=== PATIENT | female | born 1940 | race Caucasian/White ===

== ENCOUNTER 2017-05-20 06:21 | Day surgery (SDC) | payer OTHER ==
[2017-05-18 16:35] LABS: Absolute Monocytes 0.6 K/uL (0.1-1.3); Absolute Neutrophil 3.3 K/uL (1.8-8.0); Basophils % 1.4 % (0-1.3); Eosinophils % 3.8 % (0-4.4); Hematocrit 43.6 % (36.0-45.0); Lymphocytes % 32.1 % (15.3-44.8); MCV 88.5 fL (80-100); Monocytes % 9.2 % (3.3-12.3); RBC Red Blood Cell Count 4.93 M/uL (3.86-4.86)
--- NOTE | 2017-05-18 16:36 | RAD REPORT ---
EXAM DESCRIPTION: RADOP - Outpt Chest Pa/Lat (2 Views) - 05/18/2017 4:28 pm CLINICAL HISTORY: Preop chest COMPARISON: Chest/rib imaging April 2015 TECHNIQUE: PA and lateral views of the chest were obtained. FINDINGS: The lungs are clear of failure, infiltrate or mass. Lung markings are mildly prominent. No significant change from 2016. Heart size is normal and central vasculature is within normal limits. No pleural effusion or pneumothorax seen. Bones are osteopenic. Degenerative and scoliotic changes i n the spine are present without an acute finding suspected. No acute aortic finding. IMPRESSION: No acute cardiopulmonary finding seen. Chest is not substantially different from the April 2015 imaging.
[2017-05-18 17:08] LABS: Potassium 4.7 mEq/L (3.6-5.0)
--- NOTE | 2017-05-19 05:58 | EKG ---
Test Date: 2017-05-18 Test Time: 16:42:52 Watch [place] Grinder: SWATI MEASUREMENT RESULTS: Intervals: Rate: 60 NV: 188 QRSD: 76 QT: 454 QTc: 454 [place]: P: 97 NV: 188 QRS: 95 T: 77 INTERPRETIVE STATEMENTS: Normal sinus rhythm vertical axis cannot rule out Septal infarct, age undetermined Abnormal ECG Compared to ECG 02/18/2015 06:41:40 questionable Myocardial infarct finding now present Atrial premature complex(es) no longer present Electronically Signed On 05-19-17 05:58:18 CDT by Piotr Savage
[2017-05-20] MEDS ORDERED: NA CHLORIDE 0.9% 500 ML ONE (07:11)
[2017-05-20] MEDS ORDERED: CEFAZOLIN/SWI 1gm 1 GM/10 ML SYR ONE (07:12)
[2017-05-20] MEDS ORDERED: MIDAZOLAM HCL 2 MG/2 ML INJ ONE (07:39)
[2017-05-20] MEDS ORDERED: PROPOFOL 200 MG/20 ML VIAL IV ONE (07:39)
[2017-05-20] MEDS ORDERED: ONDANSETRON 4 MG/2 ML VIAL ONE (07:40)
[2017-05-20] MEDS ORDERED: FENTANYL CITR 100 MCG/2 ML ONE (07:40)
[2017-05-20] MEDS ORDERED: LIDOCAINE 2% MPF 5 ML VIAL ONE (07:40)
[2017-05-20] MEDS ORDERED: BUPIVACAINE 0.5% PF 10 ML VIAL ONE (07:51)
[2017-05-20] MEDS ORDERED: EPHEDRINE SULF 50 MG/5 ML SYR ONE (08:41)
[2017-05-20] MEDS ORDERED: GLYCOPYRROLATE 0.2 MG/ML SYR ONE ×2 (08:42→08:45)
[2017-05-20] MEDS ORDERED: MEPERIDINE HCL 25 MG/0.5 ML ONE (09:23)
--- NOTE | 2017-05-20 09:40 | OP ---
Date of Procedure: 05/20/2017 Surgeon: Yeison Salinas MD Hearing Examiner: ARON Spicer Preoperative Diagnoses: Abnormal skin, right breast; fluid, right breast in the cystic cavity; and h istory Of right breast cancer. Postoperative Diagnoses: Abnormal skin, right breast; fluid, right breast in the cystic cavity; and history of right breast cancer. Procedure: Needle aspiration of right breast cyst and excisional biopsy of right breast skin. Estimated Blood Loss: Minimal. Specimen: Fluid and thickened skin. Findings: As above. Anesthesia: General. Complication: None. Disposition: The patient tolerated the procedure in stable condition and taken to recovery in good g eneral condition. Procedure In Detail: The patient was brought to the OR and placed in the supine position. General a nesthesia was begun. The patient was prepped and draped in the usual sterile fashion. Marcaine 0.5% was infiltrated locally. A needle used to access the cystic cavity that was present in the lateral aspect of the breast. There was approximately 25 cc of fluid was aspirated and sent to pathology for cytology. Then, the thickened skin tissue that was present in the anterior superior part of the isael ast, was biopsied with an incision approximately 5 x 2 cm. Subcutaneous tissues divided. Bleeding c ontrolled with cautery. Then, the skin specimen sent to Pathology. Wound irrigated. Bleeding contr olled with cautery and then 2-0 chromic and 3-0 chromic used to approximate the subcutaneous tissue a nd close the skin. Sterile dressing was applied. The patient was awakened and taken to recovery in good general condition. Discharge Note: The patient will go to Day Surgery and home when stable. Disposition: Home. Condition: Stable. Discharge Instructions: Resume home medications and diet. Activity as tolerated. No heavy lifting. Remove outer dressing in 2 days. Shower. Keep wound clean and dry. Keep Steri-Strips on at all t imes. Tylenol No. 3 one tablet p.o. q.4 p.r.n. pain. Follow up in my office in one week. Call for appointment. SCALRET/AYAAN Voice ID: [id number] Report ID: [id number]
[2017-05-20] MEDS ORDERED: HYDROCODONE/APAP 7.5/325 MG TAB ONE (10:25)
[2017-05-20] MEDS ORDERED: NA CHLORIDE 0.9% 1,000 ML ONE (13:09)
[2017-05-20 13:38] VITALS: TEMP 98; O2SAT 98
[2017-05-20 13:40] VITALS: BP 142/78
== END 2017-05-20 10:30 | disposition home or self-care (01) ==
LOC: OR 06:21
PROVIDERS: ATTEND Surgery
DX: Z88.6 Allergy status to analgesic agent; Z88.0 Allergy status to penicillin; I10 Essential (primary) hypertension; Z85.3 Personal history of malignant neoplasm of breast; Z88.2 Allergy status to sulfonamides; L98.9 Disorder of the skin and subcutaneous tissue, unspecified; N63.0 Unspecified lump in unspecified breast
CPT/HCPCS: 10021; 11406; 36415; 71046; 80048; 85025; 88108; 88305 ×2; 93005; J0690; J2175; J2250; J2405; J3010; J7030

== ENCOUNTER 2017-06-23 13:57 | Emergency (ER) | payer OTHER ==
--- OUTSIDE RECORDS SUMMARY | 2017-06-23 13:59 | XMS REPORT ---
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 Problem Major depression, recurrent, F33.9 Active chronic Problem Overactive bladder N32.81 Active Problem Hypercholesteremia E78.00 Active Problem Rib pain R07.81 Active Problem Tobacco abuse counseling Z71.6 Active Problem Migraine G43.909 Active Problem Chronic pain syndrome G89.4 Active Problem Benign essential HTN I10 Active Problem Memory problem R41.3 Active Problem Left foot pain M79.672 Active Medications Medication Code Code Instructions Start End Status Dosage System Date Date Spiriva [facility] 12088959847 18 MCG July 18, Active 1 capsule HandiHaler Inhalation Once 2018 a day Results No Known Results Summary Purpose eClinicalWorks Submission
--- OUTSIDE RECORDS SUMMARY | 2017-06-23 13:59 | XMS REPORT ---
:1940 Author [facility] Care Team Providers Name Role Phone Wes Perrin Provider Role Unavailable Allergies No Known Allergies Problems Problem Type Condition Code Onset Dates Condition Status Problem Benign essential HTN I10 Active Assessment History of breast cancer Z85.3 Active Problem Left foot pain M79.672 Active Assessment Overactive bladder N32.81 Active Problem Allergic rhinitis J30.9 Active Problem Creatinine elevation R79.89 Active Problem Severe anxiety with panic F41.0 Active Problem History of lung cancer Z85.118 Active Problem Depression with anxiety F41.8 Active Assessment Benign essential HTN I10 Active Assessment Hypercholesteremia E78.00 Active Problem History of breast cancer Z85.3 Active Assessment Allergic rhinitis J30.9 Active Problem 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 23511738375 1 MG Orally Active 1 tablet Twice a day Pravastatin [facility] 91470602840 20 MG Orally Active 1 tablet Sodium Once a day Oxybutynin ND 66555253331 5 MG Orally Once Active 1 tablet Chloride a day Cymbalta [facility] 64997765400 30 MG Orally Active 1 capsule Twice a day Neurontin ND 94346669089 100 MG Orally Active 1 capsule Once a day Spiriva [facility] 14749135464 18 MCG Active 1 capsule HandiHaler Inhalation Once a day Singulair [facility] 02192498588 10 MG Orally Active 1 tablet Once a day in the evening Hydrocodone-Jensen [facility] 21976766371 7.5-325 MG Active 1 tablet taminophen Orally every 12 as needed hrs Amlodipine [facility] 96530836977 2.5 MG Orally Active 1 tablet Besylate Once a day Proventil HFA [facility] 17222973636 108 (90 Base) Active 2 puffs as MCG/ACT needed Inhalation every 6 hrs Results No Known Results Summary Purpose eClinicalWorks Submission
--- NOTE | 2017-06-23 14:39 | ER ---
Nurse's Notes [facility] Name: Cecile Conley Age: 77 yrs Sex: Female : 1940 Arrival Date: 06/23/2017 Time: 14:01 Bed 6 Private MD: Diagnosis: Adjustment disorder with depressed mood Presentation: 06/23 13:57 Presenting complaint: EMS states: Pt walked into Dr Perrin's office and stated to staff sv that she wanted to kill herself. EMS reports that her house may be getting taken from her. BP 150/80. Pt presents to the ER attempting to leave the hospital. Pt refuses to change into a gown. Pt keeps stating that she needs to leave and go home. Pt is rambling and doesn't appear to have a clear thinking process. Transition of care: patient was received from another setting of care (ambulatory primary care physician practice), Dr Perrin's office. Onset of symptoms was June 23, 2017. Care prior to arrival: None. 13:57 Method Of Arrival: EMS: [facility] sv 13:57 Acuity: DAVID 2 sv 13:58 Initial Sepsis Screen: Does the patient meet any 2 criteria? No. Patient's initial sv sepsis screen is negative. Does the patient have a suspected source of infection? No. Patient's initial sepsis screen is negative. Triage Assessment: 14:00 General: Appears comfortable, Behavior is cooperative, anxious, uncooperative. Pain: sv Denies pain. EENT: No signs and/or symptoms were reported regarding the EENT system. Neuro: Level of Consciousness is awake, alert, obeys commands, Oriented to person, place, time, situation, Moves all extremities. Full function Gait is steady. Respiratory: Respiratory effort is even, unlabored, Respiratory pattern is regular, symmetrical. GI: No signs and/or symptoms were reported involving the gastrointestinal system. : No signs and/or symptoms were reported regarding the genitourinary system. Derm: Skin is normal. Historical: - Allergies: 14:26 Sulfa (Sulfonamide Antibiotics); sv 14:26 Aspirin; sv - Home Meds: 14:26 Xanax Oral [Active]; sv - PMHx: 14:26 Anxiety; Hypertension; COPD; Cancer; sv - Immunization history:: Adult Immunizations up to date. - Social history:: Smoking status: Patient/guardian denies using tobacco. Screenin:35 Abuse screen: Denies threats or abuse. Denies injuries from another. Nutritional hb screening: No deficits noted. Tuberculosis screening: No symptoms or risk factors identified. Fall Risk None identified. Assessment: 14:23 Reassessment: Edwige who works the front desk coordinator at Dr Perrin's stated that the pt came up sv to the front window and stated that she needed to get a refill for her medicine from Dr Perrin. Edwige was attempting to inform her that the pharmacy usually will call the doctor office and ask for a refill. Pt stated that she got it filled at another doctor's office and that she wasn't understanding. Pt then got teary eyed and stated that she was in bad shape, really really bad shape. Pt stated to Edwige "I'm suicidal. I have all these thoughts of hurting myself." Edwige informed Dr Perrin and PD was called out and EMS. 14:25 Reassessment: Power GAMING informed what the staff stated the pt said. sv 14:40 Reassessment: Marah DODGE informed of the reason for visit for the pt. sv 15:00 Reassessment: After pt left, the Mental healthy deputy went out to the lobby to speak sv with the pt and was going to drive her home. Psych: 14:00 Safety Checks: Personal items have been removed. Pt has been placed in a hallway sv bed/chair. No visitors are present at this time. 14:00 Subjective: Patient's mood is sad, Delusions are denied, Hallucinations are denied P sv denies suicidal or homicidal ideation at this time. Objective: Patient is cooperative, uncooperative, irritable, Speech is rambling, Pt able to answer questions appropriately but doesn't appear to have a clear thought process. Interventions: Patient reassessed during use of restraints. Patient is physically safe. Patient's cardiac status is stable. Patient's respirations are even and unlabored. Patient has good circulation in all extremities as indicated by capillary refill < 3 seconds. Patient's ROM assessed and is intact. Patient nutrition and hydration needs will continue to be monitored and addressed. Patient hygiene and elimination needs met. Patient assessed for signs of distress. Patient remains reasonably comfortable at this time. Assisted patient in de-escalation of behavior by removing stimuli causing behavior where possible. Suicide Risk Assessment: Sad Person Scale: Sex of patient: Female: Score 0 points. Age of patient: Score 1 point if patient is over 65. Depression: Score 1 point if signs of depression are present. Previous Attempt: Score 0 point if patient has not previously attempted suicide. Substance Abuse: Score 0 point if patient does not abuse alcohol or drugs. Rational Thinking: Score 1 point if patient is lacking rational thinking. Social Support: Score 0 if social support is present/available. Organized Plan: Score 0 if patient did not have an organized plan in place. Relationship: Score 1 point if patient is , , , or for a single male Chronic Sickness: Score 1 point if patient has illness, chronic, debilitating, or severe. TOTAL POINTS: If total points are 5-6, proposed clinical action is to strongly consider hospitalization, depending upon confidence in the follow-up arrangement. Implement suicide precautions. Pt denies substance abuse. Vital Signs: 14:34 BP 151 / 96; Pulse 74; Resp 16; Temp 98.1; Pulse Ox 96% on R/A; Pain 0/10; hb ED Course: 14:01 Patient arrived in ED. bd 14:06 Power Jane PA is PHCP. cp 14:06 Leander Cochran MD is Attending Physician. cp 14:10 Patient has correct armband on for positive identification. Bed in low position. sv 14:11 Sofia Langston, DAR is Primary Nurse. sv 14:23 Triage completed. sv 14:35 Arm band placed on right wrist. hb 14:51 No provider procedures requiring assistance completed. Patient did not have IV access sv during this emergency room visit. Administered Medications: No medications were administered Outcome: 14:38 Discharge ordered by . cp 14:51 Discharged to home ambulatory, pt left before getting discharge paperwork. sv 14:51 Condition: stable 14:54 Patient left the ED. sv Signatures: Roxann Oswald Stephanie, Power Palafox RN, PA PA cp Baxter, Heather, RN RN Corrections: (The following items were deleted from the chart) 14:37 13:57 Presenting complaint: EMS states: Pt walked into Dr Perrin's office and stated to sv staff that she wanted to kill herself. EMS reports that her house may be getting taken from her. BP 150/80. sv
--- NOTE | 2017-06-23 14:40 | EDPHYS ---
Physician Documentation [facility] Emergency [facility] Name: Cecile Conley Age: 77 yrs Sex: Female : 1940 Arrival Date: 06/23/2017 Time: 14:01 Bed 6 Private MD: ED Physician Leander Cochran HPI: 06/23 14:35 This 77 yrs old Female presents to ER via EMS with complaints of Suicidal cp Ideation. 14:35 The patient presents to the emergency department with depression, recent foreclosure cp proceedings on home. Onset: The symptoms/episode began/occurred gradually. Past psychiatric history: Prior diagnosis: anxiety. 14:35 Patient referred to ED from office of DR Perrin for making suicidal threats. When asked cp in ED about wanting to harm herself or others, patient repeatedly denies wanting to harm herself or others. Patient reports she was recently in foreclosure proceedings on home and believes she may have recently been conned out of 2000 thousand dollars. Patient admits to recent hardships, but when questioned on several occasions denies wanting to hurt herself. Historical: - Allergies: 14:26 Sulfa (Sulfonamide Antibiotics); sv 14:26 Aspirin; sv - Home Meds: 14:26 Xanax Oral [Active]; sv - PMHx: 14:26 Anxiety; Hypertension; COPD; Cancer; sv - Immunization history:: Adult Immunizations up to date. - Social history:: Smoking status: Patient/guardian denies using tobacco. ROS: 14:35 Eyes: Negative for injury, pain, redness, and discharge. cp 14:35 Constitutional: Negative for body aches, chills, fever, poor PO intake. 14:35 ENT: Negative for drainage from ear(s), ear pain, sore throat, difficulty swallowing, difficulty handling secretions. 14:35 Cardiovascular: Negative for chest pain, edema, palpitations. 14:35 Respiratory: Negative for cough, shortness of breath, wheezing. 14:35 Abdomen/GI: Negative for abdominal pain, nausea, vomiting, and diarrhea. 14:35 Skin: Negative for cellulitis, rash. 14:35 Neuro: Negative for altered mental status, headache, weakness. 14:35 Psych: Positive for depression, Negative for auditory hallucinations, visual hallucinations, homicidal ideation, suicide gesture, suicidal ideation. 14:35 All other systems are negative. Exam: 14:35 Head/Face: Normocephalic, atraumatic. cp 14:35 Constitutional: The patient appears in no acute distress, alert, awake, non-diaphoretic, non-toxic, well developed, well nourished. 14:35 Eyes: Periorbital structures: appear normal, Conjunctiva: normal, no exudate, no injection, Sclera: no appreciated abnormality, Lids and lashes: appear normal, bilaterally. 14:35 ENT: External ear(s): are unremarkable, Nose: is normal, Mouth: is normal. 14:35 Chest/axilla: Inspection: normal. 14:35 Cardiovascular: Rate: normal. 14:35 Respiratory: the patient does not display signs of respiratory distress, Respirations: normal, no use of accessory muscles, no retractions, no splinting, no tachypnea. 14:35 Abdomen/GI: Exam negative for discomfort, distension, guarding, Inspection: abdomen appears normal. 14:35 Back: pain, is absent. 14:35 Skin: cellulitis, is not appreciated, no rash present. 14:35 Neuro: Orientation: to person, place \T\ time. Mentation: lucid, able to follow commands, Cerebellar function: is grossly normal, Motor: moves all fours, strength is normal, Gait: is steady, at a normal pace, without difficulty. 14:35 Psych: Affect is calm, Oriented to person, place, time, Patient has no thoughts/intents to harm self or others. Judgement / Insight is normal. Delusions/hallucinations are not present. Vital Signs: 14:34 BP 151 / 96; Pulse 74; Resp 16; Temp 98.1; Pulse Ox 96% on R/A; Pain 0/10; hb MDM: 14:06 Patient medically screened. cp 14:35 Differential diagnosis: acute psychotic break, depression, psychosis secondary to cp non-compliance, suicidal ideation. 14:38 Data reviewed: vital signs, nurses notes, and as a result, I will discharge patient. cp 14:38 Counseling: I had a detailed discussion with the patient and/or guardian regarding: the cp historical points, exam findings, and any diagnostic results supporting the discharge/admit diagnosis, to return to the emergency department if symptoms worsen or persist or if there are any questions or concerns that arise at home. 14:38 ED course: VSS. Patient continues to deny suicidal ideation. Patient informed and cp competent in decision making. Will discharge to home for continued monitoring. Administered Medications: No medications were administered Disposition: 16:40 Co-signature as Attending Physician, Leander Cochran MD. rn Disposition: 06/23/17 14:38 Discharged to Home. Impression: Adjustment disorder with depressed mood. - Condition is Stable. - Discharge Instructions: Depression, Adult. - Medication Reconciliation Form, Thank You Letter, Antibiotic Education, Prescription Opioid Use form. - Follow up: Private Physician; When: 1 - 2 days; Reason: Recheck today's complaints. - Problem is new. - Symptoms have improved. Signatures: Sofia Langston RN RN sv Nieto, Roman, MD MD rn Page, Corey, PA PA cp
[2017-06-23 14:58] VITALS: BP 151/96; TEMP 98.1; O2SAT 96
== END 2017-06-23 14:54 | disposition home or self-care (01) ==
LOC: ER 13:57
DX: F43.21 Adjustment disorder with depressed mood (principal); I10 Essential (primary) hypertension; J44.9 Chronic obstructive pulmonary disease, unspecified; Z88.2 Allergy status to sulfonamides
CPT/HCPCS: 99283

== ENCOUNTER 2017-11-08 10:22 | Emergency (ER) | payer OTHER ==
--- OUTSIDE RECORDS SUMMARY | 2017-11-08 10:25 | XMS REPORT ---
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 Problem Major depression, recurrent, F33.9 Active chronic Problem CKD (chronic kidney disease) stage N18.3 Active 3, GFR 30-59 ml/min Problem Tobacco abuse counseling Z71.6 Active Problem Left foot pain M79.672 Active Problem Allergic rhinitis J30.9 Active Problem Migraine G43.909 Active Problem Rib pain R07.81 Active Problem Benign essential HTN I10 Active Problem Chronic pain syndrome G89.4 Active Medications Medication Code Code Instructions Start End Status Dosage System Date Date Proventil HFA [facility] 50218018874 108 (90 Base) Inactive 2 puffs MCG/ACT as needed Inhalation every 6 hrs Ventolin HFA [facility] 41818075312 108 (90 Base) August 16 Active 2 puffs MCG/ACT 2018 as needed Inhalation every 6 hrs Results No Known Results Summary Purpose eClinicalWorks Submission
--- OUTSIDE RECORDS SUMMARY | 2017-11-08 10:25 | XMS REPORT ---
:1940 [facility] Team Providers Name Role Phone Wes Perrin Provider Role Unavailable Allergies No Known Allergies Problems Problem Type Condition Code Onset Dates Condition Status Assessment History of breast cancer Z85.3 Active Problem Rib pain R07.81 Active Assessment Overactive bladder N32.81 Active Problem Chronic pain syndrome G89.4 Active Assessment Allergic rhinitis J30.9 Active Problem Memory problem R41.3 Active Problem Overactive bladder N32.81 Active Problem Hypercholesteremia E78.00 Active Problem History of breast cancer Z85.3 Active Problem History of lung cancer Z85.118 Active Assessment Chronic pain syndrome G89.4 Active Assessment Benign essential HTN I10 Active Problem Depression with anxiety F41.8 Active Assessment Hypercholesteremia E78.00 Active Problem Creatinine elevation R79.89 Active Problem Severe anxiety with panic F41.0 Active Problem 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 Problem Major depression, recurrent, F33.9 Active chronic Problem CKD (chronic kidney disease) stage N18.3 Active 3, GFR 30-59 ml/min Problem Tobacco abuse counseling Z71.6 Active Assessment Major depression, recurrent, F33.9 Active chronic Assessment Severe anxiety with panic F41.0 Active Problem Left foot pain M79.672 Active Problem Allergic rhinitis J30.9 Active Problem Migraine G43.909 Active Problem Benign essential HTN I10 Active Medications Medication Code Code Instructions Start End Status Dosage System Date Oxybutynin ND 29463580802 5 MG Orally Once Active 1 tablet Chloride a day Amlodipine ND 43345913791 2.5 MG Orally Active 1 tablet Besylate Once a day Proventil HFA ND 55870921242 108 (90 Base) Active 2 puffs as MCG/ACT needed Inhalation every 6 hrs Spiriva ND 76476087715 18 MCG July Active 1 capsule HandiHaler Inhalation Once 24, a day 2017 Alprazolam ND 71594708060 1 MG Orally Active 1 tablet Twice a day Hydrocodone-Jensen ND 55174058225 7.5-325 MG Active 1 tablet taminophen Orally every 12 as needed hrs Pataday [facility] 55560724967 0.2 % Ophthalmic Active Instill 1 once a day drop in each eye every day Singulair [facility] 13889789694 10 MG Orally Active 1 tablet Once a day in the evening Neurontin [facility] 91846422682 100 MG Orally Active 1 capsule Once a day Pravastatin [facility] 98067735804 20 MG Orally Active 1 tablet Sodium Once a day Results No Known Results Summary Purpose eClinicalWorks Submission
--- OUTSIDE RECORDS SUMMARY | 2017-11-08 10:25 | XMS REPORT ---
:1940 Author Organization eClinicalWorks Care Team Providers Name Role Phone Wes Perrin Provider Role Unavailable Allergies No Known Allergies Problems Problem Type Condition Code Onset Dates Condition Status Assessment History of breast cancer Z85.3 Active Assessment Overactive bladder N32.81 Active Problem Rib pain R07.81 Active Assessment Allergic rhinitis J30.9 Active Problem Chronic pain syndrome G89.4 Active Assessment Hypercholesteremia E78.00 Active Problem Memory problem R41.3 Active Problem Overactive bladder N32.81 Active Problem Hypercholesteremia E78.00 Active Problem History of breast cancer Z85.3 Active Problem History of lung cancer Z85.118 Active Assessment Major depression, recurrent, F33.9 Active chronic Assessment Chronic pain syndrome G89.4 Active Problem Depression with anxiety F41.8 Active Assessment Benign essential HTN I10 Active Problem Creatinine elevation R79.89 Active Problem Severe anxiety with panic F41.0 Active Problem 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 Problem Major depression, recurrent, F33.9 Active chronic Problem CKD (chronic kidney disease) stage N18.3 Active 3, GFR 30-59 ml/min Problem Tobacco abuse counseling Z71.6 Active Assessment Severe anxiety with panic F41.0 Active Problem Left foot pain M79.672 Active Problem Allergic rhinitis J30.9 Active Problem Migraine G43.909 Active Problem Benign essential HTN I10 Active Medications Medication Code Code Instructions Start End Status Dosage System Date Date Hydrocodone-Jensen ND 86942932818 7.5-325 MG Active 1 tablet taminophen Orally every 12 as needed hrs Pravastatin ND 09424842252 20 MG Orally Active 1 tablet Sodium Once a day Neurontin ND 93128979932 100 MG Orally Active 1 capsule Once a day Ventolin HFA ND 38349640475 108 (90 Base) August 16, Active 2 puffs as MCG/ACT 2018 needed Inhalation every 6 hrs Singulair ND 16348103806 10 MG Orally Active 1 tablet Once a day in the evening Alprazolam ND 71919223940 1 MG Orally Active 1 tablet Twice a day Oxybutynin [facility] 09037965587 5 MG Orally Once Active 1 tablet Chloride a day Amlodipine [facility] 13909084472 2.5 MG Orally Active 1 tablet Besylate Once a day [facility] 92044364128 0.2 % Ophthalmic Active Instill 1 once a day drop in each eye every day Results No Known Results Summary Purpose eClinicalWorks Submission
--- OUTSIDE RECORDS SUMMARY | 2017-11-08 10:25 | XMS REPORT ---
[...] Problem Left foot pain M79.672 Active Medications No Known Medications Results No Known Results Summary Purpose eClinicalWorks Submission
--- OUTSIDE RECORDS SUMMARY | 2017-11-08 10:25 | XMS REPORT ---
[...] Problem Chronic pain syndrome G89.4 Active Medications No Known Medications Results No Known Results Summary Purpose eClinicalWorks Submission
--- OUTSIDE RECORDS SUMMARY | 2017-11-08 10:25 | XMS REPORT ---
[...] Start End Status Dosage System Date Date Amlodipine ND 24382305540 2.5 MG Orally Active 1 tablet Besylate Once a day Oxybutynin ND 85083265710 5 MG Orally Active 1 tablet Chloride Once a day Cymbalta ND 42388447905 30 MG Orally Inactive 1 capsule Twice a day Pravastatin ND 58071716729 20 MG Orally Active 1 tablet Sodium Once a day Patada ND 99552063584 0.2 % Active Instill 1 Ophthalmic once drop in a day each eye every day Spiriva [facility] 08496786124 18 MCG July Active 1 capsule HandiHaler Inhalation Once 24, a day 2017 Hydrocodone-Jensen [facility] 06435065433 7.5-325 MG Active 1 tablet taminophen Orally every 12 as needed hrs Alprazolam [facility] 37761207084 1 MG Orally Active 1 tablet Twice a day Neurontin [facility] 39792068010 100 MG Orally Active 1 capsule Once a day Singulair [facility] 50245046709 10 MG Orally Active 1 tablet Once a day in the evening Proventil HFA [facility] 01846194253 108 (90 Base) Active 2 puffs as MCG/ACT needed Inhalation every 6 hrs Results No Known Results Summary Purpose eClinicalWorks Submission
--- OUTSIDE RECORDS SUMMARY | 2017-11-08 10:25 | XMS REPORT ---
[...] End Status Dosage System Date Date Spiriva [facility] 59038307446 18 MCG July 18, Active 1 capsule HandiHaler Inhalation Once 2018 a day Results No Known Results Summary Purpose eClinicalWorks Submission
--- OUTSIDE RECORDS SUMMARY | 2017-11-08 10:25 | XMS REPORT ---
:1940 [facility] Team Providers Name Role Phone [...] End Status Dosage System Date Date Alprazolam [facility] 87121380153 1 MG Orally Active 1 tablet Twice a day Pravastatin [facility] 13717191521 20 MG Orally Active 1 tablet Sodium Once a day Oxybutynin ND 61239881162 5 MG Orally Once Active 1 tablet Chloride a day Cymbalta [facility] 31300212969 30 MG Orally Active 1 capsule Twice a day Neurontin ND 43371427059 100 MG Orally Active 1 capsule Once a day Spiriva [facility] 42683551641 18 MCG Active 1 capsule HandiHaler Inhalation Once a day Singulair [facility] 77339344105 10 MG Orally Active 1 tablet Once a day in the evening Hydrocodone-Jensen [facility] 58111820144 7.5-325 MG Active 1 tablet taminophen Orally every 12 as needed hrs Amlodipine [facility] 55937765614 2.5 MG Orally Active 1 tablet Besylate Once a day Proventil HFA [facility] 53158872482 108 (90 Base) Active 2 puffs as MCG/ACT needed Inhalation every 6 hrs Results No Known Results Summary Purpose eClinicalWorks Submission
--- OUTSIDE RECORDS SUMMARY | 2017-11-08 10:25 | XMS REPORT ---
:1940 Author Organization eClinicalWorks Care Team Providers Name Role Phone PerrinWes Provider Role Unavailable Allergies No Known Allergies [...] End Status Dosage System Date Date Spiriva [facility] 71516061941 18 MCG July Active 1 capsule HandiHaler Inhalation Once 24, a day 2017 Results No Known Results Summary Purpose eClinicalWorks Submission
--- OUTSIDE RECORDS SUMMARY | 2017-11-08 10:25 | XMS REPORT ---
[...] Medications Medication Code Code Instructions Start End Date Status Dosage System Date Proventil HFA [facility] 31497117334 108 (90 Base) Active 2 puffs MCG/ACT as needed Inhalation every 6 hrs Results No Known Results Summary Purpose eClinicalWorks Submission
--- OUTSIDE RECORDS SUMMARY | 2017-11-08 10:25 | XMS REPORT ---
[...] Problem Tobacco abuse counseling Z71.6 Active Assessment Hypercholesteremia E78.00 Active Assessment Benign essential HTN I10 Active Problem Left foot pain M79.672 Active Problem Allergic rhinitis J30.9 Active Problem Migraine G43.909 Active Problem Rib pain R07.81 Active Problem Benign essential HTN I10 Active Problem Chronic pain syndrome G89.4 Active Medications Medication Code Code Instructions Start End Status Dosage System Date Date Neurontin ND 62172538571 100 MG Orally Active 1 capsule Once a day Amlodipine ND 33454570049 2.5 MG Orally Active 1 tablet Besylate Once a day Results No Known Results Summary Purpose eClinicalWorks Submission
--- OUTSIDE RECORDS SUMMARY | 2017-11-08 10:25 | XMS REPORT ---
:1940 Author Organization eClinicalWorks Care Team Providers Name Role Phone Wes Perrin Provider Role Unavailable Allergies No Known Allergies Problems Problem Type Condition Code Onset Dates Condition Status Assessment Tobacco use disorder F17.200 Active Assessment History of breast cancer Z85.3 Active Assessment Overactive bladder N32.81 Active Assessment Allergic rhinitis J30.9 Active Problem Benign essential HTN I10 Active Assessment Hypercholesteremia E78.00 Active Problem Left foot pain M79.672 Active Assessment Benign essential HTN I10 Active Problem Allergic rhinitis J30.9 Active Problem Chronic pain syndrome G89.4 Active Problem Rib pain R07.81 Active Problem History of breast cancer Z85.3 Active Problem History of lung cancer Z85.118 Active Assessment Severe anxiety with panic F41.0 Active Assessment Major depression, recurrent, F33.9 Active chronic Problem Tobacco use disorder F17.200 Active Assessment Chronic pain syndrome G89.4 Active Problem Hypercholesteremia E78.00 Active Problem Memory problem R41.3 Active Problem Depression with anxiety F41.8 Active Problem Overactive bladder N32.81 Active Problem Severe anxiety with panic F41.0 Active Problem Creatinine elevation R79.89 Active Problem CKD (chronic kidney disease) stage N18.3 Active 3, GFR 30-59 ml/min Problem Tobacco abuse counseling Z71.6 Active Problem Migraine G43.909 Active Problem Major depression, recurrent, F33.9 Active chronic Problem 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 Medications Medication Code Code Instructions Start End Status Dosage System Date Date Ventolin HFA ND 37676946933 108 (90 Base) August 16, Active 2 puffs as MCG/ACT 2018 needed Inhalation every 6 hrs Pataday ND 31203321083 0.2 % Ophthalmic Active Instill 1 once a day drop in each eye every day Hydrocodone-Jensen NDC 10955825560 7.5-325 MG Active 1 tablet taminophen Orally every 12 as needed hrs Amlodipine ND 32183604195 2.5 MG Orally Active 1 tablet Besylate Once a day Oxybutynin NDC 98246526978 5 MG Orally Once Active 1 tablet Chloride a day Singulair [facility] 77635995290 10 MG Orally Active 1 tablet Once a day in the evening Pravastatin [facility] 33220035953 20 MG Orally Active 1 tablet Sodium Once a day Neurontin [facility] 27252190354 100 MG Orally Active 1 capsule Once a day Alprazolam [facility] 15811109713 1 MG Orally Active 1 tablet Twice a day Results No Known Results Summary Purpose eClinicalWorks Submission
--- NOTE | 2017-11-08 10:51 | ER ---
Nurse's Notes [facility] Name: Cecile Conley Age: 77 yrs Sex: Female : 1940 Arrival Date: 11/08/2017 Time: 10:28 Bed 15 Private MD: Wes Perrin Diagnosis: Anxiety disorder, unspecified;Encounter for medication refill Presentation: 11/08 10:30 Presenting complaint: Patient states: needs Xanax refill. Pt states "I went to Dr. bouchra Perrin's office and they couldn't find the prescription and he is out doing surgery". Pt states "I've taken Xanax since 1981". 10:30 Transition of care: patient was not received from another setting of care. Onset of aa5 symptoms was November 08, 2017. Risk Assessment: Do you want to hurt yourself or someone else? Patient reports no desire to harm self or others. Initial Sepsis Screen: Does the patient meet any 2 criteria? No. Patient's initial sepsis screen is negative. Does the patient have a suspected source of infection? No. Patient's initial sepsis screen is negative. Care prior to arrival: None. 10:30 Method Of Arrival: Ambulatory aa5 10:30 Acuity: DAVID 5 aa5 Triage Assessment: 10:45 General: Appears in no apparent distress. uncomfortable, Behavior is calm, cooperative, hj appropriate for age. Pain: Denies pain. Historical: - Allergies: 10:37 Aspirin; aa5 10:37 Sulfa (Sulfonamide Antibiotics); aa5 - PMHx: 10:37 Anxiety; COPD; Hypertension; Breast Cancer; aa5 10:46 TB; aa5 - PSHx: 10:46 Right kidney removed; Right breast lymph nodes removed; aa5 - Immunization history:: Adult Immunizations unknown. - Ebola Screening: : No symptoms or risks identified at this time. - Social history:: Smoking status: Patient/guardian denies using tobacco, Patient/guardian denies using alcohol. - Family history:: not pertinent. - Hospitalizations: : No recent hospitalization is reported. Screenin:45 Abuse screen: Denies threats or abuse. Denies injuries from another. Nutritional hj screening: No deficits noted. Tuberculosis screening: No symptoms or risk factors identified. Fall Risk None identified. Vital Signs: 10:31 BP 152 / 99; Pulse 76; Resp 18 S; Temp 99.2(O); Pulse Ox 95% on R/A; Pain 0/10; aa5 ED Course: 10:28 Patient arrived in ED. mr 10:29 Wes Perrin DO is Private Physician. mr 10:30 Andrea Napoles, RN is Primary Nurse. hj 10:30 Leander Cochran MD is Attending Physician. rn 10:30 Arm band placed on Patient placed in an exam room, on a stretcher. aa5 10:36 Triage completed. aa5 10:46 Patient has correct armband on for positive identification. Bed in low position. Call hj light in reach. Side rails up X 1. 10:50 Wes Perrin DO is Referral Physician. rn 10:56 No provider procedures requiring assistance completed. Patient did not have IV access hj during this emergency room visit. Administered Medications: No medications were administered Outcome: 10:50 Discharge ordered by . rn 10:56 Discharged to home ambulatory. hj 10:56 Condition: stable 10:56 Discharge instructions given to patient, Instructed on discharge instructions, follow up and referral plans. medication usage, Demonstrated understanding of instructions, follow-up care, medications, Prescriptions given X 1. 10:56 Patient left the ED. Signatures: Jayleen Martinez mr Leander Cochran MD MD rn Calderon, Audri, RN RN [facility] Andrea Napoles, DAR RN
--- NOTE | 2017-11-08 10:51 | EDPHYS ---
Physician Documentation [facility] Name: Cecile Conley Age: 77 yrs Sex: Female : 1940 Arrival Date: 11/08/2017 Time: 10:28 Bed 15 Private MD: Ritesh Perrinh ED Physician Leander Cochran HPI: 11/08 10:46 This 77 yrs old Female presents to ER via Ambulatory with complaints of rn Anxiety. 10:46 Reports generalized anxiety disorder, has taken xanax since 80s, can't be without it, rn feels ok now, but her physician is having surgery and office closed, plans on calling tomorrow. . Onset: The symptoms/episode began/occurred at an unknown time. The patient has experienced similar episodes in the past, chronically. The patient has not recently seen a physician. Historical: - Allergies: 10:37 Aspirin; aa5 10:37 Sulfa (Sulfonamide Antibiotics); aa5 - PMHx: 10:37 Anxiety; COPD; Hypertension; Breast Cancer; aa5 10:46 TB; aa5 - PSHx: 10:46 Right kidney removed; Right breast lymph nodes removed; aa5 - Immunization history:: Adult Immunizations unknown. - Ebola Screening: : No symptoms or risks identified at this time. - Social history:: Smoking status: Patient/guardian denies using tobacco, Patient/guardian denies using alcohol. - Family history:: not pertinent. - Hospitalizations: : No recent hospitalization is reported. ROS: 10:46 Constitutional: Negative for fever, chills, and weight loss, Eyes: Negative for injury, rn pain, redness, and discharge, Neck: Negative for injury, pain, and swelling, Cardiovascular: Negative for chest pain, palpitations, and edema, Respiratory: Negative for shortness of breath, cough, wheezing, and pleuritic chest pain, Abdomen/GI: Negative for abdominal pain, nausea, vomiting, diarrhea, and constipation, MS/Extremity: Negative for injury and deformity, Skin: Negative for injury, rash, and discoloration, Neuro: Negative for headache, weakness, numbness, tingling, and seizure. Exam: 10:46 Constitutional: This is a well developed, well nourished patient who is awake, alert, rn and in no acute distress. Head/Face: Normocephalic, atraumatic. Eyes: Pupils equal round and reactive to light, extra-ocular motions intact. Lids and lashes normal. Conjunctiva and sclera are non-icteric and not injected. Cornea within normal limits. Periorbital areas with no swelling, redness, or edema. ENT: MMM, no stridor Respiratory: No increased work of breathing, no hyperventilation, speaking full sentences Skin: Warm, dry with normal turgor. Normal color with no rashes, no lesions, and no evidence of cellulitis. MS/ Extremity: Pulses equal, no cyanosis. Neurovascular intact. Full, normal range of motion. Equal circumference. Neuro: Awake and alert, GCS 15, oriented to person, place, time, and situation. Cranial nerves II-XII grossly intact. Motor strength 5/5 in all extremities. Sensory grossly intact. Cerebellar exam normal. Normal gait. Vital Signs: 10:31 BP 152 / 99; Pulse 76; Resp 18 S; Temp 99.2(O); Pulse Ox 95% on R/A; Pain 0/10; aa5 MDM: 10:30 Patient medically screened. rn 10:48 Differential Diagnosis medication refill. Data reviewed: vital signs, nurses notes, and rn as a result, I will discharge patient. Counseling: I had a detailed discussion with the patient and/or guardian regarding: the historical points, exam findings, and any diagnostic results supporting the discharge/admit diagnosis, the need for outpatient follow up, to return to the emergency department if symptoms worsen or persist or if there are any questions or concerns that arise at home. Special discussion: I discussed with the patient/guardian in detail that at this point there is no indication for admission to the hospital. It is understood, however, that if the symptoms persist or worsen the patient needs to return immediately for re-evaluation. Based on the history and exam findings, there is no indication for further emergent testing or inpatient evaluation. I discussed with the patient/guardian the need to see the primary care provider for further evaluation of the symptoms. ED course: Will prescribe a few xanax to keep her from withdrawal, low dose, urged to f/u with her PCP, sounds like she is having trouble finding a pcp that "she likes", and will prescribe her xanax, told her ER was not place for refill of medication. . Administered Medications: No medications were administered Disposition: 09/10/18 10:50 Discharged to Home. Impression: Anxiety disorder, unspecified, Encounter for medication refill. - Condition is Stable. - Discharge Instructions: Panic Attacks, Generalized Anxiety Disorder. - Prescriptions for Xanax 1 mg Oral Tablet - take 1 tablet by ORAL route every 8-12 hours As needed; 10 tablet. - Medication Reconciliation Form, Thank You Letter, Antibiotic Education, Prescription Opioid Use form. - Follow up: Wes Perrin DO; When: As needed; Reason: Recheck today's complaints, Re-evaluation by your physician. - Problem is chronic. - Symptoms are unchanged. Signatures: Leander Cochran MD MD rn Calderon, Audri, RN RN aa5 Andrea Napoles RN RN hj Corrections: (The following items were deleted from the chart) 10:56 10:50 11/08/2017 10:50 Discharged to Home. Impression: Anxiety disorder, unspecified; hj Encounter for medication refill. Condition is Stable. Forms are Medication Reconciliation Form, Thank You Letter, Antibiotic Education, Prescription Opioid Use. Follow up: Wes Perrin; When: As needed; Reason: Recheck today's complaints, Re-evaluation by your physician. Problem is chronic. Symptoms are unchanged. rn
[2017-11-08 11:02] VITALS: BP 152/99; TEMP 99.2; O2SAT 95
== END 2017-11-08 10:56 | disposition home or self-care (01) ==
LOC: ER 10:22
DX: Z76.0 Encounter for issue of repeat prescription (principal); I10 Essential (primary) hypertension; Z85.3 Personal history of malignant neoplasm of breast; Z88.2 Allergy status to sulfonamides; Z88.6 Allergy status to analgesic agent
CPT/HCPCS: 99282

== ENCOUNTER 2020-09-12 12:28 | Inpatient (IN) | payer OTHER ==
--- OUTSIDE RECORDS SUMMARY | 2020-09-12 12:30 | XMS REPORT | Continuity of Care Document ---
:1940 Author Organization [facility] t Address [address] [place] [address] Care Team Providers Name Role Phone Unavailable Unavailable Unavailable Problems This patient has no known problems. Allergies, Adverse Reactions, Alerts Allergy Allergy Status Severity Reaction(s) Onset Inactive Treating Comm ents Source Name Type Date Date Clinician Sulfa Adverse Active anaphalaxis [facility] Medications Ordered Filled Start Stop Current Ordering Indication Dosage Frequency Signature Comments Components Source Medication Medication Date Date Medication? Clinician (SIG) Name Name Lyndon Haney Yes Wes [address] [facility] Pataday Pataday Yes Wes Instill [address] [facility] [address] [facility] [facility] Bevespi Bevespi Yes Wes [address] [facility] Aerosphere Aerosphere [place] [facility]ia [facility] Tamsulosin Tamsulosin Yes Wes [address] [facility] HCl HCl [facility] Alprazolam Alprazolam Yes Wes [address] [facility] Proventil Proventil Yes Wes as [facility] HFA HFA [place] directed [facility] Hydrocodone Hydrocodone Yes Wes [address] [facility] -Acetaminop -Acetaminop [place] as needed [facility] Amlodipine Amlodipine Yes Wes [address] [facility] Besylate Besylate [place] [facility] Neurontin Neurontin Yes Wes [address] [facility] Pravastatin Pravastatin Yes Wes [address] [facility] Sodium Sodium [place] [facility] Escitalopra Escitalopra Yes Wes TAKE [address] [facility] m Oxalate m Oxalate [place] TABLET BY [facility] Escitalopra Escitalopra Yes Wes [address] [facility] Oxalate m Oxalate [place] [facility] Procedures This patient has no known procedures. Encounters Start End Encounter Admission Attending Care Care Encounter Source Date/Time Date/Time Type Type Clinicians Facility Department ID 2020-07-02 2020-07-[address] [facility] [id number] [facility] 2020-07-02 2020-07-[facility] [id number] [facility] 2020-06-12 2020-06-12 [facility] [id number] [facility] 2020-04-25 2020-04-25 [facility] [id number] [facility] 2020-04-10 2020-04-10 [facility] [id number] [facility] 2020-04-09 2020-04-09 [facility] [id number] [facility] 2020-04-02 2020-04-[address] [facility] [id number] [facility] 2020-03-19 2020-03-19 Out[facility] [id number] [facility] 2020-03-19 2020-03-19 Out[facility] [id number] [facility] 2020-01-18 2020-01-18 [facility] [id number] [facility] 2020-01-17 2020-01-17 [facility] [id number] [facility] 2020-01-11 2020-01-11 [facility] [id number] [facility] 2020-01-02 2020-01-02 Out[facility] [id number] [facility] 2019-11-30 2019-11-30 [facility] [id number] [facility] 2019-11-02 2019-11-02 [facility] [id number] [facility] 13:30:00 13:30:[address] [facility] - Drive [facility] Family Medicine l Medicine Outpati ent Clinics 2019-10-02 2019-10-02 [facility] [id number] [facility] 13:00:00 13:00:[address] [facility] - Drive [facility] Family Medicine l Medicine Outpati ent Clinics 2019-08-30 2019-08-30 [facility] [id number] [facility] 11:00:00 11:00:[address] Luke [facility] - Drive [facility] Family Medicine l Medicine Outpati ent Clinics 2019-08-03 2019-08-03 [facility] [id number] [facility] 13:15:00 13:15:[address] Luke [facility] - Drive [facility] Family Medicine l Medicine Outpati ent Clinics 2019-06-30 2019-06-30 [facility] [id number] [facility] 11:30:00 11:30:[address] Luke [facility] - Drive [facility] Family Medicine l Medicine Outpati ent Clinics 2019-06-16 2019-06-16 [facility] [id number] [facility] 14:06:00 14:06:00 t Specialty/U Claudia kes - Specialty rology [facility] /Urology Clinic l Clinic Outpati ent Clinics 2019-06-16 2019-06-16 [facility] [id number] [address] 13:49:00 13:49:00 t Denison [employer] [facility] Medicine l Medicine Outpati ent Clinics 2019-06-01 2019-06-01 [facility] [id number] [address] 08:45:00 08:45:00 t Replise s [employer] [facility] Medicine Outpati ent Clinics 2019-05-05 2019-05-05 [facility] [id number] [facility] 10:00:00 10:00:00 t Eved [facility] l Medicine Outpati ent Clinics 2019-04-04 2019-04-04 [facility] [id number] [facility] 11:15:00 11:15:00 t Eved [facility] Medicine l Medicine Outpati ent Clinics 2019-03-06 2019-03-06 [facility] [id number] [facility] 10:30:00 10:30:00 t Eved [facility] Medicine Outpati ent Clinics 2019-02-27 2019-02-27 [facility] [id number] [facility] 13:00:00 13:00:00 t Specialty/U Claudia kes - Specialty rology Memori a /Urology Clinic l Clinic Outpati ent Clinics 2019-02-01 2019-02-01 [facility] [id number] [facility] 11:00:00 11:00:00 t Replise s [employer] [facility] l Medicine Outpati ent Clinics 2019-01-02 2019-01-02 [facility] [id number] [address] 13:00:00 13:00:00 t Replise s [employer] [facility] l Medicine Outpati ent Clinics 2018-12-01 2018-12-01 [facility] [id number] [facility] 14:15:00 14:15:00 t Denison Denison [employer]ik [facility] - Drive [facility] Family Medicine l Medicine Outpati ent Clinics 2018-11-17 2018-11-17 [facility] [id number] 13:15:00 13:15:00 t Specialty/U Claudia kes - Specialty rology Memori a /Urology Clinic l Clinic Outpati ent Clinics 2018-11-08 2018-11-08 [facility] [id number] 09:01:00 09:01:00 t Denison Denison Kik [facility] - Drive [facility] Medicine l Medicine Outpati ent Clinics 2018-11-07 2018-11-07 [facility] [id number] [address] 11:53:00 11:53:00 t Specialty/U Claudia kes - Specialty rology Memori a /Urology Clinic l Clinic Outpati ent Clinics 2018-11-03 2018-11-03 [facility] [id number] 14:30:00 14:30:00 t Denison Denison K[employer] - Drive [facility] Medicine Medicine Outpati ent Clinics 2018-11-01 2018-11-01 [facility] [id number] 11:36:00 11:36:00 t Denison Denison K[employer] - Drive [facility] Medicine Medicine Outpati ent Clinics 2018-10-24 2018-10-24 [facility] [id number] [facility] 13:30:00 13:30:00 t Specialty/U Claudia kes - Specialty rology Memori a /Urology Clinic l Clinic Outpati ent Clinics 2018-10-10 2018-10-10 [facility] [id number] [address] 14:36:00 14:36:00 t Denison Denison Kik [facility] - Drive [facility] Medicine Medicine Outpati ent Clinics 2018-10-04 2018-10-04 [facility] [id number] 13:15:00 13:15:00 t Denison Denison [employer] - Drive [facility] l Medicine Outpati ent Clinics 2018-08-30 2018-08-30 [facility] [id number] [address] 11:45:00 11:45:00 t Denison Denison K[employer] - Drive [facility] Medicine l Medicine Outpati ent Clinics 2018-07-07 2018-07-07 [facility] [id number] [address] 13:00:00 13:00:00 t Specialty/U Claudia kes - Specialty rology [facility] a /Urology Clinic l Clinic Outpati ent Clinics 2018-06-29 2018-06-29 [facility] [id number] [address] 14:00:00 14:00:00 t Denison Denison Kik [facility] - Drive [facility] Medicine l Medicine Outpati ent Clinics 2018-05-31 2018-05-31 [facility] [id number] [facility] 13:30:00 13:30:00 t Denison Denison K[employer] [facility] - Drive [facility] Medicine l Medicine Outpati ent Clinics 2018-05-02 2018-05-02 [facility] [id number] [facility] 13:15:00 13:15:00 t Denison Denison K[employer] [facility] - Drive [facility] Medicine l Medicine Outpati ent Clinics 2018-04-25 2018-04-25 [facility] [id number] [facility] 14:00:00 14:00:00 t Denison Denison K[employer] [facility] - Drive [facility] Medicine l Medicine Outpati ent Clinics 2018-04-04 2018-04-04 [facility] [id number] [facility] 11:15:00 11:15:00 t Denison Denison Kik [facility] - Drive [facility] Medicine l Medicine Outpati ent Clinics 2018-03-07 2018-03-07 [facility] [id number] [facility] 11:15:00 11:15:00 t Denison Denison K[employer] [facility] - Drive [facility] Medicine l Medicine Outpati ent Clinics 2017-12-02 2017-12-02 [facility] [id number] [facility] 11:15:00 11:15:00 t Denison Denison Kik [facility] - Drive [facility] Medicine l Medicine Outpati ent Clinics 2017-11-08 2017-11-08 [facility] [id number] 10:48:00 10:48:00 t Denison Denison Kik [facility] - Drive [facility] Medicine l Medicine Outpati ent Clinics 2017-11-08 2017-11-08 [facility] [id number] [facility] 10:48:00 10:48:[address] Luke [facility] - Drive [facility] Family Medicine l Medicine Outpati ent Clinics 2017-10-08 2017-10-08 [facility] [id number] 08:00:00 08:00:[address] Luke [facility] - Drive [facility] Family Medicine l Medicine Outpati ent Clinics 2017-09-09 2017-09-09 [facility] [id number] [facility] 10:15:00 10:15:[address] Luke [facility] - Drive [facility] Medicine l Medicine Outpati ent Clinics 2017-08-16 2017-08-16 [facility] [id number] [facility] 11:50:00 11:50:[address] Luke [facility] - Drive [facility] Medicine l Medicine Outpati ent Clinics 2017-08-13 2017-08-13 [facility] [id number] [facility] 11:53:00 11:53:[address] Luke [facility] - Drive [facility] Medicine Medicine Outpati ent Clinics 2017-08-13 2017-08-13 [facility] [id number] 11:00:00 11:00:[address] Luke [facility] - Drive [facility] Medicine l Medicine Outpati ent Clinics 2017-07-16 2017-07-16 [facility] [id number] 11:15:00 11:15:[address] Luke [facility] - Drive [facility] Medicine l Medicine Outpati ent Clinics 2017-07-12 2017-07-12 [facility] [id number] [facility] 11:39:00 11:39:[address] Luke [facility] - Drive [facility] Medicine l Medicine Outpati ent Clinics 2017-06-29 2017-06-29 [facility] [id number] [facility] 09:55:00 09:55:[address] Luke [facility] - Drive [facility] Medicine l Medicine Outpati ent Clinics 2017-06-23 2017-06-23 [facility] [id number] [facility] 16:26:00 16:26:[address] Luke s - Drive [facility] Medicine l Medicine Outpati ent Clinics 2017-06-23 2017-06-23 [facility] [id number] [facility] 14:30:00 14:30:[address] [facility] 2017-06-18 2017-06-18 Outpatient Connie Martinez [id number] [facility] [address] 16:03:00 16:03:[address] [facility] [address] [facility] 2017-06-16 2017-06-16 Outpatient Connei Martinez [id number] [facility] St 10:45:00 10:45:[address] [facility] Results This patient has no known results.
[2020-09-12] MEDS ORDERED: NA CHLORIDE 0.9% 2,000 ML ONE (13:33)
--- NOTE | 2020-09-12 13:33 | RAD REPORT ---
EXAM DESCRIPTION: RAD - Chest Single View - 09/12/2020 1:19 pm CLINICAL HISTORY: SOBCOPD exacerbation COMPARISON: Two view chest April 2019 TECHNIQUE: AP portable chest image was obtained 09/12/2020 1:19 pm . FINDINGS: Lung volumes are low compared to the prior study. Film was also under penetrated. Both of these factors accentuated prominent baseline interstitial pattern. No mass or consolidation identifie d. Focal scarring in the left apex is partially obscured by clavicle and ribs. No suspicion for inter luis enrique growth. No acute failure or volume overload. Surgical clips overlie the elevated left hilum. Heart and vascul ature are normal. No measurable pleural effusion and no pneumothorax. No acute bony abnormality seen. No acute aortic findings suspected. IMPRESSION: No acute cardiopulmonary process. Left perihilar postsurgical changes and chronic interstitial lung disease match prior examination.
[2020-09-12 13:40] LABS: ALT/SGPT 16 U/L (12-78); AST/SGOT 25 U/L (15-37); Albumin 3.7 g/dL (3.4-5.0); Alkaline Phosphatase 70 U/L (45-117); BUN Blood Urea Nitrogen 17 mg/dL (7-18); Bicarbonate 25 mmol/L (21-32); Bilirubin Direct < 0.1 mg/dL (0-0.2); Bilirubin Total 0.3 mg/dL (0.2-1.0); Glucose Level 112 mg/dL (74-106); Magnesium 2.2 mg/dL (1.8-2.4); NT PRO-BNP 837 pg/mL (<450); Potassium 3.8 mmol/L (3.5-5.1); Protein, Total 7.4 g/dL (6.4-8.2); Sodium Level 139 mmol/L (136-145); Troponin (Emerg Dept Use Only) 0.09 ng/mL (0.0-0.045)
[2020-09-12 13:42] LABS: CKMB Creatine Kinase MB 4.2 ng/mL (1.0-3.6)
[2020-09-12 14:40] LABS: Absolute Lymphocytes (CBC) 0.7 K/uL (0.7-4.9); Basophils % 1.2 % (0-1.3); Hematocrit 39.3 % (36.0-45.0); Lymphocytes % 14.4 % (15.3-44.8); MPV 8.1 fL (7.6-11.3); RBC Red Blood Cell Count 4.45 M/uL (3.86-4.86)
[2020-09-12 14:59] LABS: Protime INR 1.09
[2020-09-12] MEDS ORDERED: ALPRAZOLAM 1 MG TABLET ONE (16:28)
[2020-09-12] MEDS ORDERED: HYDROCODONE/APAP 7.5/325 MG TAB ONE (17:38)
--- NOTE | 2020-09-12 18:02 | ER ---
Nurse's Notes [facility] Name: Cecile Conley Age: 80 yrs Sex: Female : 1940 Arrival Date: 09/12/2020 Time: 12:32 Bed 23 Private MD: Wes Perrin Diagnosis: COPD Exacerbation Presentation: 09/12 12:35 Chief complaint: Patient states: SOB that began since Wednesday. Pt states "It started aa5 when I was without AC all day Wednesday". Coronavirus screen: shortness of breath. Ebola Screen: Patient negative for fever greater than or equal to 101.5 degrees Fahrenheit, and additional compatible Ebola Virus Disease symptoms. Initial Sepsis Screen: Does the patient meet any 2 criteria? RR > 20 per min. HR > 90 bpm. Yes Does the patient have a suspected source of infection? Yes: Productive cough/pneumonia. Risk Assessment: Do you want to hurt yourself or someone else? Patient reports no desire to harm self or others. Onset of symptoms was August 2020. 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 Flu vaccine is not up to date. - Social history:: Smoking status: Patient reports the use of cigarette tobacco products, denies chronic smoking, but will smoke occasionally. Screenin:08 Abuse screen: Denies threats or abuse. Nutritional screening: No deficits noted. vg1 Tuberculosis screening: No symptoms or risk factors identified. Fall Risk No fall in past 12 months (0 pts). No secondary diagnosis (0 pts). IV access (20 points). Ambulatory Aid- None/Bed Rest/Nurse Assist (0 pts). Gait- Normal/Bed Rest/Wheelchair (0 pts) Mental Status- Oriented to own ability (0 pts). Total Giordano Fall Scale indicates No Risk (0-24 pts). Assessment: 13:09 General: Appears in no apparent distress. uncomfortable, Behavior is calm, cooperative. vg1 Pain: Denies pain. Neuro: Level of Consciousness is awake, alert, obeys commands, Oriented to person, place, time, situation. Cardiovascular: Patient's skin is warm and dry. Respiratory: Reports shortness of breath at rest on exertion cough that is productive, Airway is patent Respiratory effort is even, labored, Respiratory pattern is tachypnea Breath sounds with rhonchi bilaterally. Breath sounds with wheezes bilaterally. GI: No signs and/or symptoms were reported involving the gastrointestinal system. : No signs and/or symptoms were reported regarding the genitourinary system. EENT: No signs and/or symptoms were reported regarding the EENT system. Derm: Skin is intact, Skin is pink, warm \\T\\ dry. Musculoskeletal: Circulation, motion, and sensation intact. 14:21 Reassessment: Patient appears in no apparent distress at this time. No changes from vg1 previously documented assessment. Patient and/or family updated on plan of care and expected duration. Pain level reassessed. Patient is alert, oriented x 3, equal unlabored respirations, skin warm/dry/pink. 16:11 Reassessment: Received VO from Dr Elliott to administer Xanax 2 mg PO x1. vg1 16:11 Reassessment: Patient and/or family updated on plan of care and expected duration. Pain vg1 level reassessed. Patient is alert, oriented x 3, equal unlabored respirations, skin warm/dry/pink. pt appears to be anxious, wanting to leave facility. Dr Elliott at bedside. Pt is wanting to go outside in wheelchair for 'some fresh air'. Dr Elliott gave permision for pt to be taken out to garden near ED with Tech. 17:15 Reassessment: Received VO from Dr Elliott to administer Tazewell 7.5 mg/ 325 mg PO x1. vg1 18:40 Reassessment: Patient appears in no apparent distress at this time. Patient and/or vg1 family updated on plan of care and expected duration. Pain level reassessed. Patient is alert, oriented x 3, equal unlabored respirations, skin warm/dry/pink. Patient states feeling better. Vital Signs: 12:35 BP 123 / 83; Pulse 92; Resp 30 S; Temp 99.5(O); Pulse Ox 88% on R/A; Weight 68.04 kg aa5 (R); Height 5 ft. 4 in. (162.56 cm) (R); 14:21 BP 134 / 80; Pulse 72; Resp 16; Pulse Ox 99% on 4 lpm NC; vg1 15:15 BP 137 / 87; Pulse 77; Resp 18; Pulse Ox 97% on R/A; vg1 17:00 BP 145 / 97; Pulse 71; Resp 20; Pulse Ox 94% on 3 lpm NC; vg1 17:15 BP 131 / 88; Pulse 76; Resp 22; Pulse Ox 93% on 3 lpm NC; vg1 18:00 BP 136 / 95; Pulse 70; Resp 20; Pulse Ox 96% on 3 lpm NC; vg1 18:45 BP 134 / 63; Pulse 78; Resp 18; Pulse Ox 97% on R/A; vg1 19:30 BP 111 / 67; Pulse 70; Resp 16; Pulse Ox 98% on 3 lpm NC; vg1 20:15 BP 121 / 69; Pulse 70; Resp 18; Pulse Ox 96% on 3 lpm NC; vg1 21:00 BP 130 / 70; Pulse 70; Resp 20; Temp 97.5(O); Pulse Ox 97% on 3 lpm NC; vg1 12:35 Body Mass Index 25.75 (68.04 kg, 162.56 cm) aa5 ED Course: 12:32 Patient arrived in ED. mr 12:32 Wes Perrin, is Private Physician. mr 12:35 Arm band placed on. aa5 12:37 Triage completed. aa5 12:49 Eliot Elliott MD is Attending Physician. kdr 12:55 Missed attempt(s): 22 gauge in right antecubital area. vg1 12:55 Initial lab(s) drawn, by co, sent to lab. First set of blood cultures drawn by co. vg1 13:07 Sierra Dominique RN is Primary Nurse. vg1 13:07 Inserted saline lock: 20 gauge in right wrist, using aseptic technique. ,using aseptic vg1 technique. Completed by DAR Garvey. 13:10 Second set of blood cultures drawn by me. vg1 13:16 Patient has correct armband on for positive identification. Bed in low position. Call vg1 light in reach. Side rails up X2. Adult w/ patient. 13:19 XRAY Chest (1 view) In Process Unspecified. EDMS 17:59 Armando Bahena is Hospitalizing Provider. kdr 18:43 COVID swab sent to lab. vg1 09/13 06:21 Primary Nurse role handed off by Sierra Dominique, RN tt3 Administered Medications: 09/12 13:20 Drug: NS 0.9% (30 ml/kg) 30 ml/kg Route: IV; Rate: bolus; Site: right wrist; vg1 17:20 Drug: Tazewell (HYDROcodone-acetaminophen) (7.5 mg-325 mg) 1 tabs Route: PO; vg1 18:36 Follow up: Response: No adverse reaction; Pain is decreased vg1 18:11 Drug: Xopenex (levalbuterol) (3) 1.25 mg Route: Inhalation; vg1 18:36 Follow up: Response: No adverse reaction; Marked relief of symptoms vg1 21:26 Drug: XANax (alprazolam) Tablet 1 mg {Note: Pt refused 2 mg. Pt was only given 1 mg PO vg1 .} Route: PO; 22:19 Follow up: Response: No adverse reaction vg1 Outcome: 18:01 Decision to Hospitalize by Provider. kdr 09/13 15:26 Patient left the ED. eb Signatures: Dispatcher [employer] EDMS Eliot Elliott MD MD [facility] MartinezAshely mr Contreras, Mare RN RN aa5 Jesi Kohli Victoria, RN RN vg1 Khanh Rankin tt3 Corrections: (The following items were deleted from the chart) 09/12 13:16 13:09 Respiratory: Reports shortness of breath at rest on exertion cough that is vg1 productive, Airway is patent Respiratory effort is even, labored, Respiratory pattern is tachypnea vg1
--- NOTE | 2020-09-12 18:03 | EDPHYS ---
Physician Documentation [facility] Name: Cecile Conley Age: 80 yrs Sex: Female : 1940 Arrival Date: 09/12/2020 Time: 12:32 Bed 23 Private MD: [facility] ED Physician Eliot Elliott HPI: 09/12 17:47 This 80 yrs old Female presents to ER via Wheelchair with complaints of COPD kdr Exacerbation. 17:47 The patient has shortness of breath at rest, with light activity. Onset: The kdr symptoms/episode began/occurred suddenly, last Wednesday. Duration: The symptoms are continuous, and are steadily getting worse. The patient's shortness of breath is aggravated by nothing, is alleviated by nothing. Associated signs and symptoms: Pertinent positives: non-productive cough, loss of consciousness, nausea. Severity of symptoms: At their worst the symptoms were mild moderate just prior to arrival, in the emergency department the symptoms are unchanged. Historical: - Allergies: 12:35 Aspirin; aa5 12:35 Sulfa (Sulfonamide Antibiotics); aa5 - PMHx: 12:35 Anxiety; breast cancer; Cancer; COPD; Hypertension; TB; aa5 - PSHx: 14:34 Right Kidney Removed; 1/2 of Left kidney removed; Lobe of Lung removed (unsure which vg1 lung); - Immunization history:: Client reports having NOT received the Covid vaccine. Flu vaccine is not up to date. - Social history:: Smoking status: Patient reports the use of cigarette tobacco products, denies chronic smoking, but will smoke occasionally. ROS: 17:47 Constitutional: Negative for fever, chills, and weight loss, Eyes: Negative for injury, kdr pain, redness, and discharge, ENT: Negative for injury, pain, and discharge, Neck: Negative for injury, pain, and swelling, Cardiovascular: Negative for chest pain, palpitations, and edema, Abdomen/GI: Negative for abdominal pain, nausea, vomiting, diarrhea, and constipation, Back: Negative for injury and pain, : Negative for injury, bleeding, discharge, and swelling, MS/Extremity: Negative for injury and deformity, Skin: Negative for injury, rash, and discoloration, Neuro: Negative for headache, weakness, numbness, tingling, and seizure activity. Psych: Negative for depression, anxiety, suicide ideation, homicidal ideation, and hallucinations, Allergy/Immunology: Negative for hives, rash, and allergies, Endocrine: Negative for neck swelling, polydipsia, polyuria, polyphagia, and marked weight changes, Hematologic/Lymphatic: Negative for swollen nodes, abnormal bleeding, and unusual bruising. 17:47 Respiratory: Positive for dyspnea on exertion, Negative for hemoptysis, orthopnea, pleurisy, shortness of breath, sputum production, wheezing. Exam: 17:44 ECG was reviewed by the Attending Physician. kdr 17:47 Constitutional: This is a well developed, well nourished patient who is awake, alert, kdr and in no acute distress. Head/Face: Normocephalic, atraumatic. Eyes: Pupils equal round and reactive to light, extra-ocular motions intact. Lids and lashes normal. Conjunctiva and sclera are non-icteric and not injected. Cornea within normal limits. Periorbital areas with no swelling, redness, or edema. ENT: Nares patent. No nasal discharge, no septal abnormalities noted. Tympanic membranes are normal and external auditory canals are clear. Oropharynx with no redness, swelling, or masses, exudates, or evidence of obstruction, uvula midline. Mucous membranes moist. Neck: Trachea midline, no thyromegaly or masses palpated, and no cervical lymphadenopathy. Supple, full range of motion without nuchal rigidity, or vertebral point tenderness. No Meningismus. Chest/axilla: Normal chest wall appearance and motion. Nontender with no deformity. No lesions are appreciated. Cardiovascular: Regular rate and rhythm with a normal S1 and S2. No gallops, murmurs, or rubs. Normal PMI, no JVD. No pulse deficits. Abdomen/GI: Soft, non-tender, with normal bowel sounds. No distension or tympany. No guarding or rebound. No evidence of tenderness throughout. Back: No spinal tenderness. No costovertebral tenderness. Full range of motion. Skin: Warm, dry with normal turgor. Normal color with no rashes, no lesions, and no evidence of cellulitis. 17:47 Respiratory: mild respiratory distress is noted, moderate respiratory distress is noted, Respirations: labored breathing, that is mild, grunting, that is mild, Breath sounds: wheezing: that is moderate, is heard diffusely, Coarse breath sounds. Vital Signs: 12:35 BP 123 / 83; Pulse 92; Resp 30 S; Temp 99.5(O); Pulse Ox 88% on R/A; Weight 68.04 kg aa5 (R); Height 5 ft. 4 in. (162.56 cm) (R); 14:21 BP 134 / 80; Pulse 72; Resp 16; Pulse Ox 99% on 4 lpm NC; vg1 15:15 BP 137 / 87; Pulse 77; Resp 18; Pulse Ox 97% on R/A; vg1 17:00 BP 145 / 97; Pulse 71; Resp 20; Pulse Ox 94% on 3 lpm NC; vg1 17:15 BP 131 / 88; Pulse 76; Resp 22; Pulse Ox 93% on 3 lpm NC; vg1 18:00 BP 136 / 95; Pulse 70; Resp 20; Pulse Ox 96% on 3 lpm NC; vg1 18:45 BP 134 / 63; Pulse 78; Resp 18; Pulse Ox 97% on R/A; vg1 19:30 BP 111 / 67; Pulse 70; Resp 16; Pulse Ox 98% on 3 lpm NC; vg1 20:15 BP 121 / 69; Pulse 70; Resp 18; Pulse Ox 96% on 3 lpm NC; vg1 21:00 BP 130 / 70; Pulse 70; Resp 20; Temp 97.5(O); Pulse Ox 97% on 3 lpm NC; vg1 12:35 Body Mass Index 25.75 (68.04 kg, 162.56 cm) aa5 MDM: 17:47 Data reviewed: vital signs, nurses notes, old medical records, radiologic studies. kdr Counseling: I had a detailed discussion with the patient and/or guardian regarding: the historical points, exam findings, and any diagnostic results supporting the discharge/admit diagnosis, lab results, radiology results, the need for further work-up and treatment in the hospital. 18:01 Patient medically screened. kdr 09/12 12:49 Order name: Basic Metabolic Panel kdr 09/12 12:49 Order name: CBC with Diff; Complete Time: 14:48 kdr 09/12 12:49 Order name: LFT's; Complete Time: 14:48 kdr 09/12 12:49 Order name: Magnesium; Complete Time: 14:48 kdr 09/12 12:49 Order name: NT PRO-BNP; Complete Time: 14:48 [facility] 09/12 12:49 Order name: PT-INR; Complete Time: 15:04 [facility] 09/12 12:49 Order name: Troponin (emerg Dept Use Only); Complete Time: 14:48 [facility] 09/12 12:50 Order name: Basic Metabolic Panel; Complete Time: 14:48 [facility] 09/12 12:56 Order name: Amylase, Serum; Complete Time: 14:48 [facility] 09/12 12:56 Order name: Blood Culture Adult (2) [facility] 09/12 12:56 Order name: CPK; Complete Time: 14:48 [facility] 09/12 12:56 Order name: Ckmb; Complete Time: 14:48 [facility] 09/12 12:56 Order name: Lactate; Complete Time: 14:48 [facility] 09/12 12:56 Order name: Lipase; Complete Time: 14:48 [facility] 09/12 12:56 Order name: Procalcitonin; Complete Time: 14:48 [facility] 09/12 12:56 Order name: Urine Microscopic Only [facility] 09/12 13:09 Order name: PTT, Activated Partial Thromb; Complete Time: 15:04 [facility] 09/12 18:29 Order name: Urine Dipstick-Ancillary [facility] 09/12 18:40 Order name: COVID-19 : Document "Date of Symptom Onset" if Symptomatic. 09/12 20:20 Order name: SARS-COV-2 RT PCR [facility] 09/13 03:14 Order name: Troponin I [facility] 09/13 06:24 Order name: Comprehensive Metabolic Panel [facility] 09/13 06:24 Order name: Phosphorus [facility] 09/13 06:24 Order name: Magnesium [facility] 09/13 06:25 Order name: CBC with Automated Diff [facility] 09/13 08:09 Order name: CBC Smear Scan [facility] 09/13 08:37 Order name: Gram Stain--Aerobic Bottle [facility] 09/12 12:49 Order name: XRAY Chest (1 view); Complete Time: 14:48 [facility] 09/12 12:49 Order name: EKG; Complete Time: 12:51 [facility] 09/12 12:49 Order name: Cardiac monitoring; Complete Time: 13:39 [facility] 09/12 12:49 Order name: EKG - Nurse/Tech; Complete Time: 13:39 [facility] 09/12 12:49 Order name: IV Saline Lock; Complete Time: 13:08 kdr 09/12 12:49 Order name: Labs collected and sent; Complete Time: 13: kdr 09/12 12:49 Order name: O2 Per Protocol; Complete Time: 13:08 kdr 09/12 12:49 Order name: O2 Sat Monitoring; Complete Time: 13:08 kdr 09/12 12:56 Order name: Accucheck; Complete Time: 13:08 kdr 09/12 12:56 Order name: IV Saline Lock - Large Bore; Complete Time: 13:08 kdr 09/12 12:56 Order name: Urine Dipstick-Ancillary (obtain specimen); Complete Time: 18:29 kdr 09/12 13:27 Order name: Labs - recollect needed; Complete Time: 13:45 mt 09/13 10:00 Order name: PTT, Activated Partial Thromb [facility] 09/13 10:00 Order name: D-Dimer EDMS 09/13 11:16 Order name: Troponin I EDMS 09/13 15:09 Order name: Troponin I EDMS EC:44 Rate is 77 beats/min. Rhythm is regular, Sinus Rhythm with No ectopy. QRS [place] is kdr Normal. SC interval is normal. QRS interval is normal. Clinical impression: NSR w/ Non-specific ST/T Changes. Administered Medications: 13:20 Drug: NS 0.9% (30 ml/kg) 30 ml/kg Route: IV; Rate: bolus; Site: right wrist; vg1 17:20 Drug: [place] (HYDROcodone-acetaminophen) (7.5 mg-325 mg) 1 tabs Route: PO; vg1 18:36 Follow up: Response: No adverse reaction; Pain is decreased vg1 18:11 Drug: Xopenex (levalbuterol) (3) 1.25 mg Route: Inhalation; vg1 18:36 Follow up: Response: No adverse reaction; Marked relief of symptoms vg1 21:26 Drug: XANax (alprazolam) Tablet 1 mg {Note: Pt refused 2 mg. Pt was only given 1 mg PO vg1 .} Route: PO; 22:19 Follow up: Response: No adverse reaction vg1 Disposition Summary: 09/12/20 18:01 Hospitalization Ordered Hospitalization Status: Inpatient Admission kdr Provider: Armando Bahena Condition: Fair kdr Problem: an acute exacerbation kdr Symptoms: have improved kdr Bed/Room Type: Standard kdr Location: Telemetry/MedSurg (Inpatient)(09/13/20 14:57) dw Room Assignment: 222(09/13/20 14:57) dw Diagnosis - COPD Exacerbation kdr Forms: - Medication Reconciliation Form kdr - SBAR form kdr Signatures: Dispatcher [employer] EDMS Caroline Parmar RN RN dw Rittger, Kevin, MD MD kdr Ballard, Brenda, RN RN Mare Viera RN RN [id number] Becky Mandel mt, Victoria RN RN vg1 Corrections: (The following items were deleted from the chart) 13:09 12:56 PTT, ACTIVATED+[id number].BRZ ordered. EDFL EDFL 23:29 18:01 Telemetry/MedSurg (Inpatient) [facility] 23:29 18:01 kdr 09/13 14:57 09/12 23:29 [facility] ER HOLD bb 09/13 14:57 09/12 23:29 ERHOLD- bb
[2020-09-12] MEDS ORDERED: LEVALBUTEROL 1.25 MG/3 ML NEB ONE (18:23)
[2020-09-12 18:29] LABS: Urine Blood Negative (Negative); Urine Glucose Negative (Negative); Urine Protein Negative (Negative)
[2020-09-12 18:54] LABS: Urine Bacteria NONE SEEN /HPF (<20); Urine RBC <5 /HPF (NONE SEEN)
[2020-09-12 22:00] VITALS: BMI 25.7
[2020-09-12] MEDS ORDERED: ACETAMINOPHEN 500 MG TAB PO PRN (23:00)
[2020-09-12] MEDS: IPRATROPIUM BROM 0.5MG/2.5ML NEB SCH (23:00)
[2020-09-12] MEDS ORDERED: Levofloxacin 750mg IV 750 MG/150 ML BAG IV SCH (23:00)
[2020-09-12] MEDS ORDERED: BENZONATATE 100 MG CAP PO PRN (23:00)
[2020-09-12] MEDS ORDERED: ONDANSETRON 4 MG/2 ML VIAL IV PRN (23:00)
[2020-09-12] MEDS ORDERED: IPRATROPIUM BROM 0.5MG/2.5ML ONE (23:35)
[2020-09-12] MEDS ORDERED: Levofloxacin 750mg IV 750 MG/150 ML BAG IV ONE (23:37)
--- NOTE | 2020-09-12 23:53 | P.HP ---
Certification for Inpatient Patient admitted to: Observation With expected LOS: <2 Midnights Patient will require the following post-hospital care: None Practitioner: I am a practitioner with admitting privileges, knowledge of patient current condition, hospital course, and medical plan of care. Services: Services provided to patient in accordance with Admission requirements found in Title 42 Section 412.3 of the Code of Federal Regulations Patient History Date of Service: 09/12/20 Reason for admission: COPD exacerbation History of Present Illness: Ms. Conley is an 80 yo F with COPD, HTN, anxiety here today with a week of worsening SOB and RODARTE. She reports cough productive of clear sputum, sore throat, congestion, wheezing and nausea. Denies chest pain. Symptoms are worse with walking, exacerbated by heat. She reports orthopnea, denies PND. Trop 0.09. BNP 837. Procal 0.16. CXR shows left perihilar postsurgical changes and chronic interstitial lung disease. Allergies Sulfa (Sulfonamide Antibiotics) Adverse Reaction (Verified 05/20/17 07:27) Anaphylaxis tramadol Adverse Reaction (Verified 05/20/17 07:27) Nausea/Vomiting Aspirin Allergy (Uncoded 05/20/17 07:27) Unknown PENICILLINS Allergy (Uncoded 05/20/17 07:27) Unknown Home Medications: ALPRAZolam [Xanax*] 2 mg PO BID PRN 02/19/15 Albuterol Sulfate [Proventil Hfa] 2 puff IH Q6HP PRN 02/19/15 Fluticasone [Flonase 50MCG Nasal Whiteface*] 2 sprays NS DAILY 02/19/15 Gabapentin [Neurontin*] 100 mg PO TID 02/19/15 Tiotropium Jerome [Spiriva] 1 spray IH DAILY 02/19/15 Amlodipine [Norvasc] 2.5 mg PO DAILY 05/18/17 Duloxetine HCl 30 mg PO DAILY 05/18/17 Hydrocodone/Acetaminophen [Hydrocodone-Acetamin 7.5-300] 1 each PO TID 05/18/17 - Past Medical/Surgical History Has patient received pneumonia vaccine in the past: No Diabetic: No -: anxiety -: COPD -: HTN -: lobectomy -: partial nephrectomy - Family History Mother -: Heart disease Father -: Heart disease - Social History Smoking Status: Current every day smoker Alcohol use: No CD- Drugs: No Caffeine use: Yes Place of Residence: Home Review of Systems 10-point ROS is otherwise unremarkable Respiratory: Cough, Shortness of Breath, SOB with Excertion, Sputum, Wheezing Cardiovascular: Orthopnea Gastrointestinal: Nausea Physical Examination - Physical Exam General: Alert, In no apparent distress HEENT: Atraumatic, PERRLA, Mucous membr. moist/pink, EOMI, Sclerae nonicteric Neck: Supple, 2+ carotid pulse no bruit, No LAD, Without JVD or thyroid abnormality Respiratory: Diminished, Crackles/rales, Expiratory wheezes Cardiovascular: No edema Gastrointestinal: Normal bowel sounds, No tenderness Musculoskeletal: No tenderness Integumentary: No rashes Neurological: Normal gait, Normal speech, Normal strength at 5/5 x4 extr, Normal tone, Normal affect Lymphatics: No axilla or inguinal lymphadenopathy - Studies Laboratory Data (last 24 hrs) 09/12/20 14:25: PT 12.5, INR 1.09, APTT 28.5 09/12/20 14:25: WBC 5.20, Hgb 13.0, Hct 39.3, Plt Count 240 09/12/20 12:56: APTT Cancelled 09/12/20 12:55: Amylase 48, Lipase 104 09/12/20 12:55: Sodium 139, Potassium 3.8, BUN 17, Creatinine 1.32 H, Glucose 112 H, Magnesium 2.2, Total Bilirubin 0.3, AST 25, ALT 16, Alkaline Phosphatase 70 Assessment and Plan - Plan Assessment COPD exacerbation tobacco use disorder HTN, elevated troponin anxiety Plan COPD exacerbation - RT consulted, O2 as needed, room air sats daily, continue breathing treatments and IV antibiotics and IV steroids, antitussives tobacco use disorder - eap counselor smoking cessation HTN, elevated troponin - trend troponins, ECHO in the AM anxiety - stable, continue Discharge Plan: Home Plan to discharge in: 24 Hours - Advance Directives Does patient have a Living Will: No Does patient have a Durable POA for Healthcare: No - Code Status/Comfort Care Code Status Assessed: Yes (full code ) Critical Care: No Time Spent Managing Pts Care (In Minutes): 70
[2020-09-13] MEDS: IPRATROPIUM BROM 0.5MG/2.5ML NEB SCH ×4 (01:19→20:00)
[2020-09-13] MEDS ORDERED: IPRATROPIUM BROM 0.5MG/2.5ML ONE ×3 (01:31→14:06)
[2020-09-13] MEDS: METHYLPREDNISOLONE 40 MG INJ IV SCH ×3 (02:00→17:08)
[2020-09-13] MEDS ORDERED: METHYLPREDNISOLONE 40 MG INJ ONE ×2 (02:42→09:07)
[2020-09-13] MEDS ORDERED: ASPIRIN EC 81 MG TAB PO ONE ×2 (03:22→05:02)
[2020-09-13] MEDS ORDERED: HEPARIN/D5W 25,000 UNIT/500 ML BAG IV SCH (04:00)
[2020-09-13] MEDS ORDERED: HEPARIN/D5W 25,000 UNIT/500 ML BAG IV ONE (04:16)
[2020-09-13] MEDS ORDERED: HEPARIN 5000 UNIT/ML 1 ML VIAL ONE (04:21)
[2020-09-13 06:11] LABS: Absolute Lymphocytes (CBC) 0.5 K/uL (0.7-4.9); Basophils % 0.8 % (0-1.3); Hematocrit 38.5 % (36.0-45.0); Lymphocytes % 8.4 % (15.3-44.8); MPV 8.3 fL (7.6-11.3); RBC Red Blood Cell Count 4.31 M/uL (3.86-4.86)
[2020-09-13 06:24] LABS: Albumin 3.2 g/dL (3.4-5.0); Bilirubin Total 0.2 mg/dL (0.2-1.0); Magnesium 1.9 mg/dL (1.8-2.4); Phosphorus 2.2 mg/dL (2.5-4.9); Protein, Total 6.7 g/dL (6.4-8.2)
[2020-09-13 08:09] LABS: Blood Morphology Comment NOT SEEN (NOT SEEN); Platelet Estimate ADEQ; White Blood Cell Scan OK (OK)
[2020-09-13] MEDS: ALBUTEROL 2.5 MG/3 ML NEB SOL NEB PRN ×2 (08:25→13:45)
[2020-09-13] MEDS ORDERED: ALBUTEROL 2.5 MG/3 ML NEB SOL ONE ×2 (08:39→14:06)
[2020-09-13] MEDS ORDERED: PNEUMOCOCCAL VACCINE 0.5 ML IMVAC ONE (09:00)
[2020-09-13] MEDS: HYDROCODONE/APAP 7.5/325 MG TAB PO SCH ×3 (10:07→20:38)
[2020-09-13] MEDS ORDERED: TIOTROPIUM 5 SPRAYS/INHALER IH SCH (10:08)
[2020-09-13] MEDS ORDERED: DULOXETINE 30 MG CAP PO SCH (10:30)
[2020-09-13] MEDS: ALPRAZOLAM 1 MG TABLET PO PRN ×2 (10:44→22:43)
[2020-09-13] MEDS ORDERED: FLUTICASONE 50MCG NASAL SPRAY NAS SCH (10:45)
[2020-09-13] MEDS ORDERED: HYDROCODONE/APAP 7.5/325 MG TAB ONE ×2 (10:54→15:08)
[2020-09-13] MEDS ORDERED: ALPRAZOLAM 1 MG TABLET ONE (11:02)
--- NOTE | 2020-09-13 11:45 | EKG ---
Test Date: 2020-09-12 Test Time: 13:35:25 Retail Loss Prevention Officer: WILL MEASUREMENT RESULTS: Intervals: Rate: 77 MD: 156 QRSD: 64 QT: 402 QTc: 454 [place]: P: 83 MD: 156 QRS: 96 T: 64 INTERPRETIVE STATEMENTS: Normal sinus rhythm Rightward axis Cannot rule out Anterior infarct, age undetermined Abnormal ECG Compared to ECG 05/18/2017 16:42:52 Right-axis deviation now present Myocardial infarct finding still present Electronically Signed On 09-13-20 11:42:18 CDT by Ye Ruiz
--- NOTE | 2020-09-13 12:45 | ECHO ---
HEIGHT: 5 ft 4 in WEIGHT: 150 lb 0 oz DATE OF STUDY: 09/13/[address]: Sky Cronin 2-DIMENSIONAL: YES M.MODE: YES DOPPLER: YES COLOR FLOW: YES TDS: NO PORTABLE: NO DEFINITY: NO BUBBLE STUDY: NO DIAGNOSIS: ELEVATED TROPONIN CARDIAC HISTORY: CATHERIZATION: SURGERY: PROSTHETIC VALVE: PACEMAKER: MEASUREMENTS (cm) DIASTOLIC (NORMALS) SYSTOLIC (NORMALS) IVSd 1.2 (0.6-1.2) LA Diam 2.9 (1.9-4.0) LVEF 64% LVIDd 3.8 (3.5-5.7) LVIDs 2.5 (2.0-3.5) %FS 34% LVPWd 1.2 (0.6-1.2) Ao Diam 2.7 (2.0-3.7) 2 DIMENSIONAL ASSESSMENT: RIGHT ATRIUM: NORMAL LEFT ATRIUM: NORMAL RIGHT VENTRICLE: NORMAL LEFT VENTRICLE: NORMAL TRICUSPID VALVE: NORMAL MITRAL VALVE: NORMAL PULMONIC VALVE: NORMAL AORTIC VALVE: NORMAL PERICARDIAL EFFUSION: NONE AORTIC ROOT: NORMAL LEFT VENTRICULAR WALL MOTION: NORMAL DOPPLER/COLOR FLOW: NORMAL COMMENTS: NORMAL 2D ECHOCARDIOGRAM WITH DOPPLER. NO WALL MOTION ABNORMALITY. NO EFFUSION. TECHNOLOGIST: Estela MONTANO
[2020-09-13] MEDS: GABAPENTIN 100 MG CAP PO SCH ×3 (14:00→21:00)
--- NOTE | 2020-09-13 17:19 | P.PN ---
Subjective Date of Service: 09/13/20 Chief Complaint: COPD exacerbation Patient denies any chest pain. She states her breathing is better and wants to go home. She desaturate to 87% on room air. Troponin peaked at 0.9 and trending down. Physical Examination - Vital Signs Temperature: 97.6 F Blood Pressure: 149/77 Pulse: 84 Respirations: 20 Pulse Ox (%): 92 - Physical Exam General: Alert, In no apparent distress, Oriented x3 HEENT: PERRLA, Mucous membr. moist/pink Neck: Supple, JVD not distended Respiratory: Diminished, Other (Mild scattered wheezes) Cardiovascular: Regular rate/rhythm, Normal S1 S2 Gastrointestinal: Normal bowel sounds, Soft and benign, Non-distended, No tenderness Musculoskeletal: No swelling Integumentary: No rashes Neurological: Normal strength at 5/5 x4 extr - Studies Laboratory Data (last 24 hrs) 09/13/20 14:17: Troponin I 0.38 H 09/13/20 10:22: Troponin I 0.44 H 09/13/20 10:03: Troponin I Cancelled 09/13/20 09:15: APTT 140.2 H* 09/13/20 05:24: Sodium 140, Potassium 4.0, BUN 14, Creatinine 1.03, Glucose 119 H, Phosphorus 2.2 L, Magnesium 1.9, Total Bilirubin 0.2, AST 25, ALT 16, Alkaline Phosphatase 59 09/13/20 05:24: WBC 5.50, Hgb 12.8, Hct 38.5, Plt Count 233 09/13/20 02:17: Troponin I 0.84 H* Microbiology Data (last 24 hrs): 09/12/20 13:10 Blood - Blood Blood Culture Gram Stain - Final Assessment And Plan - Current Problems (Diagnosis) (1) COPD exacerbation Current Visit: Yes Status: Acute (2) Elevated troponin Current Visit: Yes Status: Acute (3) HTN (hypertension) Onset Date: 02/19/15 Current Visit: No Status: Acute (4) Acute respiratory failure with hypoxia Current Visit: Yes Status: Acute - Plan Continue IV steroid, scheduled nebs. Elevated troponin likely secondary to demand ischemia. Troponin trended down. Echocardiogram unremarkable. Case discussed with cardiology. No surgical intervention per Dr. Ruiz. Continue aspirin. Add plavix Full-dose Lovenox. Discontinue heparin drip. Patient is hypoxic on room air. Chest x-ray with no acute infiltrate. No indication for antibiotics at this time. Reassess oxygen saturation on room air in a.m.
[2020-09-13] MEDS: ENOXAPARIN 80 MG/0.8 ML SQ SCH (20:38)
[2020-09-14] MEDS: METHYLPREDNISOLONE 40 MG INJ IV SCH ×2 (00:40→08:32)
[2020-09-14] MEDS: IPRATROPIUM BROM 0.5MG/2.5ML NEB SCH ×3 (02:10→14:50)
[2020-09-14 05:54] LABS: Absolute Lymphocytes (CBC) 0.7 K/uL (0.7-4.9); Basophils % 0.1 % (0-1.3); Hematocrit 37.4 % (36.0-45.0); Lymphocytes % 8.9 % (15.3-44.8); MPV 8.6 fL (7.6-11.3); RBC Red Blood Cell Count 4.24 M/uL (3.86-4.86)
[2020-09-14 06:11] LABS: Phosphorus 2.6 mg/dL (2.5-4.9); Potassium 4.6 mmol/L (3.5-5.1)
[2020-09-14] MEDS: ALBUTEROL 2.5 MG/3 ML NEB SOL NEB PRN ×2 (07:55→14:50)
[2020-09-14] MEDS: ENOXAPARIN 80 MG/0.8 ML SQ SCH (08:33)
[2020-09-14] MEDS: HYDROCODONE/APAP 7.5/325 MG TAB PO SCH ×2 (08:33→14:00)
[2020-09-14] MEDS: GABAPENTIN 100 MG CAP PO SCH ×2 (08:34→14:00)
[2020-09-14] MEDS ORDERED: CLOPIDOGREL 75 MG TABLET PO SCH (09:00)
[2020-09-14] MEDS: ALPRAZOLAM 1 MG TABLET PO PRN (10:40)
[2020-09-14 12:45] VITALS: O2SAT 92
--- NOTE | 2020-09-14 12:53 | PN ---
Date of Progress Note: 09/14/2020 Ms. Conley was admitted and seen for shortness of breath, COPD exacerbation, elevated troponin, elev ated BNP, and thought that this was secondary to demand ischemia, not an acute coronary syndrome. Ec hocardiogram which was done late on 09/13/2020, showed a normal 2D echocardiogram with Doppler withou t any wall motion abnormalities or effusion. Again, I think the diagnosis was elevated troponin seco ndary to demand ischemia, secondary to COPD exacerbation. I do not have any further recommendation r egarding Ms. Conley at this point. I agree with her present regimen. She can go home whenever she is okay with Dr. Bahena. If she ever develops any chest pain, we will see her in the office. YOLANDA/AYAAN Voice ID: [id number] Report ID: [id number]
[2020-09-14 14:01] VITALS: BP 126/62; TEMP 97.2
--- NOTE | 2020-09-14 14:24 | P.PN ---
Subjective Date of Service: 09/14/20 Chief Complaint: COPD exacerbation Patient denies any chest pain. She states her breathing is better is much better. She is hypoxic on room air. Physical Examination - Vital Signs Temperature: 97.2 F Blood Pressure: 126/62 Pulse: 62 Respirations: 17 Pulse Ox (%): 92 - Physical Exam General: Alert, In no apparent distress HEENT: Other (Oxygen by nasal canula) Neck: JVD not distended Respiratory: Diminished, Other (Mild scattered rhonchi) Cardiovascular: Regular rate/rhythm, Normal S1 S2 Gastrointestinal: Soft and benign, Non-distended, No tenderness Musculoskeletal: No swelling Neurological: Normal strength at 5/5 x4 extr - Studies Laboratory Data (last 24 hrs) 09/13/20 14:17: Troponin I 0.38 H Microbiology Data (last 24 hrs): 09/12/20 13:10 Blood - Blood Blood Culture Gram Stain - Final Assessment And Plan - Current Problems (Diagnosis) (1) COPD exacerbation Current Visit: Yes Status: Acute (2) Elevated troponin Current Visit: Yes Status: Acute (3) HTN (hypertension) Onset Date: 02/19/15 Current Visit: No Status: Acute (4) Acute respiratory failure with hypoxia Current Visit: Yes Status: Acute - Plan Continue IV steroid, scheduled nebs. Elevated troponin likely secondary to demand ischemia. Troponin trended down. Echocardiogram unremarkable. Case discussed with cardiology. No surgical intervention per Dr. Ruiz. Continue aspirin and plavix Full-dose Lovenox for 1 more day. Patient is hypoxic on room air. Chest x-ray with no acute infiltrate. Patient may need home oxygen Social service assisting with oxygen arrangement. Patient desires to go home.
--- NOTE | 2020-09-14 15:00 | P.DS ---
Admission Date: 09/13/20 Discharge Date: 09/14/20 Disposition: ROUTINE DISCHARGE Discharge Condition: FAIR Reason for Admission: COPD exacerbation - Problems (1) COPD exacerbation Current Visit: Yes Status: Acute (2) Elevated troponin Current Visit: Yes Status: Acute (3) HTN (hypertension) Onset Date: 02/19/15 Current Visit: No Status: Acute (4) Acute respiratory failure with hypoxia Current Visit: Yes Status: Acute Brief History of Present Illness: 80 yo woman with COPD, HTN, anxiety presented to the emergency department with a complaint of progressive shortness of 1 week duration. She reported cough productive of clear sputum, sore throat, congestion, wheezing and nausea. Denied chest pain. She reported orthopnea, denied PND. Trop 0.09. BNP 837. Procal 0.16. CXR shows left perihilar postsurgical changes and chronic interstitial lung disease. Patient admitted for further management. Hospital Course: Patient admitted to the medical floor and treated for COPD exacerbation with IV steroids, scheduled nebs. She received a dose of Levaquin. Her troponin trended up to 0.9 and then trended down. Patient seen by cardiology-Dr. Ruiz, elevated troponin deemed to be secondary to demand ischemia. Patient treated with full anticoagulation for a couple of days. Patient clinically improved but she desaturate on room air at rest and has been requiring 2 L of oxygen by nasal cannula. Patient is a chronic smoker and continues to smoke cigarettes daily. She qualifies for home oxygen. She has been advised to quit smoking and told she cannot smoke with oxygen because of risk of explosion. Patient desires to go home. She is discharged per her request. Vital Signs/Physical Exam: Temp Pulse Resp BP Pulse Ox 97.2 F 62 17 126/62 92 09/14/20 14:25 09/14/20 14:25 09/14/20 14:25 09/14/20 14:25 09/14/20 14:25 General: Alert, In no apparent distress, Oriented x3 HEENT: Mucous membr. moist/pink Neck: JVD not distended Respiratory: Other (Mild scattered rhonchi.) Cardiovascular: Regular rate/rhythm, Normal S1 S2 Gastrointestinal: Soft and benign, Non-distended Musculoskeletal: No swelling Neurological: Normal strength at 5/5 x4 extr Laboratory Data at Discharge: WBC 7.30 K/uL (4.3-10.9) D 09/14/20 05:01 Hgb 12.6 g/dL (12.0-15.0) 09/14/20 05:01 Hct 37.4 % (36.0-45.0) 09/14/20 05:01 Plt Count 258 K/uL (152-406) 09/14/20 05:01 PT 12.5 SECONDS (9.5-12.5) 09/12/20 14:25 INR 1.09 09/12/20 14:25 APTT 140.2 SECONDS (24.3-36.9) H* 09/13/20 09:15 Sodium 143 mmol/L (136-145) 09/14/20 05:01 Potassium 4.6 mmol/L (3.5-5.1) 09/14/20 05:01 BUN 20 mg/dL (7-18) H 09/14/20 05:01 Creatinine 0.87 mg/dL (0.55-1.3) 09/14/20 05:01 Glucose 126 mg/dL (74-106) H 09/14/20 05:01 Phosphorus 2.6 mg/dL (2.5-4.9) 09/14/20 05:01 Magnesium 1.9 mg/dL (1.8-2.4) 09/13/20 05:24 Total Bilirubin 0.2 mg/dL (0.2-1.0) 09/13/20 05:24 AST 25 U/L (15-37) 09/13/20 05:24 ALT 16 U/L (12-78) 09/13/20 05:24 Alkaline Phosphatase 59 U/L (45-117) 09/13/20 05:24 Troponin I 0.48 ng/mL (0.0-0.045) H 09/13/20 18:45 Amylase 48 U/L (25-115) 09/12/20 12:55 Lipase 104 U/L (73-393) 09/12/20 12:55 Home Medications: ALPRAZolam [Xanax*] 2 mg PO BID PRN 02/19/15 Albuterol Sulfate [Proventil Hfa] 2 puff IH Q6HP PRN 02/19/15 Fluticasone [Flonase 50MCG Nasal [place]*] 2 sprays NS DAILY 02/19/15 Gabapentin [Neurontin*] 100 mg PO TID 02/19/15 Tiotropium [place] [Spiriva] 1 spray IH DAILY 02/19/15 Amlodipine [Norvasc*] 2.5 mg PO DAILY 05/18/17 Hydrocodone/Acetaminophen [Hydrocodone-Acetamin 7.5-300] 1 each PO TID 05/18/17 Benzonatate [Tessalon Perle*] 100 mg PO TID PRN #30 cap 09/13/20 Escitalopram Oxalate [Lexapro] 5 mg PO BEDTIME 09/13/20 levoFLOXacin [Levaquin] 750 mg PO DAILY #5 tab 09/14/20 predniSONE [Deltasone] 40 mg PO DAILY #10 tab 09/14/20 New Medications: levoFLOXacin [Levaquin] 750 mg PO DAILY #5 tab predniSONE [Deltasone] 40 mg PO DAILY #10 tab Benzonatate [Tessalon Perle*] 100 mg PO TID PRN #30 cap PRN Reason: Cough Diet: AHA Activity: Ad laith Followup: Wes Perrin DO [Primary Care Provider] - 1 Week Time spent managing pt's care (in minutes): 36
[2020-09-14] MEDS ORDERED: ESCITALOPRAM 20 MG TAB PO SCH (21:00)
--- NOTE | 2020-09-17 08:28 | CON ---
Date of Consultation: 09/13/2020 Reason For Consultation: Elevated troponin. History Of Present Illness: Ms. Conley is an 80-year-old woman. She was admitted on 09/12/2020, mo stly with shortness of breath thought to have COPD exacerbation. She has a history of anxiety, breas t cancer, COPD, hypertension, history of tuberculosis. She has a history of right nephrectomy. Half of the left kidney has been removed. She also had a lobectomy in the past for lung cancer. Came in with shortness of breath. No chest pain. Denies nausea, vomiting, diaphoresis, PND, orthopnea, ped al edema, palpitations, or syncope. Her troponin was elevated and I was consulted. Allergies: SHE IS ALLERGIC TO ASPIRIN AND SULFA. Review of Systems: Negative. Social History: Negative. Family History: Noncontributory. Medications: At home include Xanax, inhalers, amlodipine, Lexapro, Flonase, Neurontin, Tylenol No.3, and Spiriva. Physical Examination: Vital Signs: When I saw her, her vital signs were stable. She was afebrile. She was in a sinus rhy thm. Her O2 saturation was 94% on 2 L nasal cannula. HEENT: Negative. Neck: Supple with no bruit. Chest: Revealed wheezing on expiration bilaterally. Cardiac: Revealed a regular rhythm and rate with S4 gallops. No murmurs or rubs. Abdomen: Benign. Extremities: Revealed no clubbing, cyanosis, or edema. Diagnostic Data: Basically were pretty unremarkable, except for troponin of 0.09 and 0.84. Her BNP was 837. Her procalcitonin was 0.16. Her chest x-ray was negative. Her EKG showed possible old ant erior myocardial infarction. Impression And Plan: 1.Elevated troponin secondary to chronic obstructive pulmonary disease exacerbation and demand ische angie and possible infection. She has elevated procalcitonin. 2.Slightly elevated BNP, probably secondary to the same reasons. 3.Anxiety. 4.Chronic obstructive pulmonary disease exacerbation. 5.Hypertension. 6.History of tuberculosis. 7.Status post lobectomy. 8.Status post right nephrectomy. I do not think we are dealing with an acute coronary syndrome. I recommend a 2D echocardiogram to be done before making further decisions. Continue present regimen o therwise. NB/MODL Voice ID: [id number] Report ID: [id number]
== END 2020-09-14 16:16 | disposition home or self-care (01) | DRG 190 ==
LOC: ER 12:28 → ERHOLD 18:59 → 2ND 09-13 15:09 → OBSVTOIN 09-13 16:38
PROVIDERS: ADMIT Internal Medicine; ATTEND Internal Medicine
DX: J44.1 Chronic obstructive pulmonary disease with (acute) exacerbation (principal); J96.01 Acute respiratory failure with hypoxia; I24.8 Other forms of acute ischemic heart disease; F41.9 Anxiety disorder, unspecified; F17.210 Nicotine dependence, cigarettes, uncomplicated; I10 Essential (primary) hypertension; R77.8 Other specified abnormalities of plasma proteins; Z88.1 Allergy status to other antibiotic agents; Z88.8 Allergy status to other drugs, medicaments and biological substances; Z85.3 Personal history of malignant neoplasm of breast; Z90.5 Acquired absence of kidney; Z88.0 Allergy status to penicillin; Z79.52 Long term (current) use of systemic steroids; Z79.01 Long term (current) use of anticoagulants; Z79.899 Other long term (current) drug therapy; Z85.118 Personal history of other malignant neoplasm of bronchus and lung; Z90.2 Acquired absence of lung [part of]; Z20.822 Contact with and (suspected) exposure to COVID-19
CPT/HCPCS: 36415; 71045; 80048; 80053; 80076; 81003; 81015; 82150; 82550; 82553; 83605; 83690; 83735; 83880; 84100; 84145; 84484; 85025; 85379; 85610; 85730; 87040; 87205; 93005; 93306; 94760; 96374; 99284; G0378; J1644; J2920; J7030; U0003

== ENCOUNTER 2020-12-25 13:04 | Inpatient (IN) | payer OTHER ==
[2020-12-25 13:53] LABS: Absolute Lymphocytes (CBC) 0.5 K/uL (0.7-4.9); Basophils % 0.3 % (0-1.3); Hematocrit 43.6 % (36.0-45.0); Lymphocytes % 3.2 % (15.3-44.8); MPV 8.4 fL (7.6-11.3); RBC Red Blood Cell Count 4.98 M/uL (3.86-4.86)
[2020-12-25 13:55] LABS: Protime INR 1.13
[2020-12-25] MEDS ORDERED: ACETAMINOPHEN 500 MG TAB ONE (14:02)
[2020-12-25 14:26] LABS: ALT/SGPT 19 U/L (12-78); AST/SGOT 13 U/L (15-37); Albumin 3.4 g/dL (3.4-5.0); Alkaline Phosphatase 73 U/L (45-117); Amylase 37 U/L (25-115); BUN Blood Urea Nitrogen 20 mg/dL (7-18); Bicarbonate 26 mmol/L (21-32); Bilirubin Direct 0.3 mg/dL (0-0.2); Creatine Phosphokinase 203 U/L (26-192); Glucose Level 113 mg/dL (74-106); Lipase 67 U/L (73-393); Potassium 3.9 mmol/L (3.5-5.1); Protein, Total 7.5 g/dL (6.4-8.2); Sodium Level 142 mmol/L (136-145); Troponin (Emerg Dept Use Only) < 0.02 ng/mL (0.0-0.045)
[2020-12-25 14:28] LABS: Blood Morphology Comment NOT SEEN (NOT SEEN); Platelet Estimate ADEQ; White Blood Cell Scan OK (OK)
--- NOTE | 2020-12-25 14:29 | RAD REPORT ---
EXAM DESCRIPTION: RAD - Chest Single View - 12/25/2020 2:22 pm CLINICAL HISTORY: Cough Chest pain. COMPARISON: Chest Single View dated 09/12/2020; Chest Pa And Lat (2 Views) dated 04/10/2019 FINDINGS: Portable technique limits examination quality. Postsurgical changes are present in the left hilar region. Mild interstitial pulmonary edema is seen. The heart is mildly to moderately enlarged in size. No displaced fractures. IMPRESSION: Mild CHF.
[2020-12-25 14:33] LABS: CKMB Creatine Kinase MB < 1.0 ng/mL (1.0-3.6)
[2020-12-25] MEDS ORDERED: FENTANYL CITR 100 MCG/2 ML ONE (14:56)
[2020-12-25 15:23] LABS: Urine Blood 3+ (Negative); Urine Glucose Negative (Negative); Urine Protein 3+ (Negative); Urine Specific Gravity 1.025 (1.005-1.030)
[2020-12-25 15:47] LABS: Urine Bacteria LOADED /HPF (<20)
--- NOTE | 2020-12-25 16:03 | ER ---
Nurse's Notes [facility] Name: Cecile Conley Age: 80 yrs Sex: Female : 1940 Arrival Date: 12/25/2020 Time: 13:08 Bed 2 Private MD: Diagnosis: UTI/ Urinary tract infection, site not specified;Weakness Presentation: 12/25 13:09 Chief complaint: EMS states: Pt. brought in by EMS for fall and weakness that occurred jt3 this morning. On arrival the patient has a temp of 102.2F. Alert and oriented x4. Pt. is tachypneic on arrival. Sepsis alert called. Coronavirus screen: Vaccine status: Patient reports being unvaccinated. Ebola Screen: Patient negative for fever greater than or equal to 101.5 degrees Fahrenheit, and additional compatible Ebola Virus Disease symptoms Patient denies exposure to infectious person. Patient denies travel to an Ebola-affected area in the 21 days before illness onset. Initial Sepsis Screen: Does the patient meet any 2 criteria? RR > 20 per min. Temp <36.0*C (96.8*F)) or > 38.3*C (100.9*F). Does the patient have a suspected source of infection? No. Patient's initial sepsis screen is negative. Risk Assessment: Do you want to hurt yourself or someone else? Patient reports no desire to harm self or others. Onset of symptoms was December 25, 2020. 13:09 Method Of Arrival: EMS: [facility] jt3 13:09 Acuity: DAVID 2 jt3 Triage Assessment: 13:13 General: Appears in no apparent distress. Behavior is calm. Pain: Complains of pain in jt3 right leg Pain does not radiate. Pain currently is 7 out of 10 on a pain scale. Historical: - Allergies: 13:13 Aspirin; jt3 13:13 Sulfa (Sulfonamide Antibiotics); jt3 - Immunization history:: Adult Immunizations up to date. - Social history:: Smoking status: Patient denies any tobacco usage or history of. Screenin:14 Abuse screen: Denies threats or abuse. Denies injuries from another. Nutritional jt3 screening: No deficits noted. Tuberculosis screening: No symptoms or risk factors identified. Fall Risk Fall in past 12 months (25 points). Assessment: 13:14 General: Pt. reports she was not able to get up from chair this morning due to jt3 weakness. Alert and oriented x4. . Neuro: Reports weakness. Respiratory: Airway is patent Respiratory effort is Respiratory pattern is tachypnea. 18:04 Reassessment: Report given to DAR Alvarado on Med Surg. . jt3 19:45 Reassessment: Assisted to BSC, pt very angry , states no one has helped her all day, dc2 updated on POC of going to room 429, verbalize understanding. 20:24 Reassessment: Pt to be brought to room 429 at this time via wheelchair. dc2 20:27 Reassessment: Report given to Syed. Reports that she did not get report from day dc2 shift. . Vital Signs: 13:09 BP 129 / 72; Pulse 95; Resp 18; Temp 102.2; Pulse Ox 95% on R/A; Weight 69.85 kg; jt3 Height 5 ft. 5 in. (165.10 cm); 13:39 BP 118 / 76; Pulse 95; Resp 20; Temp 102.2(O); Pulse Ox 95% ; mh5 14:42 BP 121 / 73; Pulse 85; Resp 18; Pulse Ox 98% ; jt3 15:00 BP 111 / 70; Pulse 83; Resp 22; Temp 100.2(O); Pulse Ox 98% ; vg1 16:59 BP 94 / 56; Pulse 62; Resp 15; Pulse Ox 98% on 2 lpm NC; jt3 17:58 BP 102 / 62; Pulse 61; jt3 19:12 BP 119 / 64; Pulse 69; Resp 17; Temp 98.3; Pulse Ox 97% on 2 lpm NC; jt3 20:00 BP 132 / 72; Pulse 71; Resp 18; Temp 98.1; Pulse Ox 100% ; Pain 10/10; dc2 13:09 Body Mass Index 25.63 (69.85 kg, 165.10 cm) jt3 ED Course: 13:08 Patient arrived in ED. ds1 13:08 Jessica Louis FNP-C is PHCP. kb 13:08 Leander Cochran MD is Attending Physician. kb 13:09 Meet Blanton, DAR is Primary Nurse. jt3 13:13 Triage completed. jt3 13:13 Arm band placed on left wrist. jt3 13:14 Patient has correct armband on for positive identification. Bed in low position. Call jt3 light in reach. Side rails up X2. 13:14 No provider procedures requiring assistance completed. Inserted saline lock: 22 gauge jt3 in left hand, using aseptic technique. 13:30 Initial lab(s) drawn, by me, sent to lab. First set of blood cultures drawn. 5 13:37 Inserted saline lock: 22 gauge in right antecubital area, using aseptic technique. 5 Blood collected. 13:38 vehicle monitor technician on. Pulse ox on. NIBP on. mh5 13:38 Maintain EMS IV. Dressing intact. Good blood return noted. Site clean \T\ dry. 5 13:41 Pillow given. 5 15:01 Straight cath inserted, using sterile technique, 16 Fr. 5 16:02 Portillo Huerta DO is Hospitalizing Provider. kb 19:45 Patient admitted, IV remains in place. intact, No redness/swelling at site. dc2 Administered Medications: 13:57 Drug: Tylenol 1000 mg Route: PO; jt3 15:25 Follow up: Response: Temperature is decreased vg1 14:27 Drug: NS 0.9% 1000 ml Route: IV; Rate: 1 bolus; Site: right antecubital; jt3 15:01 Follow up: IV Status: IV converted to saline lock; IV Intake: 500ml jt3 14:39 Drug: fentaNYL (PF) 25 mcg Route: IVP; Site: right antecubital; jt3 17:15 Follow up: Response: Pain is decreased jt3 16:17 Drug: Rocephin (cefTRIAXone) 1 grams Route: IV; Rate: calculated rate; Site: right jt3 antecubital; 16:18 Drug: NS 0.9% 500 ml {Note: Per Dr Huerta.} Route: IV; Rate: bolus; Site: right jt3 antecubital; 17:15 Follow up: IV Status: Completed infusion; IV Intake: 500ml jt3 Intake: 15:01 IV: 500ml; Total: 500ml. jt3 17:15 IV: 500ml; Total: 1000ml. jt3 Outcome: 16:02 Decision to Hospitalize by Provider. kb 17:52 Admitted to Med/surg accompanied by tech. jt3 17:52 Condition: improved 17:52 Instructed on the need for admit. 20:24 Admitted to Med/surg accompanied by tech, via wheelchair, room 429, Other Prior shift dc2 report that he had given report and that it would be passed on. Will call with update. 20:31 Patient left the ED. dc2 Signatures: Jessica Louis, ELECTRICAL ENGINEERING TEACHER-C ELECTRICAL ENGINEERING TEACHER-Deisi Vu Maria Sierra Moore, RN RN vg1 Veda Guadalupe RN RN dc2 Meet Blanton, RN RN jt3
--- NOTE | 2020-12-25 16:03 | EDPHYS ---
Physician Documentation [facility] Name: Cecile Conley Age: 80 yrs Sex: Female : 1940 Arrival Date: 12/25/2020 Time: 13:08 Bed 2 Private MD: ED Physician Leander Cochran HPI: 12/25 15:59 This 80 yrs old Female presents to ER via EMS with complaints of Fever. kb 16:00 The patient presents with generalized weakness. Onset: The symptoms/episode kb began/occurred today. Context: occurred at home, occurred while the patient was sitting, just prior to the episode the patient experienced no apparent symptoms. Modifying factors: The symptoms are alleviated by nothing, the symptoms are aggravated by nothing. Associated signs and symptoms: The patient has no apparent associated signs or symptoms. Severity of symptoms: At their worst the symptoms were moderate in the emergency department the symptoms are unchanged. Patient's baseline: Neuro: alert and fully oriented, Motor: no deficits, Ambulation: walks without assistance, Speech: normal. The patient has not experienced similar symptoms in the past. The patient has not recently seen a physician. Pt reports she got up this morning, walked to her chair and sat down. She was unable to get up from chair after that. States she was too weak to get up. After trying for an hour she decided to call 911. Denies any other symptosm. Historical: - Allergies: 13:13 Aspirin; jt3 13:13 Sulfa (Sulfonamide Antibiotics); jt3 - Immunization history:: Adult Immunizations up to date. - Social history:: Smoking status: Patient denies any tobacco usage or history of. ROS: 15:59 Constitutional: Negative for fever, chills, and weight loss. kb 15:59 Neuro: Positive for weakness. 15:59 All other systems are negative. Exam: 14:54 ECG was reviewed by the Attending Physician. rn 15:57 Constitutional: This is a well developed, well nourished patient who is awake, alert, kb and in no acute distress. Head/Face: Normocephalic, atraumatic. ENT: Moist Mucous membranes Cardiovascular: Regular rate and rhythm with a normal S1 and S2. No gallops, murmurs, or rubs. No pulse deficits. Abdomen/GI: Soft, non-tender. No distention Skin: Warm, dry with normal turgor. Normal color. MS/ Extremity: Pulses equal, no cyanosis. Neurovascular intact. Full, normal range of motion. Neuro: Awake and alert, GCS 15, oriented to person, place, time, and situation. Moves all extremities. Normal gait. Psych: Awake, alert, with orientation to person, place and time. Behavior, mood, and affect are within normal limits. 15:57 Respiratory: the patient does not display signs of respiratory distress, Respirations: normal, Breath sounds: wheezing: expiratory that is mild, is scattered. Vital Signs: 13:09 BP 129 / 72; Pulse 95; Resp 18; Temp 102.2; Pulse Ox 95% on R/A; Weight 69.85 kg; jt3 Height 5 ft. 5 in. (165.10 cm); 13:39 BP 118 / 76; Pulse 95; Resp 20; Temp 102.2(O); Pulse Ox 95% ; mh5 14:42 BP 121 / 73; Pulse 85; Resp 18; Pulse Ox 98% ; jt3 15:00 BP 111 / 70; Pulse 83; Resp 22; Temp 100.2(O); Pulse Ox 98% ; vg1 16:59 BP 94 / 56; Pulse 62; Resp 15; Pulse Ox 98% on 2 lpm NC; jt3 17:58 BP 102 / 62; Pulse 61; jt3 19:12 BP 119 / 64; Pulse 69; Resp 17; Temp 98.3; Pulse Ox 97% on 2 lpm NC; jt3 20:00 BP 132 / 72; Pulse 71; Resp 18; Temp 98.1; Pulse Ox 100% ; Pain 10/10; dc2 13:09 Body Mass Index 25.63 (69.85 kg, 165.10 cm) jt3 MDM: 13:08 Patient medically screened. kb 15:57 Data reviewed: vital signs, nurses notes. Data interpreted: Pulse oximetry: on room air kb is 98 %. Interpretation: normal. Counseling: I had a detailed discussion with the patient and/or guardian regarding: the historical points, exam findings, and any diagnostic results supporting the discharge/admit diagnosis, lab results, radiology results, the need for further work-up and treatment in the hospital. 15:59 Physician consultation: Portillo Huerta DO was contacted at 15:59, regarding admission, kb to the telemetry unit. patient's condition, and will see patient in ED, shortly. 12/25 13:20 Order name: COVID-19 SARS RT PCR (Document "Date of Onset" if Symptomatic) kb 12/25 13:20 Order name: Amylase, Serum kb 12/25 13:20 Order name: Basic Metabolic Panel kb 12/25 13:20 Order name: Blood Culture Adult (2) kb 12/25 13:20 Order name: CBC with Diff 12/25 13:20 Order name: CPK 12/25 13:20 Order name: Ckmb kb 12/25 13:20 Order name: LFT's kb 12/25 13:20 Order name: Lactate 12/25 13:20 Order name: Lipase 12/25 13:20 Order name: Procalcitonin 12/25 13:20 Order name: Protime (+inr) kb 12/25 13:20 Order name: Ptt, Activated 12/25 13:20 Order name: Troponin (emerg Dept Use Only) 12/25 13:20 Order name: Urine Microscopic Only 12/25 13:41 Order name: Glucose, Ancillary Testing; Complete Time: 13:44 EDMS 12/25 13:55 Order name: CBC with Automated Diff; Complete Time: 14:33 EDMS 12/25 13:57 Order name: Protime (+INR); Complete Time: 14:07 EDMS 12/25 13:57 Order name: PTT, Activated Partial Thromb; Complete Time: 14:07 EDMS 12/25 13:58 Order name: Lactate; Complete Time: 14:07 EDMS 12/25 14:29 Order name: CBC Smear Scan; Complete Time: 14:33 EDMS 12/25 14:33 Order name: Basic Metabolic Panel; Complete Time: 14:33 EDMS 12/25 14:33 Order name: Liver (Hepatic) Function; Complete Time: 14:33 EDMS 12/25 14:33 Order name: Creatine Phosphokinase; Complete Time: 14:33 EDMS 12/25 14:33 Order name: CKMB Creatine Kinase MB; Complete Time: 14:33 EDMS 12/25 14:33 Order name: Troponin (Emerg Dept Use Only); Complete Time: 14:33 EDMS 12/25 14:33 Order name: Amylase; Complete Time: 14:33 EDMS 12/25 14:33 Order name: Lipase; Complete Time: 14:33 EDMS 12/25 14:45 Order name: SARS-COV-2 RT PCR; Complete Time: 14:47 EDMS 12/25 13:20 Order name: Chest Single View XRAY 12/25 13:20 Order name: Accucheck; Complete Time: 13:31 kb 12/25 13:20 Order name: Cardiac monitoring; Complete Time: 13:31 kb 12/25 13:20 Order name: EKG - Nurse/Tech; Complete Time: 13:31 kb 12/25 13:20 Order name: IV Saline Lock - Large Bore; Complete Time: 13:42 kb 12/25 13:20 Order name: Labs collected and sent; Complete Time: 13:42 kb 12/25 13:20 Order name: O2 Per Protocol; Complete Time: 13:31 kb 12/25 13:20 Order name: O2 Sat Monitoring; Complete Time: 13:31 kb 12/25 13:20 Order name: Urine Dipstick-Ancillary (obtain specimen); Complete Time: 15:25 kb 12/25 14:29 Order name: RAD; Complete Time: 14:33 EDMS 12/25 15:02 Order name: Procalcitonin; Complete Time: 15:02 EDDC 12/25 15:02 Order name: Influenza Screen (A ; Complete Time: 15:05 EDMS 12/25 15:23 Order name: Urine Dipstick-Ancillary; Complete Time: 15:36 EDMS 12/25 15:47 Order name: Urine Microscopic Only; Complete Time: 15:48 EDMS 12/25 17:50 Order name: Glucose, Ancillary Testing EDDC 12/25 17:50 Order name: Blood Culture EDDC 12/25 17:50 Order name: Blood Culture EDDC 12/25 18:16 Order name: Urine Culture EDMS EC:54 Rate is 97 beats/min. Rhythm is irregular. QRS [place] is Normal. OH interval is normal. rn QRS interval is normal. QT interval is normal. No Q waves. T waves are Normal. No ST changes noted. Clinical impression: Sinus rhythm with PACs. Interpreted by me. Reviewed by me. Administered Medications: 13:57 Drug: Tylenol 1000 mg Route: PO; jt3 15:25 Follow up: Response: Temperature is decreased vg1 14:27 Drug: NS 0.9% 1000 ml Route: IV; Rate: 1 bolus; Site: right antecubital; jt3 15:01 Follow up: IV Status: IV converted to saline lock; IV Intake: 500ml jt3 14:39 Drug: fentaNYL (PF) 25 mcg Route: IVP; Site: right antecubital; jt3 17:15 Follow up: Response: Pain is decreased jt3 16:17 Drug: Rocephin (cefTRIAXone) 1 grams Route: IV; Rate: calculated rate; Site: right jt3 antecubital; 16:18 Drug: NS 0.9% 500 ml {Note: Per Dr Huerta.} Route: IV; Rate: bolus; Site: right jt3 antecubital; 17:15 Follow up: IV Status: Completed infusion; IV Intake: 500ml jt3 Disposition: 12/26 09:12 Co-signature as Attending Physician, Leander Cochran MD I agree with the assessment and rn plan of care. Attestation: The patient's history, exam findings, diagnostics, and a summary of any interventions or procedures was reviewed in detail with Jessica SPIVEY. Disposition Summary: 12/25/20 16:02 Hospitalization Ordered Hospitalization Status: Inpatient Admission kb Provider: Portillo Huerta Location: Telemetry/MedSurg (Inpatient) kb Condition: Stable kb Problem: new kb Symptoms: are unchanged kb Bed/Room Type: Standard Room Assignment: 429(12/25/20 17:38) mb4 Diagnosis - UTI/ Urinary tract infection, site not specified kb - Weakness kb Forms: - Medication Reconciliation Form kb - SBAR form kb Signatures: Dispatcher [employer] Jessica Gomez FNP-C FNP-Ckb Nieto, Roman, MD MD rn Baxter, Mackenzie mb4 Meet Blanton RN RN jt3 Sierra Dominique RN vg1 Corrections: (The following items were deleted from the chart) 12/25 17:38 16:02 kb mb4
[2020-12-25] MEDS ORDERED: CEFTRIAXONE 1000 MG/VIAL ONE (16:33)
[2020-12-25] MEDS ORDERED: WATER FOR INJ,STERILE 10 ML ONE (16:33)
--- NOTE | 2020-12-25 16:42 | P.HP ---
Certification for Inpatient Patient admitted to: Inpatient With expected LOS: >2 Midnights Patient will require the following post-hospital care: None Practitioner: I am a practitioner with admitting privileges, knowledge of patient current condition, hospital course, and medical plan of care. Services: Services provided to patient in accordance with Admission requirements found in Title 42 Section 412.3 of the Code of Federal Regulations Patient History Date of Service: 12/25/20 Primary Care Provider: Dr. Perrin; Nephrology-Dr. Leroy Reason for admission: Fever History of Present Illness: 80-year-old female with history of COPD, breast cancer, chronic renal disease. Patient reports over the past several days she has been feeling weak and tired. She reports fever today. She also reports some increased urine frequency. Patient reports history of UTIs. Patient has complicated history of chronic renal disease with prior left partial nephrectomy. 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 Patient had difficulty getting out of her seat. She denied any shortness of breath, nausea and vomiting. Patient reports history of hypertension. She is not taking any medication recently. She came to the ER for further evaluation. Patient was evaluated in the emergency room. Patient found to have a UTI. White count 15, hemoglobin 14. Platelet count 246. Sodium 142, potassium 3.9. BUN of 20, creatinine 1.4 with a GFR 35. Glucose 113. Chest x-ray stable. Procalcitonin elevated at 4.89. Lactic acid normal. Patient given IV fluids in the emergency room. Patient admitted for treatment. Allergies Sulfa (Sulfonamide Antibiotics) Adverse Reaction (Verified 05/20/17 07:27) Anaphylaxis tramadol Adverse Reaction (Verified 05/20/17 07:27) Nausea/Vomiting Aspirin Allergy (Uncoded 05/20/17 07:27) Unknown PENICILLINS Allergy (Uncoded 05/20/17 07:27) Unknown Home medications list reviewed: Yes Home Medications: ALPRAZolam [Xanax*] 2 mg PO BID PRN 02/19/15 Albuterol Sulfate [Proventil Hfa] 2 puff IH Q6HP PRN 02/19/15 Fluticasone [Flonase 50MCG Nasal [place]*] 2 sprays NS DAILY 02/19/15 Gabapentin [Neurontin*] 100 mg PO TID 02/19/15 Tiotropium [place] [Spiriva] 1 spray IH DAILY 02/19/15 Amlodipine [Norvasc*] 2.5 mg PO DAILY 05/18/17 Hydrocodone/Acetaminophen [Hydrocodone-Acetamin 7.5-300] 1 each PO TID 05/18/17 Benzonatate [Tessalon Perle*] 100 mg PO TID PRN #30 cap 09/13/20 Escitalopram Oxalate [Lexapro] 5 mg PO BEDTIME 09/13/20 levoFLOXacin [Levaquin] 750 mg PO DAILY #5 tab 09/14/20 predniSONE [Deltasone] 40 mg PO DAILY #10 tab 09/14/20 - Past Medical/Surgical History Diabetic: No -: COPD -: Hypertension -: Chronic renal disease stage III -: 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 She is a . - Family History Mother -: Heart disease Father -: Heart disease - Social History Smoking Status: Heavy Tobacco smoker (>10 cigarettes/day) Smoking therapy provided: Yes Patient receptive to therapy: Yes Alcohol use: No CD- Drugs: No Caffeine use: Yes Place of Residence: Home Review of Systems General: Fever, Weakness, Malaise, As per HPI Eyes: Unremarkable ENT: Unremarkable Respiratory: Unremarkable Cardiovascular: Unremarkable Gastrointestinal: Unremarkable Genitourinary: Dysuria, Frequency, As per HPI Musculoskeletal: Unremarkable Integumentary: Unremarkable Neurological: Unremarkable Lymphatics: Unremarkable Physical Examination - Studies Laboratory Data (last 24 hrs) 12/25/20 13:30: PT 13.0 H, INR 1.13, APTT 28.9 12/25/20 13:30: WBC 15.90 H, Hgb 14.3, Hct 43.6, Plt Count 246 12/25/20 13:30: Sodium 142, Potassium 3.9, BUN 20 H, Creatinine 1.43 H, Glucose 113 H, Total Bilirubin 1.0, AST 13 L, ALT 19, Alkaline Phosphatase 73, Amylase 37, Lipase 67 L Microbiology Data (last 24 hrs): 12/25/20 13:24 Nasopharnyx Influenza Type A Antigen Screen - Final 12/25/20 13:24 Nasopharnyx Influenza Type B Antigen Screen - Final Assessment and Plan - Plan COVID: Pending CXR: COMPARISON: Chest Single View dated 09/12/2020; Chest Pa And Lat (2 Views) dated 04/10/2019 FINDINGS: Portable technique limits examination quality. Postsurgical changes are present in the left hilar region. Mild interstitial pulmonary edema is seen. The heart is mildly to moderately enlarged in size. No displaced fractures. IMPRESSION: Mild CHF. ECHO 08/2020: MEASUREMENTS (cm) DIASTOLIC (NORMALS) SYSTOLIC (NORMALS) IVSd 1.2 (0.6-1.2) LA Diam 2.9 (1.9-4.0) LVEF 64% LVIDd 3.8 (3.5-5.7) LVIDs 2.5 (2.0-3.5) %FS 34% LVPWd 1.2 (0.6-1.2) Ao Diam 2.7 (2.0-3.7) 2 DIMENSIONAL ASSESSMENT: RIGHT ATRIUM: NORMAL LEFT ATRIUM: NORMAL RIGHT VENTRICLE: NORMAL LEFT VENTRICLE: NORMAL TRICUSPID VALVE: NORMAL MITRAL VALVE: NORMAL PULMONIC VALVE: NORMAL AORTIC VALVE: NORMAL PERICARDIAL EFFUSION: NONE AORTIC ROOT: NORMAL LEFT VENTRICULAR WALL MOTION: NORMAL DOPPLER/COLOR FLOW: NORMAL COMMENTS: NORMAL 2D ECHOCARDIOGRAM WITH DOPPLER. NO WALL MOTION ABNORMALITY. NO EFFUSION. Physical Exam: GENERAL: The patient is a well-developed, well-nourished, in no apparent distress. Alert and oriented x3. VITAL SIGNS: Reviewed HEENT: Head is normocephalic and atraumatic. Extraocular muscles are intact. Pupils are equal, round, and reactive to light and accommodation. Mucous membranes dry NECK: Supple. No carotid bruits. No lymphadenopathy or thyromegaly. LUNGS: Clear to auscultation. No crackles or wheezes are heard. HEART: Regular rate and rhythm, no appreciable gallops, rubs, murmurs or extra heart sounds ABDOMEN: Soft, nontender, and nondistended. Positive bowel sounds. No hepatosplenomegaly was noted. EXTREMITIES: Dry skin. No edema to the lower extremities. NEUROLOGIC: The patient is oriented to person, place and time. Strength and sensation are grossly intact. Face is symmetric. SKIN: Normal color, turgor and temperature. No ulcerations or rashes noted. Impression: Fever, fatigue secondary to UTI Acute on chronic renal failure stage III with history of left nephrectomy COPD History of left lobectomy related to TB History of hypertension Tobacco abuse Plan: Fever, fatigue secondary to UTI: Patient will be admitted for further evaluation and treatment. Patient will be given IV fluid bolus in the emergency room. Continue with IV fluids. Patient may require multiple fluid boluses if blood pressure remains low. Procalcitonin elevated. Lactic acid normal. No evidence of sepsis at this time but will monitor closely. We will continue with IV Rocephin. Fall precautions in place. Nephrology consulted to help evaluate her acute on chronic renal failure. Will monitor closely. Blood cultures and urine cultures obtained. Anticipate improvement over the next 3 to 5 days. Acute on chronic renal failure stage III with history of left nephrectomy: Continue IV fluids. Nephrology consulted to further evaluate. COPD: Continue with COPD medicationBrovana, albuterol and Atrovent. Maintain saturations above 93%. 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 Maintain sats above 93%. History of hypertension: Hold blood pressure medication at this time. Tobacco abuse: Tobacco cessation education provided. Code Status: Full Code DVT prophylaxis: Heparin Advanced Care Planning-30 minutes: Home at discharge. Patient may require home health and physical therapy at discharge. Discharge Plan: Home Plan to discharge in: Greater than 2 days - Advance Directives Does patient have a Living Will: No Does patient have a Durable POA for Healthcare: No - Code Status/Comfort Care Code Status Assessed: Yes (Patient is full code) Time Spent Managing Pts Care (In Minutes): 55
[2020-12-25] MEDS ORDERED: ACETAMINOPHEN 500 MG TAB PO PRN (21:01)
[2020-12-25] MEDS ORDERED: ONDANSETRON 4 MG/2 ML VIAL IV PRN (21:01)
[2020-12-25] MEDS ORDERED: HYDROCODONE/APAP 5/325 MG TAB PO ONE (21:05)
[2020-12-25] MEDS ORDERED: ALPRAZOLAM 1 MG TABLET PO ONE (21:05)
[2020-12-25] MEDS: NA CHLORIDE 0.9% 1,000 ML IV SCH (21:23)
[2020-12-25] MEDS: HEPARIN 5000 UNIT/ML 1 ML VIAL SQ SCH (21:23)
[2020-12-25] MEDS: ALBUTEROL 2.5 MG/3 ML NEB SOL NEB PRN (21:30)
[2020-12-25] MEDS: IPRATROPIUM BROM 0.5MG/2.5ML NEB PRN (21:30)
[2020-12-25] MEDS: ARFORMOTEROL TARTRATE 15 MCG/2 ML VIAL.NEB NEB SCH (21:30)
[2020-12-26 04:01] LABS: Absolute Lymphocytes (CBC) 0.9 K/uL (0.7-4.9); Basophils % 0.4 % (0-1.3); Hematocrit 39.9 % (36.0-45.0); Lymphocytes % 5.2 % (15.3-44.8); MPV 9.1 fL (7.6-11.3); RBC Red Blood Cell Count 4.52 M/uL (3.86-4.86)
[2020-12-26 04:29] LABS: Potassium 3.7 mmol/L (3.5-5.1); Thyroid Stimulating Hormone 0.147 uIU/mL (0.360-3.740)
[2020-12-26] MEDS: PANTOPRAZOLE 40MG TABLET PO SCH (05:28)
--- NOTE | 2020-12-26 06:18 | P.PN ---
Subjective Date of Service: 12/26/20 Primary Care Provider: Dr. Perrin; Nephrology-Dr. Leroy Chief Complaint: Fever Subjective: Other (Patient reports improvement. T-max 102.2) Physical Examination - Vital Signs Temperature: 98.4 F Blood Pressure: 121/59 Pulse: 80 Respirations: 20 Pulse Ox (%): 94 - Studies Laboratory Data (last 24 hrs) 12/25/20 13:30: PT 13.0 H, INR 1.13, APTT 28.9 12/25/20 13:30: WBC 15.90 H, Hgb 14.3, Hct 43.6, Plt Count 246 12/25/20 13:30: Sodium 142, Potassium 3.9, BUN 20 H, Creatinine 1.43 H, Glucose 113 H, Total Bilirubin 1.0, AST 13 L, ALT 19, Alkaline Phosphatase 73, Amylase 37, Lipase 67 L 12/25/20 13:20: PT Cancelled, INR Cancelled, APTT Cancelled 12/25/20 13:20: WBC Cancelled, Hgb Cancelled, Hct Cancelled, Plt Count Cancelled 12/25/20 13:20: Sodium Cancelled, Potassium Cancelled, BUN Cancelled, Creatinine Cancelled, Glucose Cancelled, Total Bilirubin Cancelled, AST Cancelled, ALT Cancelled, Alkaline Phosphatase Cancelled, Amylase Cancelled, Lipase Cancelled Microbiology Data (last 24 hrs): 12/25/20 13:24 Nasopharnyx Influenza Type A Antigen Screen - Final 12/25/20 13:24 Nasopharnyx Influenza Type B Antigen Screen - Final Assessment & Plan Discharge Plan: Home Plan to discharge in: 48 Hours Physician Review Additional Text: COVID: negative CXR: COMPARISON: Chest Single View dated 09/12/2020; Chest Pa And Lat (2 Views) dated 04/10/2019 FINDINGS: Portable technique limits examination quality. Postsurgical changes are present in the left hilar region. Mild interstitial pulmonary edema is seen. The heart is mildly to moderately enlarged in size. No displaced fractures. IMPRESSION: Mild CHF. ECHO 08/2020: MEASUREMENTS (cm) DIASTOLIC (NORMALS) SYSTOLIC (NORMALS) IVSd 1.2 (0.6-1.2) LA Diam 2.9 (1.9-4.0) LVEF 64% LVIDd 3.8 (3.5-5.7) LVIDs 2.5 (2.0-3.5) %FS 34% LVPWd 1.2 (0.6-1.2) Ao Diam 2.7 (2.0-3.7) 2 DIMENSIONAL ASSESSMENT: RIGHT ATRIUM: NORMAL LEFT ATRIUM: NORMAL RIGHT VENTRICLE: NORMAL LEFT VENTRICLE: NORMAL TRICUSPID VALVE: NORMAL MITRAL VALVE: NORMAL PULMONIC VALVE: NORMAL AORTIC VALVE: NORMAL PERICARDIAL EFFUSION: NONE AORTIC ROOT: NORMAL LEFT VENTRICULAR WALL MOTION: NORMAL DOPPLER/COLOR FLOW: NORMAL COMMENTS: NORMAL 2D ECHOCARDIOGRAM WITH DOPPLER. NO WALL MOTION ABNORMALITY. NO EFFUSION. Physical Exam: GENERAL: The patient is a well-developed, well-nourished, in no apparent distress. Alert and oriented x3. VITAL SIGNS: Reviewed HEENT: Head is normocephalic and atraumatic. Extraocular muscles are intact. Pupils are equal, round, and reactive to light and accommodation. Mucous membranes better hydrated NECK: Supple. No carotid bruits. No lymphadenopathy or thyromegaly. LUNGS: Clear to auscultation. No crackles or wheezes are heard. HEART: Regular rate and rhythm, no appreciable gallops, rubs, murmurs or extra heart sounds ABDOMEN: Soft, nontender, and nondistended. Positive bowel sounds. No hepatosplenomegaly was noted. EXTREMITIES: Patient reports some pain to the left knee. Mild pain noted. NEUROLOGIC: The patient is oriented to person, place and time. Strength and sensation are grossly intact. Face is symmetric. SKIN: Normal color, turgor and temperature. No ulcerations or rashes noted. Impression: Fever, fatigue secondary to UTI with bacteremia, blood culture positive for gram-negative rods Acute on chronic renal failure stage III with history of left nephrectomy COPD History of left lobectomy related to TB History of hypertension Tobacco abuse Chronic pain Anxiety Acute on chronic left knee pain Plan: Fever, fatigue secondary to UTI with bacteremia, blood culture positive for gram-negative rods: Continue IV fluids. Continue IV antibiotic therapyRocephin. We will continue to monitor closely. Await blood and urine culture results. Physical therapy to help ambulate. Encourage oral intake. Nephrology consulted to address acute on chronic renal failure. Will continue to monitor closely. Order echocardiogram to further evaluate. Anticipate discharge within the next 2 days. Acute on chronic renal failure stage III with history of left nephrectomy: Continue IV fluids. Nephrology consulted to further evaluate. Await further recommendations. COPD: Continue with COPD medicationBrovana, albuterol and Atrovent. Maintain saturations above 93%. 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 Maintain sats above 93%. History of hypertension: Hold blood pressure medication at this time. Tobacco abuse: Tobacco cessation education provided. Chronic pain: Continue with home medication Neurontin and hydrocodone. Patient is seen by pain management as an outpatient. Anxiety: Will provide medication for anxiety Acute on chronic left knee pain: Mild swelling to the left knee. Will order x- ray to further evaluate. Patient is seen by pain management as an outpatient. Code Status: Full Code DVT prophylaxis: Heparin Advanced Care Planning-30 minutes: Home at discharge. Patient may require home health and physical therapy at discharge. Time Spent Managing Pts Care (In Minutes): 55
[2020-12-26] MEDS ORDERED: HYDROCODONE/APAP 7.5/325 MG TAB PO PRN (06:53)
[2020-12-26] MEDS: ALBUTEROL 2.5 MG/3 ML NEB SOL NEB PRN (08:00)
[2020-12-26] MEDS: ARFORMOTEROL TARTRATE 15 MCG/2 ML VIAL.NEB NEB SCH ×2 (08:00→22:25)
[2020-12-26] MEDS ORDERED: PNEUMOCOCCAL VACCINE 0.5 ML IMVAC ONE (08:00)
[2020-12-26] MEDS: ESCITALOPRAM 20 MG TAB PO SCH (09:04)
[2020-12-26] MEDS: FOLIC ACID 1 MG TABLET PO SCH (09:04)
[2020-12-26] MEDS: THIAMINE HCL 100 MG TABLET PO SCH (09:05)
[2020-12-26] MEDS: CEFTRIAXONE 1 GM/NS 50 ML 1 GM/50 ML BAG IV SCH (09:05)
[2020-12-26] MEDS: GABAPENTIN 100 MG CAP PO SCH ×3 (09:05→22:26)
[2020-12-26] MEDS: NA CHLORIDE 0.9% 1,000 ML IV SCH ×2 (09:44→13:51)
[2020-12-26] MEDS: HEPARIN 5000 UNIT/ML 1 ML VIAL SQ SCH ×2 (09:51→22:32)
--- NOTE | 2020-12-26 10:20 | RAD REPORT ---
EXAM DESCRIPTION: RAD - Knee Left 2 View - 12/26/2020 10:04 am CLINICAL HISTORY: acute on chronic knee pain COMPARISON: No comparisons FINDINGS: Two-view portable examination was obtained with the knee flexed in both images. No fracture, dislocation or periosteal reaction.Trace joint effusion is suspected. Slight narrowing o f the patellofemoral joint space seen with patella marginal spurring. Spurring is seen at quadriceps attachment to the patella. No soft tissue abnormality. IMPRESSION: Knee joint degenerative changes are present as detailed with suspected trace joint effus ion. No acute findings seen. Clinical concerns for internal derangement or occult bony injury could be further assessed with MR im aging.
[2020-12-26] MEDS: HYDROCODONE/APAP 7.5/325 MG TAB PO PRN ×2 (10:32→18:33)
[2020-12-26] MEDS: FLUTICASONE 50MCG NASAL SPRAY NAS SCH (10:34)
--- NOTE | 2020-12-26 11:20 | P.CNS ---
Date of Consult: 12/26/20 Reason for Consult: CKD Requesting Physician: Portillo Huerta Primary Care Provider: Dr. Perrin; Nephrology-Dr. Leroy Chief Complaint: Fever History of Present Illness: 80-year-old female with history of COPD, breast cancer, chronic renal disease. Patient reports over the past several days she has been feeling weak and tired. She reports fever today. She also reports some increased urine frequency. Patient reports history of UTIs. Patient has complicated history of chronic renal disease with prior left partial nephrectomy. 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 Patient had difficulty getting out of her seat. She denied any shortness of breath, nausea and vomiting. Patient reports history of hypertension. She is not taking any medication recently. She came to the ER for further evaluation. She reports severe weakness in her legs. 15:59 This 80 yrs old Female presents to ER via EMS with complaints of Fever. kb 16:00 The patient presents with generalized weakness. Onset: The symptoms/episode kb began/occurred today. Context: occurred at home, occurred while the patient was sitting, just prior to the episode the patient experienced no apparent symptoms. Modifying factors: The symptoms are alleviated by nothing, the symptoms are aggravated by nothing. Associated signs and symptoms: The patient has no apparent associated signs or symptoms. Severity of symptoms: At their worst the symptoms were moderate in the emergency department the symptoms are unchanged. Patient's baseline: Neuro: alert and fully oriented, Motor: no deficits, Ambulation: walks without assistance, Speech: normal. The patient has not experienced similar symptoms in the past. The patient has not recently seen a physician. Pt reports she got up this morning, walked to her chair and sat down. She was unable to get up from chair after that. States she was too weak to get up. After trying for an hour she decided to call 911. Denies any other symptosm. Allergies Sulfa (Sulfonamide Antibiotics) Adverse Reaction (Verified 05/20/17 07:27) Anaphylaxis tramadol Adverse Reaction (Verified 05/20/17 07:27) Nausea/Vomiting Aspirin Allergy (Uncoded 05/20/17 07:27) Unknown PENICILLINS Allergy (Uncoded 05/20/17 07:27) Unknown Home medications list reviewed: Yes Home Medications: ALPRAZolam [Xanax*] 2 mg PO BID PRN 02/19/15 Albuterol Sulfate [Proventil Hfa] 2 puff IH Q6HP PRN 02/19/15 Fluticasone [Flonase 50MCG Nasal [place]*] 2 sprays NS DAILY 02/19/15 Gabapentin [Neurontin*] 100 mg PO TID 02/19/15 Amlodipine [Norvasc*] 2.5 mg PO DAILY 05/18/17 Hydrocodone/Acetaminophen [Hydrocodone-Acetamin 7.5-300] 1 each PO DAILY 05/18/17 Benzonatate [Tessalon [place]*] 100 mg PO TID PRN #30 cap 09/13/20 Escitalopram Oxalate [Lexapro] 5 mg PO BEDTIME 09/13/20 ALPRAZolam [Xanax] 1 mg PO BID PRN 12/25/20 Albuterol Sulfate [Proventil Hfa] 6.7 gm IH DAILY 12/25/20 Amlodipine [place] 5 mg PO DAILY 12/25/20 Benzonatate 200 mg PO TID 12/25/20 Escitalopram Oxalate [Lexapro] 5 mg PO DAILY 12/25/20 Fluticasone [Flonase 50mcg Nasal [place]] 2 sprays NS DAILY 12/25/20 Gabapentin [Neurontin] 100 mg PO TID 12/25/20 Hydrocodone Bit/Acetaminophen [Hydrocodon-Acetaminoph 7.5-325] 1 each PO DAILY 12/25/20 - Past Medical/Surgical History Diabetic: No -: COPD -: Hypertension -: Chronic renal disease stage III -: 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 She is a . - Family History Mother Medical History: Heart disease Father Medical History: Heart disease - Social History Smoking Status: Current some day smoker Alcohol use: No CD- Drugs: No Caffeine use: Yes Place of Residence: Home Review of Systems 10-point ROS is otherwise unremarkable General: Weakness, Malaise Neurological: Weakness Physical Examination Temp Pulse Resp BP Pulse Ox 98.4 F 80 20 121/59 L 94 12/26/20 07:44 12/26/20 07:44 12/26/20 10:32 12/26/20 07:44 12/26/20 10:32 General: In no apparent distress, Oriented x3, Cooperative HEENT: Atraumatic Neck: Supple Respiratory: Clear to auscultation bilaterally Cardiovascular: No edema, Regular rate/rhythm Gastrointestinal: Soft and benign, Non-distended Musculoskeletal: No clubbing, No contractures Integumentary: No rashes, No cyanosis Neurological: Normal speech, Abnormal strength Laboratory Data (last 24 hrs) 12/25/20 13:30: PT 13.0 H, INR 1.13, APTT 28.9 12/25/20 13:30: WBC 15.90 H, Hgb 14.3, Hct 43.6, Plt Count 246 12/25/20 13:30: Sodium 142, Potassium 3.9, BUN 20 H, Creatinine 1.43 H, Glucose 113 H, Total Bilirubin 1.0, AST 13 L, ALT 19, Alkaline Phosphatase 73, Amylase 37, Lipase 67 L 12/25/20 13:20: PT Cancelled, INR Cancelled, APTT Cancelled 12/25/20 13:20: WBC Cancelled, Hgb Cancelled, Hct Cancelled, Plt Count Cancelled 12/25/20 13:20: Sodium Cancelled, Potassium Cancelled, BUN Cancelled, Creatinine Cancelled, Glucose Cancelled, Total Bilirubin Cancelled, AST Cancelled, ALT Cancelled, Alkaline Phosphatase Cancelled, Amylase Cancelled, Lipase Cancelled Imagings Data: EXAM DESCRIPTION: RAD - Chest Single View - 12/25/2020 2:22 pm CLINICAL HISTORY: Cough Chest pain. COMPARISON: Chest Single View dated 09/12/2020; Chest Pa And Lat (2 Views) dated 04/10/2019 FINDINGS: Portable technique limits examination quality. Postsurgical changes are present in the left hilar region. Mild interstitial pulmonary edema is seen. The heart is mildly to moderately enlarged in size. No displaced fractures. IMPRESSION: Mild CHF. EXAM DESCRIPTION: RAD - Knee Left 2 View - 12/26/2020 10:04 am CLINICAL HISTORY: acute on chronic knee pain COMPARISON: No comparisons FINDINGS: Two-view portable examination was obtained with the knee flexed in both images. No fracture, dislocation or periosteal reaction.Trace joint effusion is suspected. Slight narrowing of the patellofemoral joint space seen with patella marginal spurring. Spurring is seen at quadriceps attachment to the patella. No soft tissue abnormality. IMPRESSION: Knee joint degenerative changes are present as detailed with suspected trace joint effusion. No acute findings seen. Clinical concerns for internal derangement or occult bony injury could be further assessed with MR imaging. Conclusions/Impression: VANNESSA likely due to hypovolemia CKD III with proteinuria Right partial nephrectomy -No NSAIDs -Change IVF 1/2NS Hypokalemia -Replete potassium prn Hypocalcemia -Start Vitamin D3 HTN with CKD -Monitor BP Acute cystitis -Continue Rocephin -Follow up culture Thank you kindly for consultation.
[2020-12-26] MEDS ORDERED: ALPRAZOLAM 1 MG TABLET PO PRN (14:17)
--- NOTE | 2020-12-26 14:46 | ECHO ---
HEIGHT: 5 ft 5 in WEIGHT: 154 lb 0 oz DATE OF STUDY: 12/26/[address]: Portillo Huerta DO 2-DIMENSIONAL: YES M.MODE: YES DOPPLER: YES COLOR FLOW: YES TDS: NO PORTABLE: NO DEFINITY: NO BUBBLE STUDY: NO DIAGNOSIS: URINARY TRACE INFECTION, BACTERMIA CARDIAC HISTORY: CATHERIZATION: NO SURGERY: NO PROSTHETIC VALVE: NO PACEMAKER: NO MEASUREMENTS (cm) DIASTOLIC (NORMALS) SYSTOLIC (NORMALS) IVSd 1.0 (0.6-1.2) LA Diam 3.3 (1.9-4.0) LVEF 60-65% LVIDd 4.0 (3.5-5.7) LVIDs 2.5 (2.0-3.5) %FS 38% LVPWd 1.1 (0.6-1.2) Ao Diam 2.8 (2.0-3.7) 2 DIMENSIONAL ASSESSMENT: RIGHT ATRIUM: NORMAL LEFT ATRIUM: NORMAL RIGHT VENTRICLE: NORMAL LEFT VENTRICLE: NORMAL TRICUSPID VALVE: NORMAL MITRAL VALVE: NORMAL PULMONIC VALVE: NORMAL AORTIC VALVE: NORMAL PERICARDIAL EFFUSION: NONE AORTIC ROOT: NORMAL LEFT VENTRICULAR WALL MOTION: NORMAL. DOPPLER/COLOR FLOW: SEE BELOW. COMMENTS: NORMAL LEFT VENTRICULAR EJECTION FRACTION 60-65% WITH NORMAL WALL MOTION. TRACE OF MITRAL REGURGITATION. MILD TRICUSPID REGURGITATION. NO VEGETATION IS SEEN, IF CLINICALLY MEDICATED RECOMMEND TRANSESOPHAGEAL ECHOCARDIOGRAM. TECHNOLOGIST: MEEK BURT
[2020-12-26] MEDS: ALPRAZOLAM 1 MG TABLET PO PRN (15:13)
[2020-12-26] MEDS: POTASSIUM 25 MEQ EFFERV TAB PO ONE ×2 (15:52)
[2020-12-26] MEDS: NACHLORIDE 0.45% 1,000 ML IV SCH (22:28)
[2020-12-27] MEDS: ALPRAZOLAM 1 MG TABLET PO PRN ×3 (00:38→23:04)
[2020-12-27] MEDS: HYDROCODONE/APAP 7.5/325 MG TAB PO PRN ×3 (02:16→20:24)
[2020-12-27] MEDS: PANTOPRAZOLE 40MG TABLET PO SCH (06:00)
--- NOTE | 2020-12-27 06:06 | P.PN ---
Subjective Date of Service: 12/27/20 Primary Care Provider: Dr. Perrin; Nephrology-Dr. Leroy Chief Complaint: Fever Subjective: Other (Improving but still weak.) Physical Examination - Vital Signs Temperature: 97 F Blood Pressure: 97/42 Pulse: 65 Respirations: 16 Pulse Ox (%): 96 - Studies Microbiology Data (last 24 hrs): 12/25/20 13:45 Blood - Blood Blood Culture Gram Stain - Final 12/25/20 13:45 Blood - Blood Gram Stain - Final 12/25/20 13:30 Blood - Blood Blood Culture Gram Stain - Final 12/25/20 13:30 Blood - Blood Gram Stain - Final Assessment & Plan Discharge Plan: Home Plan to discharge in: 48 Hours Physician Review Additional Text: COVID: negative CXR: COMPARISON: Chest Single View dated 09/12/2020; Chest Pa And Lat (2 Views) dated 04/10/2019 FINDINGS: Portable technique limits examination quality. Postsurgical changes are present in the left hilar region. Mild interstitial pu lmonary edema is seen. The heart is mildly to moderately enlarged in size. No displaced fractures. IMPRESSION: Mild CHF. ECHO 08/2020: MEASUREMENTS (cm) DIASTOLIC (NORMALS) SYSTOLIC (NORMALS) IVSd 1.2 (0.6-1.2) LA Diam 2.9 (1.9-4.0) LVEF 64% LVIDd 3.8 (3.5-5.7) LVIDs 2.5 (2.0-3.5) %FS 34% LVPWd 1.2 (0.6-1.2) Ao Diam 2.7 (2.0-3.7) 2 DIMENSIONAL ASSESSMENT: RIGHT ATRIUM: NORMAL LEFT ATRIUM: NORMAL RIGHT VENTRICLE: NORMAL LEFT VENTRICLE: NORMAL TRICUSPID VALVE: NORMAL MITRAL VALVE: NORMAL PULMONIC VALVE: NORMAL AORTIC VALVE: NORMAL PERICARDIAL EFFUSION: NONE AORTIC ROOT: NORMAL LEFT VENTRICULAR WALL MOTION: NORMAL DOPPLER/COLOR FLOW: NORMAL COMMENTS: NORMAL 2D ECHOCARDIOGRAM WITH DOPPLER. NO WALL MOTION ABNORMALITY. NO EFFUSION. Physical Exam: GENERAL: Patient alert, Cooperative. VITAL SIGNS: Reviewed. Blood pressure still slightly low HEENT: Neck supple LUNGS: Clear to auscultation. No crackles or wheezes are heard. Currently on 2 L HEART: Regular rate and rhythm, no appreciable gallops, rubs, murmurs or extra heart sounds ABDOMEN: Soft, nontender, and nondistended. Positive bowel sounds. No hepatosplenomegaly was noted. EXTREMITIES: Patient reports some pain to the left knee. Mild pain noted. NEUROLOGIC: The patient is oriented to person, place and time. Strength and sensation are grossly intact. Face is symmetric. SKIN: Normal color, turgor and temperature. No ulcerations or rashes noted. Knee xray: COMPARISON: No comparisons FINDINGS: Two-view portable examination was obtained with the knee flexed in both images. No fracture, dislocation or periosteal reaction.Trace joint effusion is suspected. Slight narrowing of the patellofemoral joint space seen with patella marginal spurring. Spurring is seen at quadriceps attachment to the patella. No soft tissue abnormality. IMPRESSION: Knee joint degenerative changes are present as detailed with suspected trace joint effusion. No acute findings seen. 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 Continue IV antibiotic therapyRocephin. Awaiting blood and urine culture results. Gram-negative rods noted. Encourage oral intake. Physical therapy ordered. Echocardiogram unremarkable. Anticipate continued improvement over the next 1 to 2 days. Acute on chronic renal failure stage III with history of left nephrectomy: Continue IV fluids. Continue with nephrology recommendations. COPD with home oxygen: Continue with COPD medicationBrovana, albuterol and Atrovent. Maintain saturations above 93%. Patient currently on 2 L per nasal c annula. Patient has home oxygen. 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 Maintain sats above 93%. History of hypertension: Blood pressure low. Continue to hold blood pressure medication. Tobacco abuse: Tobacco cessation education provided. Chronic pain: Continue with home medication Neurontin and hydrocodone. Patient is seen by pain management as an outpatient. Anxiety: Will provide medication for anxiety Acute on chronic left knee pain: Mild swelling to the left knee. X-ray shows degenerative changes. Patient should follow-up with pain management and orthopedics as an outpatient. Fall precaution in place. Physical therapy to ambulate. Code Status: Full Code DVT prophylaxis: Heparin Advanced Care Planning-30 minutes: Home at discharge. Patient may require home health and physical therapy at discharge. Time Spent Managing Pts Care (In Minutes): 55
[2020-12-27] MEDS: NACHLORIDE 0.45% 1,000 ML IV SCH ×2 (06:08→20:36)
[2020-12-27 06:24] LABS: Absolute Lymphocytes (CBC) 0.8 K/uL (0.7-4.9); Basophils % 0.6 % (0-1.3); Hematocrit 35.7 % (36.0-45.0); Lymphocytes % 6.6 % (15.3-44.8); MPV 8.9 fL (7.6-11.3); RBC Red Blood Cell Count 4.02 M/uL (3.86-4.86)
[2020-12-27 06:36] LABS: Magnesium 2.1 mg/dL (1.8-2.4); Phosphorus 2.6 mg/dL (2.5-4.9); Potassium 3.6 mmol/L (3.5-5.1); Uric Acid 4.3 mg/dL (2.6-6.0)
[2020-12-27] MEDS: ARFORMOTEROL TARTRATE 15 MCG/2 ML VIAL.NEB NEB SCH ×2 (08:00→20:30)
[2020-12-27] MEDS: FOLIC ACID 1 MG TABLET PO SCH (08:09)
[2020-12-27] MEDS: CEFTRIAXONE 1 GM/NS 50 ML 1 GM/50 ML BAG IV SCH (08:09)
[2020-12-27] MEDS: GABAPENTIN 100 MG CAP PO SCH ×2 (08:10→20:23)
[2020-12-27] MEDS: FLUTICASONE 50MCG NASAL SPRAY NAS SCH (08:10)
[2020-12-27] MEDS: THIAMINE HCL 100 MG TABLET PO SCH (08:10)
[2020-12-27] MEDS: HEPARIN 5000 UNIT/ML 1 ML VIAL SQ SCH ×2 (08:10→20:35)
[2020-12-27] MEDS: ESCITALOPRAM 20 MG TAB PO SCH (08:30)
[2020-12-27] MEDS ORDERED: POTASSIUM CL SA 10 MEQ TAB PO ONE (09:00)
[2020-12-27] MEDS: IPRATROPIUM BROM 0.5MG/2.5ML NEB PRN ×2 (09:02→20:30)
[2020-12-27] MEDS: ALBUTEROL 2.5 MG/3 ML NEB SOL NEB PRN (09:03)
--- NOTE | 2020-12-27 18:25 | P.PN ---
Date of Service: 12/27/20 Vital Signs Temp Pulse Resp BP Pulse Ox 98.2 F 92 H 20 155/69 H 99 12/27/20 16:00 12/27/20 16:00 12/27/20 16:00 12/27/20 16:00 12/27/20 16:00 Medications Acetaminophen (Acetaminophen 500 Mg Tab) 500 mg PO Q4HP PRN PRN Reason: TEMP > 101' F Hydrocodone Bitart/Acetaminophen (Hydrocodone/Apap 7.5/325 Mg Tab) 1 tab PO TID PRN PRN Reason: Pain scale 5-7 (Moderate) Last Admin: 12/27/20 09:15 Dose: 1 tab Documented by: Albuterol Sulfate (Albuterol 2.5 Mg/3 Ml Neb Alicia) 2.5 mg NEB [id number] PRN PRN Reason: SHORTNESS OF BREATH Last Admin: 12/27/20 09:03 Dose: 2.5 mg Documented by: Alprazolam (Alprazolam 1 Mg Tablet) 1 mg PO BID PRN PRN Reason: ANXIETY Last Admin: 12/27/20 10:39 Dose: 1 mg Documented by: Arformoterol Tartrate (Arformoterol Tartrate 15 Mcg/2 Ml Vial.Neb) 15 mcg NEB BIDRESP DILLON Last Admin: 12/27/20 08:00 Dose: 15 mcg Documented by: Escitalopram Oxalate (Escitalopram 20 Mg Tab) 5 mg PO DAILY DILLON Last Admin: 12/27/20 08:30 Dose: Not Given Documented by: Fluticasone Propionate (Fluticasone 50mcg Nasal [place]) 0 sprays YFN DAILY DILLON Last Admin: 12/27/20 08:10 Dose: 2 spr Documented by: Folic Acid (Folic Acid 1 Mg Tablet) 1 mg PO DAILY DILLON Last Admin: 12/27/20 08:09 Dose: 1 mg Documented by: Gabapentin (Gabapentin 100 Mg Cap) 100 mg PO BEDTIME DILLON Heparin Sodium (Porcine) (Heparin 5000 Unit/Ml 1 Ml Vial) 5,000 unit SQ Q12HR DILLON Last Admin: 12/27/20 08:10 Dose: 5,000 unit Documented by: Ceftriaxone Sodium/Sodium Chloride (Rocephin 1gm/50 Ml Ivpb) 1 gm in 50 mls @ 100 mls/hr IV DAILY DILLON; Protocol Last Admin: 12/27/20 08:09 Dose: 50 mls Documented by: Sodium Chloride (Sodium Chloride 0.45%) 1,000 mls @ 100 mls/hr IV .Q10H [facility] Last Admin: 12/27/20 06:08 Dose: 1,000 mls Documented by: Ipratropium [place] (Ipratropium Brom 0.5mg/2.5ml) 0.5 mg NEB [id number] PRN PRN Reason: SHORTNESS OF BREATH Last Admin: 12/27/20 09:02 Dose: 0.5 mg Documented by: Ondansetron HCl (Ondansetron 4 Mg/2 Ml Vial) 4 mg IV Q6HP PRN PRN Reason: NAUSEA / VOMITING Pantoprazole Sodium (Pantoprazole 40mg Tablet) 40 mg PO DAILYAC [facility]; Protocol Last Admin: 12/27/20 06:00 Dose: 40 mg Documented by: Sodium Chloride (Flush Normal Saline 10 Ml) 10 ml IV BID [facility] Last Admin: 12/27/20 08:12 Dose: 10 ml Documented by: Thiamine HCl (Thiamine Hcl 100 Mg Tablet) 100 mg PO DAILY [facility] Last Admin: 12/27/20 08:10 Dose: 100 mg Documented by: Microbiology Results 12/25/20 15:22 Clean Catch Urine [place] Count - Preliminary >100,000 CFU/ML. 12/25/20 15:22 Clean Catch Urine - Preliminary Gram Neg [place] 12/25/20 13:30 Blood - Blood Aerobic Blood Culture - Preliminary Gram Neg [place] 12/25/20 13:30 Blood - Blood Blood Culture Gram Stain - Final 12/25/20 13:30 Blood - Blood Anaerobic Blood Culture - Preliminary Gram Neg [place] 12/25/20 13:30 Blood - Blood Gram Stain - Final 12/25/20 13:45 Blood - Blood Aerobic Blood Culture - Preliminary Gram Neg [place] 12/25/20 13:45 Blood - Blood Blood Culture Gram Stain - Final 12/25/20 13:45 Blood - Blood Anaerobic Blood Culture - Preliminary Gram Neg [place] 12/25/20 13:45 Blood - Blood Gram Stain - Final 12/25/20 13:24 Nasopharnyx Influenza Type A Antigen Screen - Final 12/25/20 13:24 Nasopharnyx Influenza Type B Antigen Screen - Final Assessment/ Plan: Nephrology Progress Note Feeling better with less LE weakness No chest pain or dyspnea No acute events overnight Vitals, medications blood work and imaging reviewed in the chart General: In no apparent distress, Oriented x3, Cooperative HEENT: Atraumatic Neck: Supple Respiratory: Clear to auscultation bilaterally Cardiovascular: No edema, Regular rate/rhythm Gastrointestinal: Soft and benign, Non-distended Musculoskeletal: No clubbing, No contractures Integumentary: No rashes, No cyanosis Neurological: Normal speech, Abnormal strength Laboratory Data (last 24 hrs) 12/25/20 13:30: PT 13.0 H, INR 1.13, APTT 28.9 12/25/20 13:30: WBC 15.90 H, Hgb 14.3, Hct 43.6, Plt Count 246 12/25/20 13:30: Sodium 142, Potassium 3.9, BUN 20 H, Creatinine 1.43 H, Glucose 113 H, Total Bilirubin 1.0, AST 13 L, ALT 19, Alkaline Phosphatase 73, Amylase 37, Lipase 67 L 12/25/20 13:20: PT Cancelled, INR Cancelled, APTT Cancelled 12/25/20 13:20: WBC Cancelled, Hgb Cancelled, Hct Cancelled, Plt Count Cancelled 12/25/20 13:20: Sodium Cancelled, Potassium Cancelled, BUN Cancelled, Creatinine Cancelled, Glucose Cancelled, Total Bilirubin Cancelled, AST Cancelled, ALT Cancelled, Alkaline Phosphatase Cancelled, Amylase Cancelled, Lipase Cancelled Imagings Data: EXAM DESCRIPTION: RAD - Chest Single View - 12/25/2020 2:22 pm CLINICAL HISTORY: Cough Chest pain. COMPARISON: Chest Single View dated 09/12/2020; Chest Pa And Lat (2 Views) dated 04/10/2019 FINDINGS: Portable technique limits examination quality. Postsurgical changes are present in the left hilar region. Mild interstitial pulmonary edema is seen. The heart is mildly to moderately enlarged in size. No displaced fractures. IMPRESSION: Mild CHF. EXAM DESCRIPTION: RAD - Knee Left 2 View - 12/26/2020 10:04 am CLINICAL HISTORY: acute on chronic knee pain COMPARISON: No comparisons FINDINGS: Two-view portable examination was obtained with the knee flexed in both images. No fracture, dislocation or periosteal reaction.Trace joint effusion is suspected. Slight narrowing of the patellofemoral joint space seen with patella marginal spurring. Spurring is seen at quadriceps attachment to the patella. No soft tissue abnormality. IMPRESSION: Knee joint degenerative changes are present as detailed with suspected trace joint effusion. No acute findings seen. Clinical concerns for internal derangement or occult bony injury could be further assessed with MR imaging. Conclusions/Impression: VANNESSA likely due to hypovolemia CKD III with proteinuria Right partial nephrectomy -No NSAIDs -Continue IVF 1/2NS Hypokalemia -Replete potassium prn Hypocalcemia -Continue Vitamin D3 HTN with CKD -Monitor BP Acute cystitis -Continue Rocephin -Follow up culture
--- NOTE | 2020-12-28 06:15 | P.PN ---
Subjective Date of Service: 12/28/20 Primary Care Provider: Dr. Perrin; Nephrology-Dr. Leroy Chief Complaint: Fever Subjective: Improving, Doing well Physical Examination - Vital Signs Temperature: 96.8 F Blood Pressure: 123/87 Pulse: 85 Respirations: 19 Pulse Ox (%): 91 - Studies Microbiology Data (last 24 hrs): 12/25/20 13:30 Blood - Blood Blood Culture Gram Stain - Final 12/25/20 13:30 Blood - Blood Gram Stain - Final 12/25/20 13:45 Blood - Blood Blood Culture Gram Stain - Final 12/25/20 13:45 Blood - Blood Gram Stain - Final Assessment & Plan Discharge Plan: Home Plan to discharge in: 24 Hours Physician Review Additional Text: COVID: negative CXR: COMPARISON: Chest Single View dated 09/12/2020; Chest Pa And Lat (2 Views) dated 04/10/2019 FINDINGS: Portable technique limits examination quality. Postsurgical changes are present in the left hilar region. Mild interstitial pulmonary edema is seen. The heart is mildly to moderately enlarged in size. No displaced fractures. IMPRESSION: Mild CHF. ECHO 08/2020: MEASUREMENTS (cm) DIASTOLIC (NORMALS) SYSTOLIC (NORMALS) IVSd 1.2 (0.6-1.2) LA Diam 2.9 (1.9-4.0) LVEF 64% LVIDd 3.8 (3.5-5.7) LVIDs 2.5 (2.0-3.5) %FS 34% LVPWd 1.2 (0.6-1.2) Ao Diam 2.7 (2.0-3.7) 2 DIMENSIONAL ASSESSMENT: RIGHT ATRIUM: NORMAL LEFT ATRIUM: NORMAL RIGHT VENTRICLE: NORMAL LEFT VENTRICLE: NORMAL TRICUSPID VALVE: NORMAL MITRAL VALVE: NORMAL PULMONIC VALVE: NORMAL AORTIC VALVE: NORMAL PERICARDIAL EFFUSION: NONE AORTIC ROOT: NORMAL LEFT VENTRICULAR WALL MOTION: NORMAL DOPPLER/COLOR FLOW: NORMAL COMMENTS: NORMAL 2D ECHOCARDIOGRAM WITH DOPPLER. NO WALL MOTION ABNORMALITY. NO EFFUSION. Knee xray: COMPARISON: No comparisons FINDINGS: Two-view portable examination was obtained with the knee flexed in both images. No fracture, dislocation or periosteal reaction.Trace joint effusion is suspected. Slight narrowing of the patellofemoral joint space seen with patella marginal spurring. Spurring is seen at quadriceps attachment to the patella. No soft tissue abnormality. IMPRESSION: Knee joint degenerative changes are present as detailed with suspected trace joint effusion. No acute findings seen. Physical Exam: GENERAL: Patient alert, Cooperative. VITAL SIGNS: Reviewed. Stable HEENT: Neck supple LUNGS: Clear to auscultation. No crackles or wheezes are heard. Currently on 2 L HEART: Regular rate and rhythm, no appreciable gallops, rubs, murmurs or extra heart sounds ABDOMEN: Soft, nontender, and nondistended. Positive bowel sounds. No hepatosplenomegaly was noted. EXTREMITIES: Patient reports some pain to the left knee. Mild pain noted. NEUROLOGIC: The patient is oriented to person, place and time. Strength and sensation are grossly intact. Face is symmetric. SKIN: Normal color, turgor and temperature. No ulcerations or rashes noted. Impression: Fever, fatigue secondary to UTI with bacteremia, urine/blood culture positive for E. 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 coli: Overall improved. Will change IV antibiotic therapy to oral Levaquin. Patient will need Levaquin for at least 7 more days of treatment. Repeat urine and blood culture results. Physical therapy to assess ambulation to consider discharge as early as today or tomorrow. Patient improved overall. Acute on chronic renal failure stage III with history of left nephrectomy: Overall stable. Continue IV fluids. Continue with nephrology recommendations. COPD with home oxygen: Continue with COPD medicationBrovana, albuterol and Atrovent. Maintain saturations above 93%. Patient currently on 2 L per nasal cannula. Patient has home oxygen. 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 Maintain sats above 93%. History of hypertension: Blood pressure remains stable off medication. Tobacco abuse: Tobacco cessation education provided. Chronic pain: Continue with home medication Neurontin and hydrocodone. Patient is seen by pain management as an outpatient. Anxiety: Will provide medication for anxiety Acute on chronic left knee pain: Mild swelling to the left knee. X-ray shows degenerative changes. Patient should follow-up with pain management and orthopedics as an outpatient. Fall precaution in place. Physical therapy to ambulate. Code Status: Full Code DVT prophylaxis: Heparin Advanced Care Planning-30 minutes: Home at discharge. Patient may require home health and physical therapy at discharge. Time Spent Managing Pts Care (In Minutes): 55
[2020-12-28] MEDS: PANTOPRAZOLE 40MG TABLET PO SCH (06:25)
[2020-12-28] MEDS: NACHLORIDE 0.45% 1,000 ML IV SCH ×2 (06:25→08:19)
[2020-12-28 06:42] LABS: Absolute Lymphocytes (CBC) 0.7 K/uL (0.7-4.9); Basophils % 0.7 % (0-1.3); Hematocrit 39.4 % (36.0-45.0); Lymphocytes % 6.6 % (15.3-44.8); MPV 9.3 fL (7.6-11.3); RBC Red Blood Cell Count 4.49 M/uL (3.86-4.86)
[2020-12-28] MEDS: HYDROCODONE/APAP 7.5/325 MG TAB PO PRN ×2 (06:44→17:55)
[2020-12-28 06:59] LABS: Magnesium 2.1 mg/dL (1.8-2.4); Potassium 3.9 mmol/L (3.5-5.1)
[2020-12-28] MEDS: HEPARIN 5000 UNIT/ML 1 ML VIAL SQ SCH ×2 (07:34→21:00)
[2020-12-28] MEDS: CEFTRIAXONE 1 GM/NS 50 ML 1 GM/50 ML BAG IV SCH (08:00)
[2020-12-28] MEDS: ARFORMOTEROL TARTRATE 15 MCG/2 ML VIAL.NEB NEB SCH ×2 (08:00→20:00)
[2020-12-28] MEDS: FLUTICASONE 50MCG NASAL SPRAY NAS SCH (08:22)
[2020-12-28] MEDS: THIAMINE HCL 100 MG TABLET PO SCH (08:22)
[2020-12-28] MEDS: FOLIC ACID 1 MG TABLET PO SCH (08:22)
[2020-12-28] MEDS: ESCITALOPRAM 20 MG TAB PO SCH (08:23)
[2020-12-28] MEDS ORDERED: POTASSIUM CL SA 10 MEQ TAB PO ONE (09:00)
[2020-12-28] MEDS: levoFLOXacin 250 MG TAB PO SCH (13:21)
[2020-12-28] MEDS: ALPRAZOLAM 1 MG TABLET PO PRN (15:23)
--- NOTE | 2020-12-28 18:11 | PN ---
Date of Progress Note: 12/28/2020 Subjective: The patient is seen at [facility] in [place]. The patient is s een in room 429. 80-year-old female, currently alert, awake. The patient is able to answer question s appropriately. States she lives at home with some assistance. Does not have any family close by, but feels safe and comfortable at home. States on Wednesday, she was feeling weak and abruptly start ed having a change of condition, came to the emergency room. States that she is much better now and feeling closer to her baseline. She does not have any headache, nausea, vomiting. She has been taki ng some p.o. intake. Objective: Vital Signs: Blood pressures have been relatively stable in the 120-150 range. There alexandre ve been some readings in the low 100 range. Last blood pressure this morning was 91/47, blood pressu re has come up to 99/55 currently on my examination; pulse is 70 and regular; respirations are around 16 and comfortable. The patient is afebrile, O2 sats are 96% on room air. Lungs: Clear to auscultation. Abdomen: Soft. Extremities: Reveal no edema. Heart: Sounds are regular. Laboratory Data: Reviewed. Labs show WBC count improved to 10.2, it was 15.9 on ; 17.8 on and , yesterday was 11.4; hemoglobin is 13; hematocrit 39.4; platelet count at 194. Chemistry sh ow sodium 142, potassium 3.9, chloride 111, bicarb is 24, BUN is 17, creatinine 1.37, this is an impr ovement from 1.45 yesterday and 1.43 on December 25. Urine cultures show E coli, gram-negative disha. Assessment And Plan: The patient with urinary tract infection, acute kidney injury on chronic kidney disease. Currently, renal function seems to be stabilizing and improving. Continue gentle IV fluid s. The patient seemed to have some prerenal azotemia. Further evaluation of chronic kidney disease and baseline renal function once acute issues are resolved. Blood pressure is reasonable at this poi nt. May need to adjust IV fluids upwards if blood pressure drops any further, but actually it has im proved from the morning reading at about 99/50. Currently, the patient is alert, awake, otherwise fe eling well. I understand that she is on antibiotics and IV fluids. She has been feeling weaker dylan use of being in the hospital for a few days now. She will need to be assessed for physical therapy a nd to get her stronger once acute issues are resolved and she returns back home. /AYAAN Voice ID: [id number] Report ID: [id number]
[2020-12-28] MEDS: GABAPENTIN 100 MG CAP PO SCH (21:00)
[2020-12-29] MEDS: NACHLORIDE 0.45% 1,000 ML IV SCH (00:09)
[2020-12-29] MEDS: HYDROCODONE/APAP 7.5/325 MG TAB PO PRN ×3 (03:38→21:17)
[2020-12-29] MEDS: PANTOPRAZOLE 40MG TABLET PO SCH (05:04)
--- NOTE | 2020-12-29 05:53 | P.PN ---
Subjective Date of Service: 12/29/20 Primary Care Provider: Dr. Perrin; Nephrology-Dr. Leroy Chief Complaint: Fever Subjective: Improving Physical Examination - Vital Signs Temperature: 97.3 F Blood Pressure: 140/74 Pulse: 71 Respirations: 20 Pulse Ox (%): 96 - Studies Microbiology Data (last 24 hrs): 12/25/20 15:22 Clean Catch Urine [place] Count - Final >100,000 CFU/ML. 12/25/20 15:22 Clean Catch Urine - Final Escherichia Coli Gram Neg [place] 12/25/20 13:30 Blood - Blood Aerobic Blood Culture - Final Escherichia Coli 12/25/20 13:30 Blood - Blood Blood Culture Gram Stain - Final 12/25/20 13:30 Blood - Blood Anaerobic Blood Culture - Final Gram Neg [place] Escherichia Coli 12/25/20 13:30 Blood - Blood Gram Stain - Final 12/25/20 13:45 Blood - Blood Aerobic Blood Culture - Final Escherichia Coli 12/25/20 13:45 Blood - Blood Blood Culture Gram Stain - Final 12/25/20 13:45 Blood - Blood Anaerobic Blood Culture - Final Gram Neg [place] Escherichia Coli 12/25/20 13:45 Blood - Blood Gram Stain - Final Assessment & Plan Discharge Plan: Home (With home health and physical therapy with possible caregiver services) Plan to discharge in: 24 Hours Physician Review Additional Text: COVID: negative CXR: COMPARISON: Chest Single View dated 09/12/2020; Chest Pa And Lat (2 Views) dated 04/10/2019 FINDINGS: Portable technique limits examination quality. Postsurgical changes are present in the left hilar region. Mild interstitial pulmonary edema is seen. The heart is mildly to moderately enlarged in size. No displaced fractures. IMPRESSION: Mild CHF. ECHO 08/2020: MEASUREMENTS (cm) DIASTOLIC (NORMALS) SYSTOLIC (NORMALS) IVSd 1.2 (0.6-1.2) LA Diam 2.9 (1.9-4.0) LVEF 64% LVIDd 3.8 (3.5-5.7) LVIDs 2.5 (2.0-3.5) %FS 34% LVPWd 1.2 (0.6-1.2) Ao Diam 2.7 (2.0-3.7) 2 DIMENSIONAL ASSESSMENT: RIGHT ATRIUM: NORMAL LEFT ATRIUM: NORMAL RIGHT VENTRICLE: NORMAL LEFT VENTRICLE: NORMAL TRICUSPID VALVE: NORMAL MITRAL VALVE: NORMAL PULMONIC VALVE: NORMAL AORTIC VALVE: NORMAL PERICARDIAL EFFUSION: NONE AORTIC ROOT: NORMAL LEFT VENTRICULAR WALL MOTION: NORMAL DOPPLER/COLOR FLOW: NORMAL COMMENTS: NORMAL 2D ECHOCARDIOGRAM WITH DOPPLER. NO WALL MOTION ABNORMALITY. NO EFFUSION. Knee xray: COMPARISON: No comparisons FINDINGS: Two-view portable examination was obtained with the knee flexed in both images. No fracture, dislocation or periosteal reaction.Trace joint effusion is suspected. Slight narrowing of the patellofemoral joint space seen with patella marginal spurring. Spurring is seen at quadriceps attachment to the patella. No soft tissue abnormality. IMPRESSION: Knee joint degenerative changes are present as detailed with suspected trace joint effusion. No acute findings seen. Physical Exam: GENERAL: Patient alert, cooperative. Some anxiety noted. VITAL SIGNS: Reviewed. Stable HEENT: Neck supple LUNGS: Clear to auscultation. No crackles or wheezes are heard. Currently on 2 L HEART: Regular rate and rhythm, no appreciable gallops, rubs, murmurs or extra heart sounds ABDOMEN: Soft, nontender, and nondistended. Positive bowel sounds. No hepatosplenomegaly was noted. EXTREMITIES: Good range of motion. No focal deficits. NEUROLOGIC: The patient is oriented to person, place and time. Strength and sensation are grossly intact. Face is symmetric. Mild anxiety. SKIN: Normal color, turgor and temperature. No ulcerations or rashes noted. Impression: Fever, fatigue secondary to UTI with bacteremia, urine/blood culture positive for E. 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 coli: Patient overall improved. She did work with physical therapy yesterday. Patient still weak and risk for fall. Patient lives by herself. She is to have family come and help as early as tomorrow. Repeat urine and bl ood culture pending. Continue to work with physical therapy. Patient does not desire to go to a skilled facility. We'll pursue discharge tomorrow with home health and physical therapy arranged at home. Patient may also require caregiver services. We'll have social services specialist address this in detail. Continue with Levaquin for a total of 7 more days. Patient currently needs 6 more days of treatment. I will turn the service over to the hospitalist team tomorrow. I will go plan of care with him. Acute on chronic renal failure stage III with history of left nephrectomy: Overall improved. Patient with good oral intake. Discontinue IV fluids. Continue with nephrology recommendations. COPD with home oxygen: Continue with COPD medicationBrovana, albuterol and Atrovent. Maintain saturations above 93%. Patient currently on 2 L per nasal cannula. Patient has home oxygen. 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 Maintain sats above 93%. History of hypertension: Blood pressure remains stable off medication. If blood pressure starts to increase then will consider restarting home medication. Tobacco abuse: Tobacco cessation education provided. Chronic pain: Continue with home medication Neurontin and hydrocodone. Patient is seen by pain management as an outpatient. Patient reports that she takes her hydrocodone as scheduled. We need to verify home medication so I can adjust. Anxiety: Continue with anxiety medication. Will verify home medications as well. Acute on chronic left knee pain: Mild swelling to the left knee. X-ray shows degenerative changes. Patient should follow-up with pain management and orthopedics as an outpatient. Fall precaution in place. Physical therapy to ambulate. Code Status: Full Code DVT prophylaxis: Heparin Advanced Care Planning-30 minutes: We'll arrange for home health and physical therapy at discharge with possible caregiver services. Anticipate discharge tomorrow. Time Spent Managing Pts Care (In Minutes): 55
[2020-12-29 06:06] LABS: Potassium 3.7 mmol/L (3.5-5.1)
[2020-12-29] MEDS: ALBUTEROL 2.5 MG/3 ML NEB SOL NEB PRN (08:00)
[2020-12-29] MEDS: ARFORMOTEROL TARTRATE 15 MCG/2 ML VIAL.NEB NEB SCH ×2 (08:00→20:00)
[2020-12-29] MEDS: IPRATROPIUM BROM 0.5MG/2.5ML NEB PRN (08:00)
[2020-12-29] MEDS: KCL 20 MEQ/100 mL IVPB 20 MEQ/100 ML BAG IV SCH ×2 (08:56→09:00)
[2020-12-29] MEDS: THIAMINE HCL 100 MG TABLET PO SCH (08:57)
[2020-12-29] MEDS: levoFLOXacin 250 MG TAB PO SCH (08:57)
[2020-12-29] MEDS: FOLIC ACID 1 MG TABLET PO SCH (08:57)
[2020-12-29] MEDS: HEPARIN 5000 UNIT/ML 1 ML VIAL SQ SCH ×2 (08:57→19:36)
[2020-12-29] MEDS: FLUTICASONE 50MCG NASAL SPRAY NAS SCH (08:57)
[2020-12-29] MEDS: ALPRAZOLAM 1 MG TABLET PO PRN (08:58)
[2020-12-29] MEDS: ESCITALOPRAM 20 MG TAB PO SCH (08:59)
[2020-12-29] MEDS ORDERED: POTASSIUM CL SA 10 MEQ TAB PO ONE (10:00)
[2020-12-29] MEDS: GABAPENTIN 100 MG CAP PO SCH (19:36)
[2020-12-29 23:06] VITALS: BMI 25.7
[2020-12-30] MEDS: PANTOPRAZOLE 40MG TABLET PO SCH (05:50)
[2020-12-30] MEDS: ARFORMOTEROL TARTRATE 15 MCG/2 ML VIAL.NEB NEB SCH ×2 (08:00→20:05)
[2020-12-30] MEDS: HYDROCODONE/APAP 7.5/325 MG TAB PO PRN ×2 (08:15→15:52)
[2020-12-30] MEDS: levoFLOXacin 250 MG TAB PO SCH (08:16)
[2020-12-30] MEDS: FOLIC ACID 1 MG TABLET PO SCH (08:17)
[2020-12-30] MEDS: ESCITALOPRAM 20 MG TAB PO SCH (08:17)
[2020-12-30] MEDS: THIAMINE HCL 100 MG TABLET PO SCH (08:17)
[2020-12-30] MEDS: HEPARIN 5000 UNIT/ML 1 ML VIAL SQ SCH ×2 (08:17→21:00)
[2020-12-30] MEDS: FLUTICASONE 50MCG NASAL SPRAY NAS SCH (08:18)
[2020-12-30 08:38] LABS: Potassium 3.8 mmol/L (3.5-5.1)
[2020-12-30] MEDS ORDERED: levoFLOXacin 500 MG TAB PO ONE (10:00)
[2020-12-30] MEDS: ALPRAZOLAM 1 MG TABLET PO PRN ×2 (10:57→22:20)
[2020-12-30] MEDS ORDERED: levoFLOXacin 750 MG TAB PO SCH (14:00)
[2020-12-30] MEDS: ALBUTEROL 2.5 MG/3 ML NEB SOL NEB PRN (14:41)
[2020-12-30] MEDS: IPRATROPIUM BROM 0.5MG/2.5ML NEB PRN (14:41)
[2020-12-30] MEDS: GABAPENTIN 100 MG CAP PO SCH (21:00)
[2020-12-31] MEDS: HYDROCODONE/APAP 7.5/325 MG TAB PO PRN ×2 (04:20→13:10)
[2020-12-31] MEDS: PANTOPRAZOLE 40MG TABLET PO SCH (05:34)
[2020-12-31] MEDS: ARFORMOTEROL TARTRATE 15 MCG/2 ML VIAL.NEB NEB SCH ×2 (08:00→19:10)
[2020-12-31] MEDS: FLUTICASONE 50MCG NASAL SPRAY NAS SCH (09:00)
[2020-12-31] MEDS: THIAMINE HCL 100 MG TABLET PO SCH (09:00)
[2020-12-31] MEDS: ESCITALOPRAM 20 MG TAB PO SCH (09:00)
[2020-12-31] MEDS: FOLIC ACID 1 MG TABLET PO SCH (09:00)
[2020-12-31] MEDS: HEPARIN 5000 UNIT/ML 1 ML VIAL SQ SCH ×2 (09:00→19:49)
[2020-12-31] MEDS: ALPRAZOLAM 1 MG TABLET PO PRN ×2 (09:07→19:49)
[2020-12-31] MEDS ORDERED: BISACODYL E.C. 5 MG TAB PO ONE (10:46)
[2020-12-31] MEDS: IPRATROPIUM BROM 0.5MG/2.5ML NEB PRN (13:51)
[2020-12-31] MEDS: ALBUTEROL 2.5 MG/3 ML NEB SOL NEB PRN (13:52)
--- NOTE | 2020-12-31 16:50 | P.PN ---
Subjective Date of Service: 12/30/20 Patient is clinically doing better. Patient is still not ambulating well. Still having a lot a weakness in her lower extremities. Will make sure home health is arranged prior to discharge. Her strength is significantly diminished. She will need to continue working with therapy prior to going home as she lives alone by herself. Review of Systems 10-point ROS is otherwise unremarkable Physical Examination - Vital Signs Temperature: 97.5 F Blood Pressure: 110/62 Pulse: 66 Respirations: 18 Pulse Ox (%): 93 - Physical Exam General: Alert, In no apparent distress, Oriented x3 Respiratory: Clear to auscultation bilaterally, Normal air movement Cardiovascular: Regular rate/rhythm, Normal S1 S2, No murmurs Gastrointestinal: Normal bowel sounds, Soft and benign, Non-distended, No tenderness Musculoskeletal: No clubbing, No swelling, No tenderness Neurological: Sensation intact, Cranial nerves 3-12 intact, Abnormal strength (Weakness of the lower extremities) - Studies Medications List Reviewed: Yes Assessment & Plan - Problems (Diagnosis) (1) Weakness generalized Onset Date: 02/19/15 Current Visit: No Status: Acute (2) UTI (urinary tract infection) Onset Date: 02/19/15 Current Visit: No Status: Acute Qualifiers: Urinary tract infection type: acute cystitis (3) COPD exacerbation Current Visit: No Status: Acute (4) HTN (hypertension) Onset Date: 02/19/15 Current Visit: No Status: Acute (5) History of nephrectomy, unilateral Onset Date: 02/19/15 Current Visit: No Status: Acute - Plan Plan: 1. Continue with IV fluids 2. Continue with antibiotics 3. Continue with physical therapy 4. Strict blood pressure and blood sugar control 5. Monitor renal function closely 6. GI and DVT prophylaxis Discharge Plan: Home Plan to discharge in: Greater than 2 days - Advance Directives Does patient have a Living Will: No Does patient have a Durable POA for Healthcare: No - Code Status/Comfort Care Code Status Assessed: Yes Code Status: Full Code Critical Care: No Time Spent Managing PTS Care (In Minutes): 45
--- NOTE | 2020-12-31 16:54 | P.PN ---
Date of Service: 12/31/20 Subjective Patient continuing to improve. Strength is still pretty diminished. She did not work with physical therapy today. She is needing assistance on walking to the bathroom. Will work on transfer and possible discharge over the next 24-48 hr Review of Systems 10-point ROS is otherwise unremarkable Physical Examination - Vital Signs Reviewed - Physical Exam General: Alert, In no apparent distress, Oriented x3 Respiratory: Clear to auscultation bilaterally, Normal air movement Cardiovascular: Regular rate/rhythm, Normal S1 S2, No murmurs Gastrointestinal: Normal bowel sounds, Soft and benign, Non-distended, No tenderness Musculoskeletal: No clubbing, No swelling, No tenderness Neurological: Sensation intact, Cranial nerves 3-12 intact, Abnormal strength (Weakness of the lower extremities) - Studies Medications List Reviewed: Yes Assessment & Plan - Problems (Diagnosis) (1) Weakness generalized Onset Date: 02/19/15 Current Visit: No Status: Acute (2) UTI (urinary tract infection) Onset Date: 02/19/15 Current Visit: No Status: Acute Qualifiers: Urinary tract infection type: acute cystitis (3) COPD exacerbation Current Visit: No Status: Acute (4) HTN (hypertension) Onset Date: 02/19/15 Current Visit: No Status: Acute (5) History of nephrectomy, unilateral Onset Date: 02/19/15 Current Visit: No Status: Acute - Plan Plan: Continue plan of care as mentioned below: 1. Hep-Lock IV 2. Continue with antibiotics 3. Continue with physical therapy 4. Strict blood pressure and blood sugar control 5. Monitor renal function closely 6. GI and DVT prophylaxis Discharge Plan: Home Plan to discharge in: Greater than 2 days - Advance Directives Does patient have a Living Will: No Does patient have a Durable POA for Healthcare: No - Code Status/Comfort Care Code Status Assessed: Yes Code Status: Full Code Critical Care: No Time Spent Managing PTS Care (In Minutes): 45
--- NOTE | 2020-12-31 18:54 | P.PN ---
Date of Service: 12/30/20 Vital Signs Temp Pulse Resp BP Pulse Ox 97.5 F 66 18 110/62 93 12/31/20 16:50 12/31/20 16:50 12/31/20 16:50 12/31/20 16:50 12/31/20 16:50 Medications Acetaminophen (Acetaminophen 500 Mg Tab) 500 mg PO Q4HP PRN PRN Reason: TEMP > 101' F Hydrocodone Bitart/Acetaminophen (Hydrocodone/Apap 7.5/325 Mg Tab) 1 tab PO TID PRN PRN Reason: Pain scale 5-7 (Moderate) Last Admin: 12/31/20 13:10 Dose: 1 tab Documented by: Albuterol Sulfate (Albuterol 2.5 Mg/3 Ml Neb Alicia) 2.5 mg NEB [id number] PRN PRN Reason: SHORTNESS OF BREATH Last Admin: 12/31/20 13:52 Dose: 2.5 mg Documented by: Alprazolam (Alprazolam 1 Mg Tablet) 1 mg PO BID PRN PRN Reason: ANXIETY Last Admin: 12/31/20 09:07 Dose: 1 mg Documented by: Arformoterol Tartrate (Arformoterol Tartrate 15 Mcg/2 Ml Vial.Neb) 15 mcg NEB BIDRESP [facility] Last Admin: 12/31/20 08:00 Dose: Not Given Documented by: Escitalopram Oxalate (Escitalopram 20 Mg Tab) 5 mg PO DAILY [facility] Last Admin: 12/31/20 09:00 Dose: Not Given Documented by: Fluticasone Propionate (Fluticasone 50mcg Nasal [place]) 0 sprays YFN DAILY [facility] Last Admin: 12/31/20 09:00 Dose: Not Given Documented by: Folic Acid (Folic Acid 1 Mg Tablet) 1 mg PO DAILY [facility] Last Admin: 12/31/20 09:00 Dose: 1 mg Documented by: Gabapentin (Gabapentin 100 Mg Cap) 100 mg PO BEDTIME [facility] Last Admin: 12/30/20 21:00 Dose: 100 mg Documented by: Heparin Sodium (Porcine) (Heparin 5000 Unit/Ml 1 Ml Vial) 5,000 unit SQ Q12HR [facility] Last Admin: 12/31/20 09:00 Dose: Not Given Documented by: Ipratropium [place] (Ipratropium [place] 0.5mg/2.5ml) 0.5 mg NEB [id number] PRN PRN Reason: SHORTNESS OF BREATH Last Admin: 12/31/20 13:51 Dose: 0.5 mg Documented by: Levofloxacin (Levofloxacin 750 Mg Tab) 750 mg PO Q48H [facility]; Protocol Stop: 01/03/21 09:01 Ondansetron HCl (Ondansetron 4 Mg/2 Ml Vial) 4 mg IV Q6HP PRN PRN Reason: NAUSEA / VOMITING Pantoprazole Sodium (Pantoprazole 40mg Tablet) 40 mg PO DAILYAC [facility]; Protocol Last Admin: 12/31/20 05:34 Dose: Not Given Documented by: Sodium Chloride (Flush Normal Saline 10 Ml) 10 ml IV BID [facility] Last Admin: 12/31/20 09:00 Dose: 10 ml Documented by: Thiamine HCl (Thiamine Hcl 100 Mg Tablet) 100 mg PO DAILY [facility] Last Admin: 12/31/20 09:00 Dose: 100 mg Documented by: Microbiology Results 12/25/20 15:22 Clean Catch Urine [place] Count - Final >100,000 CFU/ML. 12/25/20 15:22 Clean Catch Urine - Final Escherichia Coli Gram Neg [place] 12/25/20 13:30 Blood - Blood Aerobic Blood Culture - Final Escherichia Coli 12/25/20 13:30 Blood - Blood Blood Culture Gram Stain - Final 12/25/20 13:30 Blood - Blood Anaerobic Blood Culture - Final Gram Neg [place] Escherichia Coli 12/25/20 13:30 Blood - Blood Gram Stain - Final 12/25/20 13:45 Blood - Blood Aerobic Blood Culture - Final Escherichia Coli 12/25/20 13:45 Blood - Blood Blood Culture Gram Stain - Final 12/25/20 13:45 Blood - Blood Anaerobic Blood Culture - Final Gram Neg [place] Escherichia Coli 12/25/20 13:45 Blood - Blood Gram Stain - Final 12/25/20 13:24 Nasopharnyx Influenza Type A Antigen Screen - Final 12/25/20 13:24 Nasopharnyx Influenza Type B Antigen Screen - Final Assessment/ Plan: Nephrology Progress Note Anxious today No chest pain or dyspnea No acute events overnight Vitals, medications blood work and imaging reviewed in the chart General: In no apparent distress, Oriented x3, Cooperative HEENT: Atraumatic Neck: Supple Respiratory: Clear to auscultation bilaterally Cardiovascular: No edema, Regular rate/rhythm Gastrointestinal: Soft and benign, Non-distended Musculoskeletal: No clubbing, No contractures Integumentary: No rashes, No cyanosis Neurological: Normal speech, Abnormal strength Laboratory Data (last 24 hrs) 12/25/20 13:30: PT 13.0 H, INR 1.13, APTT 28.9 12/25/20 13:30: WBC 15.90 H, Hgb 14.3, Hct 43.6, Plt Count 246 12/25/20 13:30: Sodium 142, Potassium 3.9, BUN 20 H, Creatinine 1.43 H, Glucose 113 H, Total Bilirubin 1.0, AST 13 L, ALT 19, Alkaline Phosphatase 73, Amylase 37, Lipase 67 L 12/25/20 13:20: PT Cancelled, INR Cancelled, APTT Cancelled 12/25/20 13:20: WBC Cancelled, Hgb Cancelled, Hct Cancelled, Plt Count Cancelled 12/25/20 13:20: Sodium Cancelled, Potassium Cancelled, BUN Cancelled, Creatinine Cancelled, Glucose Cancelled, Total Bilirubin Cancelled, AST Cancelled, ALT Cancelled, Alkaline Phosphatase Cancelled, Amylase Cancelled, Lipase Cancelled Imagings Data: EXAM DESCRIPTION: RAD - Chest Single View - 12/25/2020 2:22 pm CLINICAL HISTORY: Cough Chest pain. COMPARISON: Chest Single View dated 09/12/2020; Chest Pa And Lat (2 Views) dated 04/10/2019 FINDINGS: Portable technique limits examination quality. Postsurgical changes are present in the left hilar region. Mild interstitial pulmonary edema is seen. The heart is mildly to moderately enlarged in size. No displaced fractures. IMPRESSION: Mild CHF. EXAM DESCRIPTION: RAD - Knee Left 2 View - 12/26/2020 10:04 am CLINICAL HISTORY: acute on chronic knee pain COMPARISON: No comparisons FINDINGS: Two-view portable examination was obtained with the knee flexed in both images. No fracture, dislocation or periosteal reaction.Trace joint effusion is suspected. Slight narrowing of the patellofemoral joint space seen with patella marginal spurring. Spurring is seen at quadriceps attachment to the patella. No soft tissue abnormality. IMPRESSION: Knee joint degenerative changes are present as detailed with suspected trace joint effusion. No acute findings seen. Clinical concerns for internal derangement or occult bony injury could be further assessed with MR imaging. Conclusions/Impression: VANNESSA likely due to hypovolemia CKD III with proteinuria Right partial nephrectomy -No NSAIDs -Discontinue IVF 1/2NS Hypokalemia -Replete potassium prn Hypocalcemia -Continue Vitamin D3 HTN with CKD -Monitor BP Acute cystitis -Continue Levaquin -Follow up culture
--- NOTE | 2020-12-31 18:57 | P.PN ---
Date of Service: 12/31/20 Vital Signs Temp Pulse Resp BP Pulse Ox 97.5 F 66 18 110/62 93 12/31/20 16:50 12/31/20 16:50 12/31/20 16:50 12/31/20 16:50 12/31/20 16:50 Medications Acetaminophen (Acetaminophen 500 Mg Tab) 500 mg PO Q4HP PRN PRN Reason: TEMP > 101' F Hydrocodone Bitart/Acetaminophen (Hydrocodone/Apap 7.5/325 Mg Tab) 1 tab PO TID PRN PRN Reason: Pain scale 5-7 (Moderate) Last Admin: 12/31/20 13:10 Dose: 1 tab Documented by: Albuterol Sulfate (Albuterol 2.5 Mg/3 Ml Neb Alicia) 2.5 mg NEB [id number] PRN PRN Reason: SHORTNESS OF BREATH Last Admin: 12/31/20 13:52 Dose: 2.5 mg Documented by: Alprazolam (Alprazolam 1 Mg Tablet) 1 mg PO BID PRN PRN Reason: ANXIETY Last Admin: 12/31/20 09:07 Dose: 1 mg Documented by: Arformoterol Tartrate (Arformoterol Tartrate 15 Mcg/2 Ml Vial.Neb) 15 mcg NEB BIDRESP [facility] Last Admin: 12/31/20 08:00 Dose: Not Given Documented by: Escitalopram Oxalate (Escitalopram 20 Mg Tab) 5 mg PO DAILY [facility] Last Admin: 12/31/20 09:00 Dose: Not Given Documented by: Fluticasone Propionate (Fluticasone 50mcg Nasal [place]) 0 sprays YFN DAILY [facility] Last Admin: 12/31/20 09:00 Dose: Not Given Documented by: Folic Acid (Folic Acid 1 Mg Tablet) 1 mg PO DAILY [facility] Last Admin: 12/31/20 09:00 Dose: 1 mg Documented by: Gabapentin (Gabapentin 100 Mg Cap) 100 mg PO BEDTIME [facility] Last Admin: 12/30/20 21:00 Dose: 100 mg Documented by: Heparin Sodium (Porcine) (Heparin 5000 Unit/Ml 1 Ml Vial) 5,000 unit SQ Q12HR [facility] Last Admin: 12/31/20 09:00 Dose: Not Given Documented by: Ipratropium [place] (Ipratropium Brom 0.5mg/2.5ml) 0.5 mg NEB [id number] PRN PRN Reason: SHORTNESS OF BREATH Last Admin: 12/31/20 13:51 Dose: 0.5 mg Documented by: Levofloxacin (Levofloxacin 750 Mg Tab) 750 mg PO Q48H [facility]; Protocol Stop: 01/03/21 09:01 Ondansetron HCl (Ondansetron 4 Mg/2 Ml Vial) 4 mg IV Q6HP PRN PRN Reason: NAUSEA / VOMITING Pantoprazole Sodium (Pantoprazole 40mg Tablet) 40 mg PO DAILYAC [facility]; Protocol Last Admin: 12/31/20 05:34 Dose: Not Given Documented by: Sodium Chloride (Flush Normal Saline 10 Ml) 10 ml IV BID [facility] Last Admin: 12/31/20 09:00 Dose: 10 ml Documented by: Thiamine HCl (Thiamine Hcl 100 Mg Tablet) 100 mg PO DAILY [facility] Last Admin: 12/31/20 09:00 Dose: 100 mg Documented by: Microbiology Results 12/25/20 15:22 Clean Catch Urine [place] Count - Final >100,000 CFU/ML. 12/25/20 15:22 Clean Catch Urine - Final Escherichia Coli Gram Neg [place] 12/25/20 13:30 Blood - Blood Aerobic Blood Culture - Final Escherichia Coli 12/25/20 13:30 Blood - Blood Blood Culture Gram Stain - Final 12/25/20 13:30 Blood - Blood Anaerobic Blood Culture - Final Gram Neg [place] Escherichia Coli 12/25/20 13:30 Blood - Blood Gram Stain - Final 12/25/20 13:45 Blood - Blood Aerobic Blood Culture - Final Escherichia Coli 12/25/20 13:45 Blood - Blood Blood Culture Gram Stain - Final 12/25/20 13:45 Blood - Blood Anaerobic Blood Culture - Final Gram Neg [place] Escherichia Coli 12/25/20 13:45 Blood - Blood Gram Stain - Final 12/25/20 13:24 Nasopharnyx Influenza Type A Antigen Screen - Final 12/25/20 13:24 Nasopharnyx Influenza Type B Antigen Screen - Final Assessment/ Plan: Nephrology Progress Note Feeling better today. No chest pain or dyspnea No acute events overnight Vitals, medications blood work and imaging reviewed in the chart General: In no apparent distress, Oriented x3, Cooperative HEENT: Atraumatic Neck: Supple Respiratory: Clear to auscultation bilaterally Cardiovascular: No edema, Regular rate/rhythm Gastrointestinal: Soft and benign, Non-distended Musculoskeletal: No clubbing, No contractures Integumentary: No rashes, No cyanosis Neurological: Normal speech, Abnormal strength Laboratory Data (last 24 hrs) 12/25/20 13:30: PT 13.0 H, INR 1.13, APTT 28.9 12/25/20 13:30: WBC 15.90 H, Hgb 14.3, Hct 43.6, Plt Count 246 12/25/20 13:30: Sodium 142, Potassium 3.9, BUN 20 H, Creatinine 1.43 H, Glucose 113 H, Total Bilirubin 1.0, AST 13 L, ALT 19, Alkaline Phosphatase 73, Amylase 37, Lipase 67 L 12/25/20 13:20: PT Cancelled, INR Cancelled, APTT Cancelled 12/25/20 13:20: WBC Cancelled, Hgb Cancelled, Hct Cancelled, Plt Count Cancelled 12/25/20 13:20: Sodium Cancelled, Potassium Cancelled, BUN Cancelled, Creatinine Cancelled, Glucose Cancelled, Total Bilirubin Cancelled, AST Cancelled, ALT Cancelled, Alkaline Phosphatase Cancelled, Amylase Cancelled, Lipase Cancelled Imagings Data: EXAM DESCRIPTION: RAD - Chest Single View - 12/25/2020 2:22 pm CLINICAL HISTORY: Cough Chest pain. COMPARISON: Chest Single View dated 09/12/2020; Chest Pa And Lat (2 Views) dated 04/10/2019 FINDINGS: Portable technique limits examination quality. Postsurgical changes are present in the left hilar region. Mild interstitial pulmonary edema is seen. The heart is mildly to moderately enlarged in size. No displaced fractures. IMPRESSION: Mild CHF. EXAM DESCRIPTION: RAD - Knee Left 2 View - 12/26/2020 10:04 am CLINICAL HISTORY: acute on chronic knee pain COMPARISON: No comparisons FINDINGS: Two-view portable examination was obtained with the knee flexed in both images. No fracture, dislocation or periosteal reaction.Trace joint effusion is suspected. Slight narrowing of the patellofemoral joint space seen with patella marginal spurring. Spurring is seen at quadriceps attachment to the patella. No soft tissue abnormality. IMPRESSION: Knee joint degenerative changes are present as detailed with suspected trace joint effusion. No acute findings seen. Clinical concerns for internal derangement or occult bony injury could be further assessed with MR imaging. Conclusions/Impression: VANNESSA likely due to hypovolemia CKD III with proteinuria Right partial nephrectomy -No NSAIDs Hypokalemia -Replete potassium prn Hypocalcemia -Continue Vitamin D3 HTN with CKD -Monitor BP Acute cystitis -Continue Levaquin -Follow up culture
[2020-12-31] MEDS: GABAPENTIN 100 MG CAP PO SCH (19:49)
[2021-01-01] MEDS: HYDROCODONE/APAP 7.5/325 MG TAB PO PRN ×3 (00:30→20:38)
[2021-01-01] MEDS: PANTOPRAZOLE 40MG TABLET PO SCH (05:20)
[2021-01-01] MEDS: ARFORMOTEROL TARTRATE 15 MCG/2 ML VIAL.NEB NEB SCH ×2 (07:49→20:30)
--- NOTE | 2021-01-01 08:13 | P.PN ---
Date of Service: 01/01/21 Vital Signs Temp Pulse Resp BP Pulse Ox 97.3 F 60 16 101/52 L 95 01/01/21 04:00 01/01/21 04:00 01/01/21 04:00 01/01/21 04:00 01/01/21 04:00 Medications Acetaminophen (Acetaminophen 500 Mg Tab) 500 mg PO Q4HP PRN PRN Reason: TEMP > 101' F Hydrocodone Bitart/Acetaminophen (Hydrocodone/Apap 7.5/325 Mg Tab) 1 tab PO TID PRN PRN Reason: Pain scale 5-7 (Moderate) Last Admin: 01/01/21 00:30 Dose: 1 tab Documented by: Albuterol Sulfate (Albuterol 2.5 Mg/3 Ml Neb Alicia) 2.5 mg NEB [id number] PRN PRN Reason: SHORTNESS OF BREATH Last Admin: 12/31/20 13:52 Dose: 2.5 mg Documented by: Alprazolam (Alprazolam 1 Mg Tablet) 1 mg PO BID PRN PRN Reason: ANXIETY Last Admin: 12/31/20 19:49 Dose: 1 mg Documented by: Arformoterol Tartrate (Arformoterol Tartrate 15 Mcg/2 Ml Vial.Neb) 15 mcg NEB BIDRESP DILLON Last Admin: 12/31/20 19:10 Dose: 15 mcg Documented by: Escitalopram Oxalate (Escitalopram 20 Mg Tab) 5 mg PO DAILY [facility] Last Admin: 12/31/20 09:00 Dose: Not Given Documented by: Fluticasone Propionate (Fluticasone 50mcg Nasal [place]) 0 sprays YFN DAILY [facility] Last Admin: 12/31/20 09:00 Dose: Not Given Documented by: Folic Acid (Folic Acid 1 Mg Tablet) 1 mg PO DAILY [facility] Last Admin: 12/31/20 09:00 Dose: 1 mg Documented by: Gabapentin (Gabapentin 100 Mg Cap) 100 mg PO BEDTIME [facility] Last Admin: 12/31/20 19:49 Dose: 100 mg Documented by: Heparin Sodium (Porcine) (Heparin 5000 Unit/Ml 1 Ml Vial) 5,000 unit SQ Q12HR [facility] Last Admin: 12/31/20 19:49 Dose: Not Given Documented by: Ipratropium [place] (Ipratropium Brom 0.5mg/2.5ml) 0.5 mg NEB [id number] PRN PRN Reason: SHORTNESS OF BREATH Last Admin: 12/31/20 13:51 Dose: 0.5 mg Documented by: Levofloxacin (Levofloxacin 750 Mg Tab) 750 mg PO Q48H [facility]; Protocol Stop: 01/03/21 09:01 Ondansetron HCl (Ondansetron 4 Mg/2 Ml Vial) 4 mg IV Q6HP PRN PRN Reason: NAUSEA / VOMITING Pantoprazole Sodium (Pantoprazole 40mg Tablet) 40 mg PO DAILYAC [facility]; Protocol Last Admin: 01/01/21 05:20 Dose: Not Given Documented by: Sodium Chloride (Flush Normal Saline 10 Ml) 10 ml IV BID [facility] Last Admin: 12/31/20 19:51 Dose: 10 ml Documented by: Thiamine HCl (Thiamine Hcl 100 Mg Tablet) 100 mg PO DAILY [facility] Last Admin: 12/31/20 09:00 Dose: 100 mg Documented by: Microbiology Results 12/25/20 15:22 Clean Catch Urine [place] Count - Final >100,000 CFU/ML. 12/25/20 15:22 Clean Catch Urine - Final Escherichia Coli Gram Neg [place] 12/25/20 13:30 Blood - Blood Aerobic Blood Culture - Final Escherichia Coli 12/25/20 13:30 Blood - Blood Blood Culture Gram Stain - Final 12/25/20 13:30 Blood - Blood Anaerobic Blood Culture - Final Gram Neg [place] Escherichia Coli 12/25/20 13:30 Blood - Blood Gram Stain - Final 12/25/20 13:45 Blood - Blood Aerobic Blood Culture - Final Escherichia Coli 12/25/20 13:45 Blood - Blood Blood Culture Gram Stain - Final 12/25/20 13:45 Blood - Blood Anaerobic Blood Culture - Final Gram Neg [place] Escherichia Coli 12/25/20 13:45 Blood - Blood Gram Stain - Final 12/25/20 13:24 Nasopharnyx Influenza Type A Antigen Screen - Final 12/25/20 13:24 Nasopharnyx Influenza Type B Antigen Screen - Final Assessment/ Plan: Nephrology Progress Note Feeling better today. No chest pain or dyspnea No acute events overnight Vitals, medications blood work and imaging reviewed in the chart General: In no apparent distress, Oriented x3, Cooperative HEENT: Atraumatic Neck: Supple Respiratory: Clear to auscultation bilaterally Cardiovascular: No edema, Regular rate/rhythm Gastrointestinal: Soft and benign, Non-distended Musculoskeletal: No clubbing, No contractures Integumentary: No rashes, No cyanosis Neurological: Normal speech, Abnormal strength Laboratory Data (last 24 hrs) 12/25/20 13:30: PT 13.0 H, INR 1.13, APTT 28.9 12/25/20 13:30: WBC 15.90 H, Hgb 14.3, Hct 43.6, Plt Count 246 12/25/20 13:30: Sodium 142, Potassium 3.9, BUN 20 H, Creatinine 1.43 H, Glucose 113 H, Total Bilirubin 1.0, AST 13 L, ALT 19, Alkaline Phosphatase 73, Amylase 37, Lipase 67 L 12/25/20 13:20: PT Cancelled, INR Cancelled, APTT Cancelled 12/25/20 13:20: WBC Cancelled, Hgb Cancelled, Hct Cancelled, Plt Count Cancelled 12/25/20 13:20: Sodium Cancelled, Potassium Cancelled, BUN Cancelled, Creatinine Cancelled, Glucose Cancelled, Total Bilirubin Cancelled, AST Cancelled, ALT Cancelled, Alkaline Phosphatase Cancelled, Amylase Cancelled, Lipase Cancelled Imagings Data: EXAM DESCRIPTION: RAD - Chest Single View - 12/25/2020 2:22 pm CLINICAL HISTORY: Cough Chest pain. COMPARISON: Chest Single View dated 09/12/2020; Chest Pa And Lat (2 Views) dated 04/10/2019 FINDINGS: Portable technique limits examination quality. Postsurgical changes are present in the left hilar region. Mild interstitial pulmonary edema is seen. The heart is mildly to moderately enlarged in size. No displaced fractures. IMPRESSION: Mild CHF. EXAM DESCRIPTION: RAD - Knee Left 2 View - 12/26/2020 10:04 am CLINICAL HISTORY: acute on chronic knee pain COMPARISON: No comparisons FINDINGS: Two-view portable examination was obtained with the knee flexed in both images. No fracture, dislocation or periosteal reaction.Trace joint effusion is suspected. Slight narrowing of the patellofemoral joint space seen with patella marginal spurring. Spurring is seen at quadriceps attachment to the patella. No soft tissue abnormality. IMPRESSION: Knee joint degenerative changes are present as detailed with suspected trace joint effusion. No acute findings seen. Clinical concerns for internal derangement or occult bony injury could be further assessed with MR imaging. Conclusions/Impression: VANNESSA likely due to hypovolemia CKD III with proteinuria Right partial nephrectomy -No NSAIDs Hypokalemia -Replete potassium prn Hypocalcemia -Continue Vitamin D3 HTN with CKD -Monitor BP Acute cystitis -Continue Levaquin -Follow up culture
[2021-01-01] MEDS ORDERED: levoFLOXacin 750 MG TAB PO SCH (09:00)
[2021-01-01] MEDS: ESCITALOPRAM 20 MG TAB PO SCH (09:00)
[2021-01-01] MEDS: HEPARIN 5000 UNIT/ML 1 ML VIAL SQ SCH ×2 (09:00→20:39)
[2021-01-01] MEDS: ALPRAZOLAM 1 MG TABLET PO PRN (09:57)
[2021-01-01] MEDS: FOLIC ACID 1 MG TABLET PO SCH (09:58)
[2021-01-01] MEDS: FLUTICASONE 50MCG NASAL SPRAY NAS SCH (09:59)
[2021-01-01] MEDS: THIAMINE HCL 100 MG TABLET PO SCH (09:59)
[2021-01-01 16:29] LABS: Absolute Lymphocytes (CBC) 1.2 K/uL (0.7-4.9); Basophils % 1.1 % (0-1.3); Hematocrit 38.6 % (36.0-45.0); Lymphocytes % 16.2 % (15.3-44.8); MPV 8.1 fL (7.6-11.3); RBC Red Blood Cell Count 4.42 M/uL (3.86-4.86)
[2021-01-01 16:49] LABS: Albumin 2.6 g/dL (3.4-5.0); Bilirubin Total 0.3 mg/dL (0.2-1.0); C-Reactive Protein 26.7 mg/L (<3.00); Protein, Total 6.7 g/dL (6.4-8.2)
[2021-01-01 17:40] LABS: Magnesium 1.9 mg/dL (1.8-2.4); Phosphorus 2.7 mg/dL (2.5-4.9); Thyroid Stimulating Hormone 0.514 uIU/mL (0.360-3.740)
[2021-01-01 18:30] LABS: Folic Acid, (Folate) > 20.0 ng/mL (3.1-17.5)
[2021-01-01] MEDS: GABAPENTIN 100 MG CAP PO SCH (20:39)
[2021-01-01] MEDS ORDERED: ESCITALOPRAM 5 MG TABLET PO SCH (21:00)
[2021-01-01] MEDS ORDERED: ESCITALOPRAM 20 MG TAB PO SCH (21:00)
[2021-01-01] MEDS ORDERED: ALPRAZOLAM 1 MG TABLET PO PRN (22:34)
[2021-01-02 04:20] LABS: Albumin 2.3 g/dL (3.4-5.0); Bilirubin Total 0.2 mg/dL (0.2-1.0); Potassium 3.5 mmol/L (3.5-5.1); Protein, Total 5.9 g/dL (6.4-8.2)
[2021-01-02] MEDS: PANTOPRAZOLE 40MG TABLET PO SCH (04:58)
[2021-01-02] MEDS: ARFORMOTEROL TARTRATE 15 MCG/2 ML VIAL.NEB NEB SCH (08:00)
[2021-01-02 08:03] VITALS: O2SAT 95
[2021-01-02] MEDS ORDERED: KCL 20 MEQ/100 mL IVPB 20 MEQ/100 ML BAG IV SCH (09:00)
[2021-01-02 09:11] VITALS: BP 169/81; TEMP 100.5
[2021-01-02] MEDS ORDERED: NA CHLORIDE 0.9% 250 ML ONE (09:15)
[2021-01-02] MEDS: HEPARIN 5000 UNIT/ML 1 ML VIAL SQ SCH (09:37)
[2021-01-02] MEDS: THIAMINE HCL 100 MG TABLET PO SCH (09:37)
[2021-01-02] MEDS: FOLIC ACID 1 MG TABLET PO SCH (09:37)
[2021-01-02] MEDS: FLUTICASONE 50MCG NASAL SPRAY NAS SCH (09:38)
[2021-01-02] MEDS: HYDROCODONE/APAP 7.5/325 MG TAB PO PRN (09:42)
[2021-01-02] MEDS ORDERED: POTASSIUM CL SA 10 MEQ TAB PO ONE (11:01)
--- NOTE | 2021-01-02 11:04 | P.PN ---
Date of Service: 01/02/21 Vital Signs Temp Pulse Resp BP Pulse Ox 100.5 F 64 18 169/81 H 95 01/02/21 08:00 01/02/21 08:00 01/02/21 09:42 01/02/21 08:00 01/02/21 09:42 Medications Acetaminophen (Acetaminophen 500 Mg Tab) 500 mg PO Q4HP PRN PRN Reason: TEMP > 101' F Hydrocodone Bitart/Acetaminophen (Hydrocodone/Apap 7.5/325 Mg Tab) 1 tab PO TID PRN PRN Reason: Pain scale 5-7 (Moderate) Last Admin: 01/02/21 09:42 Dose: 1 tab Documented by: Albuterol Sulfate (Albuterol 2.5 Mg/3 Ml Neb Alicia) 2.5 mg NEB [id number] PRN PRN Reason: SHORTNESS OF BREATH Last Admin: 12/31/20 13:52 Dose: 2.5 mg Documented by: Alprazolam (Alprazolam 1 Mg Tablet) 1 mg PO BID PRN PRN Reason: ANXIETY Last Admin: 01/01/21 23:47 Dose: 1 mg Documented by: Arformoterol Tartrate (Arformoterol Tartrate 15 Mcg/2 Ml Vial.Neb) 15 mcg NEB BIDRESP DILLON Last Admin: 01/02/21 08:00 Dose: 15 mcg Documented by: Escitalopram Oxalate (Escitalopram 20 Mg Tab) 5 mg PO BEDTIME [facility] Last Admin: 01/01/21 20:38 Dose: 5 mg Documented by: Fluticasone Propionate (Fluticasone 50mcg Nasal [place]) 0 sprays YFN DAILY [facility] Last Admin: 01/02/21 09:38 Dose: 2 spr Documented by: Folic Acid (Folic Acid 1 Mg Tablet) 1 mg PO DAILY [facility] Last Admin: 01/02/21 09:37 Dose: 1 mg Documented by: Gabapentin (Gabapentin 100 Mg Cap) 100 mg PO BEDTIME [facility] Last Admin: 01/01/21 20:39 Dose: 100 mg Documented by: Heparin Sodium (Porcine) (Heparin 5000 Unit/Ml 1 Ml Vial) 5,000 unit SQ Q12HR [facility] Last Admin: 01/02/21 09:37 Dose: 5,000 unit Documented by: Ipratropium [place] (Ipratropium Brom 0.5mg/2.5ml) 0.5 mg NEB [id number] PRN PRN Reason: SHORTNESS OF BREATH Last Admin: 12/31/20 13:51 Dose: 0.5 mg Documented by: Levofloxacin (Levofloxacin 750 Mg Tab) 750 mg PO Q48H [facility]; Protocol Stop: 01/03/21 09:01 Last Admin: 01/01/21 09:58 Dose: 750 mg Documented by: Ondansetron HCl (Ondansetron 4 Mg/2 Ml Vial) 4 mg IV Q6HP PRN PRN Reason: NAUSEA / VOMITING Pantoprazole Sodium (Pantoprazole 40mg Tablet) 40 mg PO DAILYAC [facility]; Protocol Last Admin: 01/02/21 04:58 Dose: Not Given Documented by: Sodium Chloride (Flush Normal Saline 10 Ml) 10 ml IV BID [facility] Last Admin: 01/02/21 09:38 Dose: 10 ml Documented by: Thiamine HCl (Thiamine Hcl 100 Mg Tablet) 100 mg PO DAILY [facility] Last Admin: 01/02/21 09:37 Dose: 100 mg Documented by: Microbiology Results 12/25/20 15:22 Clean Catch Urine [place] Count - Final >100,000 CFU/ML. 12/25/20 15:22 Clean Catch Urine - Final Escherichia Coli Gram Neg [place] 12/25/20 13:30 Blood - Blood Aerobic Blood Culture - Final Escherichia Coli 12/25/20 13:30 Blood - Blood Blood Culture Gram Stain - Final 12/25/20 13:30 Blood - Blood Anaerobic Blood Culture - Final Gram Neg [place] Escherichia Coli 12/25/20 13:30 Blood - Blood Gram Stain - Final 12/25/20 13:45 Blood - Blood Aerobic Blood Culture - Final Escherichia Coli 12/25/20 13:45 Blood - Blood Blood Culture Gram Stain - Final 12/25/20 13:45 Blood - Blood Anaerobic Blood Culture - Final Gram Neg [place] Escherichia Coli 12/25/20 13:45 Blood - Blood Gram Stain - Final 12/25/20 13:24 Nasopharnyx Influenza Type A Antigen Screen - Final 12/25/20 13:24 Nasopharnyx Influenza Type B Antigen Screen - Final Assessment/ Plan: Nephrology Progress Note Feeling well. Refusing IV. No chest pain or dyspnea No acute events overnight Vitals, medications blood work and imaging reviewed in the chart General: In no apparent distress, Oriented x3, Cooperative HEENT: Atraumatic Neck: Supple Respiratory: Clear to auscultation bilaterally Cardiovascular: No edema, Regular rate/rhythm Gastrointestinal: Soft and benign, Non-distended Musculoskeletal: No clubbing, No contractures Integumentary: No rashes, No cyanosis Neurological: Normal speech, Abnormal strength Laboratory Data (last 24 hrs) 12/25/20 13:30: PT 13.0 H, INR 1.13, APTT 28.9 12/25/20 13:30: WBC 15.90 H, Hgb 14.3, Hct 43.6, Plt Count 246 12/25/20 13:30: Sodium 142, Potassium 3.9, BUN 20 H, Creatinine 1.43 H, Glucose 113 H, Total Bilirubin 1.0, AST 13 L, ALT 19, Alkaline Phosphatase 73, Amylase 37, Lipase 67 L 12/25/20 13:20: PT Cancelled, INR Cancelled, APTT Cancelled 12/25/20 13:20: WBC Cancelled, Hgb Cancelled, Hct Cancelled, Plt Count Cancelled 12/25/20 13:20: Sodium Cancelled, Potassium Cancelled, BUN Cancelled, Creatinine Cancelled, Glucose Cancelled, Total Bilirubin Cancelled, AST Cancelled, ALT Cancelled, Alkaline Phosphatase Cancelled, Amylase Cancelled, Lipase Cancelled Imagings Data: EXAM DESCRIPTION: RAD - Chest Single View - 12/25/2020 2:22 pm CLINICAL HISTORY: Cough Chest pain. COMPARISON: Chest Single View dated 09/12/2020; Chest Pa And Lat (2 Views) dated 04/10/2019 FINDINGS: Portable technique limits examination quality. Postsurgical changes are present in the left hilar region. Mild interstitial pulmonary edema is seen. The heart is mildly to moderately enlarged in size. No displaced fractures. IMPRESSION: Mild CHF. EXAM DESCRIPTION: RAD - Knee Left 2 View - 12/26/2020 10:04 am CLINICAL HISTORY: acute on chronic knee pain COMPARISON: No comparisons FINDINGS: Two-view portable examination was obtained with the knee flexed in both images. No fracture, dislocation or periosteal reaction.Trace joint effusion is suspected. Slight narrowing of the patellofemoral joint space seen with patella marginal spurring. Spurring is seen at quadriceps attachment to the patella. No soft tissue abnormality. IMPRESSION: Knee joint degenerative changes are present as detailed with suspected trace joint effusion. No acute findings seen. Clinical concerns for internal derangement or occult bony injury could be further assessed with MR imaging. Conclusions/Impression: VANNESSA likely due to hypovolemia CKD III with proteinuria Right partial nephrectomy -No NSAIDs -Change to a low sodium diet. No fluid restriction. Encourage hydration. Hypokalemia -Replete potassium Hypocalcemia -Continue Vitamin D3 HTN with CKD -Monitor BP Acute cystitis -Continue Levaquin Case reviewed with Dr. Aguiar
--- NOTE | 2021-01-02 11:57 | RAD REPORT ---
EXAM DESCRIPTION: RAD - Hip Right 2 View - 01/02/2021 5:43 am CLINICAL HISTORY: Right hip pain FINDINGS: No acute fracture or dislocation. Cortical irregularity involves the right inferior pubic ramus equivocal for a nondisplaced subacute f racture. The bones are osteoporotic. Mild osteoarthritis involves the right hip consisting joint space [place] wing and subchondral sclerosis
--- OUTSIDE RECORDS SUMMARY | 2021-01-10 16:16 | XMS REPORT | Continuity of Care Document ---
:[address] [facility] t Address [address] [place] [address] Care Team Providers Name Role Phone Unavailable Unavailable Unavailable Problems This patient has no known problems. Allergies, Adverse Reactions, Alerts Allergy Allergy Status Severity Reaction(s) Onset Inactive Treating Comm ents Source Name Type Date Date Clinician Sulfa Adverse Active anaphalaxis [facility] Medications Ordered Filled Start Stop Current Ordering Indication Dosage Frequency Signature Comments Components Source Medication Medication Date Date Medication? Clinician (SIG) Name Name Lyndon Haney Yes Wes [address] [facility] [place] [facility] Pataday Pataday Yes Wes Instill [address] [facility] [facility] Bevespi Bevespi Yes Wes [address] [facility] [place] Claudia kes [facility] Tamsulosin Tamsulosin Yes Wes [address] [facility] HCl HCl [place] [facility] Alprazolam Alprazolam Yes Wes [address] [facility] [place] [facility] Proventil Proventil Yes Wes as [facility] HFA HFA [place] directed [facility] Hydrocodone Hydrocodone Yes Wes [address] [facility] -Acetaminop -Acetaminop [place] as needed [facility] Amlodipine Amlodipine Yes Wes 1 [...] Date/Time Type Type Clinicians Facility Department ID 2021-01-07 2021-01-07 ambulatory [facility] [id number] [facility] 2020-10-30 2020-10-30 [facility] [id number] [facility] 2020-10-29 2020-10-29 [facility] [id number] [facility] 2020-09-24 2020-09-24 [facility] [id number] [facility] 2020-09-16 2020-09-16 [facility] [id number] [facility] 2020-09-12 2020-09-12 [facility] [id number] [facility] 2020-07-02 2020-07-02 Out[facility] [id number] [facility] 2020-07-02 2020-07-02 Out[facility] [id number] [facility] 2020-06-12 2020-06-12 Outpatient [facility] [id number] [facility] 2020-04-25 2020-04-25 Outpatient [facility] [id number] [facility] 2020-04-10 2020-04-10 Outpatient [facility] [id number] [facility] 2020-04-09 2020-04-09 Outpatient [facility] [id number] [facility] 2020-04-02 2020-04-02 Outpatient [facility] [id number] [facility] 2020-03-19 2020-03-19 Outpatient [facility] [id number] [facility] 2020-03-19 2020-03-19 Outpatient [facility] [id number] [facility] 2020-01-18 2020-01-18 Outpatient [facility] [id number] [facility] 2020-01-17 2020-01-17 Outpatient [facility] [id number] [facility] 2020-01-11 2020-01-11 Outpatient [facility] [id number] [facility] 2020-01-02 2020-01-02 Outpatient [facility] [id number] [facility] 2019-11-30 2019-11-30 Outpatient [facility] [id number] [facility]00 [facility] Clin[facility] 2019-11-02 2019-11-02 [facility] [id number] [facility] 13[facility]30:00 13:30:00 [place] [employer] [facility] Medicine Outpati ent Clinics 2019-10-02 2019-10-02 [facility] [id number] [facility] 13:00:00 13:00:00 t [place] [email or web address] [facility] Medicine Outpati ent Clinics 2019-08-30 2019-08-30 [facility] [id number] [address] 11:00:00 11:00:00 t [place] [employer] [facility] Medicine Outpati ent Clinics 2019-08-03 2019-08-03 [facility] [id number] [address] 13:15:00 13:15:00 t [place] [employer] [facility] Medicine Outpati ent Clinics 2019-06-30 2019-06-30 [facility] [id number] [facility] 11:30:00 11:30:00 t [place] [employer] [facility] Medicine Outpati ent Clinics 2019-06-16 2019-06-16 [facility] [id number] 14:06:00 14:06:00 t Specialty/U Claudia kes - Specialty rology [facility] a /Urology Clinic l Clinic Outpati ent Clinics 2019-06-16 2019-06-16 [facility] [id number] 13:49:00 13:49:00 t [place] [employer] [facility] Medicine Outpati ent Clinics 2019-06-01 2019-06-01 [facility] [id number] 08:45:00 08:45:00 t [place] [employer] [facility] Medicine Outpati ent Clinics 2019-05-05 2019-05-05 [facility] [id number] 10:00:00 10:00:00 t [place] [employer] [facility] Medicine Outpati ent Clinics 2019-04-04 2019-04-04 [facility] [id number] 11:15:00 11:15:00 t [place] [employer] - [email or web address] [facility] Medicine Outpati ent Clinics 2019-03-06 2019-03-06 [facility] [id number] [address] 10:30:00 10:30:00 t [place] [employer] [facility] Medicine Outpati ent Clinics 2019-02-27 2019-02-27 [facility] [id number] [facility] 13:00:00 13:00:00 t Specialty/U Claudia kes - Specialty rology [facility] /Urology Clinic l Clinic Outpati ent Clinics 2019-02-01 2019-02-01 [facility] [id number] [facility] 11:00:00 11:00:00 t [place] [employer] [facility] Medicine Outpati ent Clinics 2019-01-02 2019-01-02 [facility] [id number] [facility] 13:00:00 13:00:00 t [place] [employer] [facility] Medicine Outpati ent Clinics 2018-12-01 2018-12-01 [facility] [id number] 14:15:00 14:15:00 t yetu [facility] Medicine Outpati ent Clinics 2018-11-17 2018-11-17 [facility] [id number] [facility] 13:15:00 13:15:00 t Specialty/U Claudia kes - Specialty rology [facility] /Urology Clinic l Clinic Outpati ent Clinics 2018-11-08 2018-11-08 [facility] [id number] 09:01:00 09:01:00 t [place] [employer] [facility] Medicine Outpati ent Clinics 2018-11-07 2018-11-07 [facility] [id number] [facility] 11:53:00 11:53:00 t Specialty/U Claudia kes - Specialty rology [facility] /Urology Clinic l Clinic Outpati ent Clinics 2018-11-03 2018-11-03 [facility] [id number] [facility] 14:30:00 14:30:00 t yetu [facility] Medicine Outpati ent Clinics 2018-11-01 2018-11-01 [facility] [id number] 11:36:00 11:36:00 [place] [email or web address] - Drive [facility] l Medicine Outpati ent Clinics 2018-10-24 2018-10-24 [facility] [id number] 13:30:00 13:30:00 t Specialty/U Claudia kes - Specialty rology [facility] a /Urology Clinic l Clinic Outpati ent Clinics 2018-10-10 2018-10-10 [facility] [id number] 14:36:00 14:36:00 [place] [employer] s - Drive [facility] Medicine Outpati ent Clinics 2018-10-04 2018-10-04 [facility] [id number] 13:15:00 13:15:00 [place] [employer] - Drive [facility] Medicine Outpati ent Clinics 2018-08-30 2018-08-30 [facility] [id number] 11:45:00 11:45:00 [place] [employer] - Drive [facility] Medicine Outpati ent Clinics 2018-07-07 2018-07-07 [facility] [id number] [facility] 13:00:00 13:00:00 t Specialty/U Claudia kes - Specialty rology Memori a /Urology Clinic l Clinic Outpati ent Clinics 2018-06-29 2018-06-29 [facility] [id number] 14:00:00 14:00:00 [place] [email or web address] - Drive [facility] Medicine Outpati ent Clinics 2018-05-31 2018-05-31 [facility] [id number] 13:30:00 13:30:00 [place] [employer] - Drive [facility] Medicine Outpati ent Clinics 2018-05-02 2018-05-02 [facility] [id number] [facility] 13:15:00 13:15:00 [place] [employer] - Drive [facility] Medicine Outpati ent Clinics 2018-04-25 2018-04-25 [facility] [id number] [facility] 14:00:00 14:00:[address] [place] [address] [place] [address] Luke s - Drive [facility] Medicine l Medicine Outpati ent Clinics 2018-04-04 2018-04-04 [facility] [id number] [facility] 11:15:00 11:15:[address] [place] [address] Luke s - Drive [facility] Medicine l Medicine Outpati ent Clinics 2018-03-07 2018-03-07 [facility] [id number] [facility] 11:15:00 11:15:[address] [place] [address] Luke s - Drive [facility] l Medicine Outpati ent Clinics 2017-12-02 2017-12-02 [facility] [id number] [facility] 11:15:00 11:15:[address] [place] [address] Luke s - Drive [facility] Medicine l Medicine Outpati ent Clinics 2017-11-08 2017-11-08 [facility] [id number] [facility] 10:48:00 10:48:[address] [place] [address] [place] [address] Luke s - Drive [facility] Medicine l Medicine Outpati ent Clinics 2017-11-08 2017-11-08 [facility] [id number] 10:48:00 10:48:[address] [place] [address] Luke s - Drive [facility] Medicine l Medicine Outpati ent Clinics 2017-10-08 2017-10-08 [facility] [id number] [facility] 08:00:00 08:00:[address] [place] [address] [place] [address] Luke s - Drive [facility] Medicine l Medicine Outpati ent Clinics 2017-09-09 2017-09-09 [facility] [id number] [facility] 10:15:00 10:15:[address] [place] [address] Luke s - Drive [facility] Medicine l Medicine Outpati ent Clinics 2017-08-16 2017-08-16 [facility] [id number] [facility] 11:50:00 11:50:[address] [place] [address] [place] [address] Luke s - Drive [facility] Medicine l Medicine Outpati ent Clinics 2017-08-13 2017-08-13 [facility] [id number] [facility] 11:53:00 11:53:[address] [place] [address] Luke s - Drive [facility] Medicine l Medicine Outpati ent Clinics 2017-08-13 2017-08-13 [facility] [id number] 11:00:00 11:00:[address] [place] [address] [place] [address] Luke s - Drive [facility] Medicine Outpati ent Clinics 2017-07-16 2017-07-16 [facility] [id number] [facility] 11:15:00 11:15:00 [place] [email or web address] Luke s - Drive [facility] Medicine Outpati ent Clinics 2017-07-12 2017-07-12 [facility] [id number] 11:39:00 11:39:[address] [place] [address] Luke [place] - Drive [facility] Medicine Outpati ent Clinics 2017-06-29 2017-06-29 [facility] [id number] 09:55:00 09:55:00 [place] [email or web address] - Drive [facility] Medicine Outpati ent Clinics 2017-06-23 2017-06-23 [facility] [id number] 16:26:00 16:26:00 [place] [email or web address] - Drive [facility] Medicine Outpati ent Clinics 2017-06-23 2017-06-23 [facility] [id number] 14:30:00 14:30:00 [place] [email or web address] - Drive [facility] Medicine Outpati ent Clinics 2017-06-18 2017-06-18 [facility] [id number] 16:03:00 16:03:00 [place] [email or web address] - Drive [facility] Medicine Outpati ent Clinics 2017-06-16 2017-06-16 [facility] [id number] 10:45:00 10:45:00 [place] [email or web address] - Drive [facility] Medicine Outpati ent Clinics Results This patient has no known results.
--- NOTE | 2021-01-17 16:19 | P.PN ---
Date of Service: 01/01/21 Subjective Patient clinical symptoms continued to improve. Plan for discharge with outpatient follow-up in the morning. Continue with outpatient physical therapy. Review of Systems 10-point ROS is otherwise unremarkable Physical Examination - Vital Signs Reviewed - Physical Exam General: Alert, In no apparent distress, Oriented x3 Respiratory: Clear to auscultation bilaterally, Normal air movement Cardiovascular: Regular rate/rhythm, Normal S1 S2, No murmurs Gastrointestinal: Normal bowel sounds, Soft and benign, Non-distended, No tenderness Musculoskeletal: No clubbing, No swelling, No tenderness Neurological: Sensation intact, Cranial nerves 3-12 intact, Abnormal strength (Weakness of the lower extremities) - Studies Medications List Reviewed: Yes Assessment & Plan - Problems (Diagnosis) (1) Weakness generalized Onset Date: 02/19/15 Current Visit: No Status: Acute (2) UTI (urinary tract infection) Onset Date: 02/19/15 Current Visit: No Status: Acute Qualifiers: Urinary tract infection type: acute cystitis (3) COPD exacerbation Current Visit: No Status: Acute (4) HTN (hypertension) Onset Date: 02/19/15 Current Visit: No Status: Acute (5) History of nephrectomy, unilateral Onset Date: 02/19/15 Current Visit: No Status: Acute - Plan Plan: Continue plan of care as mentioned below: 1. Hep-Lock IV 2. Continue with antibiotics 3. Continue with physical therapy 4. Strict blood pressure and blood sugar control 5. Monitor renal function closely 6. GI and DVT prophylaxis Discharge Plan: Home Plan to discharge in: Greater than 2 days - Advance Directives Does patient have a Living Will: No Does patient have a Durable POA for Healthcare: No - Code Status/Comfort Care Code Status Assessed: Yes Code Status: Full Code Critical Care: No Time Spent Managing PTS Care (In Minutes): 45
--- NOTE | 2021-01-17 16:20 | P.DS ---
Discharge Date: 01/02/21 Primary Care Provider: Dr. Perrin; Nephrology-Dr. Leroy Disposition: DC HOME/HOME HEALTH CARE Discharge Condition: GOOD Reason for Admission: Fever - Problems (1) Weakness generalized Onset Date: 02/19/15 Status: Acute (2) UTI (urinary tract infection) Onset Date: 02/19/15 Status: Acute Qualifiers: Urinary tract infection type: acute cystitis (3) COPD exacerbation Status: Acute (4) HTN (hypertension) Onset Date: 02/19/15 Status: Acute (5) History of nephrectomy, unilateral Onset Date: 02/19/15 Status: Acute Brief History of Present Illness: Pt is an 80-year-old female with history of COPD, breast cancer, chronic renal disease. Patient reports over the past several days she has been feeling weak and tired. She reports fever today. She also reports some increased urine frequency. Patient reports history of UTIs. Patient has complicated history of chronic renal disease with prior left partial nephrectomy. 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 Patient had difficulty getting out of her seat. She denied any shortness of breath, nausea and vomiting. Patient reports history of hypertension. She is not taking any medication recently. She came to the ER for further evaluation. Patient was evaluated in the emergency room. Patient found to have a UTI. White count 15, hemoglobin 14. Platelet count 246. Sodium 142, potassium 3.9. BUN of 20, creatinine 1.4 with a GFR 35. Glucose 113. Chest x-ray stable. Procalcitonin elevated at 4.89. Lactic acid normal. Patient given IV fluids in the emergency room. Patient admitted for treatment. Hospital Course: Patient of prolonged hospitalization. Her clinical symptoms have improved. Patient will be scheduled a follow with home health. Patient is doing much better and at this time is stable for discharge home. Continue with inhaler therapy along with nebulizer treatments. Continue with antibiotic therapy as well. Vital Signs/Physical Exam: Temp Pulse Resp BP Pulse Ox 100.5 F 64 18 169/81 H 95 01/02/21 08:00 01/02/21 08:00 01/02/21 09:42 01/02/21 08:00 01/02/21 09:42 General: Alert, In no apparent distress, Oriented x3 Laboratory Data at Discharge: WBC 7.10 K/uL (4.3-10.9) D 01/01/21 16:00 Hgb 12.7 g/dL (12.0-15.0) 01/01/21 16:00 Hct 38.6 % (36.0-45.0) 01/01/21 16:00 Plt Count 360 K/uL (152-406) D 01/01/21 16:00 PT 13.0 SECONDS (9.5-12.5) H 12/25/20 13:30 INR 1.13 12/25/20 13:30 APTT 28.9 SECONDS (24.3-36.9) 12/25/20 13:30 Sodium 142 mmol/L (136-145) 01/02/21 03:12 Potassium 3.5 mmol/L (3.5-5.1) 01/02/21 03:12 BUN 21 mg/dL (7-18) H 01/02/21 03:12 Creatinine 1.37 mg/dL (0.55-1.3) H 01/02/21 03:12 Glucose 104 mg/dL (74-106) 01/02/21 03:12 Uric Acid 4.3 mg/dL (2.6-6.0) 12/27/20 06:03 Phosphorus 2.7 mg/dL (2.5-4.9) 01/01/21 16:00 Magnesium 1.9 mg/dL (1.8-2.4) 01/01/21 16:00 Total Bilirubin 0.2 mg/dL (0.2-1.0) 01/02/21 03:12 AST 40 U/L (15-37) H 01/02/21 03:12 ALT 52 U/L (12-78) 01/02/21 03:12 Alkaline Phosphatase 58 U/L (45-117) 01/02/21 03:12 Amylase 37 U/L (25-115) 12/25/20 13:30 Lipase 67 U/L (73-393) L 12/25/20 13:30 Home Medications: Albuterol Sulfate [Proventil Hfa] 2 puff IH Q6HP PRN 02/19/15 Fluticasone [Flonase 50MCG Nasal Ericson*] 2 sprays NS DAILY 02/19/15 Hydrocodone/Acetaminophen [Hydrocodone-Acetamin 7.5-300] 1 each PO TID 05/18/17 Escitalopram Oxalate [Lexapro] 5 mg PO BEDTIME 09/13/20 ALPRAZolam [Xanax*] 1 mg PO BID PRN 12/25/20 Albuterol Sulfate [Proventil Hfa] 6.7 gm IH DAILY 12/25/20 Amlodipine Besylate 5 mg PO DAILY 12/25/20 Escitalopram Oxalate [Lexapro] 5 mg PO DAILY 12/25/20 Fluticasone [Flonase 50MCG Nasal Ericson*] 2 sprays NS DAILY 12/25/20 Hydrocodone Bit/Acetaminophen [Hydrocodon-Acetaminoph 7.5-325] 1 each PO DAILY 12/25/20 Gabapentin 100 mg PO BEDTIME 12/27/20 Arformoterol Tartrate [Brovana] 15 mcg NEB BIDRESP #60 vial.neb 01/01/21 Gabapentin [Neurontin*] 100 mg PO BEDTIME #0 cap 01/01/21 Hydrocodone 7.5/APAP 325 [Foster 7.5/325 mg*] 1 tab PO TID PRN #30 tab 01/01/21 Thiamine HCl [Vitamin B-1*] 100 mg PO DAILY #30 tablet 01/01/21 levoFLOXacin [Levaquin*] 750 mg PO Q48H #5 tab 01/01/21 New Medications: Arformoterol Tartrate [Brovana] 15 mcg NEB BIDRESP #60 vial.neb levoFLOXacin [Levaquin*] 750 mg PO Q48H #5 tab Hydrocodone 7.5/APAP 325 [Foster 7.5/325 mg*] 1 tab PO TID PRN #30 tab PRN Reason: Pain Scale 5-7 (Moderate) Thiamine HCl [Vitamin B-1*] 100 mg PO DAILY #30 tablet Physician Discharge Instructions: OK TO DC IV AND DC HOME FOLLOW-UP WITH PRIMARY CARE PROVIDER IN 1-2 WEEKS FOLLOW-UP WITH NEUROLOGY IN 1-2 WEEKS RETURN TO THE ER IF symptoms worsen Follow-up with home health for physical therapy and nursing care CALL or TEXT DR. MIKE AT [phone] IF ANY QUESTIONS REGARDING HOSPITAL STAY. PLEASE CALL THE FLOOR AT [phone] IF ANY MEDICATION OR NURSING QUESTIONS. Diet: AHA Activity: Fall precautions Followup: NONE,NONE [Primary Care Provider] - Time spent managing pt's care (in minutes): 35
== END 2021-01-02 13:30 | disposition home health service (06) | DRG 872 ==
LOC: ER 13:04 → 4TH 19:40 → 2ND 12-28 17:48
PROVIDERS: ADMIT Emergency Medicine; ATTEND Family Medicine
DX: A41.51 Sepsis due to Escherichia coli [E. coli] (principal); N39.0 Urinary tract infection, site not specified; N17.9 Acute kidney failure, unspecified; I50.32 Chronic diastolic (congestive) heart failure; R65.20 Severe sepsis without septic shock; B96.20 Unspecified Escherichia coli [E. coli] as the cause of diseases classified elsewhere; I12.9 Hypertensive chronic kidney disease with stage 1 through stage 4 chronic kidney disease, or unspecified chronic kidney disease; N18.30 Chronic kidney disease, stage 3 unspecified; G89.29 Other chronic pain; F41.9 Anxiety disorder, unspecified; M25.562 Pain in left knee; J44.9 Chronic obstructive pulmonary disease, unspecified; E87.6 Hypokalemia; E83.51 Hypocalcemia; F17.210 Nicotine dependence, cigarettes, uncomplicated; Z86.11 Personal history of tuberculosis; Z99.81 Dependence on supplemental oxygen; Z90.5 Acquired absence of kidney; Z23 Encounter for immunization; Z20.822 Contact with and (suspected) exposure to COVID-19; Z85.3 Personal history of malignant neoplasm of breast
CPT/HCPCS: 36415; 51702; 71045; 80048; 80053; 80076; 81003; 81015; 82140; 82150; 82550; 82553; 82607; 82746; 82947; 83540; 83605; 83690; 83735; 84100; 84145; 84439; 84443; 84484; 84550; 85025; 85044; 85610; 85730; 86140; 87040; 87077; 87086; 87088; 87186; 87205; 87804; 90471; 90732; 93005; 93306; 94010; 94640; 96361; 96374; 96375; 97110; 97112; 97116; 97161; 97530; 99285; J0696; J1644; J3010; J3480; J7030; J7050; J7605; U0003

== ENCOUNTER 2022-01-05 11:27 | Emergency (ER) | payer OTHER ==
--- OUTSIDE RECORDS SUMMARY | 2022-01-05 11:38 | XMS REPORT | Continuity of Care Document ---
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 it disease l artery - [facility] disease) [facility] Tobacco Tobacco Problem Common user use Spirit disorder - [facility] [id number] Overactive Problem Co mmon bladder [facility] [id number] Severe Problem Common anxiety [facility] with panic [facility] [id number] Major Problem Common depression [facility] , - [facility] recurrent, [facility] Blood Creatinine Problem Commo n chemistry elevation Spir it abnormal [facility] Migraine Migraine Problem Commo n [facility] Basophilia Basophilia Problem C ommon [facility] 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 saurabh e e - [facility] pulmonary pulmonary [facility] disease disease, [facility] Dependence Dependence Problem C ommon on on Spirit supplement supplement - [facility] al oxygen al oxygen [facility] Chronic 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 - [facility] stage 3A disease St (disorder) [facility] Counseling Tobacco Problem Comm on about abuse Spirit tobacco counseling - [facility] use [facility] Memory Memory Problem Common problem problem Spirit [facility] Rib pain Rib pain Problem Commo n Spirit [facility] 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 - [facility] Mixed Depression Problem Commo n anxiety with Spirit and anxiety - [facility] depressive [facility] 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 - [facility] [id number] History of Problem Co mmon breast Spirit cancer [facility] [id number] History of Problem Co mmon lung Spirit cancer [facility] [id number] +5th digit Problem Co mmon eff Spirit 11/30/19*CK - [facility] D (chronic kidney [facility] disease) Medical stage 3, Center GFR 30-59 ml/min [id number] 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 - [facility] kidney [facility] [id number] Mixed Problem Common stress and Spirit urge - [facility] urinary [facility] [id number] Opioid Problem Common dependence Spirit in - [facility] controlled [facility] Pain in Left foot Problem Commo n left foot pain [facility] Essential Benign Problem Common hypertensi essential Spi rit on HTN [facility] Allergic Allergic Problem Commo n rhinitis rhinitis [facility] [id number] Benzodiaze Problem Co mmon pine Spirit dependence - [facility] , [facility] [id number] COPD with Problem Com mon exacerbati Spirit on - [facility] Chronic Hypertensi Problem Comm on kidney ve chronic Spirit disease kidney - [facility] due to disease [facility] hypertensi Medica l on Center Anxiety Anxiety Problem Common disorder disorder [facility] Acute 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 - [facility] occlusion artery of [facility] Medical in Center myocardial infarction [id number] Lower Problem Common thoracic Spirit back pain - [facility] [id number] Pain in Problem Common pelvis Spirit [facility] Panic Panic Problem Common disorder 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 - [facility] paroxysmal [facility] anxiety] [facility] Allergies, Adverse Reactions, Alerts Allergy Allergy Status Severity Reaction(s) Onset Inactive Treating Comm ents Source Name Type Date Date Clinician penicill penicill Active Unknown Commo n in V in V [facility] Social History Social Habit Start Date Stop Date Quantity Comments Source History of Tobacco Current Smoker Co mmon [facility] Use [facility] Sex Assigned At Com mon [facility] Smoking Status Start Date Stop Date Source Current Smoker 2021-11-19 00:00:00 Common Spiri [facility] Medications Ordered Filled Start Stop Current Ordering Indication Dosage Frequency Signature Comments Components Source Medication Medication Date Date Medication? Clinician (SIG) Name Name ALPRAZolam ALPRAZolam No 1{table ALPRAZolam 1 MG 1 MG 9-21 t} 1 MG 00:00: 00 ALPRAZolam ALPRAZolam 0 No 1{table ALPRAZolam 1 MG 1 MG 9-21 t} 1 MG 00:00: 00 ALPRAZolam ALPRAZolam 0 No 1{table ALPRAZolam 1 MG 1 MG 9-21 t} 1 MG 00:00: 00 ALPRAZolam ALPRAZolam 2021-0 No 1{table ALPRAZolam 1 MG 1 MG 9-21 t} 1 MG 00:00: 00 ALPRAZolam ALPRAZolam 2021-0 No 1{table ALPRAZolam 1 MG 1 MG 9-21 t} 1 MG 00:00: 00 ALPRAZolam ALPRAZolam 2021-0 No 1{table ALPRAZolam 1 MG 1 MG 9-21 t} 1 MG 00:00: 00 ALPRAZolam ALPRAZolam 2021-0 No 1{table ALPRAZolam 1 MG 1 MG 8-25 t} 1 MG 00:00: 00 ALPRAZolam ALPRAZolam 2021-0 No 1{table ALPRAZolam 1 MG 1 MG 8-25 t} 1 MG 00:00: 00 ALPRAZolam ALPRAZolam 2021-0 No 1{table ALPRAZolam 1 MG 1 MG 7-28 t} 1 MG 00:00: 00 ALPRAZolam ALPRAZolam 2021-0 No 1{table ALPRAZolam 1 MG 1 MG 7-28 t} 1 MG 00:00: 00 ALPRAZolam ALPRAZolam 2-0 No 1{table ALPRAZolam 1 MG 1 MG 7-28 t} 1 MG 00:00: 00 ALPRAZolam ALPRAZolam 2-0 No 1{table ALPRAZolam 1 MG 1 MG 7-28 t} 1 MG 00:00: 00 ALPRAZolam ALPRAZolam 2-0 No 1{table ALPRAZolam 1 MG 1 MG 2-28 t} 1 MG 00:00: 00 ALPRAZolam ALPRAZolam 2-0 No 1{table ALPRAZolam 1 MG 1 MG 2-28 t} 1 MG 00:00: 00 ALPRAZolam ALPRAZolam 2-0 No 1{table ALPRAZolam 1 MG 1 MG 2-28 t} 1 MG 00:00: 00 ALPRAZolam ALPRAZolam 2-0 No 1{table ALPRAZolam 1 MG 1 MG 2-28 t} 1 MG 00:00: 00 ALPRAZolam ALPRAZolam 2-0 No 1{table ALPRAZolam 1 MG 1 MG 2-28 t} 1 MG 00:00: 00 ALPRAZolam ALPRAZolam 2-0 No 1{table ALPRAZolam 1 MG 1 MG 2-28 t} 1 MG 00:00: 00 ALPRAZolam ALPRAZolam 2-0 No 1{table ALPRAZolam 1 MG 1 MG 2-28 t} 1 MG 00:00: 00 ALPRAZolam ALPRAZolam 2-0 No 1{table ALPRAZolam 1 MG 1 MG 2-28 t} 1 MG 00:00: 00 ALPRAZolam ALPRAZolam 2-0 No 1{table ALPRAZolam 1 MG 1 MG 2-28 t} 1 MG 00:00: 00 ALPRAZolam ALPRAZolam 2-0 No 1{table ALPRAZolam 1 MG 1 MG 2-28 t} 1 MG 00:00: 00 ALPRAZolam ALPRAZolam 1-1 No 1{table ALPRAZolam 1 MG 1 MG 1-30 t} 1 MG 00:00: 00 ALPRAZolam ALPRAZolam 1-1 No 1{table ALPRAZolam 1 MG 1 MG 1-30 t} 1 MG 00:00: 00 ALPRAZolam ALPRAZolam 2020-1 No 1{table ALPRAZolam 1 MG 1 MG 1-30 t} 1 MG 00:00: 00 ALPRAZolam ALPRAZolam 2020-1 No 1{table ALPRAZolam 1 MG 1 MG 1-30 t} 1 MG 00:00: 00 ALPRAZolam ALPRAZolam 2020-1 No 1{table 1 MG 1 MG 1-30 t} 00:00: 00 ALPRAZolam ALPRAZolam 2020-1 No 1{table 1 MG 1 MG 1-30 t} 00:00: 00 ALPRAZolam ALPRAZolam 2020-1 No 1{table 1 MG 1 MG 1-30 t} 00:00: 00 ALPRAZolam ALPRAZolam 2020-1 No 1{table ALPRAZolam 1 MG 1 MG 1-30 t} 1 MG 00:00: 00 ALPRAZolam ALPRAZolam 2020-0 No 1{table ALPRAZolam 1 MG 1 MG 8-31 t} 1 MG 00:00: 00 Zofran 4 MG Zofran 4 MG 2020-0 No 1{table TID Zofran 4 2-10 t} MG 00:00: 00 Zofran 4 MG Zofran 4 MG 1-0 No 1{table TID Zofran 4 2-10 t} MG 00:00: 00 Zofran 4 MG Zofran 4 MG 2021-0 No 1{table TID Zofran 4 2-10 t} MG 00:00: 00 Zofran 4 MG Zofran 4 MG 2021-0 No 1{table TID Zofran 4 2-10 t} MG 00:00: 00 Zofran 4 MG Zofran 4 MG 2021-0 No 1{table TID Zofran 4 2-10 t} MG 00:00: 00 Zofran 4 MG Zofran 4 MG 2021-0 No 1{table TID Zofran 4 2-10 t} MG 00:00: 00 Zofran 4 MG Zofran 4 MG 2021-0 No 1{table TID Zofran 4 2-10 t} MG 00:00: 00 Zofran 4 MG Zofran 4 MG 2021-0 No 1{table TID Zofran 4 2-10 t} MG 00:00: 00 Zofran 4 MG Zofran 4 MG 2021-0 No 1{table TID Zofran 4 2-10 t} MG 00:00: 00 Zofran 4 MG Zofran 4 MG 2021-0 No 1{table TID Zofran 4 2-10 t} MG 00:00: 00 Zofran 4 MG Zofran 4 MG 2021-0 No 1{table TID Zofran 4 2-10 t} MG 00:00: 00 Zofran 4 MG Zofran 4 MG 2021-0 No 1{table TID 2-10 t} 00:00: 00 Zofran 4 MG Zofran 4 MG 2021-0 No 1{table TID 2-10 t} 00:00: 00 Zofran 4 MG Zofran 4 MG 2021-0 No 1{table TID 2-10 t} 00:00: 00 Zofran 4 MG Zofran 4 MG 2021-0 No 1{table TID Zofran 4 2-10 t} MG 00:00: 00 Zofran 4 MG Zofran 4 MG 2021-0 No 1{table TID Zofran 4 2-10 t} MG 00:00: 00 Zofran 4 MG Zofran 4 MG 2021-0 No 1{table TID Zofran 4 2-10 t} MG 00:00: 00 Zofran 4 MG Zofran 4 MG 2021-0 No 1{table TID Zofran 4 2-10 t} MG 00:00: 00 Zofran 4 MG Zofran 4 MG 2021-0 No 1{table TID Zofran 4 2-10 t} MG 00:00: 00 Zofran 4 MG Zofran 4 MG 2021-0 No 1{table TID Zofran 4 2-10 t} MG 00:00: 00 Zofran 4 MG Zofran 4 MG 2021-0 No 1{table TID Zofran 4 2-10 t} MG 00:00: 00 Zofran 4 MG Zofran 4 MG 2021-0 No 1{table TID Zofran 4 2-10 t} MG 00:00: 00 Zofran 4 MG Zofran 4 MG 2020-0 No 1{table TID Zofran 4 2-10 t} MG 00:00: 00 Zofran 4 MG Zofran 4 MG 2020-0 No 1{table TID Zofran 4 2-10 t} MG 00:00: 00 Zofran 4 MG Zofran 4 MG 2020-0 No 1{table TID Zofran 4 2-10 t} MG 00:00: 00 Zofran 4 MG Zofran 4 MG 2020-0 No 1{table TID Zofran 4 2-10 t} MG 00:00: 00 Zofran 4 MG Zofran 4 MG 2020-0 No 1{table TID Zofran 4 2-10 t} MG 00:00: 00 Zofran 4 MG Zofran 4 MG 2020-0 No 1{table TID Zofran 4 2-10 t} MG 00:00: 00 Zofran 4 MG Zofran 4 MG 2020-0 No 1{table TID Zofran 4 2-10 t} MG 00:00: 00 Zofran 4 MG Zofran 4 MG 2020-0 No 1{table TID Zofran 4 2-10 t} MG 00:00: 00 Zofran 4 MG Zofran 4 MG 2020-0 No 1{table TID Zofran 4 2-10 t} MG 00:00: 00 Escitalopra Escitalopra No Escitalopr m Oxalate 5 m Oxalate 5 am Oxalate MG MG 5 MG Singulair Singulair No 1{table QD Singulair 10 MG 10 MG t_in_th 10 MG e_eveni ng} Pravastatin Pravastatin No Pravastati Sodium 20 Sodium 20 n Sodium MG MG 20 MG Ventolin Ventolin No Ventolin HFA 108 (90 HFA 108 (90 HFA 108 Base) Base) (90 Base) MCG/ACT MCG/ACT MCG/ACT amLODIPine amLODIPine No 1{table QD amLODIPine Besylate 5 Besylate 5 t} Besylate 5 MG MG MG Vitamin D3 Vitamin D3 No Vitamin D3 Brovana 15 Brovana 15 No 2{ml} BID Brovana 15 MCG/2ML MCG/2ML MCG/2ML amLODIPine amLODIPine No amLODIPine Besylate 5 Besylate 5 Besylate 5 MG MG MG Pravastatin Pravastatin No 1{table QD Pravastati Sodium 20 Sodium 20 t} n Sodium MG MG 20 MG Neurontin Neurontin No Neurontin 100 MG 100 MG 100 MG Tumersaid Tumersaid No Tumersaid Pataday 0.2 Pataday 0.2 No QD Pataday % % 0.2 % Fluticasone Fluticasone No 1{spray QD Fluticason Propionate Propionate _in_eac e 50 MCG/ACT 50 MCG/ACT h_nostr Propionate il} 50 MCG/ACT Escitalopra Escitalopra No Escitalopr m Oxalate 5 m Oxalate 5 am Oxalate MG MG 5 MG Bevespi Bevespi No 2{puffs BID Bevespi Aerosphere Aerosphere } Aerosphere 9-4.8 9-4.8 9-4.8 MCG/ACT MCG/ACT MCG/ACT Gabapentin Gabapentin No Gabapentin 100 MG 100 MG 100 MG Vitamin B-1 Vitamin B-1 No 1{table QD Vitamin 100 MG 100 MG t} B-1 100 MG Benzonatate Benzonatate No Benzonatat 200 MG 200 MG e 200 MG amLODIPine amLODIPine No 1{table QD amLODIPine Besylate 5 Besylate 5 t} Besylate 5 MG MG MG amLODIPine amLODIPine No amLODIPine Besylate 5 Besylate 5 Besylate 5 MG MG MG Tamsulosin Tamsulosin No 1{capsu QD Tamsulosin HCl 0.4 MG HCl 0.4 MG le} HCl 0.4 MG Neurontin Neurontin No 1{capsu QD Neurontin 100 MG 100 MG le} 100 MG CoQ10 CoQ10 No CoQ10 Pravastatin Pravastatin No 1{table QD Pravastati Sodium 20 Sodium 20 t} n Sodium MG MG 20 MG Singulair Singulair No 1{table QD Singulair 10 MG 10 MG t_in_th 10 MG e_eveni ng} Ventolin Ventolin No Ventolin HFA 108 (90 HFA 108 (90 HFA 108 Base) Base) (90 Base) MCG/ACT MCG/ACT MCG/ACT Proventil Proventil No Proventil HFA 108 (90 HFA 108 (90 HFA 108 Base) Base) (90 Base) MCG/ACT MCG/ACT MCG/ACT Albuterol Albuterol No Albuterol Sulfate HFA Sulfate HFA Sulfate 108 (90 108 (90 HFA 108 Base) Base) (90 Base) MCG/ACT MCG/ACT MCG/ACT HYDROcodone HYDROcodone No 1{table BID HYDROcodon -Acetaminop -Acetaminop t_as_ne e-Acetamin hen 7.5-325 hen 7.5-325 eded} ophen MG MG 7.5-325 MG Vitamin D3 Vitamin D3 No Vitamin D3 Spironolact Spironolact No 1{table Spironolac one 25 MG one 25 MG t} tone 25 MG Pravastatin Pravastatin No Pravastati Sodium 20 Sodium 20 n Sodium MG MG 20 MG Tumersaid Tumersaid No Tumersaid Vitamin B12 Vitamin B12 No Vitamin B12 Neurontin Neurontin No Neurontin 100 MG 100 MG 100 MG Brovana 15 Brovana 15 No 2{ml} BID Brovana 15 MCG/2ML MCG/2ML MCG/2ML Fluticasone Fluticasone No 1{spray QD Fluticason Propionate Propionate _in_eac e 50 MCG/ACT 50 MCG/ACT h_nostr Propionate il} 50 MCG/ACT Escitalopra Escitalopra No Escitalopr m Oxalate 5 m Oxalate 5 am Oxalate MG MG 5 MG HYDROcodone HYDROcodone No 1{table BID HYDROcodon -Acetaminop -Acetaminop t_as_ne e-Acetamin hen 7.5-325 hen 7.5-325 eded} ophen MG MG 7.5-325 MG Vitamin B-1 Vitamin B-1 No 1{table QD Vitamin 100 MG 100 MG t} B-1 100 MG Gabapentin Gabapentin No Gabapentin 100 MG 100 MG 100 MG Pataday 0.2 Pataday 0.2 No QD Pataday % % 0.2 % Benzonatate Benzonatate No Benzonatat 200 MG 200 MG e 200 MG Bevespi Bevespi No 2{puffs BID Bevespi Aerosphere Aerosphere } Aerosphere 9-4.8 9-4.8 9-4.8 MCG/ACT MCG/ACT MCG/ACT amLODIPine amLODIPine No amLODIPine Besylate 5 Besylate 5 Besylate 5 MG MG MG Tamsulosin Tamsulosin No 1{capsu QD Tamsulosin HCl 0.4 MG HCl 0.4 MG le} HCl 0.4 MG Neurontin Neurontin No 1{capsu QD Neurontin 100 MG 100 MG le} 100 MG CoQ10 CoQ10 No CoQ10 Pravastatin Pravastatin No 1{table QD Pravastati Sodium 20 Sodium 20 t} n Sodium MG MG 20 MG Albuterol Albuterol No Albuterol Sulfate HFA Sulfate HFA Sulfate 108 (90 108 (90 HFA 108 Base) Base) (90 Base) MCG/ACT MCG/ACT MCG/ACT Ventolin Ventolin No Ventolin HFA 108 (90 HFA 108 (90 HFA 108 Base) Base) (90 Base) MCG/ACT MCG/ACT MCG/ACT Proventil Proventil No Proventil HFA 108 (90 HFA 108 (90 HFA 108 Base) Base) (90 Base) MCG/ACT MCG/ACT MCG/ACT amLODIPine amLODIPine No 1{table QD amLODIPine Besylate 5 Besylate 5 t} Besylate 5 MG MG MG Singulair Singulair No 1{table QD Singulair 10 MG 10 MG t_in_th 10 MG e_eveni ng} Vitamin D3 Vitamin D3 No Vitamin D3 Spironolact Spironolact No 1{table Spironolac one 25 MG one 25 MG t} tone 25 MG Pravastatin Pravastatin No Pravastati Sodium 20 Sodium 20 n Sodium MG MG 20 MG Tumersaid Tumersaid No Tumersaid Vitamin B12 Vitamin B12 No Vitamin B12 Neurontin Neurontin No Neurontin 100 MG 100 MG 100 MG Brovana 15 Brovana 15 No 2{ml} BID Brovana 15 MCG/2ML MCG/2ML MCG/2ML Fluticasone Fluticasone No 1{spray QD Fluticason Propionate Propionate _in_eac e 50 MCG/ACT 50 MCG/ACT h_nostr Propionate il} 50 MCG/ACT Ventolin Ventolin No Ventolin HFA 108 (90 HFA 108 (90 HFA 108 Base) Base) (90 Base) MCG/ACT MCG/ACT MCG/ACT Escitalopra Escitalopra No Escitalopr m Oxalate 5 m Oxalate 5 am Oxalate MG MG 5 MG Pravastatin Pravastatin No Pravastati Sodium 20 Sodium 20 n Sodium MG MG 20 MG HYDROcodone HYDROcodone No 1{table BID HYDROcodon -Acetaminop -Acetaminop t_as_ne e-Acetamin hen 7.5-325 hen 7.5-325 eded} ophen MG MG 7.5-325 MG Vitamin B-1 Vitamin B-1 No 1{table QD Vitamin 100 MG 100 MG t} B-1 100 MG Brovana 15 Brovana 15 No 2{ml} BID Brovana 15 MCG/2ML MCG/2ML MCG/2ML amLODIPine amLODIPine No 1{table QD amLODIPine Besylate 5 Besylate 5 t} Besylate 5 MG MG MG Vitamin B12 Vitamin B12 No Vitamin B12 Neurontin Neurontin No 1{capsu QD Neurontin 100 MG 100 MG le} 100 MG Proventil Proventil No Proventil HFA 108 (90 HFA 108 (90 HFA 108 Base) Base) (90 Base) MCG/ACT MCG/ACT MCG/ACT Gabapentin Gabapentin No Gabapentin 100 MG 100 MG 100 MG CoQ10 CoQ10 No CoQ10 Spironolact Spironolact No 1{table Spironolac one 25 MG one 25 MG t} tone 25 MG Benzonatate Benzonatate No Benzonatat 200 MG 200 MG e 200 MG Tumersaid Tumersaid No Tumersaid amLODIPine amLODIPine No amLODIPine Besylate 5 Besylate 5 Besylate 5 MG MG MG Neurontin Neurontin No Neurontin 100 MG 100 MG 100 MG Albuterol Albuterol No Albuterol Sulfate HFA Sulfate HFA Sulfate 108 (90 108 (90 HFA 108 Base) Base) (90 Base) MCG/ACT MCG/ACT MCG/ACT Pataday 0.2 Pataday 0.2 No QD Pataday % % 0.2 % Tamsulosin Tamsulosin No 1{capsu QD Tamsulosin HCl 0.4 MG HCl 0.4 MG le} HCl 0.4 MG Bevespi Bevespi No 2{puffs BID Bevespi Aerosphere Aerosphere } Aerosphere 9-4.8 9-4.8 9-4.8 MCG/ACT MCG/ACT MCG/ACT Singulair Singulair No 1{table QD Singulair 10 MG 10 MG t_in_th 10 MG e_eveni ng} ALPRAZolam ALPRAZolam No 1{table ALPRAZolam 1 MG 1 MG t} 1 MG Vitamin D3 Vitamin D3 No Vitamin D3 Escitalopra Escitalopra No 1{table QD Escitalopr m Oxalate 5 m Oxalate 5 t} am Oxalate MG MG 5 MG Pravastatin Pravastatin No 1{table QD Pravastati Sodium 20 Sodium 20 t} n Sodium MG MG 20 MG Fluticasone Fluticasone No 1{spray QD Fluticason Propionate Propionate _in_eac e 50 MCG/ACT 50 MCG/ACT h_nostr Propionate il} 50 MCG/ACT Ventolin Ventolin No Ventolin HFA 108 (90 HFA 108 (90 HFA 108 Base) Base) (90 Base) MCG/ACT MCG/ACT MCG/ACT Escitalopra Escitalopra No Escitalopr m Oxalate 5 m Oxalate 5 am Oxalate MG MG 5 MG Pravastatin Pravastatin No Pravastati Sodium 20 Sodium 20 n Sodium MG MG 20 MG HYDROcodone HYDROcodone No 1{table BID HYDROcodon -Acetaminop -Acetaminop t_as_ne e-Acetamin hen 7.5-325 hen 7.5-325 eded} ophen MG MG 7.5-325 MG Vitamin B-1 Vitamin B-1 No 1{table QD Vitamin 100 MG 100 MG t} B-1 100 MG Brovana 15 Brovana 15 No 2{ml} BID Brovana 15 MCG/2ML MCG/2ML MCG/2ML amLODIPine amLODIPine No 1{table QD amLODIPine Besylate 5 Besylate 5 t} Besylate 5 MG MG MG Vitamin B12 Vitamin B12 No Vitamin B12 Neurontin Neurontin No 1{capsu QD Neurontin 100 MG 100 MG le} 100 MG Proventil Proventil No Proventil HFA 108 (90 HFA 108 (90 HFA 108 Base) Base) (90 Base) MCG/ACT MCG/ACT MCG/ACT Gabapentin Gabapentin No Gabapentin 100 MG 100 MG 100 MG CoQ10 CoQ10 No CoQ10 Spironolact Spironolact No 1{table Spironolac one 25 MG one 25 MG t} tone 25 MG Benzonatate Benzonatate No Benzonatat 200 MG 200 MG e 200 MG Tumersaid Tumersaid No Tumersaid amLODIPine amLODIPine No amLODIPine Besylate 5 Besylate 5 Besylate 5 MG MG MG Neurontin Neurontin No Neurontin 100 MG 100 MG 100 MG Albuterol Albuterol No Albuterol Sulfate HFA Sulfate HFA Sulfate 108 (90 108 (90 HFA 108 Base) Base) (90 Base) MCG/ACT MCG/ACT MCG/ACT Pataday 0.2 Pataday 0.2 No QD Pataday % % 0.2 % Tamsulosin Tamsulosin No 1{capsu QD Tamsulosin HCl 0.4 MG HCl 0.4 MG le} HCl 0.4 MG Bevespi Bevespi No 2{puffs BID Bevespi Aerosphere Aerosphere } Aerosphere 9-4.8 9-4.8 9-4.8 MCG/ACT MCG/ACT MCG/ACT Singulair Singulair No 1{table QD Singulair 10 MG 10 MG t_in_th 10 MG e_eveni ng} ALPRAZolam ALPRAZolam No 1{table ALPRAZolam 1 MG 1 MG t} 1 MG Vitamin D3 Vitamin D3 No Vitamin D3 Escitalopra Escitalopra No 1{table QD Escitalopr m Oxalate 5 m Oxalate 5 t} am Oxalate MG MG 5 MG Pravastatin Pravastatin No 1{table QD Pravastati Sodium 20 Sodium 20 t} n Sodium MG MG 20 MG Fluticasone Fluticasone No 1{spray QD Fluticason Propionate Propionate _in_eac e 50 MCG/ACT 50 MCG/ACT h_nostr Propionate il} 50 MCG/ACT Ventolin Ventolin No Ventolin HFA 108 (90 HFA 108 (90 HFA 108 Base) Base) (90 Base) MCG/ACT MCG/ACT MCG/ACT Escitalopra Escitalopra No Escitalopr m Oxalate 5 m Oxalate 5 am Oxalate MG MG 5 MG Pravastatin Pravastatin No Pravastati Sodium 20 Sodium 20 n Sodium MG MG 20 MG HYDROcodone HYDROcodone No 1{table BID HYDROcodon -Acetaminop -Acetaminop t_as_ne e-Acetamin hen 7.5-325 hen 7.5-325 eded} ophen MG MG 7.5-325 MG Vitamin B-1 Vitamin B-1 No 1{table QD Vitamin 100 MG 100 MG t} B-1 100 MG Brovana 15 Brovana 15 No 2{ml} BID Brovana 15 MCG/2ML MCG/2ML MCG/2ML amLODIPine amLODIPine No 1{table QD amLODIPine Besylate 5 Besylate 5 t} Besylate 5 MG MG MG Vitamin B12 Vitamin B12 No Vitamin B12 Neurontin Neurontin No 1{capsu QD Neurontin 100 MG 100 MG le} 100 MG Proventil Proventil No Proventil HFA 108 (90 HFA 108 (90 HFA 108 Base) Base) (90 Base) MCG/ACT MCG/ACT MCG/ACT Gabapentin Gabapentin No Gabapentin 100 MG 100 MG 100 MG CoQ10 CoQ10 No CoQ10 Spironolact Spironolact No 1{table Spironolac one 25 MG one 25 MG t} tone 25 MG Benzonatate Benzonatate No Benzonatat 200 MG 200 MG e 200 MG Tumersaid Tumersaid No Tumersaid amLODIPine amLODIPine No amLODIPine Besylate 5 Besylate 5 Besylate 5 MG MG MG Neurontin Neurontin No Neurontin 100 MG 100 MG 100 MG Albuterol Albuterol No Albuterol Sulfate HFA Sulfate HFA Sulfate 108 (90 108 (90 HFA 108 Base) Base) (90 Base) MCG/ACT MCG/ACT MCG/ACT Pataday 0.2 Pataday 0.2 No QD Pataday % % 0.2 % Tamsulosin Tamsulosin No 1{capsu QD Tamsulosin HCl 0.4 MG HCl 0.4 MG le} HCl 0.4 MG Bevespi Bevespi No 2{puffs BID Bevespi Aerosphere Aerosphere } Aerosphere 9-4.8 9-4.8 9-4.8 MCG/ACT MCG/ACT MCG/ACT Singulair Singulair No 1{table QD Singulair 10 MG 10 MG t_in_th 10 MG e_eveni ng} ALPRAZolam ALPRAZolam No 1{table ALPRAZolam 1 MG 1 MG t} 1 MG Vitamin D3 Vitamin D3 No Vitamin D3 Escitalopra Escitalopra No 1{table QD Escitalopr m Oxalate 5 m Oxalate 5 t} am Oxalate MG MG 5 MG Pravastatin Pravastatin No 1{table QD Pravastati Sodium 20 Sodium 20 t} n Sodium MG MG 20 MG Fluticasone Fluticasone No 1{spray QD Fluticason Propionate Propionate _in_eac e 50 MCG/ACT 50 MCG/ACT h_nostr Propionate il} 50 MCG/ACT Ventolin Ventolin No Ventolin HFA 108 (90 HFA 108 (90 HFA 108 Base) Base) (90 Base) MCG/ACT MCG/ACT MCG/ACT Escitalopra Escitalopra No Escitalopr m Oxalate 5 m Oxalate 5 am Oxalate MG MG 5 MG Pravastatin Pravastatin No Pravastati Sodium 20 Sodium 20 n Sodium MG MG 20 MG HYDROcodone HYDROcodone No 1{table BID HYDROcodon -Acetaminop -Acetaminop t_as_ne e-Acetamin hen 7.5-325 hen 7.5-325 eded} ophen MG MG 7.5-325 MG Vitamin B-1 Vitamin B-1 No 1{table QD Vitamin 100 MG 100 MG t} B-1 100 MG Brovana 15 Brovana 15 No 2{ml} BID Brovana 15 MCG/2ML MCG/2ML MCG/2ML amLODIPine amLODIPine No 1{table QD amLODIPine Besylate 5 Besylate 5 t} Besylate 5 MG MG MG Vitamin B12 Vitamin B12 No Vitamin B12 Neurontin Neurontin No 1{capsu QD Neurontin 100 MG 100 MG le} 100 MG Proventil Proventil No Proventil HFA 108 (90 HFA 108 (90 HFA 108 Base) Base) (90 Base) MCG/ACT MCG/ACT MCG/ACT Gabapentin Gabapentin No Gabapentin 100 MG 100 MG 100 MG CoQ10 CoQ10 No CoQ10 Spironolact Spironolact No 1{table Spironolac one 25 MG one 25 MG t} tone 25 MG Benzonatate Benzonatate No Benzonatat 200 MG 200 MG e 200 MG Tumersaid Tumersaid No Tumersaid amLODIPine amLODIPine No amLODIPine Besylate 5 Besylate 5 Besylate 5 MG MG MG Neurontin Neurontin No Neurontin 100 MG 100 MG 100 MG Albuterol Albuterol No Albuterol Sulfate HFA Sulfate HFA Sulfate 108 (90 108 (90 HFA 108 Base) Base) (90 Base) MCG/ACT MCG/ACT MCG/ACT Pataday 0.2 Pataday 0.2 No QD Pataday % % 0.2 % Tamsulosin Tamsulosin No 1{capsu QD Tamsulosin HCl 0.4 MG HCl 0.4 MG le} HCl 0.4 MG Bevespi Bevespi No 2{puffs BID Bevespi Aerosphere Aerosphere } Aerosphere 9-4.8 9-4.8 9-4.8 MCG/ACT MCG/ACT MCG/ACT Singulair Singulair No 1{table QD Singulair 10 MG 10 MG t_in_th 10 MG e_eveni ng} ALPRAZolam ALPRAZolam No 1{table ALPRAZolam 1 MG 1 MG t} 1 MG Vitamin D3 Vitamin D3 No Vitamin D3 Escitalopra Escitalopra No 1{table QD Escitalopr m Oxalate 5 m Oxalate 5 t} am Oxalate MG MG 5 MG Pravastatin Pravastatin No 1{table QD Pravastati Sodium 20 Sodium 20 t} n Sodium MG MG 20 MG Fluticasone Fluticasone No 1{spray QD Fluticason Propionate Propionate _in_eac e 50 MCG/ACT 50 MCG/ACT h_nostr Propionate il} 50 MCG/ACT Ventolin Ventolin No Ventolin HFA 108 (90 HFA 108 (90 HFA 108 Base) Base) (90 Base) MCG/ACT MCG/ACT MCG/ACT Escitalopra Escitalopra No Escitalopr m Oxalate 5 m Oxalate 5 am Oxalate MG MG 5 MG Pravastatin Pravastatin No Pravastati Sodium 20 Sodium 20 n Sodium MG MG 20 MG HYDROcodone HYDROcodone No 1{table BID HYDROcodon -Acetaminop -Acetaminop t_as_ne e-Acetamin hen 7.5-325 hen 7.5-325 eded} ophen MG MG 7.5-325 MG Vitamin B-1 Vitamin B-1 No 1{table QD Vitamin 100 MG 100 MG t} B-1 100 MG Brovana 15 Brovana 15 No 2{ml} BID Brovana 15 MCG/2ML MCG/2ML MCG/2ML amLODIPine amLODIPine No 1{table QD amLODIPine Besylate 5 Besylate 5 t} Besylate 5 MG MG MG Vitamin B12 Vitamin B12 No Vitamin B12 Neurontin Neurontin No 1{capsu QD Neurontin 100 MG 100 MG le} 100 MG Proventil Proventil No Proventil HFA 108 (90 HFA 108 (90 HFA 108 Base) Base) (90 Base) MCG/ACT MCG/ACT MCG/ACT Gabapentin Gabapentin No Gabapentin 100 MG 100 MG 100 MG CoQ10 CoQ10 No CoQ10 Spironolact Spironolact No 1{table Spironolac one 25 MG one 25 MG t} tone 25 MG Benzonatate Benzonatate No Benzonatat 200 MG 200 MG e 200 MG Tumersaid Tumersaid No Tumersaid amLODIPine amLODIPine No amLODIPine Besylate 5 Besylate 5 Besylate 5 MG MG MG Neurontin Neurontin No Neurontin 100 MG 100 MG 100 MG Albuterol Albuterol No Albuterol Sulfate HFA Sulfate HFA Sulfate 108 (90 108 (90 HFA 108 Base) Base) (90 Base) MCG/ACT MCG/ACT MCG/ACT Pataday 0.2 Pataday 0.2 No QD Pataday % % 0.2 % Tamsulosin Tamsulosin No 1{capsu QD Tamsulosin HCl 0.4 MG HCl 0.4 MG le} HCl 0.4 MG Bevespi Bevespi No 2{puffs BID Bevespi Aerosphere Aerosphere } Aerosphere 9-4.8 9-4.8 9-4.8 MCG/ACT MCG/ACT MCG/ACT Singulair Singulair No 1{table QD Singulair 10 MG 10 MG t_in_th 10 MG e_eveni ng} ALPRAZolam ALPRAZolam No 1{table ALPRAZolam 1 MG 1 MG t} 1 MG Vitamin D3 Vitamin D3 No Vitamin D3 Escitalopra Escitalopra No 1{table QD Escitalopr m Oxalate 5 m Oxalate 5 t} am Oxalate MG MG 5 MG Pravastatin Pravastatin No 1{table QD Pravastati Sodium 20 Sodium 20 t} n Sodium MG MG 20 MG Vitamin B-1 Vitamin B-1 No 1{table QD Vitamin 100 MG 100 MG t} B-1 100 MG Neurontin Neurontin No 1{capsu QD Neurontin 100 MG 100 MG le} 100 MG HYDROcodone HYDROcodone No 1{table BID HYDROcodon -Acetaminop -Acetaminop t_as_ne e-Acetamin hen 7.5-325 hen 7.5-325 eded} ophen MG MG 7.5-325 MG Vitamin B12 Vitamin B12 No Vitamin B12 Escitalopra Escitalopra No Escitalopr m Oxalate 5 m Oxalate 5 am Oxalate MG MG 5 MG Pravastatin Pravastatin No Pravastati Sodium 20 Sodium 20 n Sodium MG MG 20 MG amLODIPine amLODIPine No 1{table QD amLODIPine Besylate 5 Besylate 5 t} Besylate 5 MG MG MG Neurontin Neurontin No Neurontin 100 MG 100 MG 100 MG Albuterol Albuterol No Albuterol Sulfate HFA Sulfate HFA Sulfate 108 (90 108 (90 HFA 108 Base) Base) (90 Base) MCG/ACT MCG/ACT MCG/ACT amLODIPine amLODIPine No amLODIPine Besylate 5 Besylate 5 Besylate 5 MG MG MG Proventil Proventil No Proventil HFA 108 (90 HFA 108 (90 HFA 108 Base) Base) (90 Base) MCG/ACT MCG/ACT MCG/ACT Pataday 0.2 Pataday 0.2 No QD Pataday % % 0.2 % Tamsulosin Tamsulosin No 1{capsu QD Tamsulosin HCl 0.4 MG HCl 0.4 MG le} HCl 0.4 MG Fluticasone Fluticasone No 1{spray QD Fluticason Propionate Propionate _in_eac e 50 MCG/ACT 50 MCG/ACT h_nostr Propionate il} 50 MCG/ACT Bevespi Bevespi No 2{puffs BID Bevespi Aerosphere Aerosphere } Aerosphere 9-4.8 9-4.8 9-4.8 MCG/ACT MCG/ACT MCG/ACT Spironolact Spironolact No 1{table Spironolac one 25 MG one 25 MG t} tone 25 MG Benzonatate Benzonatate No Benzonatat 200 MG 200 MG e 200 MG Brovana 15 Brovana 15 No 2{ml} BID Brovana 15 MCG/2ML MCG/2ML MCG/2ML Singulair Singulair Yes Wes 1 tablet Common [place] in the [facility] evening [facility] Pataday Pataday Yes Wes Instill 1 Co mmon [place] drop in [facility] each eye - [facility] every day [facility] [place] Bevespi Bevespi Yes Wes 2 puffs Comm on Aerosphere Aerosphere [place] Sp sa[facility] Tamsulosin Tamsulosin Yes Wes 1 capsule Common HCl [facility] Alprazolam Alprazolam Yes Wes 1 tablet Common [place] [facility] Proventil Proventil Yes Wes as Com mon HFA HFA [place] directed [facility] Hydrocodone Hydrocodone Yes Wes 1 tablet Common -Acetaminop -Acetaminop [place] as needed [facility] hen hen [facility] Amlodipine Amlodipine Yes Wes 1 tablet Common Besylate Besylate [facility] Neurontin Neurontin Yes Wes 1 capsule Common [facility] Pravastatin Pravastatin Yes Wes 1 tablet Common Sodium Sodium [facility] Escitalopra Escitalopra Yes Wes TAKE 1 Common m Oxalate m Oxalate [place] TABLET BY Spirit MOUTH - [facility] EVERY DAY [facility] [place] [facility] Escitalopra Escitalopra Yes Wes 1 tablet Common m Oxalate m Oxalate [place] Spir it - [facility] [place] Tumersaid Tumersaid No Tumersaid Ventolin Ventolin No Ventolin HFA 108 (90 HFA 108 (90 HFA 108 Base) Base) (90 Base) MCG/ACT MCG/ACT MCG/ACT Gabapentin Gabapentin No Gabapentin 100 MG 100 MG 100 MG CoQ10 CoQ10 No CoQ10 Vitamin D3 Vitamin D3 No Vitamin D3 Singulair Singulair No 1{table QD Singulair 10 MG 10 MG t_in_th 10 MG e_eveni ng} ALPRAZolam ALPRAZolam No 1{table ALPRAZolam 1 MG 1 MG t} 1 MG Pravastatin Pravastatin No 1{table QD Pravastati Sodium 20 Sodium 20 t} n Sodium MG MG 20 MG Vitamin B-1 Vitamin B-1 No 1{table QD Vitamin 100 MG 100 MG t} B-1 100 MG HYDROcodone HYDROcodone No 1{table BID HYDROcodon -Acetaminop -Acetaminop t_as_ne e-Acetamin hen 7.5-325 hen 7.5-325 eded} ophen MG MG 7.5-325 MG Brovana 15 Brovana 15 No 2{ml} BID Brovana 15 MCG/2ML MCG/2ML MCG/2ML Vitamin B12 Vitamin B12 No Vitamin B12 amLODIPine amLODIPine No 1{table QD amLODIPine Besylate 5 Besylate 5 t} Besylate 5 MG MG MG Pravastatin Pravastatin No Pravastati Sodium 20 Sodium 20 n Sodium MG MG 20 MG Neurontin Neurontin No 1{capsu QD Neurontin 100 MG 100 MG le} 100 MG Neurontin Neurontin No Neurontin 100 MG 100 MG 100 MG Albuterol Albuterol No Albuterol Sulfate HFA Sulfate HFA Sulfate 108 (90 108 (90 HFA 108 Base) Base) (90 Base) MCG/ACT MCG/ACT MCG/ACT Spironolact Spironolact No 1{table Spironolac one 25 MG one 25 MG t} tone 25 MG amLODIPine amLODIPine No amLODIPine Besylate 5 Besylate 5 Besylate 5 MG MG MG Tumersaid Tumersaid No Tumersaid Tamsulosin Tamsulosin No 1{capsu QD Tamsulosin HCl 0.4 MG HCl 0.4 MG le} HCl 0.4 MG Benzonatate Benzonatate No Benzonatat 200 MG 200 MG e 200 MG Gabapentin Gabapentin No Gabapentin 100 MG 100 MG 100 MG Escitalopra Escitalopra No Escitalopr m Oxalate 5 m Oxalate 5 am Oxalate MG MG 5 MG Fluticasone Fluticasone No 1{spray QD Fluticason Propionate Propionate _in_eac e 50 MCG/ACT 50 MCG/ACT h_nostr Propionate il} 50 MCG/ACT Bevespi Bevespi No 2{puffs BID Bevespi Aerosphere Aerosphere } Aerosphere 9-4.8 9-4.8 9-4.8 MCG/ACT MCG/ACT MCG/ACT Ventolin Ventolin No Ventolin HFA 108 (90 HFA 108 (90 HFA 108 Base) Base) (90 Base) MCG/ACT MCG/ACT MCG/ACT Proventil Proventil No Proventil HFA 108 (90 HFA 108 (90 HFA 108 Base) Base) (90 Base) MCG/ACT MCG/ACT MCG/ACT Pataday 0.2 Pataday 0.2 No QD Pataday % % 0.2 % Singulair Singulair No 1{table QD Singulair 10 MG 10 MG t_in_th 10 MG e_eveni ng} CoQ10 CoQ10 No CoQ10 Vitamin D3 Vitamin D3 No Vitamin D3 Pravastatin Pravastatin No 1{table QD Pravastati Sodium 20 Sodium 20 t} n Sodium MG MG 20 MG Vitamin B-1 Vitamin B-1 No 1{table QD Vitamin 100 MG 100 MG t} B-1 100 MG HYDROcodone HYDROcodone No 1{table BID HYDROcodon -Acetaminop -Acetaminop t_as_ne e-Acetamin hen 7.5-325 hen 7.5-325 eded} ophen MG MG 7.5-325 MG Brovana 15 Brovana 15 No 2{ml} BID Brovana 15 MCG/2ML MCG/2ML MCG/2ML Vitamin B12 Vitamin B12 No Vitamin B12 amLODIPine amLODIPine No 1{table QD amLODIPine Besylate 5 Besylate 5 t} Besylate 5 MG MG MG Pravastatin Pravastatin No Pravastati Sodium 20 Sodium 20 n Sodium MG MG 20 MG Neurontin Neurontin No 1{capsu QD Neurontin 100 MG 100 MG le} 100 MG Neurontin Neurontin No Neurontin 100 MG 100 MG 100 MG Albuterol Albuterol No Albuterol Sulfate HFA Sulfate HFA Sulfate 108 (90 108 (90 HFA 108 Base) Base) (90 Base) MCG/ACT MCG/ACT MCG/ACT Spironolact Spironolact No 1{table Spironolac one 25 MG one 25 MG t} tone 25 MG amLODIPine amLODIPine No amLODIPine Besylate 5 Besylate 5 Besylate 5 MG MG MG Tumersaid Tumersaid No Tumersaid Tamsulosin Tamsulosin No 1{capsu QD Tamsulosin HCl 0.4 MG HCl 0.4 MG le} HCl 0.4 MG Benzonatate Benzonatate No Benzonatat 200 MG 200 MG e 200 MG Gabapentin Gabapentin No Gabapentin 100 MG 100 MG 100 MG Escitalopra Escitalopra No Escitalopr m Oxalate 5 m Oxalate 5 am Oxalate MG MG 5 MG Fluticasone Fluticasone No 1{spray QD Fluticason Propionate Propionate _in_eac e 50 MCG/ACT 50 MCG/ACT h_nostr Propionate il} 50 MCG/ACT Bevespi Bevespi No 2{puffs BID Bevespi Aerosphere Aerosphere } Aerosphere 9-4.8 9-4.8 9-4.8 MCG/ACT MCG/ACT MCG/ACT Ventolin Ventolin No Ventolin HFA 108 (90 HFA 108 (90 HFA 108 Base) Base) (90 Base) MCG/ACT MCG/ACT MCG/ACT Proventil Proventil No Proventil HFA 108 (90 HFA 108 (90 HFA 108 Base) Base) (90 Base) MCG/ACT MCG/ACT MCG/ACT Pataday 0.2 Pataday 0.2 No QD Pataday % % 0.2 % Singulair Singulair No 1{table QD Singulair 10 MG 10 MG t_in_th 10 MG e_eveni ng} CoQ10 CoQ10 No CoQ10 Vitamin D3 Vitamin D3 No Vitamin D3 Pravastatin Pravastatin No 1{table QD Pravastati Sodium 20 Sodium 20 t} n Sodium MG MG 20 MG Vitamin B-1 Vitamin B-1 No 1{table QD Vitamin 100 MG 100 MG t} B-1 100 MG HYDROcodone HYDROcodone No 1{table BID HYDROcodon -Acetaminop -Acetaminop t_as_ne e-Acetamin hen 7.5-325 hen 7.5-325 eded} ophen MG MG 7.5-325 MG Brovana 15 Brovana 15 No 2{ml} BID Brovana 15 MCG/2ML MCG/2ML MCG/2ML Vitamin B12 Vitamin B12 No Vitamin B12 amLODIPine amLODIPine No 1{table QD amLODIPine Besylate 5 Besylate 5 t} Besylate 5 MG MG MG Pravastatin Pravastatin No Pravastati Sodium 20 Sodium 20 n Sodium MG MG 20 MG Neurontin Neurontin No 1{capsu QD Neurontin 100 MG 100 MG le} 100 MG Neurontin Neurontin No Neurontin 100 MG 100 MG 100 MG Albuterol Albuterol No Albuterol Sulfate HFA Sulfate HFA Sulfate 108 (90 108 (90 HFA 108 Base) Base) (90 Base) MCG/ACT MCG/ACT MCG/ACT Spironolact Spironolact No 1{table Spironolac one 25 MG one 25 MG t} tone 25 MG amLODIPine amLODIPine No amLODIPine Besylate 5 Besylate 5 Besylate 5 MG MG MG Tumersaid Tumersaid No Tumersaid Tamsulosin Tamsulosin No 1{capsu QD Tamsulosin HCl 0.4 MG HCl 0.4 MG le} HCl 0.4 MG Benzonatate Benzonatate No Benzonatat 200 MG 200 MG e 200 MG Gabapentin Gabapentin No Gabapentin 100 MG 100 MG 100 MG Escitalopra Escitalopra No Escitalopr m Oxalate 5 m Oxalate 5 am Oxalate MG MG 5 MG Fluticasone Fluticasone No 1{spray QD Fluticason Propionate Propionate _in_eac e 50 MCG/ACT 50 MCG/ACT h_nostr Propionate il} 50 MCG/ACT Bevespi Bevespi No 2{puffs BID Bevespi Aerosphere Aerosphere } Aerosphere 9-4.8 9-4.8 9-4.8 MCG/ACT MCG/ACT MCG/ACT Ventolin Ventolin No Ventolin HFA 108 (90 HFA 108 (90 HFA 108 Base) Base) (90 Base) MCG/ACT MCG/ACT MCG/ACT Proventil Proventil No Proventil HFA 108 (90 HFA 108 (90 HFA 108 Base) Base) (90 Base) MCG/ACT MCG/ACT MCG/ACT Pataday 0.2 Pataday 0.2 No QD Pataday % % 0.2 % Singulair Singulair No 1{table QD Singulair 10 MG 10 MG t_in_th 10 MG e_eveni ng} CoQ10 CoQ10 No CoQ10 Vitamin D3 Vitamin D3 No Vitamin D3 Pravastatin Pravastatin No 1{table QD Pravastati Sodium 20 Sodium 20 t} n Sodium MG MG 20 MG Vitamin B-1 Vitamin B-1 No 1{table QD Vitamin 100 MG 100 MG t} B-1 100 MG HYDROcodone HYDROcodone No 1{table BID HYDROcodon -Acetaminop -Acetaminop t_as_ne e-Acetamin hen 7.5-325 hen 7.5-325 eded} ophen MG MG 7.5-325 MG Brovana 15 Brovana 15 No 2{ml} BID Brovana 15 MCG/2ML MCG/2ML MCG/2ML Vitamin B12 Vitamin B12 No Vitamin B12 amLODIPine amLODIPine No 1{table QD amLODIPine Besylate 5 Besylate 5 t} Besylate 5 MG MG MG Pravastatin Pravastatin No Pravastati Sodium 20 Sodium 20 n Sodium MG MG 20 MG Neurontin Neurontin No 1{capsu QD Neurontin 100 MG 100 MG le} 100 MG Neurontin Neurontin No Neurontin 100 MG 100 MG 100 MG Albuterol Albuterol No Albuterol Sulfate HFA Sulfate HFA Sulfate 108 (90 108 (90 HFA 108 Base) Base) (90 Base) MCG/ACT MCG/ACT MCG/ACT Spironolact Spironolact No 1{table Spironolac one 25 MG one 25 MG t} tone 25 MG amLODIPine amLODIPine No amLODIPine Besylate 5 Besylate 5 Besylate 5 MG MG MG Tumersaid Tumersaid No Tumersaid Tamsulosin Tamsulosin No 1{capsu QD Tamsulosin HCl 0.4 MG HCl 0.4 MG le} HCl 0.4 MG Benzonatate Benzonatate No Benzonatat 200 MG 200 MG e 200 MG Gabapentin Gabapentin No Gabapentin 100 MG 100 MG 100 MG Escitalopra Escitalopra No Escitalopr m Oxalate 5 m Oxalate 5 am Oxalate MG MG 5 MG Fluticasone Fluticasone No 1{spray QD Fluticason Propionate Propionate _in_eac e 50 MCG/ACT 50 MCG/ACT h_nostr Propionate il} 50 MCG/ACT Bevespi Bevespi No 2{puffs BID Bevespi Aerosphere Aerosphere } Aerosphere 9-4.8 9-4.8 9-4.8 MCG/ACT MCG/ACT MCG/ACT Ventolin Ventolin No Ventolin HFA 108 (90 HFA 108 (90 HFA 108 Base) Base) (90 Base) MCG/ACT MCG/ACT MCG/ACT Proventil Proventil No Proventil HFA 108 (90 HFA 108 (90 HFA 108 Base) Base) (90 Base) MCG/ACT MCG/ACT MCG/ACT Pataday 0.2 Pataday 0.2 No QD Pataday % % 0.2 % Singulair Singulair No 1{table QD Singulair 10 MG 10 MG t_in_th 10 MG e_eveni ng} CoQ10 CoQ10 No CoQ10 Vitamin D3 Vitamin D3 No Vitamin D3 Pravastatin Pravastatin No 1{table QD Pravastati Sodium 20 Sodium 20 t} n Sodium MG MG 20 MG HYDROcodone HYDROcodone No 1{table BID HYDROcodon -Acetaminop -Acetaminop t_as_ne e-Acetamin hen 7.5-325 hen 7.5-325 eded} ophen MG MG 7.5-325 MG Ventolin Ventolin No Ventolin HFA 108 (90 HFA 108 (90 HFA 108 Base) Base) (90 Base) MCG/ACT MCG/ACT MCG/ACT Brovana 15 Brovana 15 No 2{ml} BID Brovana 15 MCG/2ML MCG/2ML MCG/2ML Pravastatin Pravastatin No Pravastati Sodium 20 Sodium 20 n Sodium MG MG 20 MG amLODIPine amLODIPine No 1{table QD amLODIPine Besylate 5 Besylate 5 t} Besylate 5 MG MG MG Vitamin B-1 Vitamin B-1 No 1{table QD Vitamin 100 MG 100 MG t} B-1 100 MG Neurontin Neurontin No 1{capsu QD Neurontin 100 MG 100 MG le} 100 MG Vitamin B12 Vitamin B12 No Vitamin B12 Albuterol Albuterol No Albuterol Sulfate HFA Sulfate HFA Sulfate 108 (90 108 (90 HFA 108 Base) Base) (90 Base) MCG/ACT MCG/ACT MCG/ACT amLODIPine amLODIPine No amLODIPine Besylate 5 Besylate 5 Besylate 5 MG MG MG Proventil Proventil No Proventil HFA 108 (90 HFA 108 (90 HFA 108 Base) Base) (90 Base) MCG/ACT MCG/ACT MCG/ACT Pataday 0.2 Pataday 0.2 No QD Pataday % % 0.2 % Tamsulosin Tamsulosin No 1{capsu QD Tamsulosin HCl 0.4 MG HCl 0.4 MG le} HCl 0.4 MG Benzonatate Benzonatate No Benzonatat 200 MG 200 MG e 200 MG Bevespi Bevespi No 2{puffs BID Bevespi Aerosphere Aerosphere } Aerosphere 9-4.8 9-4.8 9-4.8 MCG/ACT MCG/ACT MCG/ACT Spironolact Spironolact No 1{table Spironolac one 25 MG one 25 MG t} tone 25 MG Neurontin Neurontin No Neurontin 100 MG 100 MG 100 MG Fluticasone Fluticasone No 1{spray QD Fluticason Propionate Propionate _in_eac e 50 MCG/ACT 50 MCG/ACT h_nostr Propionate il} 50 MCG/ACT Tumersaid Tumersaid No Tumersaid Gabapentin Gabapentin No Gabapentin 100 MG 100 MG 100 MG CoQ10 CoQ10 No CoQ10 Vitamin D3 Vitamin D3 No Vitamin D3 Singulair Singulair No 1{table QD Singulair 10 MG 10 MG t_in_th 10 MG e_eveni ng} Escitalopra Escitalopra No Escitalopr m Oxalate 5 m Oxalate 5 am Oxalate MG MG 5 MG Pravastatin Pravastatin No 1{table QD Pravastati Sodium 20 Sodium 20 t} n Sodium MG MG 20 MG Ventolin Ventolin No Ventolin HFA 108 (90 HFA 108 (90 HFA 108 Base) Base) (90 Base) MCG/ACT MCG/ACT MCG/ACT Brovana 15 Brovana 15 No 2{ml} BID Brovana 15 MCG/2ML MCG/2ML MCG/2ML Fluticasone Fluticasone No 1{spray QD Fluticason Propionate Propionate _in_eac e 50 MCG/ACT 50 MCG/ACT h_nostr Propionate il} 50 MCG/ACT Vitamin B-1 Vitamin B-1 No 1{table QD Vitamin 100 MG 100 MG t} B-1 100 MG Neurontin Neurontin No 1{capsu QD Neurontin 100 MG 100 MG le} 100 MG HYDROcodone HYDROcodone No 1{table BID HYDROcodon -Acetaminop -Acetaminop t_as_ne e-Acetamin hen 7.5-325 hen 7.5-325 eded} ophen MG MG 7.5-325 MG Pravastatin Pravastatin No Pravastati Sodium 20 Sodium 20 n Sodium MG MG 20 MG amLODIPine amLODIPine No 1{table QD amLODIPine Besylate 5 Besylate 5 t} Besylate 5 MG MG MG amLODIPine amLODIPine No amLODIPine Besylate 5 Besylate 5 Besylate 5 MG MG MG Proventil Proventil No Proventil HFA 108 (90 HFA 108 (90 HFA 108 Base) Base) (90 Base) MCG/ACT MCG/ACT MCG/ACT Pataday 0.2 Pataday 0.2 No QD Pataday % % 0.2 % Albuterol Albuterol No Albuterol Sulfate HFA Sulfate HFA Sulfate 108 (90 108 (90 HFA 108 Base) Base) (90 Base) MCG/ACT MCG/ACT MCG/ACT Neurontin Neurontin No Neurontin 100 MG 100 MG 100 MG Bevespi Bevespi No 2{puffs BID Bevespi Aerosphere Aerosphere } Aerosphere 9-4.8 9-4.8 9-4.8 MCG/ACT MCG/ACT MCG/ACT Spironolact Spironolact No 1{table Spironolac one 25 MG one 25 MG t} tone 25 MG Vitamin B12 Vitamin B12 No Vitamin B12 Benzonatate Benzonatate No Benzonatat 200 MG 200 MG e 200 MG Tumersaid Tumersaid No Tumersaid Tamsulosin Tamsulosin No 1{capsu QD Tamsulosin HCl 0.4 MG HCl 0.4 MG le} HCl 0.4 MG Gabapentin Gabapentin No Gabapentin 100 MG 100 MG 100 MG CoQ10 CoQ10 No CoQ10 Vitamin D3 Vitamin D3 No Vitamin D3 Singulair Singulair No 1{table QD Singulair 10 MG 10 MG t_in_th 10 MG e_eveni ng} Escitalopra Escitalopra No Escitalopr m Oxalate 5 m Oxalate 5 am Oxalate MG MG 5 MG Pravastatin Pravastatin No 1{table QD Pravastati Sodium 20 Sodium 20 t} n Sodium MG MG 20 MG HYDROcodone HYDROcodone No 1{table BID HYDROcodon -Acetaminop -Acetaminop t_as_ne e-Acetamin hen 7.5-325 hen 7.5-325 eded} ophen MG MG 7.5-325 MG Proventil Proventil No Proventil HFA 108 (90 HFA 108 (90 HFA 108 Base) Base) (90 Base) MCG/ACT MCG/ACT MCG/ACT Vitamin D3 Vitamin D3 No Vitamin D3 Tumersaid Tumersaid No Tumersaid CoQ10 CoQ10 No CoQ10 amLODIPine amLODIPine No 1{table QD amLODIPine Besylate 5 Besylate 5 t} Besylate 5 MG MG MG Albuterol Albuterol No Albuterol Sulfate HFA Sulfate HFA Sulfate 108 (90 108 (90 HFA 108 Base) Base) (90 Base) MCG/ACT MCG/ACT MCG/ACT Singulair Singulair No 1{table QD Singulair 10 MG 10 MG t_in_th 10 MG e_eveni ng} Escitalopra Escitalopra No 1{table QD Escitalopr m Oxalate 5 m Oxalate 5 t} am Oxalate MG MG 5 MG Vitamin B12 Vitamin B12 No Vitamin B12 Bevespi Bevespi No 2{puffs BID Bevespi Aerosphere Aerosphere } Aerosphere 9-4.8 9-4.8 9-4.8 MCG/ACT MCG/ACT MCG/ACT Pataday 0.2 Pataday 0.2 No QD Pataday % % 0.2 % Escitalopra Escitalopra No Escitalopr m Oxalate 5 m Oxalate 5 am Oxalate MG MG 5 MG Vitamin B-1 Vitamin B-1 No 1{table QD Vitamin 100 MG 100 MG t} B-1 100 MG HYDROcodone HYDROcodone No 1{table BID HYDROcodon -Acetaminop -Acetaminop t_as_ne e-Acetamin hen 7.5-325 hen 7.5-325 eded} ophen MG MG 7.5-325 MG Proventil Proventil No Proventil HFA 108 (90 HFA 108 (90 HFA 108 Base) Base) (90 Base) MCG/ACT MCG/ACT MCG/ACT Vitamin D3 Vitamin D3 No Vitamin D3 Tumersaid Tumersaid No Tumersaid CoQ10 CoQ10 No CoQ10 amLODIPine amLODIPine No 1{table QD amLODIPine Besylate 5 Besylate 5 t} Besylate 5 MG MG MG Albuterol Albuterol No Albuterol Sulfate HFA Sulfate HFA Sulfate 108 (90 108 (90 HFA 108 Base) Base) (90 Base) MCG/ACT MCG/ACT MCG/ACT Singulair Singulair No 1{table QD Singulair 10 MG 10 MG t_in_th 10 MG e_eveni ng} Escitalopra Escitalopra No 1{table QD Escitalopr m Oxalate 5 m Oxalate 5 t} am Oxalate MG MG 5 MG Vitamin B12 Vitamin B12 No Vitamin B12 Bevespi Bevespi No 2{puffs BID Bevespi Aerosphere Aerosphere } Aerosphere 9-4.8 9-4.8 9-4.8 MCG/ACT MCG/ACT MCG/ACT Pataday 0.2 Pataday 0.2 No QD Pataday % % 0.2 % Escitalopra Escitalopra No Escitalopr m Oxalate 5 m Oxalate 5 am Oxalate MG MG 5 MG Vitamin B-1 Vitamin B-1 No 1{table QD Vitamin 100 MG 100 MG t} B-1 100 MG HYDROcodone HYDROcodone No 1{table BID HYDROcodon -Acetaminop -Acetaminop t_as_ne e-Acetamin hen 7.5-325 hen 7.5-325 eded} ophen MG MG 7.5-325 MG Proventil Proventil No Proventil HFA 108 (90 HFA 108 (90 HFA 108 Base) Base) (90 Base) MCG/ACT MCG/ACT MCG/ACT Vitamin D3 Vitamin D3 No Vitamin D3 Tumersaid Tumersaid No Tumersaid CoQ10 CoQ10 No CoQ10 amLODIPine amLODIPine No 1{table QD amLODIPine Besylate 5 Besylate 5 t} Besylate 5 MG MG MG Albuterol Albuterol No Albuterol Sulfate HFA Sulfate HFA Sulfate 108 (90 108 (90 HFA 108 Base) Base) (90 Base) MCG/ACT MCG/ACT MCG/ACT Singulair Singulair No 1{table QD Singulair 10 MG 10 MG t_in_th 10 MG e_eveni ng} Escitalopra Escitalopra No 1{table QD Escitalopr m Oxalate 5 m Oxalate 5 t} am Oxalate MG MG 5 MG Vitamin B12 Vitamin B12 No Vitamin B12 Bevespi Bevespi No 2{puffs BID Bevespi Aerosphere Aerosphere } Aerosphere 9-4.8 9-4.8 9-4.8 MCG/ACT MCG/ACT MCG/ACT Pataday 0.2 Pataday 0.2 No QD Pataday % % 0.2 % Escitalopra Escitalopra No Escitalopr m Oxalate 5 m Oxalate 5 am Oxalate MG MG 5 MG Vitamin B-1 Vitamin B-1 No 1{table QD Vitamin 100 MG 100 MG t} B-1 100 MG HYDROcodone HYDROcodone No 1{table BID HYDROcodon -Acetaminop -Acetaminop t_as_ne e-Acetamin hen 7.5-325 hen 7.5-325 eded} ophen MG MG 7.5-325 MG Proventil Proventil No Proventil HFA 108 (90 HFA 108 (90 HFA 108 Base) Base) (90 Base) MCG/ACT MCG/ACT MCG/ACT Vitamin D3 Vitamin D3 No Vitamin D3 Tumersaid Tumersaid No Tumersaid CoQ10 CoQ10 No CoQ10 amLODIPine amLODIPine No 1{table QD amLODIPine Besylate 5 Besylate 5 t} Besylate 5 MG MG MG Albuterol Albuterol No Albuterol Sulfate HFA Sulfate HFA Sulfate 108 (90 108 (90 HFA 108 Base) Base) (90 Base) MCG/ACT MCG/ACT MCG/ACT Singulair Singulair No 1{table QD Singulair 10 MG 10 MG t_in_th 10 MG e_eveni ng} Escitalopra Escitalopra No 1{table QD Escitalopr m Oxalate 5 m Oxalate 5 t} am Oxalate MG MG 5 MG Vitamin B12 Vitamin B12 No Vitamin B12 Bevespi Bevespi No 2{puffs BID Bevespi Aerosphere Aerosphere } Aerosphere 9-4.8 9-4.8 9-4.8 MCG/ACT MCG/ACT MCG/ACT Pataday 0.2 Pataday 0.2 No QD Pataday % % 0.2 % Escitalopra Escitalopra No Escitalopr m Oxalate 5 m Oxalate 5 am Oxalate MG MG 5 MG Vitamin B-1 Vitamin B-1 No 1{table QD Vitamin 100 MG 100 MG t} B-1 100 MG HYDROcodone HYDROcodone No 1{table BID HYDROcodon -Acetaminop -Acetaminop t_as_ne e-Acetamin hen 7.5-325 hen 7.5-325 eded} ophen MG MG 7.5-325 MG Proventil Proventil No Proventil HFA 108 (90 HFA 108 (90 HFA 108 Base) Base) (90 Base) MCG/ACT MCG/ACT MCG/ACT Vitamin D3 Vitamin D3 No Vitamin D3 Tumersaid Tumersaid No Tumersaid CoQ10 CoQ10 No CoQ10 amLODIPine amLODIPine No 1{table QD amLODIPine Besylate 5 Besylate 5 t} Besylate 5 MG MG MG Albuterol Albuterol No Albuterol Sulfate HFA Sulfate HFA Sulfate 108 (90 108 (90 HFA 108 Base) Base) (90 Base) MCG/ACT MCG/ACT MCG/ACT Singulair Singulair No 1{table QD Singulair 10 MG 10 MG t_in_th 10 MG e_eveni ng} Escitalopra Escitalopra No 1{table QD Escitalopr m Oxalate 5 m Oxalate 5 t} am Oxalate MG MG 5 MG Vitamin B12 Vitamin B12 No Vitamin B12 Bevespi Bevespi No 2{puffs BID Bevespi Aerosphere Aerosphere } Aerosphere 9-4.8 9-4.8 9-4.8 MCG/ACT MCG/ACT MCG/ACT Pataday 0.2 Pataday 0.2 No QD Pataday % % 0.2 % Escitalopra Escitalopra No Escitalopr m Oxalate 5 m Oxalate 5 am Oxalate MG MG 5 MG Vitamin B-1 Vitamin B-1 No 1{table QD Vitamin 100 MG 100 MG t} B-1 100 MG HYDROcodone HYDROcodone No 1{table BID HYDROcodon -Acetaminop -Acetaminop t_as_ne e-Acetamin hen 7.5-325 hen 7.5-325 eded} ophen MG MG 7.5-325 MG Proventil Proventil No Proventil HFA 108 (90 HFA 108 (90 HFA 108 Base) Base) (90 Base) MCG/ACT MCG/ACT MCG/ACT Vitamin D3 Vitamin D3 No Vitamin D3 Tumersaid Tumersaid No Tumersaid CoQ10 CoQ10 No CoQ10 amLODIPine amLODIPine No 1{table QD amLODIPine Besylate 5 Besylate 5 t} Besylate 5 MG MG MG Albuterol Albuterol No Albuterol Sulfate HFA Sulfate HFA Sulfate 108 (90 108 (90 HFA 108 Base) Base) (90 Base) MCG/ACT MCG/ACT MCG/ACT Singulair Singulair No 1{table QD Singulair 10 MG 10 MG t_in_th 10 MG e_eveni ng} Escitalopra Escitalopra No 1{table QD Escitalopr m Oxalate 5 m Oxalate 5 t} am Oxalate MG MG 5 MG Vitamin B12 Vitamin B12 No Vitamin B12 Bevespi Bevespi No 2{puffs BID Bevespi Aerosphere Aerosphere } Aerosphere 9-4.8 9-4.8 9-4.8 MCG/ACT MCG/ACT MCG/ACT Pataday 0.2 Pataday 0.2 No QD Pataday % % 0.2 % Escitalopra Escitalopra No Escitalopr m Oxalate 5 m Oxalate 5 am Oxalate MG MG 5 MG Vitamin B-1 Vitamin B-1 No 1{table QD Vitamin 100 MG 100 MG t} B-1 100 MG Ventolin Ventolin No Ventolin HFA 108 (90 HFA 108 (90 HFA 108 Base) Base) (90 Base) MCG/ACT MCG/ACT MCG/ACT Bevespi Bevespi No 2{puffs BID Bevespi Aerosphere Aerosphere } Aerosphere 9-4.8 9-4.8 9-4.8 MCG/ACT MCG/ACT MCG/ACT HYDROcodone HYDROcodone No 1{table BID HYDROcodon -Acetaminop -Acetaminop t_as_ne e-Acetamin hen 7.5-325 hen 7.5-325 eded} ophen MG MG 7.5-325 MG Vitamin D3 Vitamin D3 No Vitamin D3 Pataday 0.2 Pataday 0.2 No QD Pataday % % 0.2 % Neurontin Neurontin No Neurontin 100 MG 100 MG 100 MG Albuterol Albuterol No 2{puffs QID Albuterol Sulfate HFA Sulfate HFA _as_nee Sulfate 108 (90 108 (90 ded} HFA 108 Base) Base) (90 Base) MCG/ACT MCG/ACT MCG/ACT Pravastatin Pravastatin No Pravastati Sodium 20 Sodium 20 n Sodium MG MG 20 MG Neurontin Neurontin No 1{capsu QD Neurontin 100 MG 100 MG le} 100 MG amLODIPine amLODIPine No 1{table QD amLODIPine Besylate 5 Besylate 5 t} Besylate 5 MG MG MG Vitamin B12 Vitamin B12 No Vitamin B12 Pravastatin Pravastatin No 1{table QD Pravastati Sodium 20 Sodium 20 t} n Sodium MG MG 20 MG Gabapentin Gabapentin No Gabapentin 100 MG 100 MG 100 MG Proventil Proventil No Proventil HFA 108 (90 HFA 108 (90 HFA 108 Base) Base) (90 Base) MCG/ACT MCG/ACT MCG/ACT Tumersaid Tumersaid No Tumersaid Singulair Singulair No 1{table QD Singulair 10 MG 10 MG t_in_th 10 MG e_eveni ng} amLODIPine amLODIPine No amLODIPine Besylate 5 Besylate 5 Besylate 5 MG MG MG Tamsulosin Tamsulosin No 1{capsu QD Tamsulosin HCl 0.4 MG HCl 0.4 MG le} HCl 0.4 MG Escitalopra Escitalopra No Escitalopr m Oxalate 5 m Oxalate 5 am Oxalate MG MG 5 MG CoQ10 CoQ10 No CoQ10 Pravastatin Pravastatin No Pravastati Sodium 20 Sodium 20 n Sodium MG MG 20 MG Tumersaid Tumersaid No Tumersaid Ventolin Ventolin No Ventolin HFA 108 (90 HFA 108 (90 HFA 108 Base) Base) (90 Base) MCG/ACT MCG/ACT MCG/ACT Neurontin Neurontin No Neurontin 100 MG 100 MG 100 MG Pravastatin Pravastatin No 1{table QD Pravastati Sodium 20 Sodium 20 t} n Sodium MG MG 20 MG amLODIPine amLODIPine No amLODIPine Besylate 5 Besylate 5 Besylate 5 MG MG MG Escitalopra Escitalopra No 1{table QD Escitalopr m Oxalate 5 m Oxalate 5 t} am Oxalate MG MG 5 MG Escitalopra Escitalopra No 1{table QD Escitalopr m Oxalate 5 m Oxalate 5 t} am Oxalate MG MG 5 MG Vitamin B-1 Vitamin B-1 No 1{table QD Vitamin 100 MG 100 MG t} B-1 100 MG Proventil Proventil No Proventil HFA 108 (90 HFA 108 (90 HFA 108 Base) Base) (90 Base) MCG/ACT MCG/ACT MCG/ACT HYDROcodone HYDROcodone No 1{table BID HYDROcodon -Acetaminop -Acetaminop t_as_ne e-Acetamin hen 7.5-325 hen 7.5-325 eded} ophen MG MG 7.5-325 MG Tamsulosin Tamsulosin No 1{capsu QD Tamsulosin HCl 0.4 MG HCl 0.4 MG le} HCl 0.4 MG Gabapentin Gabapentin No 1{capsu QD Gabapentin 100 MG 100 MG le_at_b 100 MG edtime} Vitamin B12 Vitamin B12 No Vitamin B12 Bevespi Bevespi No 2{puffs BID Bevespi Aerosphere Aerosphere } Aerosphere 9-4.8 9-4.8 9-4.8 MCG/ACT MCG/ACT MCG/ACT Fluticasone Fluticasone No 1{spray QD Fluticason Propionate Propionate _in_eac e 50 MCG/ACT 50 MCG/ACT h_nostr Propionate il} 50 MCG/ACT Brovana 15 Brovana 15 No 2{ml} BID Brovana 15 MCG/2ML MCG/2ML MCG/2ML CoQ10 CoQ10 No CoQ10 Albuterol Albuterol No 2{puffs QID Albuterol Sulfate HFA Sulfate HFA _as_nee Sulfate 108 (90 108 (90 ded} HFA 108 Base) Base) (90 Base) MCG/ACT MCG/ACT MCG/ACT Neurontin Neurontin No 1{capsu QD Neurontin 100 MG 100 MG le} 100 MG Vitamin D3 Vitamin D3 No Vitamin D3 Singulair Singulair No 1{table QD Singulair 10 MG 10 MG t_in_th 10 MG e_eveni ng} Pataday 0.2 Pataday 0.2 No QD Pataday % % 0.2 % amLODIPine amLODIPine No 1{table QD amLODIPine Besylate 5 Besylate 5 t} Besylate 5 MG MG MG Pravastatin Pravastatin No Pravastati Sodium 20 Sodium 20 n Sodium MG MG 20 MG Tumersaid Tumersaid No Tumersaid Ventolin Ventolin No Ventolin HFA 108 (90 HFA 108 (90 HFA 108 Base) Base) (90 Base) MCG/ACT MCG/ACT MCG/ACT Neurontin Neurontin No Neurontin 100 MG 100 MG 100 MG Pravastatin Pravastatin No 1{table QD Pravastati Sodium 20 Sodium 20 t} n Sodium MG MG 20 MG amLODIPine amLODIPine No amLODIPine Besylate 5 Besylate 5 Besylate 5 MG MG MG Escitalopra Escitalopra No 1{table QD Escitalopr m Oxalate 5 m Oxalate 5 t} am Oxalate MG MG 5 MG Escitalopra Escitalopra No 1{table QD Escitalopr m Oxalate 5 m Oxalate 5 t} am Oxalate MG MG 5 MG Vitamin B-1 Vitamin B-1 No 1{table QD Vitamin 100 MG 100 MG t} B-1 100 MG Proventil Proventil No Proventil HFA 108 (90 HFA 108 (90 HFA 108 Base) Base) (90 Base) MCG/ACT MCG/ACT MCG/ACT HYDROcodone HYDROcodone No 1{table BID HYDROcodon -Acetaminop -Acetaminop t_as_ne e-Acetamin hen 7.5-325 hen 7.5-325 eded} ophen MG MG 7.5-325 MG Tamsulosin Tamsulosin No 1{capsu QD Tamsulosin HCl 0.4 MG HCl 0.4 MG le} HCl 0.4 MG Gabapentin Gabapentin No 1{capsu QD Gabapentin 100 MG 100 MG le_at_b 100 MG edtime} Vitamin B12 Vitamin B12 No Vitamin B12 Bevespi Bevespi No 2{puffs BID Bevespi Aerosphere Aerosphere } Aerosphere 9-4.8 9-4.8 9-4.8 MCG/ACT MCG/ACT MCG/ACT Fluticasone Fluticasone No 1{spray QD Fluticason Propionate Propionate _in_eac e 50 MCG/ACT 50 MCG/ACT h_nostr Propionate il} 50 MCG/ACT Brovana 15 Brovana 15 No 2{ml} BID Brovana 15 MCG/2ML MCG/2ML MCG/2ML CoQ10 CoQ10 No CoQ10 Albuterol Albuterol No 2{puffs QID Albuterol Sulfate HFA Sulfate HFA _as_nee Sulfate 108 (90 108 (90 ded} HFA 108 Base) Base) (90 Base) MCG/ACT MCG/ACT MCG/ACT Neurontin Neurontin No 1{capsu QD Neurontin 100 MG 100 MG le} 100 MG Vitamin D3 Vitamin D3 No Vitamin D3 Singulair Singulair No 1{table QD Singulair 10 MG 10 MG t_in_th 10 MG e_eveni ng} Pataday 0.2 Pataday 0.2 No QD Pataday % % 0.2 % amLODIPine amLODIPine No 1{table QD amLODIPine Besylate 5 Besylate 5 t} Besylate 5 MG MG MG Fluticasone Fluticasone No 1{spray QD Fluticason Propionate Propionate _in_eac e 50 MCG/ACT 50 MCG/ACT h_nostr Propionate il} 50 MCG/ACT Escitalopra Escitalopra No Escitalopr m Oxalate 5 m Oxalate 5 am Oxalate MG MG 5 MG Tamsulosin Tamsulosin No 1{capsu QD Tamsulosin HCl 0.4 MG HCl 0.4 MG le} HCl 0.4 MG Tumersaid Tumersaid No Tumersaid Gabapentin Gabapentin No 1{capsu QD Gabapentin 100 MG 100 MG le_at_b 100 MG edtime} Vitamin B12 Vitamin B12 No Vitamin B12 Albuterol Albuterol No 2{puffs QID Albuterol Sulfate HFA Sulfate HFA _as_nee Sulfate 108 (90 108 (90 ded} HFA 108 Base) Base) (90 Base) MCG/ACT MCG/ACT MCG/ACT Singulair Singulair No 1{table QD Singulair 10 MG 10 MG t_in_th 10 MG e_eveni ng} Brovana 15 Brovana 15 No 2{ml} BID Brovana 15 MCG/2ML MCG/2ML MCG/2ML Pataday 0.2 Pataday 0.2 No QD Pataday % % 0.2 % Vitamin D3 Vitamin D3 No Vitamin D3 amLODIPine amLODIPine No amLODIPine Besylate 5 Besylate 5 Besylate 5 MG MG MG HYDROcodone HYDROcodone No 1{table BID HYDROcodon -Acetaminop -Acetaminop t_as_ne e-Acetamin hen 7.5-325 hen 7.5-325 eded} ophen MG MG 7.5-325 MG Neurontin Neurontin No 1{capsu QD Neurontin 100 MG 100 MG le} 100 MG Bevespi Bevespi No 2{puffs BID Bevespi Aerosphere Aerosphere } Aerosphere 9-4.8 9-4.8 9-4.8 MCG/ACT MCG/ACT MCG/ACT Pravastatin Pravastatin No Pravastati Sodium 20 Sodium 20 n Sodium MG MG 20 MG CoQ10 CoQ10 No CoQ10 Proventil Proventil No Proventil HFA 108 (90 HFA 108 (90 HFA 108 Base) Base) (90 Base) MCG/ACT MCG/ACT MCG/ACT Ventolin Ventolin No Ventolin HFA 108 (90 HFA 108 (90 HFA 108 Base) Base) (90 Base) MCG/ACT MCG/ACT MCG/ACT Neurontin Neurontin No Neurontin 100 MG 100 MG 100 MG Pravastatin Pravastatin No 1{table QD Pravastati Sodium 20 Sodium 20 t} n Sodium MG MG 20 MG Vitamin B-1 Vitamin B-1 No 1{table QD Vitamin 100 MG 100 MG t} B-1 100 MG Gabapentin Gabapentin No 1{capsu QD Gabapentin 100 MG 100 MG le_at_b 100 MG edtime} Fluticasone Fluticasone No 1{spray QD Fluticason Propionate Propionate _in_eac e 50 MCG/ACT 50 MCG/ACT h_nostr Propionate il} 50 MCG/ACT Albuterol Albuterol No Albuterol Sulfate HFA Sulfate HFA Sulfate 108 (90 108 (90 HFA 108 Base) Base) (90 Base) MCG/ACT MCG/ACT MCG/ACT Ventolin Ventolin No Ventolin HFA 108 (90 HFA 108 (90 HFA 108 Base) Base) (90 Base) MCG/ACT MCG/ACT MCG/ACT Vitamin B12 Vitamin B12 No Vitamin B12 Brovana 15 Brovana 15 No 2{ml} BID Brovana 15 MCG/2ML MCG/2ML MCG/2ML Singulair Singulair No 1{table QD Singulair 10 MG 10 MG t_in_th 10 MG e_eveni ng} Pravastatin Pravastatin No Pravastati Sodium 20 Sodium 20 n Sodium MG MG 20 MG Pataday 0.2 Pataday 0.2 No QD Pataday % % 0.2 % Vitamin D3 Vitamin D3 No Vitamin D3 amLODIPine amLODIPine No amLODIPine Besylate 5 Besylate 5 Besylate 5 MG MG MG HYDROcodone HYDROcodone No 1{table BID HYDROcodon -Acetaminop -Acetaminop t_as_ne e-Acetamin hen 7.5-325 hen 7.5-325 eded} ophen MG MG 7.5-325 MG Neurontin Neurontin No 1{capsu QD Neurontin 100 MG 100 MG le} 100 MG Vitamin B-1 Vitamin B-1 No 1{table QD Vitamin 100 MG 100 MG t} B-1 100 MG Tumersaid Tumersaid No Tumersaid CoQ10 CoQ10 No CoQ10 Bevespi Bevespi No 2{puffs BID Bevespi Aerosphere Aerosphere } Aerosphere 9-4.8 9-4.8 9-4.8 MCG/ACT MCG/ACT MCG/ACT Neurontin Neurontin No Neurontin 100 MG 100 MG 100 MG Escitalopra Escitalopra No Escitalopr m Oxalate 5 m Oxalate 5 am Oxalate MG MG 5 MG Pravastatin Pravastatin No 1{table QD Pravastati Sodium 20 Sodium 20 t} n Sodium MG MG 20 MG Tamsulosin Tamsulosin No 1{capsu QD Tamsulosin HCl 0.4 MG HCl 0.4 MG le} HCl 0.4 MG Gabapentin Gabapentin No 1{capsu QD 100 MG 100 MG le_at_b edtime} Fluticasone Fluticasone No 1{spray QD Propionate Propionate _in_eac 50 MCG/ACT 50 MCG/ACT h_nostr il} Albuterol Albuterol No Sulfate HFA Sulfate HFA 108 (90 108 (90 Base) Base) MCG/ACT MCG/ACT Ventolin Ventolin No HFA 108 (90 HFA 108 (90 Base) Base) MCG/ACT MCG/ACT Vitamin B12 Vitamin B12 No Brovana 15 Brovana 15 No 2{ml} BID MCG/2ML MCG/2ML Singulair Singulair No 1{table QD 10 MG 10 MG t_in_th e_eveni ng} Pravastatin Pravastatin No Sodium 20 Sodium 20 MG MG Pataday 0.2 Pataday 0.2 No QD % % Vitamin D3 Vitamin D3 No amLODIPine amLODIPine No Besylate 5 Besylate 5 MG MG HYDROcodone HYDROcodone No 1{table BID -Acetaminop -Acetaminop t_as_ne hen 7.5-325 hen 7.5-325 eded} MG MG Neurontin Neurontin No 1{capsu QD 100 MG 100 MG le} Vitamin B-1 Vitamin B-1 No 1{table QD 100 MG 100 MG t} Tumersaid Tumersaid No CoQ10 CoQ10 No Bevespi Bevespi No 2{puffs BID Aerosphere Aerosphere } 9-4.8 9-4.8 MCG/ACT MCG/ACT Neurontin Neurontin No 100 MG 100 MG Escitalopra Escitalopra No m Oxalate 5 m Oxalate 5 MG MG Pravastatin Pravastatin No 1{table QD Sodium 20 Sodium 20 t} MG MG Tamsulosin Tamsulosin No 1{capsu QD HCl 0.4 MG HCl 0.4 MG le} Fluticasone Fluticasone No 1{spray QD Propionate Propionate _in_eac 50 MCG/ACT 50 MCG/ACT h_nostr il} Vitamin D3 Vitamin D3 No Neurontin Neurontin No 100 MG 100 MG Albuterol Albuterol No Sulfate HFA Sulfate HFA 108 (90 108 (90 Base) Base) MCG/ACT MCG/ACT Vitamin B-1 Vitamin B-1 No 1{table QD 100 MG 100 MG t} Vitamin B12 Vitamin B12 No Gabapentin Gabapentin No 1{capsu QD 100 MG 100 MG le_at_b edtime} Pravastatin Pravastatin No Sodium 20 Sodium 20 MG MG Escitalopra Escitalopra No m Oxalate 5 m Oxalate 5 MG MG Ventolin Ventolin No HFA 108 (90 HFA 108 (90 Base) Base) MCG/ACT MCG/ACT CoQ10 CoQ10 No Bevespi Bevespi No 2{puffs BID Aerosphere Aerosphere } 9-4.8 9-4.8 MCG/ACT MCG/ACT Singulair Singulair No 1{table QD 10 MG 10 MG t_in_ e_eveni ng} Tumersaid Tumersaid No amLODIPine amLODIPine No Besylate 5 Besylate 5 MG MG Pataday 0.2 Pataday 0.2 No QD % % HYDROcodone HYDROcodone No 1{table BID -Acetaminop -Acetaminop t_as_ne hen 7.5-325 hen 7.5-325 eded} MG MG Brovana 15 Brovana 15 No 2{ml} BID MCG/2ML MCG/2ML Tamsulosin Tamsulosin No 1{capsu QD HCl 0.4 MG HCl 0.4 MG le} Pravastatin Pravastatin No 1{table QD Sodium 20 Sodium 20 t} MG MG Benzonatate Benzonatate No 200 MG 200 MG Neurontin Neurontin No 1{capsu QD 100 MG 100 MG le} Fluticasone Fluticasone No 1{spray QD Propionate Propionate _in_eac 50 MCG/ACT 50 MCG/ACT h_nostr il} Vitamin D3 Vitamin D3 No Neurontin Neurontin No 100 MG 100 MG Albuterol Albuterol No Sulfate HFA Sulfate HFA 108 (90 108 (90 Base) Base) MCG/ACT MCG/ACT Vitamin B-1 Vitamin B-1 No 1{table QD 100 MG 100 MG t} Vitamin B12 Vitamin B12 No Gabapentin Gabapentin No 1{capsu QD 100 MG 100 MG le_at_b edtime} Pravastatin Pravastatin No Sodium 20 Sodium 20 MG MG Escitalopra Escitalopra No m Oxalate 5 m Oxalate 5 MG MG Ventolin Ventolin No HFA 108 (90 HFA 108 (90 Base) Base) MCG/ACT MCG/ACT CoQ10 CoQ10 No Bevespi Bevespi No 2{puffs BID Aerosphere Aerosphere } 9-4.8 9-4.8 MCG/ACT MCG/ACT Singulair Singulair No 1{table QD 10 MG 10 MG t_in_th e_eveni ng} Tumersaid Tumersaid No amLODIPine amLODIPine No Besylate 5 Besylate 5 MG MG Pataday 0.2 Pataday 0.2 No QD % % HYDROcodone HYDROcodone No 1{table BID -Acetaminop -Acetaminop t_as_ne hen 7.5-325 hen 7.5-325 eded} MG MG Brovana 15 Brovana 15 No 2{ml} BID MCG/2ML MCG/2ML Tamsulosin Tamsulosin No 1{capsu QD HCl 0.4 MG HCl 0.4 MG le} Pravastatin Pravastatin No 1{table QD Sodium 20 Sodium 20 t} MG MG Benzonatate Benzonatate No 200 MG 200 MG Neurontin Neurontin No 1{capsu QD 100 MG 100 MG le} Fluticasone Fluticasone No 1{spray QD Fluticason Propionate Propionate _in_eac e 50 MCG/ACT 50 MCG/ACT h_nostr Propionate il} 50 MCG/ACT Gabapentin Gabapentin No Gabapentin 100 MG 100 MG 100 MG Neurontin Neurontin No Neurontin 100 MG 100 MG 100 MG Vitamin D3 Vitamin D3 No Vitamin D3 Pravastatin Pravastatin No Pravastati Sodium 20 Sodium 20 n Sodium MG MG 20 MG Vitamin B12 Vitamin B12 No Vitamin B12 Vitamin B-1 Vitamin B-1 No 1{table QD Vitamin 100 MG 100 MG t} B-1 100 MG Brovana 15 Brovana 15 No 2{ml} BID Brovana 15 MCG/2ML MCG/2ML MCG/2ML Escitalopra Escitalopra No Escitalopr m Oxalate 5 m Oxalate 5 am Oxalate MG MG 5 MG Ventolin Ventolin No Ventolin HFA 108 (90 HFA 108 (90 HFA 108 Base) Base) (90 Base) MCG/ACT MCG/ACT MCG/ACT CoQ10 CoQ10 No CoQ10 Bevespi Bevespi No 2{puffs BID Bevespi Aerosphere Aerosphere } Aerosphere 9-4.8 9-4.8 9-4.8 MCG/ACT MCG/ACT MCG/ACT Singulair Singulair No 1{table QD Singulair 10 MG 10 MG t_in_th 10 MG e_eveni ng} Tumersaid Tumersaid No Tumersaid Tamsulosin Tamsulosin No 1{capsu QD Tamsulosin HCl 0.4 MG HCl 0.4 MG le} HCl 0.4 MG Pataday 0.2 Pataday 0.2 No QD Pataday % % 0.2 % HYDROcodone HYDROcodone No 1{table BID HYDROcodon -Acetaminop -Acetaminop t_as_ne e-Acetamin hen 7.5-325 hen 7.5-325 eded} ophen MG MG 7.5-325 MG amLODIPine amLODIPine No amLODIPine Besylate 5 Besylate 5 Besylate 5 MG MG MG Albuterol Albuterol No Albuterol Sulfate HFA Sulfate HFA Sulfate 108 (90 108 (90 HFA 108 Base) Base) (90 Base) MCG/ACT MCG/ACT MCG/ACT Pravastatin Pravastatin No 1{table QD Pravastati Sodium 20 Sodium 20 t} n Sodium MG MG 20 MG Benzonatate Benzonatate No Benzonatat 200 MG 200 MG e 200 MG Neurontin Neurontin No 1{capsu QD Neurontin 100 MG 100 MG le} 100 MG Singulair Singulair No 1{table QD Singulair 10 MG 10 MG t_in_th 10 MG e_eveni ng} Ventolin Ventolin No Ventolin HFA 108 (90 HFA 108 (90 HFA 108 Base) Base) (90 Base) MCG/ACT MCG/ACT MCG/ACT Pataday 0.2 Pataday 0.2 No QD Pataday % % 0.2 % Tamsulosin Tamsulosin No 1{capsu QD Tamsulosin HCl 0.4 MG HCl 0.4 MG le} HCl 0.4 MG Vitamin D3 Vitamin D3 No Vitamin D3 Neurontin Neurontin No Neurontin 100 MG 100 MG 100 MG Bevespi Bevespi No 2{puffs BID Bevespi Aerosphere Aerosphere } Aerosphere 9-4.8 9-4.8 9-4.8 MCG/ACT MCG/ACT MCG/ACT Vitamin B12 Vitamin B12 No Vitamin B12 Pravastatin Pravastatin No Pravastati Sodium 20 Sodium 20 n Sodium MG MG 20 MG Albuterol Albuterol No Albuterol Sulfate HFA Sulfate HFA Sulfate 108 (90 108 (90 HFA 108 Base) Base) (90 Base) MCG/ACT MCG/ACT MCG/ACT amLODIPine amLODIPine No amLODIPine Besylate 5 Besylate 5 Besylate 5 MG MG MG Benzonatate Benzonatate No Benzonatat 200 MG 200 MG e 200 MG Tumersaid Tumersaid No Tumersaid Escitalopra Escitalopra No Escitalopr m Oxalate 5 m Oxalate 5 am Oxalate MG MG 5 MG Pravastatin Pravastatin No 1{table QD Pravastati Sodium 20 Sodium 20 t} n Sodium MG MG 20 MG CoQ10 CoQ10 No CoQ10 Brovana 15 Brovana 15 No 2{ml} BID Brovana 15 MCG/2ML MCG/2ML MCG/2ML Gabapentin Gabapentin No Gabapentin 100 MG 100 MG 100 MG Escitalopra Escitalopra No 1{table QD Escitalopr m Oxalate 5 m Oxalate 5 t} am Oxalate MG MG 5 MG Vitamin B-1 Vitamin B-1 No 1{table QD Vitamin 100 MG 100 MG t} B-1 100 MG Fluticasone Fluticasone No 1{spray QD Fluticason Propionate Propionate _in_eac e 50 MCG/ACT 50 MCG/ACT h_nostr Propionate il} 50 MCG/ACT amLODIPine amLODIPine No 1{table QD amLODIPine Besylate 5 Besylate 5 t} Besylate 5 MG MG MG Neurontin Neurontin No 1{capsu QD Neurontin 100 MG 100 MG le} 100 MG Proventil Proventil No Proventil HFA 108 (90 HFA 108 (90 HFA 108 Base) Base) (90 Base) MCG/ACT MCG/ACT MCG/ACT HYDROcodone HYDROcodone No 1{table BID HYDROcodon -Acetaminop -Acetaminop t_as_ne e-Acetamin hen 7.5-325 hen 7.5-325 eded} ophen MG MG 7.5-325 MG Singulair Singulair No 1{table QD Singulair 10 MG 10 MG t_in_th 10 MG e_eveni ng} Ventolin Ventolin No Ventolin HFA 108 (90 HFA 108 (90 HFA 108 Base) Base) (90 Base) MCG/ACT MCG/ACT MCG/ACT Pataday 0.2 Pataday 0.2 No QD Pataday % % 0.2 % Tamsulosin Tamsulosin No 1{capsu QD Tamsulosin HCl 0.4 MG HCl 0.4 MG le} HCl 0.4 MG Vitamin D3 Vitamin D3 No Vitamin D3 Neurontin Neurontin No Neurontin 100 MG 100 MG 100 MG Bevespi Bevespi No 2{puffs BID Bevespi Aerosphere Aerosphere } Aerosphere 9-4.8 9-4.8 9-4.8 MCG/ACT MCG/ACT MCG/ACT Vitamin B12 Vitamin B12 No Vitamin B12 Pravastatin Pravastatin No Pravastati Sodium 20 Sodium 20 n Sodium MG MG 20 MG Albuterol Albuterol No Albuterol Sulfate HFA Sulfate HFA Sulfate 108 (90 108 (90 HFA 108 Base) Base) (90 Base) MCG/ACT MCG/ACT MCG/ACT amLODIPine amLODIPine No amLODIPine Besylate 5 Besylate 5 Besylate 5 MG MG MG Benzonatate Benzonatate No Benzonatat 200 MG 200 MG e 200 MG Tumersaid Tumersaid No Tumersaid Escitalopra Escitalopra No Escitalopr m Oxalate 5 m Oxalate 5 am Oxalate MG MG 5 MG Pravastatin Pravastatin No 1{table QD Pravastati Sodium 20 Sodium 20 t} n Sodium MG MG 20 MG CoQ10 CoQ10 No CoQ10 Brovana 15 Brovana 15 No 2{ml} BID Brovana 15 MCG/2ML MCG/2ML MCG/2ML Gabapentin Gabapentin No Gabapentin 100 MG 100 MG 100 MG Escitalopra Escitalopra No 1{table QD Escitalopr m Oxalate 5 m Oxalate 5 t} am Oxalate MG MG 5 MG Vitamin B-1 Vitamin B-1 No 1{table QD Vitamin 100 MG 100 MG t} B-1 100 MG Fluticasone Fluticasone No 1{spray QD Fluticason Propionate Propionate _in_eac e 50 MCG/ACT 50 MCG/ACT h_nostr Propionate il} 50 MCG/ACT amLODIPine amLODIPine No 1{table QD amLODIPine Besylate 5 Besylate 5 t} Besylate 5 MG MG MG Neurontin Neurontin No 1{capsu QD Neurontin 100 MG 100 MG le} 100 MG Proventil Proventil No Proventil HFA 108 (90 HFA 108 (90 HFA 108 Base) Base) (90 Base) MCG/ACT MCG/ACT MCG/ACT HYDROcodone HYDROcodone No 1{table BID HYDROcodon -Acetaminop -Acetaminop t_as_ne e-Acetamin hen 7.5-325 hen 7.5-325 eded} ophen MG MG 7.5-325 MG Vitamin B-1 Vitamin B-1 No 1{table QD Vitamin 100 MG 100 MG t} B-1 100 MG Proventil Proventil No Proventil HFA 108 (90 HFA 108 (90 HFA 108 Base) Base) (90 Base) MCG/ACT MCG/ACT MCG/ACT Fluticasone Fluticasone No 1{spray QD Fluticason Propionate Propionate _in_eac e 50 MCG/ACT 50 MCG/ACT h_nostr Propionate il} 50 MCG/ACT Bevespi Bevespi No 2{puffs BID Bevespi Aerosphere Aerosphere } Aerosphere 9-4.8 9-4.8 9-4.8 MCG/ACT MCG/ACT MCG/ACT Neurontin Neurontin No 1{capsu QD Neurontin 100 MG 100 MG le} 100 MG Benzonatate Benzonatate No Benzonatat 200 MG 200 MG e 200 MG HYDROcodone HYDROcodone No 1{table BID HYDROcodon -Acetaminop -Acetaminop t_as_ne e-Acetamin hen 7.5-325 hen 7.5-325 eded} ophen MG MG 7.5-325 MG Gabapentin Gabapentin No Gabapentin 100 MG 100 MG 100 MG Vitamin B12 Vitamin B12 No Vitamin B12 Vitamin D3 Vitamin D3 No Vitamin D3 Brovana 15 Brovana 15 No 2{ml} BID Brovana 15 MCG/2ML MCG/2ML MCG/2ML Escitalopra Escitalopra No Escitalopr m Oxalate 5 m Oxalate 5 am Oxalate MG MG 5 MG Pataday 0.2 Pataday 0.2 No QD Pataday % % 0.2 % Ventolin Ventolin No Ventolin HFA 108 (90 HFA 108 (90 HFA 108 Base) Base) (90 Base) MCG/ACT MCG/ACT MCG/ACT CoQ10 CoQ10 No CoQ10 Singulair Singulair No 1{table QD Singulair 10 MG 10 MG t_in_th 10 MG e_eveni ng} Pravastatin Pravastatin No Pravastati Sodium 20 Sodium 20 n Sodium MG MG 20 MG Tamsulosin Tamsulosin No 1{capsu QD Tamsulosin HCl 0.4 MG HCl 0.4 MG le} HCl 0.4 MG amLODIPine amLODIPine No 1{table QD amLODIPine Besylate 5 Besylate 5 t} Besylate 5 MG MG MG Albuterol Albuterol No Albuterol Sulfate HFA Sulfate HFA Sulfate 108 (90 108 (90 HFA 108 Base) Base) (90 Base) MCG/ACT MCG/ACT MCG/ACT amLODIPine amLODIPine No amLODIPine Besylate 5 Besylate 5 Besylate 5 MG MG MG Pravastatin Pravastatin No 1{table QD Pravastati Sodium 20 Sodium 20 t} n Sodium MG MG 20 MG Neurontin Neurontin No Neurontin 100 MG 100 MG 100 MG Tumersaid Tumersaid No Tumersaid Vitamin B-1 Vitamin B-1 No 1{table QD Vitamin 100 MG 100 MG t} B-1 100 MG Proventil Proventil No Proventil HFA 108 (90 HFA 108 (90 HFA 108 Base) Base) (90 Base) MCG/ACT MCG/ACT MCG/ACT Fluticasone Fluticasone No 1{spray QD Fluticason Propionate Propionate _in_eac e 50 MCG/ACT 50 MCG/ACT h_nostr Propionate il} 50 MCG/ACT Bevespi Bevespi No 2{puffs BID Bevespi Aerosphere Aerosphere } Aerosphere 9-4.8 9-4.8 9-4.8 MCG/ACT MCG/ACT MCG/ACT Neurontin Neurontin No 1{capsu QD Neurontin 100 MG 100 MG le} 100 MG Benzonatate Benzonatate No Benzonatat 200 MG 200 MG e 200 MG HYDROcodone HYDROcodone No 1{table BID HYDROcodon -Acetaminop -Acetaminop t_as_ne e-Acetamin hen 7.5-325 hen 7.5-325 eded} ophen MG MG 7.5-325 MG Gabapentin Gabapentin No Gabapentin 100 MG 100 MG 100 MG Vitamin B12 Vitamin B12 No Vitamin B12 Vitamin D3 Vitamin D3 No Vitamin D3 Brovana 15 Brovana 15 No 2{ml} BID Brovana 15 MCG/2ML MCG/2ML MCG/2ML Escitalopra Escitalopra No Escitalopr m Oxalate 5 m Oxalate 5 am Oxalate MG MG 5 MG Pataday 0.2 Pataday 0.2 No QD Pataday % % 0.2 % Ventolin Ventolin No Ventolin HFA 108 (90 HFA 108 (90 HFA 108 Base) Base) (90 Base) MCG/ACT MCG/ACT MCG/ACT CoQ10 CoQ10 No CoQ10 Singulair Singulair No 1{table QD Singulair 10 MG 10 MG t_in_th 10 MG e_eveni ng} Pravastatin Pravastatin No Pravastati Sodium 20 Sodium 20 n Sodium MG MG 20 MG Tamsulosin Tamsulosin No 1{capsu QD Tamsulosin HCl 0.4 MG HCl 0.4 MG le} HCl 0.4 MG amLODIPine amLODIPine No 1{table QD amLODIPine Besylate 5 Besylate 5 t} Besylate 5 MG MG MG Albuterol Albuterol No Albuterol Sulfate HFA Sulfate HFA Sulfate 108 (90 108 (90 HFA 108 Base) Base) (90 Base) MCG/ACT MCG/ACT MCG/ACT amLODIPine amLODIPine No amLODIPine Besylate 5 Besylate 5 Besylate 5 MG MG MG Pravastatin Pravastatin No 1{table QD Pravastati Sodium 20 Sodium 20 t} n Sodium MG MG 20 MG Neurontin Neurontin No Neurontin 100 MG 100 MG 100 MG Tumersaid Tumersaid No Tumersaid Vitamin B-1 Vitamin B-1 No 1{table QD Vitamin 100 MG 100 MG t} B-1 100 MG Proventil Proventil No Proventil HFA 108 (90 HFA 108 (90 HFA 108 Base) Base) (90 Base) MCG/ACT MCG/ACT MCG/ACT Fluticasone Fluticasone No 1{spray QD Fluticason Propionate Propionate _in_eac e 50 MCG/ACT 50 MCG/ACT h_nostr Propionate il} 50 MCG/ACT Bevespi Bevespi No 2{puffs BID Bevespi Aerosphere Aerosphere } Aerosphere 9-4.8 9-4.8 9-4.8 MCG/ACT MCG/ACT MCG/ACT Neurontin Neurontin No 1{capsu QD Neurontin 100 MG 100 MG le} 100 MG Benzonatate Benzonatate No Benzonatat 200 MG 200 MG e 200 MG HYDROcodone HYDROcodone No 1{table BID HYDROcodon -Acetaminop -Acetaminop t_as_ne e-Acetamin hen 7.5-325 hen 7.5-325 eded} ophen MG MG 7.5-325 MG Gabapentin Gabapentin No Gabapentin 100 MG 100 MG 100 MG Vitamin B12 Vitamin B12 No Vitamin B12 Vitamin D3 Vitamin D3 No Vitamin D3 Brovana 15 Brovana 15 No 2{ml} BID Brovana 15 MCG/2ML MCG/2ML MCG/2ML Escitalopra Escitalopra No Escitalopr m Oxalate 5 m Oxalate 5 am Oxalate MG MG 5 MG Pataday 0.2 Pataday 0.2 No QD Pataday % % 0.2 % Ventolin Ventolin No Ventolin HFA 108 (90 HFA 108 (90 HFA 108 Base) Base) (90 Base) MCG/ACT MCG/ACT MCG/ACT CoQ10 CoQ10 No CoQ10 Singulair Singulair No 1{table QD Singulair 10 MG 10 MG t_in_th 10 MG e_eveni ng} Pravastatin Pravastatin No Pravastati Sodium 20 Sodium 20 n Sodium MG MG 20 MG Tamsulosin Tamsulosin No 1{capsu QD Tamsulosin HCl 0.4 MG HCl 0.4 MG le} HCl 0.4 MG amLODIPine amLODIPine No 1{table QD amLODIPine Besylate 5 Besylate 5 t} Besylate 5 MG MG MG Albuterol Albuterol No Albuterol Sulfate HFA Sulfate HFA Sulfate 108 (90 108 (90 HFA 108 Base) Base) (90 Base) MCG/ACT MCG/ACT MCG/ACT amLODIPine amLODIPine No amLODIPine Besylate 5 Besylate 5 Besylate 5 MG MG MG Pravastatin Pravastatin No 1{table QD Pravastati Sodium 20 Sodium 20 t} n Sodium MG MG 20 MG Neurontin Neurontin No Neurontin 100 MG 100 MG 100 MG Tumersaid Tumersaid No Tumersaid Vitamin B-1 Vitamin B-1 No 1{table QD Vitamin 100 MG 100 MG t} B-1 100 MG Proventil Proventil No Proventil HFA 108 (90 HFA 108 (90 HFA 108 Base) Base) (90 Base) MCG/ACT MCG/ACT MCG/ACT Fluticasone Fluticasone No 1{spray QD Fluticason Propionate Propionate _in_eac e 50 MCG/ACT 50 MCG/ACT h_nostr Propionate il} 50 MCG/ACT Bevespi Bevespi No 2{puffs BID Bevespi Aerosphere Aerosphere } Aerosphere 9-4.8 9-4.8 9-4.8 MCG/ACT MCG/ACT MCG/ACT Neurontin Neurontin No 1{capsu QD Neurontin 100 MG 100 MG le} 100 MG Benzonatate Benzonatate No Benzonatat 200 MG 200 MG e 200 MG HYDROcodone HYDROcodone No 1{table BID HYDROcodon -Acetaminop -Acetaminop t_as_ne e-Acetamin hen 7.5-325 hen 7.5-325 eded} ophen MG MG 7.5-325 MG Gabapentin Gabapentin No Gabapentin 100 MG 100 MG 100 MG Vitamin B12 Vitamin B12 No Vitamin B12 Vitamin D3 Vitamin D3 No Vitamin D3 Brovana 15 Brovana 15 No 2{ml} BID Brovana 15 MCG/2ML MCG/2ML MCG/2ML Escitalopra Escitalopra No Escitalopr m Oxalate 5 m Oxalate 5 am Oxalate MG MG 5 MG Pataday 0.2 Pataday 0.2 No QD Pataday % % 0.2 % Ventolin Ventolin No Ventolin HFA 108 (90 HFA 108 (90 HFA 108 Base) Base) (90 Base) MCG/ACT MCG/ACT MCG/ACT CoQ10 CoQ10 No CoQ10 Singulair Singulair No 1{table QD Singulair 10 MG 10 MG t_in_th 10 MG e_eveni ng} Pravastatin Pravastatin No Pravastati Sodium 20 Sodium 20 n Sodium MG MG 20 MG Tamsulosin Tamsulosin No 1{capsu QD Tamsulosin HCl 0.4 MG HCl 0.4 MG le} HCl 0.4 MG amLODIPine amLODIPine No 1{table QD amLODIPine Besylate 5 Besylate 5 t} Besylate 5 MG MG MG Albuterol Albuterol No Albuterol Sulfate HFA Sulfate HFA Sulfate 108 (90 108 (90 HFA 108 Base) Base) (90 Base) MCG/ACT MCG/ACT MCG/ACT amLODIPine amLODIPine No amLODIPine Besylate 5 Besylate 5 Besylate 5 MG MG MG Pravastatin Pravastatin No 1{table QD Pravastati Sodium 20 Sodium 20 t} n Sodium MG MG 20 MG Neurontin Neurontin No Neurontin 100 MG 100 MG 100 MG Tumersaid Tumersaid No Tumersaid Vitamin B-1 Vitamin B-1 No 1{table QD Vitamin 100 MG 100 MG t} B-1 100 MG Proventil Proventil No Proventil HFA 108 (90 HFA 108 (90 HFA 108 Base) Base) (90 Base) MCG/ACT MCG/ACT MCG/ACT Fluticasone Fluticasone No 1{spray QD Fluticason Propionate Propionate _in_eac e 50 MCG/ACT 50 MCG/ACT h_nostr Propionate il} 50 MCG/ACT Bevespi Bevespi No 2{puffs BID Bevespi Aerosphere Aerosphere } Aerosphere 9-4.8 9-4.8 9-4.8 MCG/ACT MCG/ACT MCG/ACT Neurontin Neurontin No 1{capsu QD Neurontin 100 MG 100 MG le} 100 MG Benzonatate Benzonatate No Benzonatat 200 MG 200 MG e 200 MG HYDROcodone HYDROcodone No 1{table BID HYDROcodon -Acetaminop -Acetaminop t_as_ne e-Acetamin hen 7.5-325 hen 7.5-325 eded} ophen MG MG 7.5-325 MG Gabapentin Gabapentin No Gabapentin 100 MG 100 MG 100 MG Vitamin B12 Vitamin B12 No Vitamin B12 Vitamin D3 Vitamin D3 No Vitamin D3 Brovana 15 Brovana 15 No 2{ml} BID Brovana 15 MCG/2ML MCG/2ML MCG/2ML Escitalopra Escitalopra No Escitalopr m Oxalate 5 m Oxalate 5 am Oxalate MG MG 5 MG Pataday 0.2 Pataday 0.2 No QD Pataday % % 0.2 % Ventolin Ventolin No Ventolin HFA 108 (90 HFA 108 (90 HFA 108 Base) Base) (90 Base) MCG/ACT MCG/ACT MCG/ACT CoQ10 CoQ10 No CoQ10 Singulair Singulair No 1{table QD Singulair 10 MG 10 MG t_in_th 10 MG e_eveni ng} Pravastatin Pravastatin No Pravastati Sodium 20 Sodium 20 n Sodium MG MG 20 MG Tamsulosin Tamsulosin No 1{capsu QD Tamsulosin HCl 0.4 MG HCl 0.4 MG le} HCl 0.4 MG amLODIPine amLODIPine No 1{table QD amLODIPine Besylate 5 Besylate 5 t} Besylate 5 MG MG MG Albuterol Albuterol No Albuterol Sulfate HFA Sulfate HFA Sulfate 108 (90 108 (90 HFA 108 Base) Base) (90 Base) MCG/ACT MCG/ACT MCG/ACT amLODIPine amLODIPine No amLODIPine Besylate 5 Besylate 5 Besylate 5 MG MG MG Pravastatin Pravastatin No 1{table QD Pravastati Sodium 20 Sodium 20 t} n Sodium MG MG 20 MG Neurontin Neurontin No Neurontin 100 MG 100 MG 100 MG Tumersaid Tumersaid No Tumersaid Vitamin B-1 Vitamin B-1 No 1{table QD Vitamin 100 MG 100 MG t} B-1 100 MG Proventil Proventil No Proventil HFA 108 (90 HFA 108 (90 HFA 108 Base) Base) (90 Base) MCG/ACT MCG/ACT MCG/ACT Fluticasone Fluticasone No 1{spray QD Fluticason Propionate Propionate _in_eac e 50 MCG/ACT 50 MCG/ACT h_nostr Propionate il} 50 MCG/ACT Bevespi Bevespi No 2{puffs BID Bevespi Aerosphere Aerosphere } Aerosphere 9-4.8 9-4.8 9-4.8 MCG/ACT MCG/ACT MCG/ACT Neurontin Neurontin No 1{capsu QD Neurontin 100 MG 100 MG le} 100 MG Benzonatate Benzonatate No Benzonatat 200 MG 200 MG e 200 MG HYDROcodone HYDROcodone No 1{table BID HYDROcodon -Acetaminop -Acetaminop t_as_ne e-Acetamin hen 7.5-325 hen 7.5-325 eded} ophen MG MG 7.5-325 MG Gabapentin Gabapentin No Gabapentin 100 MG 100 MG 100 MG CoQ10 CoQ10 No CoQ10 Vitamin B12 Vitamin B12 No Vitamin B12 Tamsulosin Tamsulosin No 1{capsu QD Tamsulosin HCl 0.4 MG HCl 0.4 MG le} HCl 0.4 MG Albuterol Albuterol No Albuterol Sulfate HFA Sulfate HFA Sulfate 108 (90 108 (90 HFA 108 Base) Base) (90 Base) MCG/ACT MCG/ACT MCG/ACT Pataday 0.2 Pataday 0.2 No QD Pataday % % 0.2 % Immunizations Ordered Immunization Filled Immunization Date Status Commen ts Source Name Name Pneumovax (PPSV23) Pneumovax (PPSV23) 2021-01-28 [facility]:12[facility]00 [facility] Pneumovax (PPSV23) Pneumovax (PPSV23) 2021-01-28 Completed [facility] 13:12:00 [facility] Pneumovax (PPSV23) Pneumovax (PPSV23) 2021-01-28 Completed [facility] 13:12:00 [facility] Pneumovax (PPSV23) Pneumovax (PPSV23) 2021-01-28 [facility]pleted [facility] 13:12:00 [facility] Pneumovax (PPSV23) Pneumovax (PPSV23) 2021-01-28 Completed [facility] 13:12:00 [facility] Pneumovax (PPSV23) Pneumovax (PPSV23) 2021-01-28 Completed [facility] 13:12:00 [facility] Pneumovax (PPSV23) Pneumovax (PPSV23) 2021-01-28 Completed [facility] 13:12:00 [facility] Pneumovax (PPSV23) Pneumovax (PPSV23) 2021-01-28 Completed [facility] 13:12:00 [facility] Pneumovax (PPSV23) Pneumovax (PPSV23) 2021-01-28 Completed [facility] 13:12:00 [facility] Pneumovax (PPSV23) Pneumovax (PPSV23) 2021-01-28 Completed [facility] 13:12:00 [facility] Pneumovax (PPSV23) Pneumovax (PPSV23) 2021-01-28 Completed [facility] 13:12:00 [facility] Pneumovax (PPSV23) Pneumovax (PPSV23) 2021-01-28 Completed [facility] 13:12:00 [facility] Pneumovax (PPSV23) Pneumovax (PPSV23) 2021-01-28 Completed [facility] 13:12:00 [facility] Pneumovax (PPSV23) Pneumovax (PPSV23) 2021-01-28 Completed [facility] 13:12:00 [facility] Pneumovax (PPSV23) Pneumovax (PPSV23) 2021-01-28 Completed [facility] 13:12:00 [facility] Pneumovax (PPSV23) Pneumovax (PPSV23) 2021-01-28 Completed [facility] 13:12:00 [facility] Pneumovax (PPSV23) Pneumovax (PPSV23) 2021-01-28 Completed [facility] 13:12:00 [facility] Pneumovax (PPSV23) Pneumovax (PPSV23) 2021-01-28 Completed [facility] 13:12:00 [facility] Pneumovax (PPSV23) Pneumovax (PPSV23) 2021-01-28 Completed [facility] 13:12:00 [facility] Pneumovax (PPSV23) Pneumovax (PPSV23) 2021-01-28 Completed [facility] 13:12:00 [facility] Pneumovax (PPSV23) Pneumovax (PPSV23) 2021-01-28 Completed [facility] 13:12:00 [facility] Pneumovax (PPSV23) Pneumovax (PPSV23) 2021-01-28 Completed [facility] 13:12:00 [facility] Pneumovax (PPSV23) Pneumovax (PPSV23) 2021-01-28 Completed [facility] 13:12:00 [facility] Pneumovax (PPSV23) Pneumovax (PPSV23) 2021-01-28 Completed [facility] 13:12:00 [facility] Pneumovax (PPSV23) Pneumovax (PPSV23) 2021-01-28 Completed [facility] 13:12:00 [facility] Pneumovax (PPSV23) Pneumovax (PPSV23) 2021-01-28 Completed [facility] 13:12:00 [facility] Pneumovax (PPSV23) Pneumovax (PPSV23) 2021-01-28 Completed [facility] 13:12:00 [facility] Pneumovax (PPSV23) Pneumovax (PPSV23) 2021-01-28 Completed [facility] 13:12:00 [facility] Pneumovax (PPSV23) Pneumovax (PPSV23) 2021-01-28 Completed [facility] 13:12:00 [facility] Pneumovax (PPSV23) Pneumovax (PPSV23) 2021-01-28 Completed [facility] 13:12:00 [facility] Pneumovax (PPSV23) Pneumovax (PPSV23) 2021-01-28 Completed [facility] 13:12:00 [facility] Pneumovax (PPSV23) Pneumovax (PPSV23) 2021-01-28 Completed [facility] 13:12:00 [facility] Pneumovax (PPSV23) Pneumovax (PPSV23) 2021-01-28 Completed [facility] 13:12:00 [facility] Pneumovax (PPSV23) Pneumovax (PPSV23) 2021-01-28 Completed [facility] 13:12:00 [facility] Pneumovax (PPSV23) Pneumovax (PPSV23) 2021-01-28 Completed [facility] 13:12:00 [facility] Pneumovax (PPSV23) Pneumovax (PPSV23) 2021-01-28 Completed [facility] 13:12:00 [facility] Vital Signs Vital Name Observation Time Observation Value Comments Source height 2021-11-19 13:30:00 62 [in_i] [facility] weight 2021-11-19 13:30:00 152 [lb_av] [facility] temperature 2021-11-19 13:30:00 98.1 [degF] [facility] bmi 2021-11-19 13:30:00 27.8 kg/m2 [facility] oximetry 2021-11-19 13:30:00 95 % [facility] respiratory rate 2021-11-19 13:30:00 16 /min [facility] blood pressure 2021-11-19 13:30:00 135 mm[Hg] [facility] - systolic [facility] blood pressure 2021-11-19 13:30:00 72 mm[Hg] [facility] - diastolic [facility] height 2021-08-05 13:00:00 64 [in_i] [facility] weight 2021-08-05 13:00:00 148.0 [lb_av] [facility] temperature 2021-08-05 13:00:00 97.6 [degF] [facility] bmi 2021-08-05 13:00:00 25.4 kg/m2 [facility] oximetry 2021-08-05 13:00:00 96 % [facility] respiratory rate 2021-08-05 13:00:00 17 /min [facility] on [facility] blood pressure 2021-08-05 13:00:00 134 mm[Hg] [facility] - systolic [facility] blood pressure 2021-08-05 13:00:00 76 mm[Hg] [facility] - diastolic [facility] height 2021-08-05 13:00:00 64 [in_i] [facility] weight 2021-08-05 13:00:00 148.0 [lb_av] [facility] temperature 2021-08-05 13:00:00 97.6 [degF] [facility] bmi 2021-08-05 13:00:00 25.4 kg/m2 [facility] oximetry 2021-08-05 13:00:00 96 % [facility] respiratory rate 2021-08-05 13:00:00 17 /min [facility] on [facility] blood pressure 2021-08-05 13:00:00 134 mm[Hg] [facility] - systolic [facility] blood pressure 2021-08-05 13:00:00 76 mm[Hg] [facility] - diastolic [facility] height 2021-05-05 13:00:00 64 [in_i] [facility] weight 2021-05-05 13:00:00 150 [lb_av] [facility] bmi 2021-05-05 13:00:00 25.74 kg/m2 [facility] blood pressure 2021-05-05 13:00:00 130 mm[Hg] [facility] - systolic [facility] blood pressure 2021-05-05 13:00:00 62 mm[Hg] [facility] - diastolic [facility] height 2021-04-28 13:20:00 64 [in_i] [facility] weight 2021-04-28 13:20:00 150.7 [lb_av] [facility] temperature 2021-04-28 13:20:00 98.2 [degF] [facility] bmi 2021-04-28 13:20:00 25.86 kg/m2 [facility] oximetry 2021-04-28 13:20:00 96 % [facility] respiratory rate 2021-04-28 13:20:00 16 /min [facility] blood pressure 2021-04-28 13:20:00 138 mm[Hg] [facility] - systolic [facility] blood pressure 2021-04-28 13:20:00 76 mm[Hg] [facility] - diastolic [facility] height 2021-01-28 13:00:00 64 [in_i] [facility] weight 2021-01-28 13:00:00 152.3 [lb_av] [facility] temperature 2021-01-28 13:00:00 98.4 [degF] [facility] bmi 2021-01-28 13:00:00 26.14 kg/m2 [facility] oximetry 2021-01-28 13:00:00 90 % [facility] respiratory rate 2021-01-28 13:00:00 17 /min [facility] on [facility] blood pressure 2021-01-28 13:00:00 132 mm[Hg] [facility] - systolic [facility] blood pressure 2021-01-28 13:00:00 65 mm[Hg] [facility] - diastolic [facility] height 2021-01-14 15:20:00 64 [in_i] [facility] weight 2021-01-14 15:20:00 153.2 [lb_av] [facility] temperature 2021-01-14 15:20:00 98.1 [degF] [facility] bmi 2021-01-14 15:20:00 26.29 kg/m2 [facility] oximetry 2021-01-14 15:20:00 95 % [facility] respiratory rate 2021-01-14 15:20:00 16 /min [facility] blood pressure 2021-01-14 15:20:00 135 mm[Hg] [facility] systolic [facility] blood pressure 2021-01-14 15:20:00 67 mm[Hg] [facility] diastolic [facility] Procedures This patient has no known procedures. Encounters Start End Encounter Admission Attending Care Care Encounter Source Date/Time Date/Time Type Type Clinicians Facility Department ID 2021-11-19 Outpatient [facility], STLMLC ST[facility]C [id number] [facility] 13:35:01 Wes [facility] 2021-07-29 Outpatient [facility], STLMLC STLMLC [id number] [facility] 15:19:00 Wes [facility] 2021-06-27 Outpatient [facility], STLMLC STLMLC [id number] [facility] 08:07:00 Wes [facility] 2021-05-05 Outpatient [facility], STLMLC STLMLC [id number] Common 16:43:00 Wes [facility] 2021-03-26 Outpatient [facility], STLMLC STLMLC [id number] Common 14:30:09 Wes [facility] 2021-03-26 Outpatient [facility], STLMLC STLMLC [id number] Common 14:29:28 Wes [facility] 2021-03-26 Outpatient [facility], STLMLC STLMLC [id number] Common 14:18:35 Wes [id number] [facility] 2021-03-26 Outpatient [facility], STLMLC STLMLC [id number] Common 14:11:04 Wes [id number] [facility] 2021-03-26 Outpatient [facility], STLMLC STLMLC [id number] Common 13:57:06 Wes 45109 [facility] 2021-03-26 Outpatient [facility], STLMLC STLMLC [id number] Common 13:46:30 Wes 42952 [facility] 2021-03-26 Outpatient [facility], STLMLC STLMLC [id number] Common 12:59:11 Wes [id number] [facility] 2021-03-26 Outpatient [facility], STLMLC STLMLC [id number] Common 12:58:35 Wes 47152 [facility] 2021-03-26 Outpatient [facility], STLMLC STLMLC [id number] Common 12:53:31 Wes 53827 [facility] 2021-03-26 Outpatient [facility], STLMLC STLMLC [id number] Common 12:52:16 Wes 34076 [facility] 2021-03-26 Outpatient [facility], STLMLC STLMLC [id number] Common 12:30:06 Wes 14829 [facility] 2021-03-26 Outpatient [facility], STLMLC STLMLC [id number] Common 12:27:36 Wes 92979 [facility] 2021-03-26 Outpatient [facility], STLMLC STLMLC [id number] [facility] 12:21:49 Wes 59151 [facility] 2021-03-26 Outpatient [facility], STLMLC STLMLC [id number] Common 12:19:50 Wes 12765 [facility] 2021-03-26 Outpatient [facility], STLMLC STLMLC [id number] Common 12:16:54 Wes 67491 [facility] 2021-03-26 Outpatient [facility], STLMLC STLMLC [id number] Common 11:19:59 Wes 74259 [facility] 2021-03-26 Outpatient [facility], STLMLC STLMLC [id number] Common 11:19:46 Wes 22618 [facility] 2021-03-26 Outpatient [facility], STLMLC ST[facility]MLC [id number] Common 11:04:39 Wes 06263 [facility] 2021-03-26 Outpatient [facility], STLMLC STLMLC [id number] Common 11:04:18 Wes 91475 [facility] 2021-03-26 Outpatient [facility], STLMLC STLMLC [id number] Common 10:58:12 Wes 82270 [facility] 2021-11-27 2021-11-27 (TEL) STLMLC STLMLC [id number] [facility] 00:00:00 00:00:00 [facility] 2021-11-19 2021-11-19 OFFICE STLMLC STLMLC [id number] [facility] 00:00:00 00:00:00 VISIT [facility] LEVEL 4 [facility] 2021-11-19 2021-11-19 (TEL) STLMLC STLMLC [id number] [facility] 00:00:00 00:00:00 [facility] 2021-11-04 2021-11-04 (TEL) STLMLC [facility]C [id number] [facility] 00:00:00 00:00:00 [facility] 2021-10-23 2021-10-23 (TEL) STLMLC [facility]C [id number] [facility] 00:00:00 00:00:00 [facility] 2021-10-06 2021-10-06 (TEL) STLMLC [facility]C [id number] [facility] 00:00:00 00:00:00 [facility] 2021-10-03 2021-10-03 (TEL) STL[facility]C [facility] [id number] [facility] 00:00:00 00:00:00 [facility] 2021-09-25 2021-09-25 (TEL) STLMLC [facility]C [id number] [facility] 00:00:00 00:00:00 [facility] 2021-09-17 2021-09-17 (TEL) STLMLC ST[facility]MLC [id number] [facility] 00:00:00 00:00:00 [facility] 2021-08-26 2021-08-26 (TEL) STLMLC STLMLC [id number] [facility] 00:00:00 00:00:00 [facility] 2021-08-19 2021-08-19 (TEL) STLMLC ST[facility]MLC [id number] [facility] 00:00:00 00:00:00 [facility] 2021-08-07 2021-08-07 (TEL) STLMLC ST[facility]MLC [id number] [facility] 00:00:00 00:00:00 [facility] 2021-08-05 2021-08-05 OFFICE STLMLC STLMLC [id number] [facility] 00:00:00 00:00:00 VISIT [facility] ESTAB PT - [facility] LEVEL 4 [facility] 2021-08-05 2021-08-05 (TEL) STLMLC STLMLC [id number] [facility] 00:00:00 00:00:00 [facility] 2021-08-05 2021-08-05 SUB ANNUAL STLMLC STLMLC [id number] [facility] 00:00:00 00:00:00 MCR [facility] WELLNESS - CHI VISIT [facility] 2021-08-01 2021-08-01 (TEL) STLMLC STLMLC [id number] [facility] 00:00:00 00:00:00 [facility] 2021-07-09 2021-07-09 (TEL) STLMLC STLMLC [id number] [facility] 00:00:00 00:00:00 [facility] 2021-06-19 2021-06-19 (TEL) STLMLC STLMLC [id number] [facility] 00:00:00 00:00:00 [facility] 2021-05-13 2021-05-13 (TEL) STLMLC STLMLC [id number] [facility] 00:00:00 00:00:00 [facility] 2021-05-12 2021-05-12 (TEL) STLMLC STLMLC [id number] [facility] 00:00:00 00:00:00 [facility] 2021-05-07 2021-05-07 (TEL) STLMLC STLMLC [id number] [facility] 00:00:00 00:00:00 [facility] 2021-05-06 2021-05-06 (TEL) STLMLC STLMLC [id number] [facility] 00:00:00 00:00:00 [facility] 2021-05-05 2021-05-05 OFFICE STLMLC STLMLC [id number] [facility] 00:00:00 00:00:00 [facility]IT [facility] LEVEL 3 [facility] 2021-04-28 2021-04-28 OFFICE STLMLC STLMLC [id number] Co m[facility] 00:00:00 00:00:00 [facility] - CHI LEVEL 4 [facility] 2021-04-09 2021-04-09 (TEL) STLMLC STLMLC [id number] [facility] 00:00:00 00:00:00 [facility] 2021-04-08 2021-04-08 (TEL) STLMLC ST[facility]MLC [id number] [facility] 00:00:00 00:00:00 [facility] 2021-03-19 2021-03-19 (TEL) STLMLC ST[facility]MLC [id number] [facility] 00:00:00 00:00:00 [facility] 2021-03-19 2021-03-19 (TEL) STLMLC ST[facility]MLC [id number] [facility] 00:00:00 00:00:00 [facility] 2021-03-03 2021-03-03 (TEL) ST[facility]C [facility] [id number] [facility] 00:00:00 00:00:00 [facility] 2021-03-03 2021-03-03 (TEL) ST[facility]C [facility] [id number] [facility] 00:00:00 00:00:00 [facility] 2021-02-17 2021-02-17 (TEL) ST[facility]C [facility] [id number] [facility] 00:00:00 00:00:00 [facility] 2021-01-28 2021-01-28 OFFICE ST[facility]MLC [facility]C [id number] [facility] 00:00:00 00:00:00 VISIT [facility] PT - CHI LEVEL 4 [facility] [place] [facility] 2021-01-14 2021-01-14 OFFICE STLMLC STLMLC [id number] Co m[facility] 00:00:00 00:00:00 VISIT [facility] PT - CHI LEVEL 4 [facility] 2021-01-07 2021-01-07 (TEL) STLMLC STLMLC [id number] [facility] 00:00:00 00:00:00 [facility] 2020-10-30 2020-10-30 Outpatient [facility]C ST[facility]C [id number] [facility] 00:00:00 00:00:00 [facility] 2020-10-29 2020-10-29 Outpatient [facility]MLC ST[facility]C [id number] [facility] 00:00:00 00:00:00 [facility] 2020-09-24 2020-09-24 Outpatient [facility]C ST[facility]C [id number] [facility] 00:00:00 00:00:00 [facility] 2020-09-16 2020-09-16 Outpatient [facility]C ST[facility] [id number] [facility] 00:00:00 00:00:00 [facility] 2020-09-12 2020-09-12 Outpatient [facility]C ST[facility]C [id number] [facility] 00:00:00 00:00:00 [facility] 2020-07-02 2020-07-02 Outpatient STLMLC ST[facility]C [id number] [facility] 00:00:00 00:00:00 [facility] 2020-07-02 2020-07-02 Outpatient STLMLC ST[facility]C [id number] [facility] 00:00:00 00:00:00 [facility] 2020-06-12 2020-06-12 Outpatient ST[facility]C ST[facility]C [id number] [facility] 00:00:00 00:00:00 [facility] 2020-04-25 2020-04-25 Outpatient STL[facility]C ST[facility]C [id number] [facility] 00:00:00 00:00:00 [facility] 2020-04-10 2020-04-10 Outpatient STLMLC ST[facility]C [id number] [facility] 00:00:00 00:00:00 [facility] 2020-04-09 2020-04-09 Outpatient [facility]C ST[facility]C [id number] [facility] 00:00:00 00:00:00 [facility] 2020-04-02 2020-04-02 Outpatient [facility]C ST[facility] [id number] [facility] 00:00:00 00:00:00 [facility] 2020-03-19 2020-03-19 Outpatient [facility]C [facility] [id number] [facility] 00:00:00 00:00:00 [facility] 2020-03-19 2020-03-19 Outpatient [facility]C [facility] [id number] [facility] 00:00:00 00:00:00 [facility] 2020-01-18 2020-01-18 Outpatient [facility]C [facility] [id number] [facility] 00:00:00 00:00:00 [facility] 2020-01-17 2020-01-17 Outpatient [facility]C ST[facility] [id number] [facility] 00:00:00 00:00:00 [facility] 2020-01-11 2020-01-11 Outpatient [facility]C ST[facility] [id number] [facility] 00:00:00 00:00:00 [facility] 2020-01-02 2020-01-02 Outpatient [facility]C ST[facility] [id number] [facility] 00:00:00 00:00:00 [facility] 2019-11-30 2019-11-30 Outpatient ST[facility]MLC ST[facility]C [id number] [facility] 00:00:00 00:00:00 [facility] 2019-11-02 2019-11-02 [id number] [facility] 13:30:00 13:30:[address] [facility] 2019-10-02 2019-10-02 [facility] [id number] [facility] 13:00:00 13:00:[address] [facility] 2019-08-30 2019-08-30 [facility] [id number] [facility] 11:00:00 11:00:[address] [facility] 2019-08-03 2019-08-03 [facility] [id number] Common 13:15:00 13:15:[address] [facility] 2019-06-30 2019-06-30 [facility] [id number] Common 11:30:00 11:30:[address] [facility] 2019-06-16 2019-06-16 [id number] Common 14:06:00 14:06:00 t Specialty/[facility] 2019-06-16 2019-06-16 [id number] Common 13:49:00 13:49:[address] [facility] 2019-06-01 2019-06-01 [id number] Common 08:45:00 08:45:[address] [address] [facility] 2019-05-05 2019-05-05 [id number] Common 10:00:00 10:00:[address] [facility] 2019-04-04 2019-04-04 [facility] [id number] Common 11:15:00 11:15:[address] [facility] 2019-03-06 2019-03-06 [facility] [id number] Common 10:30:00 10:30:[address] [facility] 2019-02-27 2019-02-27 [facility] [id number] Common 13:00:00 13:00:00 t Specialty/U Sp saur[facility]h Specialty rology - [facility] 2019-02-01 2019-02-01 [facility] [id number] Common 11:00:00 11:00:[address] [facility] 2019-01-02 2019-01-02 [facility] [id number] Common 13:00:00 13:00:[address] [facility] 2018-12-01 2018-12-01 [facility] [id number] Common 14:15:00 14:15:[address] [facility] 2018-11-17 2018-11-17 [facility] [id number] Common 13:15:00 13:15:00 t Specialty/U Sp saurabh Specialty rology - [facility] 2018-11-08 2018-11-08 [facility] [id number] Common 09:01:00 09:01:[address] [facility] 2018-11-07 2018-11-07 [facility] [id number] Common 11:53:00 11:53:00 t Specialty/U Sp saurabh Specialty rology - [facility] 2018-11-03 2018-11-03 [facility] [id number] Common 14:30:00 14:30:[address] [facility] 2018-11-01 2018-11-01 [facility] [id number] Common 11:36:00 11:36:[address] [facility] 2018-10-24 2018-10-24 [facility] [id number] Common 13:30:00 13:30:00 t Specialty/U Sp saurabh Specialty rology - [facility] 2018-10-10 2018-10-10 [facility] [id number] Common 14:36:00 14:36:[address] [facility] 2018-10-04 2018-10-04 [facility] [id number] Common 13:15:00 13:15:[address] [facility] 2018-08-30 2018-08-30 [facility] [id number] Common 11:45:00 11:45:[address] [facility] 2018-07-07 2018-07-07 [facility] [id number] Common 13:00:00 13:00:00 t Specialty/U Sp saurabh Specialty rology - [facility] 2018-06-29 2018-06-29 [facility] [id number] Common 14:00:00 14:00:[address] [facility] 2018-05-31 2018-05-31 [facility] [id number] Common 13:30:00 13:30:[address] [facility] 2018-05-02 2018-05-02 [facility] [id number] Common 13:15:00 13:15:[address] [facility] 2018-04-25 2018-04-25 [facility] [id number] Common 14:00:00 14:00:[address] [facility] - [facility] 2018-04-04 2018-04-04 [facility] [id number] Common 11:15:00 11:15:[address] [facility] 2018-03-07 2018-03-07 [facility] [id number] Common 11:15:00 11:15:[address] [facility] 2017-12-02 2017-12-02 [facility] [id number] Common 11:15:00 11:15:[address] [facility] 2017-11-08 2017-11-08 [facility] [id number] Common 10:48:00 10:48:[address] [facility] 2017-11-08 2017-11-08 [facility] [id number] Common 10:48:00 10:48:[address] [facility] 2017-10-08 2017-10-08 [facility] [id number] Common 08:00:00 08:00:[address] [facility] 2017-09-09 2017-09-09 [facility] [id number] Common 10:15:00 10:15:[address] [facility] 2017-08-16 2017-08-16 [facility] [id number] Common 11:50:00 11:50:[address] [facility] 2017-08-13 2017-08-13 [facility] [id number] Common 11:53:00 11:53:[address] [facility] 2017-08-13 2017-08-13 [facility] [id number] Common 11:00:00 11:00:[address] [facility] 2017-07-16 2017-07-16 [facility] [id number] Common 11:15:00 11:15:[address] [facility] 2017-07-12 2017-07-12 [facility] [id number] Common 11:39:00 11:39:[address] [facility] 2017-06-29 2017-06-29 [facility] [id number] Common 09:55:00 09:55:[address] [facility] 2017-06-23 2017-06-23 [facility] [id number] Common 16:26:00 16:26:[address] [facility] 2017-06-23 2017-06-23 [facility] [id number] Common 14:30:00 14:30:[address] [facility] 2017-06-18 2017-06-18 [facility] [id number] Common 16:03:00 16:03:[address] [facility] 2017-06-16 2017-06-16 [facility] [id number] Common 10:45:00 10:45:[address] [facility] Results This patient has no known results.
[2022-01-05] MEDS ORDERED: HYDROCODONE/APAP 7.5/325 MG TAB ONE (12:03)
[2022-01-05 12:09] LABS: Absolute Lymphocytes (CBC) 0.6 K/uL (0.7-4.9); Hematocrit 44.2 % (36.0-45.0); Lymphocytes % 7.5 % (15.3-44.8); MCV 90.6 fL (80-100); MPV 8.2 fL (7.6-11.3); RBC Red Blood Cell Count 4.88 M/uL (3.86-4.86)
--- NOTE | 2022-01-05 12:28 | RAD REPORT ---
EXAM DESCRIPTION: Beata Single View01/05/2022 12:22 pm CLINICAL HISTORY: Cough COMPARISON: 2020 FINDINGS: Postsurgical changes left lung. Lungs appear clear of acute infiltrate. Heart is normal size IMPRESSION: No acute abnormalities displayed
[2022-01-05 12:29] LABS: Albumin 3.8 g/dL (3.4-5.0); Bilirubin Total 0.7 mg/dL (0.2-1.0); Potassium 4.1 mmol/L (3.5-5.1); Protein, Total 7.4 g/dL (6.4-8.2)
[2022-01-05 12:51] LABS: Urine Blood Trace-intact (Negative); Urine Glucose Negative (Negative); Urine Protein Negative (Negative); Urine pH 6.5 (5.0-7.0)
[2022-01-05] MEDS ORDERED: ALBUTEROL 2.5 MG/3 ML NEB SOL ONE (13:23)
[2022-01-05] MEDS ORDERED: IPRATROPIUM BROM 0.5MG/2.5ML ONE (13:23)
--- NOTE | 2022-01-05 13:37 | RAD REPORT ---
EXAM DESCRIPTION: CT - Stone Protocol - 01/05/2022 1:26 pm CLINICAL HISTORY: abd pain, history of right nephrectomy and partial left nephrectomy, breast cancer history COMPARISON: Abdomen WWo Cont dated 09/27/2020 TECHNIQUE: Axial 3 mm thick images were obtained without oral or IV contrast. The [id number] span s the entirety of the system including uppermost abdomen and lung bases. All CT scans are performed using dose optimization technique as appropriate and may include automated exposure control or mA/KV adjustment according to patient size. FINDINGS: Right kidney is absent. Surgical clips are present in the right renal bed. No right adrena l abnormality. Left kidney is incompletely rotated. Left renal tissue is heterogeneous. Small renal c ysts have been previously detailed. Heterogeneous renal parenchyma in the medial superior aspect of t he left renal fossa is similar to the 2020 MRI study. This tissue enhanced normally with the remainin g renal tissue. No suspicious renal mass. No hydronephrosis or obstructing calculus. There are calcif ications adjacent to the proximal ureter but no stone can be shown within the lumen. No left adrenal abnormality. No urinary bladder suspicious finding. Imaged portions of the liver, spleen and pancreas show no suspicious findings on non-contrast imaging . Cholecystectomy clips are present. No biliary tree dilatation. No acute stomach or small bowel finding identifiable. Prominent sigmoid diverticulosis without divert iculitis. Sigmoid and rectum portions are distended by moderately large stool volume. No mass or bulky lymphadenopathy. No omental thickening. The posterior abdominal wall near the left k idney is thinned or disrupted. This is similar to prior imaging. No free air, free fluid or inflammat ory stranding. Prominent disc and bone degenerative changes are present. No acute or pathologic bone process identif ied. IMPRESSION: No acute abnormality identified. Patient has multiple findings detailed above that are not clearly different from August 2020 MRI imaging. Isodense masses and pyelonephritis are not excluded on stone protocol technique. Moderately large stool volume distends the rectosigmoid colon where there is diverticulosis but no di verticulitis. No acute GI process seen. Overall no acute or emergent finding identifiable.
--- NOTE | 2022-01-05 13:55 | ER ---
Nurse's Notes [facility] Name: Cecile Conley Age: 81 yrs Sex: Female : 1940 Arrival Date: 01/05/2022 Time: 11:35 Bed 14 Private MD: Diagnosis: Acute upper respiratory infection, unspecified Presentation: 01/05 11:37 Chief complaint: Patient states: Cough, malaise started yesterday. N/V began at 0930 ll1 am. + body aches, temp 99.0. Coronavirus screen: Vaccine status: Patient reports being unvaccinated. Client denies travel out of the [place] in the last 14 days. cough unrelated to allergies, fatigue, fever, muscle pain, nausea, vomiting. Client presents with at least one sign or symptom that may indicate coronavirus-19. Standard/surgical mask placed on the client. Ebola Screen: Patient denies travel to an Ebola-affected area in the 21 days before illness onset. Initial Sepsis Screen: Does the patient meet any 2 criteria? No. Patient's initial sepsis screen is negative. Does the patient have a suspected source of infection? Yes: Productive cough/pneumonia. Risk Assessment: Do you want to hurt yourself or someone else? Patient reports no desire to harm self or others. Onset of symptoms was January 04, 2022. 11:37 Method Of Arrival: EMS: [facility] ll1 11:37 Acuity: DAVID 3 ll1 Triage Assessment: 11:40 General: Appears uncomfortable, ill, Behavior is cooperative, appropriate for age. ll1 Pain: Complains of pain in "all over" Pain currently is 10 out of 10 on a pain scale. Quality of pain is described as aching. Neuro: Reports headache. Cardiovascular: No deficits noted. Respiratory: Reports cough that is. GI: Reports cramping, nausea, vomiting. Historical: - Allergies: 11:36 Aspirin; ll1 11:36 Sulfa (Sulfonamide Antibiotics); ll1 11:36 "All blood thinners"; ll1 - PMHx: 11:36 breast cancer; Cancer; COPD; Hypertension; TB; Anxiety; ll1 - PSHx: 11:36 1/2 of Left kidney removed; Lobe of Lung removed (unsure which lung); Right Kidney ll1 Removed; - Immunization history:: Client reports having NOT received the Covid vaccine. - Social history:: Smoking status: Patient reports the use of cigarette tobacco products, smokes one-half pack cigarettes per day. Screenin:40 Abuse screen: Denies threats or abuse. Nutritional screening: No deficits noted. ll1 Tuberculosis screening: No symptoms or risk factors identified. 14:53 Fall Risk Secondary diagnosis (15 points) weakness. Ambulatory Aid- ll1 Crutches/Cane/Walker (15 pts). Gait- Weak (10 pts.). Total Giordano Fall Scale indicates High Risk Score (45 or more points). Fall prevention measures have been instituted. Side Rails Up X 2 Placed Close to Nursing Station Frequent Obs/Assessments Occuring Family Present and informed to notify staff if the need to leave the bedside As available patient and family educated on Fall Prevention Program and Strategies. Assessment: 12:08 Reassessment: No changes from previously documented assessment. Patient and/or family ll1 updated on plan of care and expected duration. Pain level reassessed. 12:43 Reassessment: No changes from previously documented assessment. Patient and/or family ll1 updated on plan of care and expected duration. Pain level reassessed. Patient is alert, oriented x 3, equal unlabored respirations, skin warm/dry/pink. 13:43 Reassessment: No changes from previously documented assessment. Patient and/or family ll1 updated on plan of care and expected duration. Pain level reassessed. 14:43 GI: Abdomen is flat. ll1 Vital Signs: 11:37 BP 140 / 71; Pulse 78; Resp 18; Temp 98.9(O); Pulse Ox 96% on R/A; Weight 68.04 kg; ll1 Height 5 ft. 4 in. (162.56 cm); Pain 10/10; 12:08 BP 142 / 78; Pulse 77; ll1 11:37 Body Mass Index 25.75 (68.04 kg, 162.56 cm) ll1 ED Course: 11:35 Patient arrived in ED. ll1 11:36 Jessica Louis FNP-C is [facility]. kb 11:36 Leander Cochran MD is Attending Physician. kb 11:36 Arm band placed on Patient placed in an exam room, on a stretcher. ll1 11:40 Triage completed. ll1 11:41 Patient has correct armband on for positive identification. Bed in low position. Call ll1 light in reach. Side rails up X 1. Client placed on continuous cardiac and pulse oximetry monitoring. NIBP monitoring applied. 11:45 Tete Menendez, RN is Primary Nurse. ll1 12:00 Flu Sent. jl7 12:00 COVID-19 SARS RT PCR (Document "Date of Onset" if Symptomatic) Sent. jl7 12:00 Initial lab(s) drawn, by me, sent to lab. Inserted refused IV. jl7 12:24 Chest Single View XRAY In Process Unspecified. EDMS 13:28 CT Stone Protocol In Process Unspecified. EDMS 14:43 No provider procedures requiring assistance completed. Patient did not have IV access ll1 during this emergency room visit. Administered Medications: 12:08 Drug: Shiloh (HYDROcodone-acetaminophen) (7.5 mg-325 mg) 1 tabs {Note: RASS 0, PAIN ll1 10/10.} Route: PO; 12:43 Follow up: Response: No adverse reaction; RASS: Alert and Calm (0) ll1 13:45 Drug: Albuterol 2.5 mg Route: Inhalation; ll1 14:03 Follow up: Response: No adverse reaction ll1 13:45 Drug: AtroVENT (ipratropium) Aerosol 0.5 mg Route: Inhalation; ll1 14:03 Follow up: Response: No adverse reaction ll1 Medication: 11:41 VIS not applicable for this client. ll1 Outcome: 13:54 Discharge ordered by . phuc 14:43 Patient left the ED. ll1 14:43 Discharged to home via wheelchair. ll1 14:43 Condition: stable 14:43 Discharge instructions given to patient, Instructed on discharge instructions, follow up and referral plans. Demonstrated understanding of instructions, follow-up care. Signatures: Dispatcher [employer] EDMS Jessica Louis, MEDICAL GENETICS DIRECTOR-C ECTOR-Priscilla Olsen RN RN jl7 Tete Menendez, RN RN ll1 Corrections: (The following items were deleted from the chart) 14:54 14:53 GI: Abdomen is flat, ll1 ll1
--- NOTE | 2022-01-05 13:55 | EDPHYS ---
Physician Documentation [facility] Name: Cecile Conley Age: 81 yrs Sex: Female : 1940 Arrival Date: 01/05/2022 Time: 11:35 Bed 14 Private MD: ED Physician Leander Cochran HPI: 01/05 12:00 This 81 yrs old Female presents to ER via EMS with complaints of Nausea/Vomiting, Cough.kb 12:00 The patient or guardian reports cough, that is intermittent, described as moderate. kb Onset: The symptoms/episode began/occurred yesterday. Severity of symptoms: At their worst the symptoms were moderate, in the emergency department the symptoms are unchanged. Modifying factors: The symptoms are alleviated by nothing, the symptoms are aggravated by nothing. Associated signs and symptoms: Pertinent positives: nausea, vomiting, Pertinent negatives: chest pain, diarrhea, ear ache, fever, rhinorrhea, sore throat. The patient has not experienced similar symptoms in the past. The patient has not recently seen a physician. Pt reports cough, bodyaches, nausea and vomiting mucus since yesterday. Historical: - Allergies: 11:36 Aspirin; ll1 11:36 Sulfa (Sulfonamide Antibiotics); ll1 11:36 "All blood thinners"; ll1 - PMHx: 11:36 breast cancer; Cancer; COPD; Hypertension; TB; Anxiety; ll1 - PSHx: 11:36 1/2 of Left kidney removed; Lobe of Lung removed (unsure which lung); Right Kidney ll1 Removed; - Immunization history:: Client reports having NOT received the Covid vaccine. - Social history:: Smoking status: Patient reports the use of cigarette tobacco products, smokes one-half pack cigarettes per day. ROS: 11:58 Cardiovascular: Negative for chest pain, palpitations, and edema. kb 11:58 Constitutional: Positive for body aches, malaise. 11:58 Respiratory: Positive for cough, Negative for dyspnea on exertion, hemoptysis, orthopnea, pleurisy, shortness of breath, sputum production, wheezing. 11:58 Abdomen/GI: Positive for abdominal pain, nausea and vomiting, Negative for diarrhea. 11:58 Neuro: Positive for headache. 11:58 All other systems are negative. Exam: 11:59 Constitutional: This is a well developed, well nourished patient who is awake, alert, kb and in no acute distress. Head/Face: Normocephalic, atraumatic. ENT: Moist Mucous membranes Cardiovascular: Regular rate and rhythm with a normal S1 and S2. No gallops, murmurs, or rubs. No pulse deficits. Skin: Warm, dry with normal turgor. Normal color. MS/ Extremity: Pulses equal, no cyanosis. Neurovascular intact. Full, normal range of motion. Neuro: Awake and alert, GCS 15, oriented to person, place, time, and situation. Moves all extremities. Normal gait. Psych: Awake, alert, with orientation to person, place and time. Behavior, mood, and affect are within normal limits. 11:59 Respiratory: the patient does not display signs of respiratory distress, Respirations: normal, Breath sounds: wheezing: expiratory that is mild, is heard diffusely. 11:59 Abdomen/GI: Inspection: abdomen appears normal, Bowel sounds: normal, in all quadrants, Palpation: soft, in all quadrants, mild abdominal tenderness, in all quadrants. Vital Signs: 11:37 BP 140 / 71; Pulse 78; Resp 18; Temp 98.9(O); Pulse Ox 96% on R/A; Weight 68.04 kg; ll1 Height 5 ft. 4 in. (162.56 cm); Pain 10/10; 12:08 BP 142 / 78; Pulse 77; ll1 11:37 Body Mass Index 25.75 (68.04 kg, 162.56 cm) ll1 MDM: 11:36 Patient medically screened. kb 11:58 Data reviewed: vital signs, nurses notes. Data interpreted: Pulse oximetry: on room air kb is 96 %. Interpretation: normal. 13:54 Counseling: I had a detailed discussion with the patient and/or guardian regarding: the kb historical points, exam findings, and any diagnostic results supporting the discharge/admit diagnosis, lab results, radiology results, the need for outpatient follow up, a family practitioner, to return to the emergency department if symptoms worsen or persist or if there are any questions or concerns that arise at home. 01/05 11:42 Order name: CBC with Diff; Complete Time: 12:17 kb 01/05 11:42 Order name: CMP; Complete Time: 12:36 kb 01/05 11:42 Order name: Lipase; Complete Time: 12:36 kb 01/05 11:42 Order name: Urine Microscopic Only; Complete Time: 13:09 kb 01/05 11:42 Order name: COVID-19 SARS RT PCR (Document "Date of Onset" if Symptomatic); Complete kb Time: 12:36 01/05 11:42 Order name: Flu; Complete Time: 12:44 kb 01/05 11:42 Order name: IV Saline Lock; Complete Time: 11:46 kb 01/05 11:42 Order name: Labs collected and sent; Complete Time: 11:46 kb 01/05 11:42 Order name: Chest Single View XRAY; Complete Time: 12:36 kb 01/05 12:51 Order name: Urine Dipstick-Ancillary; Complete Time: 12:55 EDMS 01/05 13:09 Order name: CT Stone Protocol; Complete Time: 13:43 kb 01/05 11:42 Order name: Urine Dipstick-Ancillary (obtain specimen); Complete Time: 12:49 kb Administered Medications: 12:08 Drug: Fenton (HYDROcodone-acetaminophen) (7.5 mg-325 mg) 1 tabs {Note: RASS 0, PAIN ll1 1010.} Route: PO; 12:43 Follow up: Response: No adverse reaction; RASS: Alert and Calm (0) ll1 13:45 Drug: Albuterol 2.5 mg Route: Inhalation; ll1 14:03 Follow up: Response: No adverse reaction ll1 13:45 Drug: AtroVENT (ipratropium) Aerosol 0.5 mg Route: Inhalation; ll1 14:03 Follow up: Response: No adverse reaction ll1 Disposition: 17:42 Co-signature as Attending Physician, eLander Cochran MD. rn Disposition Summary: 01/05/22 13:54 Discharge Ordered Location: Home kb Condition: Stable kb Diagnosis - Acute upper respiratory infection, unspecified kb Followup: kb - With: Emergency Department - When: As needed - Reason: Worsening of condition Followup: kb - With: Private Physician - When: 2 - 3 days - Reason: Recheck today's complaints, Continuance of care, Re-evaluation by your physician Discharge Instructions: - Discharge Summary Sheet kb - Upper Respiratory Infection, Adult, [id number] kb - Viral Respiratory Infection, [id number] kb Forms: - Medication Reconciliation Form kb - Thank You Letter kb - Antibiotic Education kb - Prescription Opioid Use kb Signatures: Dispatcher [employer] Jessica Gomez, AUTOMOTIVE LUBE TECHNICIAN-C AUTOMOTIVE LUBE TECHNICIAN-Ckb Leander Cochran MD MD rn Tete Menendez RN RN ll1
[2022-01-05 15:21] VITALS: TEMP 98.9; O2SAT 96
[2022-01-05 15:22] VITALS: BP 142/78
== END 2022-01-05 14:43 | disposition home or self-care (01) ==
LOC: ER 11:27
DX: J06.9 Acute upper respiratory infection, unspecified (principal); I10 Essential (primary) hypertension; F17.210 Nicotine dependence, cigarettes, uncomplicated; Z20.822 Contact with and (suspected) exposure to COVID-19; Z88.2 Allergy status to sulfonamides; Z88.6 Allergy status to analgesic agent; Z88.8 Allergy status to other drugs, medicaments and biological substances
CPT/HCPCS: 85025; 36415; 83690; 80053; 87804 ×2; 76377; 74176; 71045; 99284; U0003; 81003; 81015

== ENCOUNTER 2023-03-19 12:12 | Inpatient (IN) | payer OTHER ==
--- OUTSIDE RECORDS SUMMARY | 2023-03-19 12:22 | XMS REPORT | Continuity of Care Document ---
Author Name Unknown Address [address] [facility] [address] [place] [address] [facility] thconnect Address [address] [facility] [address] [place] [address] Care Team Providers Care Water Service Supervisor Name Role Phone WES PERRIN Primary Care Physician Unavailab Wes Kim Attending Clinician Unavailable MOODY GUERRERO Attending Clinician Unavailable Moody Guerrero PA-C Attending Clinician MOODY GUERRERO Admitting Clinician Unavailable Payers Payer Name Policy Type Policy Number Effective Date Expirati on Date Source [facility] [id number] 2021 00:00:00 [place] [id number] 2020 00:00:00 [facility] Problems Condition Name Condition Details Condition Category Status Onset Date Resolution Date Last Treatment Date Treating Clinician Comments Source Peripheral vascular disease PAD (periphera l artery disease) Problem [facility] Tobacco user Tobacco use disorder Problem [facility] [id number] Overactive bladder Problem [facility] [id number] Severe anxiety with panic Problem [facility] [id number] Major depression , recurrent, chronic Problem [facility] Blood chemistry abnormal Creatinine elevation Problem [facility] Migraine Migraine Problem [facility] Basophilia Basophilia Problem [facility] Chronic obstructiv e pulmonary disease Chronic obstructiv e pulmonary disease, unspecifie d Problem [facility] Dependence on supplement al oxygen Dependence on supplement al oxygen Problem [facility] Chronic kidney disease stage 3A (disorder) Stage 3a chronic kidney disease Problem [facility] Counseling about tobacco use Tobacco abuse counseling Problem [facility] Memory problem Memory problem Problem [facility] Rib pain Rib pain Problem [facility] Pure hyperchole sterolemia Hyperchole steremia Problem [facility] Mixed anxiety and depressive disorder Depression with anxiety Problem [facility] Chronic pain syndrome Chronic pain syndrome Problem [facility] [id number] Bilateral carotid artery disease, unspecifie d type Problem [facility] [id number] History of breast cancer Problem [facility] [id number] History of lung cancer Problem [facility] [id number] +5th digit eff 11/30/19*CK D (chronic kidney disease) stage 3, GFR 30-59 ml/min Problem [facility] [id number] Malignant neoplasm of left kidney Problem [facility] [id number] Mixed stress and urge urinary incontinen ce Problem [facility] [id number] Opioid dependence in controlled environmen t Problem [facility] Pain in left foot Left foot pain Problem [facility] Essential hypertensi on Benign essential HTN Problem [facility] Allergic rhinitis Allergic rhinitis Problem [facility] [id number] Benzodiaze pine dependence , continuous Problem [facility] [id number] COPD with exacerbati on Problem [facility] 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 Hypertensi ve chronic kidney disease Problem [facility] Anxiety disorder Anxiety disorder Problem [facility] Acute coronary artery occlusion not resulting in myocardial infarction Blockage of coronary artery of heart Problem [facility] [id number] Lower thoracic back pain Problem [facility] [id number] Pain in pelvis Problem [facility] Panic disorder Panic disorder [episodic paroxysmal anxiety] Problem [facility] Allergies, Adverse Reactions, Alerts Allergy Name Allergy Type Status Severity Reaction(s) Onset Date Inactive Date Treating Clinician Comments Source [id number] Drug allergy Active Unknown [facility] NO KNOWN ALLERGIE S Drug Class Active [facility] Social History Social Habit Start Date Stop Date Quantity Comments Source History of Tobacco Use Current Smoker [facility] Sex Assigned At [birth year]00 [facility] Smoking Status Start Date Stop Date Source Tobacco smoking consumption unknown [facility] Current Smoker 2023-02-17 00:00:00 [facility] Medications Ordered Medication Name Filled Medication Name Start Date Stop Date Current Medication? Ordering Clinician Indication Dosage Frequency Signature (SIG) Comments Components Source ALPRAZolam 1 MG ALPRAZolam 1 MG 2023-0 03-12 00:00: 00 No 1{table t} ALPRAZolam 1 MG ALPRAZolam 1 MG ALPRAZolam 1 MG 2023-0 03-12 00:00: 00 No 1{table t} ALPRAZolam 1 MG ALPRAZolam 1 MG ALPRAZolam 1 MG 4-0 03-12 00:00: 00 No 1{table t} ALPRAZolam 1 MG ALPRAZolam 1 MG ALPRAZolam 1 MG 3-0 11-19 00:00: 00 No 1{table t} ALPRAZolam 1 MG ALPRAZolam 1 MG ALPRAZolam 1 MG 3-0 11-19 00:00: 00 No 1{table t} ALPRAZolam 1 MG ALPRAZolam 1 MG ALPRAZolam 1 MG 3-0 11-19 00:00: 00 No 1{table t} ALPRAZolam 1 MG ALPRAZolam 1 MG ALPRAZolam 1 MG 3-0 9-21 00:00: 00 No 1{table t} ALPRAZolam 1 MG ALPRAZolam 1 MG ALPRAZolam 1 MG 3-0 9-21 00:00: 00 No 1{table t} ALPRAZolam 1 MG ALPRAZolam 1 MG ALPRAZolam 1 MG 2023-0 9-21 00:00: 00 No 1{table t} ALPRAZolam 1 MG ALPRAZolam 1 MG ALPRAZolam 1 MG 3-0 9-21 00:00: 00 No 1{table t} ALPRAZolam 1 MG ALPRAZolam 1 MG ALPRAZolam 1 MG 3-0 6-22 00:00: 00 No 1{table t} ALPRAZolam 1 MG ALPRAZolam 1 MG ALPRAZolam 1 MG 2-1 2- 00:00: 00 No 1{table t} ALPRAZolam 1 MG ALPRAZolam 1 MG ALPRAZolam 1 MG 2-1 2- 00:00: 00 No 1{table t} ALPRAZolam 1 MG ALPRAZolam 1 MG ALPRAZolam 1 MG 2-0 - 00:00: 00 No 1{table t} ALPRAZolam 1 MG ALPRAZolam 1 MG ALPRAZolam 1 MG 2-0 - 00:00: 00 No 1{table t} ALPRAZolam 1 MG ALPRAZolam 1 MG ALPRAZolam 1 MG 2-0 - 00:00: 00 No 1{table t} ALPRAZolam 1 MG ALPRAZolam 1 MG ALPRAZolam 1 MG 2-0 - 00:00: 00 No 1{table t} ALPRAZolam 1 MG ALPRAZolam 1 MG ALPRAZolam 1 MG 2-0 9-21 00:00: 00 No 1{table t} ALPRAZolam 1 MG ALPRAZolam 1 MG ALPRAZolam 1 MG 2-0 - 00:00: 00 No 1{table t} ALPRAZolam 1 MG ALPRAZolam 1 MG ALPRAZolam 1 MG 2-0 9-21 00:00: 00 No 1{table t} ALPRAZolam 1 MG ALPRAZolam 1 MG ALPRAZolam 1 MG 2022-0 9-21 00:00: 00 No 1{table t} ALPRAZolam 1 MG ALPRAZolam 1 MG ALPRAZolam 1 MG 2022-0 8-25 00:00: 00 No 1{table t} ALPRAZolam 1 MG ALPRAZolam 1 MG ALPRAZolam 1 MG 2022-0 8-25 00:00: 00 No 1{table t} ALPRAZolam 1 MG ALPRAZolam 1 MG ALPRAZolam 1 MG 2022-0 7-28 00:00: 00 No 1{table t} ALPRAZolam 1 MG ALPRAZolam 1 MG ALPRAZolam 1 MG 2022-0 7-28 00:00: 00 No 1{table t} ALPRAZolam 1 MG ALPRAZolam 1 MG ALPRAZolam 1 MG 2022-0 7-28 00:00: 00 No 1{table t} ALPRAZolam 1 MG ALPRAZolam 1 MG ALPRAZolam 1 MG 2-0 7-28 00:00: 00 No 1{table t} ALPRAZolam 1 MG ALPRAZolam 1 MG ALPRAZolam 1 MG 2022-0 2-28 00:00: 00 No 1{table t} ALPRAZolam 1 MG ALPRAZolam 1 MG ALPRAZolam 1 MG 2022-0 2-28 00:00: 00 No 1{table t} ALPRAZolam 1 MG ALPRAZolam 1 MG ALPRAZolam 1 MG 2022-0 2-28 00:00: 00 No 1{table t} ALPRAZolam 1 MG ALPRAZolam 1 MG ALPRAZolam 1 MG 2022-0 2-28 00:00: 00 No 1{table t} ALPRAZolam 1 MG ALPRAZolam 1 MG ALPRAZolam 1 MG 2022-0 2-28 00:00: 00 No 1{table t} ALPRAZolam 1 MG ALPRAZolam 1 MG ALPRAZolam 1 MG 2022-0 2-28 00:00: 00 No 1{table t} ALPRAZolam 1 MG ALPRAZolam 1 MG ALPRAZolam 1 MG 2022-0 2-28 00:00: 00 No 1{table t} ALPRAZolam 1 MG ALPRAZolam 1 MG ALPRAZolam 1 MG 2022-0 2- 00:00: 00 No 1{table t} ALPRAZolam 1 MG ALPRAZolam 1 MG ALPRAZolam 1 MG 2-0 2- 00:00: 00 No 1{table t} ALPRAZolam 1 MG ALPRAZolam 1 MG ALPRAZolam 1 MG 2-0 2- 00:00: 00 No 1{table t} ALPRAZolam 1 MG ALPRAZolam 1 MG ALPRAZolam 1 MG 2020-1 1-30 00:00: 00 No 1{table t} ALPRAZolam 1 MG ALPRAZolam 1 MG ALPRAZolam 1 MG 2020-1 03-30 00:00: 00 No 1{table t} ALPRAZolam 1 MG ALPRAZolam 1 MG ALPRAZolam 1 MG 2020-1 03-30 00:00: 00 No 1{table t} ALPRAZolam 1 MG ALPRAZolam 1 MG ALPRAZolam 1 MG 2020-1 1 00:00: 00 No 1{table t} ALPRAZolam 1 MG ALPRAZolam 1 MG ALPRAZolam 1 MG 2020-1 03-30 00:00: 00 No 1{table t} ALPRAZolam 1 MG ALPRAZolam 1 MG 2020-1 03-30 00:00: 00 No 1{table t} ALPRAZolam 1 MG ALPRAZolam 1 MG 2020-03-30 00:00: 00 No 1{table t} ALPRAZolam 1 MG ALPRAZolam 1 MG 2020-1 130 00:00: 00 No 1{table t} ALPRAZolam 1 MG ALPRAZolam 1 MG ALPRAZolam 1 MG 2020-0 8 00:00: 00 No 1{table t} ALPRAZolam 1 MG Zofran 4 MG Zofran 4 MG 1-0 2- 00:00: 00 No 1{table t} TID Zofran 4 MG Zofran 4 MG Zofran 4 MG 1-0 2-10 00:00: 00 No 1{table t} TID Zofran 4 MG Zofran 4 MG Zofran 4 MG 1-0 2-10 00:00: 00 No 1{table t} TID Zofran 4 MG Zofran 4 MG Zofran 4 MG 2021-0 2-10 00:00: 00 No 1{table t} TID Zofran 4 MG Zofran 4 MG Zofran 4 MG 2021-0 2-10 00:00: 00 No 1{table t} TID Zofran 4 MG Zofran 4 MG Zofran 4 MG 2021-0 2-10 00:00: 00 No 1{table t} TID Zofran 4 MG Zofran 4 MG Zofran 4 MG 2021-0 2-10 00:00: 00 No 1{table t} TID Zofran 4 MG Zofran 4 MG Zofran 4 MG 2021-0 2-10 00:00: 00 No 1{table t} TID Zofran 4 MG Zofran 4 MG Zofran 4 MG 2021-0 2-10 00:00: 00 No 1{table t} TID Zofran 4 MG Zofran 4 MG Zofran 4 MG 2021-0 2-10 00:00: 00 No 1{table t} TID Zofran 4 MG Zofran 4 MG Zofran 4 MG 2021-0 2-10 00:00: 00 No 1{table t} TID Zofran 4 MG Zofran 4 MG Zofran 4 MG 2021-0 2-10 00:00: 00 No 1{table t} TID Zofran 4 MG Zofran 4 MG 2021-0 2-10 00:00: 00 No 1{table t} TID Zofran 4 MG Zofran 4 MG 2021-0 2-10 00:00: 00 No 1{table t} TID Zofran 4 MG Zofran 4 MG 2021-0 2-10 00:00: 00 No 1{table t} TID Zofran 4 MG Zofran 4 MG Zofran 4 MG 2021-0 2-10 00:00: 00 No 1{table t} TID Zofran 4 MG Zofran 4 MG Zofran 4 MG 2021-0 2-10 00:00: 00 No 1{table t} TID Zofran 4 MG Zofran 4 MG Zofran 4 MG 2021-0 2-10 00:00: 00 No 1{table t} TID Zofran 4 MG Zofran 4 MG Zofran 4 MG 2021-0 2-10 00:00: 00 No 1{table t} TID Zofran 4 MG Zofran 4 MG Zofran 4 MG 2021-0 2-10 00:00: 00 No 1{table t} TID Zofran 4 MG Zofran 4 MG Zofran 4 MG 1-0 2-10 00:00: 00 No 1{table t} TID Zofran 4 MG Zofran 4 MG Zofran 4 MG 2021-0 2-10 00:00: 00 No 1{table t} TID Zofran 4 MG Zofran 4 MG Zofran 4 MG 2021-0 2-10 00:00: 00 No 1{table t} TID Zofran 4 MG Zofran 4 MG Zofran 4 MG 1-0 2-10 00:00: 00 No 1{table t} TID Zofran 4 MG Zofran 4 MG Zofran 4 MG 1-0 2-10 00:00: 00 No 1{table t} TID Zofran 4 MG Zofran 4 MG Zofran 4 MG 1-0 2-10 00:00: 00 No 1{table t} TID Zofran 4 MG Zofran 4 MG Zofran 4 MG 1-0 2-10 00:00: 00 No 1{table t} TID Zofran 4 MG Zofran 4 MG Zofran 4 MG 1-0 2-10 00:00: 00 No 1{table t} TID Zofran 4 MG Zofran 4 MG Zofran 4 MG 2021-0 2-10 00:00: 00 No 1{table t} TID Zofran 4 MG Zofran 4 MG Zofran 4 MG 1-0 2-10 00:00: 00 No 1{table t} TID Zofran 4 MG Zofran 4 MG Zofran 4 MG 2021-0 2-10 00:00: 00 No 1{table t} TID Zofran 4 MG Brovana 15 MCG/2ML Brovana 15 MCG/2ML No 2{ml} BID Brovana 15 MCG/2ML CoQ10 CoQ10 No CoQ10 Albuterol Sulfate HFA 108 (90 Base) MCG/ACT Albuterol Sulfate HFA 108 (90 Base) MCG/ACT No 2{puffs _as_nee ded} QID Albuterol Sulfate HFA 108 (90 Base) MCG/ACT Neurontin 100 MG Neurontin 100 MG No 1{capsu le} QD Neurontin 100 MG Vitamin D3 Vitamin D3 No Vitamin D3 Singulair 10 MG Singulair 10 MG No 1{table t_in_th e_eveni ng} QD Singulair 10 MG Pataday 0.2 % Pataday 0.2 % No QD Pataday 0.2 % amLODIPine Besylate 5 MG amLODIPine Besylate 5 MG No 1{table t} QD amLODIPine Besylate 5 MG Pravastatin Sodium 20 MG Pravastatin Sodium 20 MG No Pravastati n Sodium 20 MG Tumersaid Tumersaid No Tumersaid Ventolin HFA 108 (90 Base) MCG/ACT Ventolin HFA 108 (90 Base) MCG/ACT No Ventolin HFA 108 (90 Base) MCG/ACT Neurontin 100 MG Neurontin 100 MG No Neurontin 100 MG Pravastatin Sodium 20 MG Pravastatin Sodium 20 MG No 1{table t} QD Pravastati n Sodium 20 MG amLODIPine Besylate 5 MG amLODIPine Besylate 5 MG No amLODIPine Besylate 5 MG Escitalopra m Oxalate 5 MG Escitalopra m Oxalate 5 MG No 1{table t} QD Escitalopr am Oxalate 5 MG Escitalopra m Oxalate 5 MG Escitalopra m Oxalate 5 MG No 1{table t} QD Escitalopr am Oxalate 5 MG Vitamin B-1 100 MG Vitamin B-1 100 MG No 1{table t} QD Vitamin B-1 100 MG Proventil HFA 108 (90 Base) MCG/ACT Proventil HFA 108 (90 Base) MCG/ACT No Proventil HFA 108 (90 Base) MCG/ACT HYDROcodone -Acetaminop hen 7.5-325 MG HYDROcodone -Acetaminop hen 7.5-325 MG No 1{table t_as_ne eded} BID HYDROcodon e-Acetamin ophen 7.5-325 MG Tamsulosin HCl 0.4 MG Tamsulosin HCl 0.4 MG No 1{capsu le} QD Tamsulosin HCl 0.4 MG Gabapentin 100 MG Gabapentin 100 MG No 1{capsu le_at_b edtime} QD Gabapentin 100 MG Vitamin B12 Vitamin B12 No Vi tamin B12 Bevespi Aerosphere 9-4.8 MCG/ACT Bevespi Aerosphere 9-4.8 MCG/ACT No 2{puffs } BID Bevespi Aerosphere 9-4.8 MCG/ACT Fluticasone Propionate 50 MCG/ACT Fluticasone Propionate 50 MCG/ACT No 1{spray _in_eac h_nostr il} QD Fluticason e Propionate 50 MCG/ACT Brovana 15 MCG/2ML Brovana 15 MCG/2ML No 2{ml} BID Brovana 15 MCG/2ML CoQ10 CoQ10 No CoQ10 Albuterol Sulfate HFA 108 (90 Base) MCG/ACT Albuterol Sulfate HFA 108 (90 Base) MCG/ACT No 2{puffs _as_nee ded} QID Albuterol Sulfate HFA 108 (90 Base) MCG/ACT Neurontin 100 MG Neurontin 100 MG No 1{capsu le} QD Neurontin 100 MG Vitamin D3 Vitamin D3 No Vitamin D3 Singulair 10 MG Singulair 10 MG No 1{table t_in_th e_eveni ng} QD Singulair 10 MG Pataday 0.2 % Pataday 0.2 % No QD Pataday 0.2 % amLODIPine Besylate 5 MG amLODIPine Besylate 5 MG No 1{table t} QD amLODIPine Besylate 5 MG Fluticasone Propionate 50 MCG/ACT Fluticasone Propionate 50 MCG/ACT No 1{spray _in_eac h_nostr il} QD Fluticason e Propionate 50 MCG/ACT Escitalopra m Oxalate 5 MG Escitalopra m Oxalate 5 MG No Escitalopr am Oxalate 5 MG Tamsulosin HCl 0.4 MG Tamsulosin HCl 0.4 MG No 1{capsu le} QD Tamsulosin HCl 0.4 MG Tumersaid Tumersaid No Tumersaid Gabapentin 100 MG Gabapentin 100 MG No 1{capsu le_at_b edtime} QD Gabapentin 100 MG Vitamin B12 Vitamin B12 No Vi tamin B12 Albuterol Sulfate HFA 108 (90 Base) MCG/ACT Albuterol Sulfate HFA 108 (90 Base) MCG/ACT No 2{puffs _as_nee ded} QID Albuterol Sulfate HFA 108 (90 Base) MCG/ACT Singulair 10 MG Singulair 10 MG No 1{table t_in_th e_eveni ng} QD Singulair 10 MG Brovana 15 MCG/2ML Brovana 15 MCG/2ML No 2{ml} BID Brovana 15 MCG/2ML Pataday 0.2 % Pataday 0.2 % No QD Pataday 0.2 % Vitamin D3 Vitamin D3 No Vitamin D3 amLODIPine Besylate 5 MG amLODIPine Besylate 5 MG No amLODIPine Besylate 5 MG HYDROcodone -Acetaminop hen 7.5-325 MG HYDROcodone -Acetaminop hen 7.5-325 MG No 1{table t_as_ne eded} BID HYDROcodon e-Acetamin ophen 7.5-325 MG Neurontin 100 MG Neurontin 100 MG No 1{capsu le} QD Neurontin 100 MG Bevespi Aerosphere 9-4.8 MCG/ACT Bevespi Aerosphere 9-4.8 MCG/ACT No 2{puffs } BID Bevespi Aerosphere 9-4.8 MCG/ACT Pravastatin Sodium 20 MG Pravastatin Sodium 20 MG No Pravastati n Sodium 20 MG CoQ10 CoQ10 No CoQ10 Proventil HFA 108 (90 Base) MCG/ACT Proventil HFA 108 (90 Base) MCG/ACT No Proventil HFA 108 (90 Base) MCG/ACT Ventolin HFA 108 (90 Base) MCG/ACT Ventolin HFA 108 (90 Base) MCG/ACT No Ventolin HFA 108 (90 Base) MCG/ACT Neurontin 100 MG Neurontin 100 MG No Neurontin 100 MG Pravastatin Sodium 20 MG Pravastatin Sodium 20 MG No 1{table t} QD Pravastati n Sodium 20 MG Vitamin B-1 100 MG Vitamin B-1 100 MG No 1{table t} QD Vitamin B-1 100 MG Gabapentin 100 MG Gabapentin 100 MG No 1{capsu le_at_b edtime} QD Gabapentin 100 MG Fluticasone Propionate 50 MCG/ACT Fluticasone Propionate 50 MCG/ACT No 1{spray _in_eac h_nostr il} QD Fluticason e Propionate 50 MCG/ACT Albuterol Sulfate HFA 108 (90 Base) MCG/ACT Albuterol Sulfate HFA 108 (90 Base) MCG/ACT No Albuterol Sulfate HFA 108 (90 Base) MCG/ACT Ventolin HFA 108 (90 Base) MCG/ACT Ventolin HFA 108 (90 Base) MCG/ACT No Ventolin HFA 108 (90 Base) MCG/ACT Vitamin B12 Vitamin B12 No Vi tamin B12 Brovana 15 MCG/2ML Brovana 15 MCG/2ML No 2{ml} BID Brovana 15 MCG/2ML Singulair 10 MG Singulair 10 MG No 1{table t_in_th e_eveni ng} QD Singulair 10 MG Pravastatin Sodium 20 MG Pravastatin Sodium 20 MG No Pravastati n Sodium 20 MG Pataday 0.2 % Pataday 0.2 % No QD Pataday 0.2 % Vitamin D3 Vitamin D3 No Vitamin D3 amLODIPine Besylate 5 MG amLODIPine Besylate 5 MG No amLODIPine Besylate 5 MG HYDROcodone -Acetaminop hen 7.5-325 MG HYDROcodone -Acetaminop hen 7.5-325 MG No 1{table t_as_ne eded} BID HYDROcodon e-Acetamin ophen 7.5-325 MG Neurontin 100 MG Neurontin 100 MG No 1{capsu le} QD Neurontin 100 MG Vitamin B-1 100 MG Vitamin B-1 100 MG No 1{table t} QD Vitamin B-1 100 MG Tumersaid Tumersaid No Tumersaid CoQ10 CoQ10 No CoQ10 Bevespi Aerosphere 9-4.8 MCG/ACT Bevespi Aerosphere 9-4.8 MCG/ACT No 2{puffs } BID Bevespi Aerosphere 9-4.8 MCG/ACT Neurontin 100 MG Neurontin 100 MG No Neurontin 100 MG Escitalopra m Oxalate 5 MG Escitalopra m Oxalate 5 MG No Escitalopr am Oxalate 5 MG Pravastatin Sodium 20 MG Pravastatin Sodium 20 MG No 1{table t} QD Pravastati n Sodium 20 MG Tamsulosin HCl 0.4 MG Tamsulosin HCl 0.4 MG No 1{capsu le} QD Tamsulosin HCl 0.4 MG Gabapentin 100 MG Gabapentin 100 MG No 1{capsu le_at_b edtime} QD Fluticasone Propionate 50 MCG/ACT Fluticasone Propionate 50 MCG/ACT No 1{spray _in_eac h_nostr il} QD Albuterol Sulfate HFA 108 (90 Base) MCG/ACT Albuterol Sulfate HFA 108 (90 Base) MCG/ACT No Ventolin HFA 108 (90 Base) MCG/ACT Ventolin HFA 108 (90 Base) MCG/ACT No Vitamin B12 Vitamin B12 No Brovana 15 MCG/2ML Brovana 15 MCG/2ML No 2{ml} BID Singulair 10 MG Singulair 10 MG No 1{table t_in_ e_eveni ng} QD Pravastatin Sodium 20 MG Pravastatin Sodium 20 MG No Pataday 0.2 % Pataday 0.2 % No QD Vitamin D3 Vitamin D3 No amLODIPine Besylate 5 MG amLODIPine Besylate 5 MG No HYDROcodone -Acetaminop hen 7.5-325 MG HYDROcodone -Acetaminop hen 7.5-325 MG No 1{table t_as_ne eded} BID Neurontin 100 MG Neurontin 100 MG No 1{capsu le} QD Vitamin B-1 100 MG Vitamin B-1 100 MG No 1{table t} QD Tumersaid Tumersaid No CoQ10 CoQ10 No Bevespi Aerosphere 9-4.8 MCG/ACT Bevespi Aerosphere 9-4.8 MCG/ACT No 2{puffs } BID Neurontin 100 MG Neurontin 100 MG No Escitalopra m Oxalate 5 MG Escitalopra m Oxalate 5 MG No Pravastatin Sodium 20 MG Pravastatin Sodium 20 MG No 1{table t} QD Tamsulosin HCl 0.4 MG Tamsulosin HCl 0.4 MG No 1{capsu le} QD Fluticasone Propionate 50 MCG/ACT Fluticasone Propionate 50 MCG/ACT No 1{spray _in_eac h_nostr il} QD Vitamin D3 Vitamin D3 No Neurontin 100 MG Neurontin 100 MG No Albuterol Sulfate HFA 108 (90 Base) MCG/ACT Albuterol Sulfate HFA 108 (90 Base) MCG/ACT No Vitamin B-1 100 MG Vitamin B-1 100 MG No 1{table t} QD Vitamin B12 Vitamin B12 No Gabapentin 100 MG Gabapentin 100 MG No 1{capsu le_at_b edtime} QD Pravastatin Sodium 20 MG Pravastatin Sodium 20 MG No Escitalopra m Oxalate 5 MG Escitalopra m Oxalate 5 MG No Ventolin HFA 108 (90 Base) MCG/ACT Ventolin HFA 108 (90 Base) MCG/ACT No CoQ10 CoQ10 No Bevespi Aerosphere 9-4.8 MCG/ACT Bevespi Aerosphere 9-4.8 MCG/ACT No 2{puffs } BID Singulair 10 MG Singulair 10 MG No 1{table t_in e_eveni ng} QD Tumersaid Tumersaid No amLODIPine Besylate 5 MG amLODIPine Besylate 5 MG No Pataday 0.2 % Pataday 0.2 % No QD HYDROcodone -Acetaminop hen 7.5-325 MG HYDROcodone -Acetaminop hen 7.5-325 MG No 1{table t_as_ne eded} BID Brovana 15 MCG/2ML Brovana 15 MCG/2ML No 2{ml} BID Tamsulosin HCl 0.4 MG Tamsulosin HCl 0.4 MG No 1{capsu le} QD Pravastatin Sodium 20 MG Pravastatin Sodium 20 MG No 1{table t} QD Benzonatate 200 MG Benzonatate 200 MG No Neurontin 100 MG Neurontin 100 MG No 1{capsu le} QD Fluticasone Propionate 50 MCG/ACT Fluticasone Propionate 50 MCG/ACT No 1{spray _in_eac h_nostr il} QD Vitamin D3 Vitamin D3 No Neurontin 100 MG Neurontin 100 MG No Albuterol Sulfate HFA 108 (90 Base) MCG/ACT Albuterol Sulfate HFA 108 (90 Base) MCG/ACT No Vitamin B-1 100 MG Vitamin B-1 100 MG No 1{table t} QD Vitamin B12 Vitamin B12 No Gabapentin 100 MG Gabapentin 100 MG No 1{capsu le_at_b edtime} QD Pravastatin Sodium 20 MG Pravastatin Sodium 20 MG No Escitalopra m Oxalate 5 MG Escitalopra m Oxalate 5 MG No Ventolin HFA 108 (90 Base) MCG/ACT Ventolin HFA 108 (90 Base) MCG/ACT No CoQ10 CoQ10 No Bevespi Aerosphere 9-4.8 MCG/ACT Bevespi Aerosphere 9-4.8 MCG/ACT No 2{puffs } BID Singulair 10 MG Singulair 10 MG No 1{table t_in e_eveni ng} QD Tumersaid Tumersaid No amLODIPine Besylate 5 MG amLODIPine Besylate 5 MG No Pataday 0.2 % Pataday 0.2 % No QD HYDROcodone -Acetaminop hen 7.5-325 MG HYDROcodone -Acetaminop hen 7.5-325 MG No 1{table t_as_ne eded} BID Brovana 15 MCG/2ML Brovana 15 MCG/2ML No 2{ml} BID Tamsulosin HCl 0.4 MG Tamsulosin HCl 0.4 MG No 1{capsu le} QD Pravastatin Sodium 20 MG Pravastatin Sodium 20 MG No 1{table t} QD Benzonatate 200 MG Benzonatate 200 MG No Neurontin 100 MG Neurontin 100 MG No 1{capsu le} QD Fluticasone Propionate 50 MCG/ACT Fluticasone Propionate 50 MCG/ACT No 1{spray _in_eac h_nostr il} QD Fluticason e Propionate 50 MCG/ACT Gabapentin 100 MG Gabapentin 100 MG No Gabapentin 100 MG Neurontin 100 MG Neurontin 100 MG No Neurontin 100 MG Vitamin D3 Vitamin D3 No Vitamin D3 Pravastatin Sodium 20 MG Pravastatin Sodium 20 MG No Pravastati n Sodium 20 MG Vitamin B12 Vitamin B12 No Vi tamin B12 Vitamin B-1 100 MG Vitamin B-1 100 MG No 1{table t} QD Vitamin B-1 100 MG Brovana 15 MCG/2ML Brovana 15 MCG/2ML No 2{ml} BID Brovana 15 MCG/2ML Escitalopra m Oxalate 5 MG Escitalopra m Oxalate 5 MG No Escitalopr am Oxalate 5 MG Ventolin HFA 108 (90 Base) MCG/ACT Ventolin HFA 108 (90 Base) MCG/ACT No Ventolin HFA 108 (90 Base) MCG/ACT CoQ10 CoQ10 No CoQ10 Bevespi Aerosphere 9-4.8 MCG/ACT Bevespi Aerosphere 9-4.8 MCG/ACT No 2{puffs } BID Bevespi Aerosphere 9-4.8 MCG/ACT Singulair 10 MG Singulair 10 MG No 1{table t_in_th e_eveni ng} QD Singulair 10 MG Tumersaid Tumersaid No Tumersaid Tamsulosin HCl 0.4 MG Tamsulosin HCl 0.4 MG No 1{capsu le} QD Tamsulosin HCl 0.4 MG Pataday 0.2 % Pataday 0.2 % No QD Pataday 0.2 % HYDROcodone -Acetaminop hen 7.5-325 MG HYDROcodone -Acetaminop hen 7.5-325 MG No 1{table t_as_ne eded} BID HYDROcodon e-Acetamin ophen 7.5-325 MG amLODIPine Besylate 5 MG amLODIPine Besylate 5 MG No amLODIPine Besylate 5 MG Albuterol Sulfate HFA 108 (90 Base) MCG/ACT Albuterol Sulfate HFA 108 (90 Base) MCG/ACT No Albuterol Sulfate HFA 108 (90 Base) MCG/ACT Pravastatin Sodium 20 MG Pravastatin Sodium 20 MG No 1{table t} QD Pravastati n Sodium 20 MG Benzonatate 200 MG Benzonatate 200 MG No Benzonatat e 200 MG Neurontin 100 MG Neurontin 100 MG No 1{capsu le} QD Neurontin 100 MG Singulair 10 MG Singulair 10 MG No 1{table t_in_th e_eveni ng} QD Singulair 10 MG Ventolin HFA 108 (90 Base) MCG/ACT Ventolin HFA 108 (90 Base) MCG/ACT No Ventolin HFA 108 (90 Base) MCG/ACT Pataday 0.2 % Pataday 0.2 % No QD Pataday 0.2 % Tamsulosin HCl 0.4 MG Tamsulosin HCl 0.4 MG No 1{capsu le} QD Tamsulosin HCl 0.4 MG Vitamin D3 Vitamin D3 No Vitamin D3 Neurontin 100 MG Neurontin 100 MG No Neurontin 100 MG Bevespi Aerosphere 9-4.8 MCG/ACT Bevespi Aerosphere 9-4.8 MCG/ACT No 2{puffs } BID Bevespi Aerosphere 9-4.8 MCG/ACT Vitamin B12 Vitamin B12 No Vi tamin B12 Pravastatin Sodium 20 MG Pravastatin Sodium 20 MG No Pravastati n Sodium 20 MG Albuterol Sulfate HFA 108 (90 Base) MCG/ACT Albuterol Sulfate HFA 108 (90 Base) MCG/ACT No Albuterol Sulfate HFA 108 (90 Base) MCG/ACT amLODIPine Besylate 5 MG amLODIPine Besylate 5 MG No amLODIPine Besylate 5 MG Benzonatate 200 MG Benzonatate 200 MG No Benzonatat e 200 MG Tumersaid Tumersaid No Tumersaid Escitalopra m Oxalate 5 MG Escitalopra m Oxalate 5 MG No Escitalopr am Oxalate 5 MG Pravastatin Sodium 20 MG Pravastatin Sodium 20 MG No 1{table t} QD Pravastati n Sodium 20 MG CoQ10 CoQ10 No CoQ10 Brovana 15 MCG/2ML Brovana 15 MCG/2ML No 2{ml} BID Brovana 15 MCG/2ML Gabapentin 100 MG Gabapentin 100 MG No Gabapentin 100 MG Escitalopra m Oxalate 5 MG Escitalopra m Oxalate 5 MG No 1{table t} QD Escitalopr am Oxalate 5 MG Vitamin B-1 100 MG Vitamin B-1 100 MG No 1{table t} QD Vitamin B-1 100 MG Fluticasone Propionate 50 MCG/ACT Fluticasone Propionate 50 MCG/ACT No 1{spray _in_eac h_nostr il} QD Fluticason e Propionate 50 MCG/ACT amLODIPine Besylate 5 MG amLODIPine Besylate 5 MG No 1{table t} QD amLODIPine Besylate 5 MG Neurontin 100 MG Neurontin 100 MG No 1{capsu le} QD Neurontin 100 MG Proventil HFA 108 (90 Base) MCG/ACT Proventil HFA 108 (90 Base) MCG/ACT No Proventil HFA 108 (90 Base) MCG/ACT HYDROcodone -Acetaminop hen 7.5-325 MG HYDROcodone -Acetaminop hen 7.5-325 MG No 1{table t_as_ne eded} BID HYDROcodon e-Acetamin ophen 7.5-325 MG Singulair 10 MG Singulair 10 MG No 1{table t_in_th e_eveni ng} QD Singulair 10 MG Ventolin HFA 108 (90 Base) MCG/ACT Ventolin HFA 108 (90 Base) MCG/ACT No Ventolin HFA 108 (90 Base) MCG/ACT Pataday 0.2 % Pataday 0.2 % No QD Pataday 0.2 % Tamsulosin HCl 0.4 MG Tamsulosin HCl 0.4 MG No 1{capsu le} QD Tamsulosin HCl 0.4 MG Vitamin D3 Vitamin D3 No Vitamin D3 Neurontin 100 MG Neurontin 100 MG No Neurontin 100 MG Bevespi Aerosphere 9-4.8 MCG/ACT Bevespi Aerosphere 9-4.8 MCG/ACT No 2{puffs } BID Bevespi Aerosphere 9-4.8 MCG/ACT Vitamin B12 Vitamin B12 No Vi tamin B12 Pravastatin Sodium 20 MG Pravastatin Sodium 20 MG No Pravastati n Sodium 20 MG Albuterol Sulfate HFA 108 (90 Base) MCG/ACT Albuterol Sulfate HFA 108 (90 Base) MCG/ACT No Albuterol Sulfate HFA 108 (90 Base) MCG/ACT amLODIPine Besylate 5 MG amLODIPine Besylate 5 MG No amLODIPine Besylate 5 MG Benzonatate 200 MG Benzonatate 200 MG No Benzonatat e 200 MG Tumersaid Tumersaid No Tumersaid Escitalopra m Oxalate 5 MG Escitalopra m Oxalate 5 MG No Escitalopr am Oxalate 5 MG Pravastatin Sodium 20 MG Pravastatin Sodium 20 MG No 1{table t} QD Pravastati n Sodium 20 MG CoQ10 CoQ10 No CoQ10 Brovana 15 MCG/2ML Brovana 15 MCG/2ML No 2{ml} BID Brovana 15 MCG/2ML Gabapentin 100 MG Gabapentin 100 MG No Gabapentin 100 MG Escitalopra m Oxalate 5 MG Escitalopra m Oxalate 5 MG No 1{table t} QD Escitalopr am Oxalate 5 MG Vitamin B-1 100 MG Vitamin B-1 100 MG No 1{table t} QD Vitamin B-1 100 MG Fluticasone Propionate 50 MCG/ACT Fluticasone Propionate 50 MCG/ACT No 1{spray _in_eac h_nostr il} QD Fluticason e Propionate 50 MCG/ACT amLODIPine Besylate 5 MG amLODIPine Besylate 5 MG No 1{table t} QD amLODIPine Besylate 5 MG Neurontin 100 MG Neurontin 100 MG No 1{capsu le} QD Neurontin 100 MG Proventil HFA 108 (90 Base) MCG/ACT Proventil HFA 108 (90 Base) MCG/ACT No Proventil HFA 108 (90 Base) MCG/ACT HYDROcodone -Acetaminop hen 7.5-325 MG HYDROcodone -Acetaminop hen 7.5-325 MG No 1{table t_as_ne eded} BID HYDROcodon e-Acetamin ophen 7.5-325 MG Vitamin B-1 100 MG Vitamin B-1 100 MG No 1{table t} QD Vitamin B-1 100 MG Proventil HFA 108 (90 Base) MCG/ACT Proventil HFA 108 (90 Base) MCG/ACT No Proventil HFA 108 (90 Base) MCG/ACT Fluticasone Propionate 50 MCG/ACT Fluticasone Propionate 50 MCG/ACT No 1{spray _in_eac h_nostr il} QD Fluticason e Propionate 50 MCG/ACT Bevespi Aerosphere 9-4.8 MCG/ACT Bevespi Aerosphere 9-4.8 MCG/ACT No 2{puffs } BID Bevespi Aerosphere 9-4.8 MCG/ACT Neurontin 100 MG Neurontin 100 MG No 1{capsu le} QD Neurontin 100 MG Benzonatate 200 MG Benzonatate 200 MG No Benzonatat e 200 MG HYDROcodone -Acetaminop hen 7.5-325 MG HYDROcodone -Acetaminop hen 7.5-325 MG No 1{table t_as_ne eded} BID HYDROcodon e-Acetamin ophen 7.5-325 MG Gabapentin 100 MG Gabapentin 100 MG No Gabapentin 100 MG Vitamin B12 Vitamin B12 No Vi tamin B12 Vitamin D3 Vitamin D3 No Vitamin D3 Brovana 15 MCG/2ML Brovana 15 MCG/2ML No 2{ml} BID Brovana 15 MCG/2ML Escitalopra m Oxalate 5 MG Escitalopra m Oxalate 5 MG No Escitalopr am Oxalate 5 MG Pataday 0.2 % Pataday 0.2 % No QD Pataday 0.2 % Ventolin HFA 108 (90 Base) MCG/ACT Ventolin HFA 108 (90 Base) MCG/ACT No Ventolin HFA 108 (90 Base) MCG/ACT CoQ10 CoQ10 No CoQ10 Singulair 10 MG Singulair 10 MG No 1{table t_in_th e_eveni ng} QD Singulair 10 MG Pravastatin Sodium 20 MG Pravastatin Sodium 20 MG No Pravastati n Sodium 20 MG Tamsulosin HCl 0.4 MG Tamsulosin HCl 0.4 MG No 1{capsu le} QD Tamsulosin HCl 0.4 MG amLODIPine Besylate 5 MG amLODIPine Besylate 5 MG No 1{table t} QD amLODIPine Besylate 5 MG Albuterol Sulfate HFA 108 (90 Base) MCG/ACT Albuterol Sulfate HFA 108 (90 Base) MCG/ACT No Albuterol Sulfate HFA 108 (90 Base) MCG/ACT amLODIPine Besylate 5 MG amLODIPine Besylate 5 MG No amLODIPine Besylate 5 MG Pravastatin Sodium 20 MG Pravastatin Sodium 20 MG No 1{table t} QD Pravastati n Sodium 20 MG Neurontin 100 MG Neurontin 100 MG No Neurontin 100 MG Tumersaid Tumersaid No Tumersaid Vitamin B-1 100 MG Vitamin B-1 100 MG No 1{table t} QD Vitamin B-1 100 MG Proventil HFA 108 (90 Base) MCG/ACT Proventil HFA 108 (90 Base) MCG/ACT No Proventil HFA 108 (90 Base) MCG/ACT Fluticasone Propionate 50 MCG/ACT Fluticasone Propionate 50 MCG/ACT No 1{spray _in_eac h_nostr il} QD Fluticason e Propionate 50 MCG/ACT Bevespi Aerosphere 9-4.8 MCG/ACT Bevespi Aerosphere 9-4.8 MCG/ACT No 2{puffs } BID Bevespi Aerosphere 9-4.8 MCG/ACT Neurontin 100 MG Neurontin 100 MG No 1{capsu le} QD Neurontin 100 MG Benzonatate 200 MG Benzonatate 200 MG No Benzonatat e 200 MG HYDROcodone -Acetaminop hen 7.5-325 MG HYDROcodone -Acetaminop hen 7.5-325 MG No 1{table t_as_ne eded} BID HYDROcodon e-Acetamin ophen 7.5-325 MG Gabapentin 100 MG Gabapentin 100 MG No Gabapentin 100 MG Vitamin B12 Vitamin B12 No Vi tamin B12 Vitamin D3 Vitamin D3 No Vitamin D3 Brovana 15 MCG/2ML Brovana 15 MCG/2ML No 2{ml} BID Brovana 15 MCG/2ML Escitalopra m Oxalate 5 MG Escitalopra m Oxalate 5 MG No Escitalopr am Oxalate 5 MG Pataday 0.2 % Pataday 0.2 % No QD Pataday 0.2 % Ventolin HFA 108 (90 Base) MCG/ACT Ventolin HFA 108 (90 Base) MCG/ACT No Ventolin HFA 108 (90 Base) MCG/ACT CoQ10 CoQ10 No CoQ10 Singulair 10 MG Singulair 10 MG No 1{table t_in_th e_eveni ng} QD Singulair 10 MG Pravastatin Sodium 20 MG Pravastatin Sodium 20 MG No Pravastati n Sodium 20 MG Tamsulosin HCl 0.4 MG Tamsulosin HCl 0.4 MG No 1{capsu le} QD Tamsulosin HCl 0.4 MG amLODIPine Besylate 5 MG amLODIPine Besylate 5 MG No 1{table t} QD amLODIPine Besylate 5 MG Albuterol Sulfate HFA 108 (90 Base) MCG/ACT Albuterol Sulfate HFA 108 (90 Base) MCG/ACT No Albuterol Sulfate HFA 108 (90 Base) MCG/ACT amLODIPine Besylate 5 MG amLODIPine Besylate 5 MG No amLODIPine Besylate 5 MG Pravastatin Sodium 20 MG Pravastatin Sodium 20 MG No 1{table t} QD Pravastati n Sodium 20 MG Neurontin 100 MG Neurontin 100 MG No Neurontin 100 MG Tumersaid Tumersaid No Tumersaid Vitamin B-1 100 MG Vitamin B-1 100 MG No 1{table t} QD Vitamin B-1 100 MG Proventil HFA 108 (90 Base) MCG/ACT Proventil HFA 108 (90 Base) MCG/ACT No Proventil HFA 108 (90 Base) MCG/ACT Fluticasone Propionate 50 MCG/ACT Fluticasone Propionate 50 MCG/ACT No 1{spray _in_eac h_nostr il} QD Fluticason e Propionate 50 MCG/ACT Bevespi Aerosphere 9-4.8 MCG/ACT Bevespi Aerosphere 9-4.8 MCG/ACT No 2{puffs } BID Bevespi Aerosphere 9-4.8 MCG/ACT Neurontin 100 MG Neurontin 100 MG No 1{capsu le} QD Neurontin 100 MG Benzonatate 200 MG Benzonatate 200 MG No Benzonatat e 200 MG HYDROcodone -Acetaminop hen 7.5-325 MG HYDROcodone -Acetaminop hen 7.5-325 MG No 1{table t_as_ne eded} BID HYDROcodon e-Acetamin ophen 7.5-325 MG Gabapentin 100 MG Gabapentin 100 MG No Gabapentin 100 MG Vitamin B12 Vitamin B12 No Vi tamin B12 Vitamin D3 Vitamin D3 No Vitamin D3 Brovana 15 MCG/2ML Brovana 15 MCG/2ML No 2{ml} BID Brovana 15 MCG/2ML Escitalopra m Oxalate 5 MG Escitalopra m Oxalate 5 MG No Escitalopr am Oxalate 5 MG Pataday 0.2 % Pataday 0.2 % No QD Pataday 0.2 % Ventolin HFA 108 (90 Base) MCG/ACT Ventolin HFA 108 (90 Base) MCG/ACT No Ventolin HFA 108 (90 Base) MCG/ACT CoQ10 CoQ10 No CoQ10 Singulair 10 MG Singulair 10 MG No 1{table t_in_th e_eveni ng} QD Singulair 10 MG Pravastatin Sodium 20 MG Pravastatin Sodium 20 MG No Pravastati n Sodium 20 MG Tamsulosin HCl 0.4 MG Tamsulosin HCl 0.4 MG No 1{capsu le} QD Tamsulosin HCl 0.4 MG amLODIPine Besylate 5 MG amLODIPine Besylate 5 MG No 1{table t} QD amLODIPine Besylate 5 MG Albuterol Sulfate HFA 108 (90 Base) MCG/ACT Albuterol Sulfate HFA 108 (90 Base) MCG/ACT No Albuterol Sulfate HFA 108 (90 Base) MCG/ACT amLODIPine Besylate 5 MG amLODIPine Besylate 5 MG No amLODIPine Besylate 5 MG Pravastatin Sodium 20 MG Pravastatin Sodium 20 MG No 1{table t} QD Pravastati n Sodium 20 MG Neurontin 100 MG Neurontin 100 MG No Neurontin 100 MG Tumersaid Tumersaid No Tumersaid Vitamin B-1 100 MG Vitamin B-1 100 MG No 1{table t} QD Vitamin B-1 100 MG Proventil HFA 108 (90 Base) MCG/ACT Proventil HFA 108 (90 Base) MCG/ACT No Proventil HFA 108 (90 Base) MCG/ACT Fluticasone Propionate 50 MCG/ACT Fluticasone Propionate 50 MCG/ACT No 1{spray _in_eac h_nostr il} QD Fluticason e Propionate 50 MCG/ACT Bevespi Aerosphere 9-4.8 MCG/ACT Bevespi Aerosphere 9-4.8 MCG/ACT No 2{puffs } BID Bevespi Aerosphere 9-4.8 MCG/ACT Neurontin 100 MG Neurontin 100 MG No 1{capsu le} QD Neurontin 100 MG Benzonatate 200 MG Benzonatate 200 MG No Benzonatat e 200 MG HYDROcodone -Acetaminop hen 7.5-325 MG HYDROcodone -Acetaminop hen 7.5-325 MG No 1{table t_as_ne eded} BID HYDROcodon e-Acetamin ophen 7.5-325 MG Gabapentin 100 MG Gabapentin 100 MG No Gabapentin 100 MG Vitamin B12 Vitamin B12 No Vi tamin B12 Vitamin D3 Vitamin D3 No Vitamin D3 Brovana 15 MCG/2ML Brovana 15 MCG/2ML No 2{ml} BID Brovana 15 MCG/2ML Escitalopra m Oxalate 5 MG Escitalopra m Oxalate 5 MG No Escitalopr am Oxalate 5 MG Pataday 0.2 % Pataday 0.2 % No QD Pataday 0.2 % Ventolin HFA 108 (90 Base) MCG/ACT Ventolin HFA 108 (90 Base) MCG/ACT No Ventolin HFA 108 (90 Base) MCG/ACT CoQ10 CoQ10 No CoQ10 Singulair 10 MG Singulair 10 MG No 1{table t_in_ e_eveni ng} QD Singulair 10 MG Pravastatin Sodium 20 MG Pravastatin Sodium 20 MG No Pravastati n Sodium 20 MG Tamsulosin HCl 0.4 MG Tamsulosin HCl 0.4 MG No 1{capsu le} QD Tamsulosin HCl 0.4 MG amLODIPine Besylate 5 MG amLODIPine Besylate 5 MG No 1{table t} QD amLODIPine Besylate 5 MG Albuterol Sulfate HFA 108 (90 Base) MCG/ACT Albuterol Sulfate HFA 108 (90 Base) MCG/ACT No Albuterol Sulfate HFA 108 (90 Base) MCG/ACT amLODIPine Besylate 5 MG amLODIPine Besylate 5 MG No amLODIPine Besylate 5 MG Pravastatin Sodium 20 MG Pravastatin Sodium 20 MG No 1{table t} QD Pravastati n Sodium 20 MG Neurontin 100 MG Neurontin 100 MG No Neurontin 100 MG Tumersaid Tumersaid No Tumersaid Vitamin B-1 100 MG Vitamin B-1 100 MG No 1{table t} QD Vitamin B-1 100 MG Proventil HFA 108 (90 Base) MCG/ACT Proventil HFA 108 (90 Base) MCG/ACT No Proventil HFA 108 (90 Base) MCG/ACT Fluticasone Propionate 50 MCG/ACT Fluticasone Propionate 50 MCG/ACT No 1{spray _in_eac h_nostr il} QD Fluticason e Propionate 50 MCG/ACT Bevespi Aerosphere 9-4.8 MCG/ACT Bevespi Aerosphere 9-4.8 MCG/ACT No 2{puffs } BID Bevespi Aerosphere 9-4.8 MCG/ACT Neurontin 100 MG Neurontin 100 MG No 1{capsu le} QD Neurontin 100 MG Benzonatate 200 MG Benzonatate 200 MG No Benzonatat e 200 MG HYDROcodone -Acetaminop hen 7.5-325 MG HYDROcodone -Acetaminop hen 7.5-325 MG No 1{table t_as_ne eded} BID HYDROcodon e-Acetamin ophen 7.5-325 MG Gabapentin 100 MG Gabapentin 100 MG No Gabapentin 100 MG Vitamin B12 Vitamin B12 No Vi tamin B12 Vitamin D3 Vitamin D3 No Vitamin D3 Brovana 15 MCG/2ML Brovana 15 MCG/2ML No 2{ml} BID Brovana 15 MCG/2ML Escitalopra m Oxalate 5 MG Escitalopra m Oxalate 5 MG No Escitalopr am Oxalate 5 MG Pataday 0.2 % Pataday 0.2 % No QD Pataday 0.2 % Ventolin HFA 108 (90 Base) MCG/ACT Ventolin HFA 108 (90 Base) MCG/ACT No Ventolin HFA 108 (90 Base) MCG/ACT CoQ10 CoQ10 No CoQ10 Singulair 10 MG Singulair 10 MG No 1{table t_in_th e_eveni ng} QD Singulair 10 MG Pravastatin Sodium 20 MG Pravastatin Sodium 20 MG No Pravastati n Sodium 20 MG Tamsulosin HCl 0.4 MG Tamsulosin HCl 0.4 MG No 1{capsu le} QD Tamsulosin HCl 0.4 MG amLODIPine Besylate 5 MG amLODIPine Besylate 5 MG No 1{table t} QD amLODIPine Besylate 5 MG Albuterol Sulfate HFA 108 (90 Base) MCG/ACT Albuterol Sulfate HFA 108 (90 Base) MCG/ACT No Albuterol Sulfate HFA 108 (90 Base) MCG/ACT amLODIPine Besylate 5 MG amLODIPine Besylate 5 MG No amLODIPine Besylate 5 MG Pravastatin Sodium 20 MG Pravastatin Sodium 20 MG No 1{table t} QD Pravastati n Sodium 20 MG Neurontin 100 MG Neurontin 100 MG No Neurontin 100 MG Tumersaid Tumersaid No Tumersaid Vitamin B-1 100 MG Vitamin B-1 100 MG No 1{table t} QD Vitamin B-1 100 MG Proventil HFA 108 (90 Base) MCG/ACT Proventil HFA 108 (90 Base) MCG/ACT No Proventil HFA 108 (90 Base) MCG/ACT Fluticasone Propionate 50 MCG/ACT Fluticasone Propionate 50 MCG/ACT No 1{spray _in_eac h_nostr il} QD Fluticason e Propionate 50 MCG/ACT Bevespi Aerosphere 9-4.8 MCG/ACT Bevespi Aerosphere 9-4.8 MCG/ACT No 2{puffs } BID Bevespi Aerosphere 9-4.8 MCG/ACT Neurontin 100 MG Neurontin 100 MG No 1{capsu le} QD Neurontin 100 MG Benzonatate 200 MG Benzonatate 200 MG No Benzonatat e 200 MG HYDROcodone -Acetaminop hen 7.5-325 MG HYDROcodone -Acetaminop hen 7.5-325 MG No 1{table t_as_ne eded} BID HYDROcodon e-Acetamin ophen 7.5-325 MG Gabapentin 100 MG Gabapentin 100 MG No Gabapentin 100 MG CoQ10 CoQ10 No CoQ10 Vitamin B12 Vitamin B12 No Vi tamin B12 Tamsulosin HCl 0.4 MG Tamsulosin HCl 0.4 MG No 1{capsu le} QD Tamsulosin HCl 0.4 MG Albuterol Sulfate HFA 108 (90 Base) MCG/ACT Albuterol Sulfate HFA 108 (90 Base) MCG/ACT No Albuterol Sulfate HFA 108 (90 Base) MCG/ACT Pataday 0.2 % Pataday 0.2 % No QD Pataday 0.2 % Escitalopra m Oxalate 5 MG Escitalopra m Oxalate 5 MG No Escitalopr am Oxalate 5 MG Singulair 10 MG Singulair 10 MG No 1{table t_in_th e_eveni ng} QD Singulair 10 MG Pravastatin Sodium 20 MG Pravastatin Sodium 20 MG No Pravastati n Sodium 20 MG Ventolin HFA 108 (90 Base) MCG/ACT Ventolin HFA 108 (90 Base) MCG/ACT No Ventolin HFA 108 (90 Base) MCG/ACT amLODIPine Besylate 5 MG amLODIPine Besylate 5 MG No 1{table t} QD amLODIPine Besylate 5 MG Vitamin D3 Vitamin D3 No Vitamin D3 Brovana 15 MCG/2ML Brovana 15 MCG/2ML No 2{ml} BID Brovana 15 MCG/2ML amLODIPine Besylate 5 MG amLODIPine Besylate 5 MG No amLODIPine Besylate 5 MG Pravastatin Sodium 20 MG Pravastatin Sodium 20 MG No 1{table t} QD Pravastati n Sodium 20 MG Neurontin 100 MG Neurontin 100 MG No Neurontin 100 MG Tumersaid Tumersaid No Tumersaid Pataday 0.2 % Pataday 0.2 % No QD Pataday 0.2 % Fluticasone Propionate 50 MCG/ACT Fluticasone Propionate 50 MCG/ACT No 1{spray _in_eac h_nostr il} QD Fluticason e Propionate 50 MCG/ACT Escitalopra m Oxalate 5 MG Escitalopra m Oxalate 5 MG No Escitalopr am Oxalate 5 MG Bevespi Aerosphere 9-4.8 MCG/ACT Bevespi Aerosphere 9-4.8 MCG/ACT No 2{puffs } BID Bevespi Aerosphere 9-4.8 MCG/ACT Gabapentin 100 MG Gabapentin 100 MG No Gabapentin 100 MG Vitamin B-1 100 MG Vitamin B-1 100 MG No 1{table t} QD Vitamin B-1 100 MG Benzonatate 200 MG Benzonatate 200 MG No Benzonatat e 200 MG amLODIPine Besylate 5 MG amLODIPine Besylate 5 MG No 1{table t} QD amLODIPine Besylate 5 MG amLODIPine Besylate 5 MG amLODIPine Besylate 5 MG No amLODIPine Besylate 5 MG Tamsulosin HCl 0.4 MG Tamsulosin HCl 0.4 MG No 1{capsu le} QD Tamsulosin HCl 0.4 MG Neurontin 100 MG Neurontin 100 MG No 1{capsu le} QD Neurontin 100 MG CoQ10 CoQ10 No CoQ10 Pravastatin Sodium 20 MG Pravastatin Sodium 20 MG No 1{table t} QD Pravastati n Sodium 20 MG Singulair 10 MG Singulair 10 MG No 1{table t_in_th e_eveni ng} QD Singulair 10 MG Ventolin HFA 108 (90 Base) MCG/ACT Ventolin HFA 108 (90 Base) MCG/ACT No Ventolin HFA 108 (90 Base) MCG/ACT Proventil HFA 108 (90 Base) MCG/ACT Proventil HFA 108 (90 Base) MCG/ACT No Proventil HFA 108 (90 Base) MCG/ACT Albuterol Sulfate HFA 108 (90 Base) MCG/ACT Albuterol Sulfate HFA 108 (90 Base) MCG/ACT No Albuterol Sulfate HFA 108 (90 Base) MCG/ACT HYDROcodone -Acetaminop hen 7.5-325 MG HYDROcodone -Acetaminop hen 7.5-325 MG No 1{table t_as_ne eded} BID HYDROcodon e-Acetamin ophen 7.5-325 MG Vitamin D3 Vitamin D3 No Vitamin D3 Spironolact one 25 MG Spironolact one 25 MG No 1{table t} Spironolac tone 25 MG Pravastatin Sodium 20 MG Pravastatin Sodium 20 MG No Pravastati n Sodium 20 MG Tumersaid Tumersaid No Tumersaid Vitamin B12 Vitamin B12 No Vi tamin B12 Neurontin 100 MG Neurontin 100 MG No Neurontin 100 MG Brovana 15 MCG/2ML Brovana 15 MCG/2ML No 2{ml} BID Brovana 15 MCG/2ML Fluticasone Propionate 50 MCG/ACT Fluticasone Propionate 50 MCG/ACT No 1{spray _in_eac h_nostr il} QD Fluticason e Propionate 50 MCG/ACT Escitalopra m Oxalate 5 MG Escitalopra m Oxalate 5 MG No Escitalopr am Oxalate 5 MG HYDROcodone -Acetaminop hen 7.5-325 MG HYDROcodone -Acetaminop hen 7.5-325 MG No 1{table t_as_ne eded} BID HYDROcodon e-Acetamin ophen 7.5-325 MG Vitamin B-1 100 MG Vitamin B-1 100 MG No 1{table t} QD Vitamin B-1 100 MG Gabapentin 100 MG Gabapentin 100 MG No Gabapentin 100 MG Pataday 0.2 % Pataday 0.2 % No QD Pataday 0.2 % Benzonatate 200 MG Benzonatate 200 MG No Benzonatat e 200 MG Bevespi Aerosphere 9-4.8 MCG/ACT Bevespi Aerosphere 9-4.8 MCG/ACT No 2{puffs } BID Bevespi Aerosphere 9-4.8 MCG/ACT amLODIPine Besylate 5 MG amLODIPine Besylate 5 MG No amLODIPine Besylate 5 MG Tamsulosin HCl 0.4 MG Tamsulosin HCl 0.4 MG No 1{capsu le} QD Tamsulosin HCl 0.4 MG Neurontin 100 MG Neurontin 100 MG No 1{capsu le} QD Neurontin 100 MG CoQ10 CoQ10 No CoQ10 Pravastatin Sodium 20 MG Pravastatin Sodium 20 MG No 1{table t} QD Pravastati n Sodium 20 MG Albuterol Sulfate HFA 108 (90 Base) MCG/ACT Albuterol Sulfate HFA 108 (90 Base) MCG/ACT No Albuterol Sulfate HFA 108 (90 Base) MCG/ACT Ventolin HFA 108 (90 Base) MCG/ACT Ventolin HFA 108 (90 Base) MCG/ACT No Ventolin HFA 108 (90 Base) MCG/ACT Proventil HFA 108 (90 Base) MCG/ACT Proventil HFA 108 (90 Base) MCG/ACT No Proventil HFA 108 (90 Base) MCG/ACT amLODIPine Besylate 5 MG amLODIPine Besylate 5 MG No 1{table t} QD amLODIPine Besylate 5 MG Singulair 10 MG Singulair 10 MG No 1{table t_in_th e_eveni ng} QD Singulair 10 MG Vitamin D3 Vitamin D3 No Vitamin D3 Spironolact one 25 MG Spironolact one 25 MG No 1{table t} Spironolac tone 25 MG Pravastatin Sodium 20 MG Pravastatin Sodium 20 MG No Pravastati n Sodium 20 MG Tumersaid Tumersaid No Tumersaid Vitamin B12 Vitamin B12 No Vi tamin B12 Neurontin 100 MG Neurontin 100 MG No Neurontin 100 MG Brovana 15 MCG/2ML Brovana 15 MCG/2ML No 2{ml} BID Brovana 15 MCG/2ML Fluticasone Propionate 50 MCG/ACT Fluticasone Propionate 50 MCG/ACT No 1{spray _in_eac h_nostr il} QD Fluticason e Propionate 50 MCG/ACT Ventolin HFA 108 (90 Base) MCG/ACT Ventolin HFA 108 (90 Base) MCG/ACT No Ventolin HFA 108 (90 Base) MCG/ACT Escitalopra m Oxalate 5 MG Escitalopra m Oxalate 5 MG No Escitalopr am Oxalate 5 MG Pravastatin Sodium 20 MG Pravastatin Sodium 20 MG No Pravastati n Sodium 20 MG HYDROcodone -Acetaminop hen 7.5-325 MG HYDROcodone -Acetaminop hen 7.5-325 MG No 1{table t_as_ne eded} BID HYDROcodon e-Acetamin ophen 7.5-325 MG Vitamin B-1 100 MG Vitamin B-1 100 MG No 1{table t} QD Vitamin B-1 100 MG Brovana 15 MCG/2ML Brovana 15 MCG/2ML No 2{ml} BID Brovana 15 MCG/2ML amLODIPine Besylate 5 MG amLODIPine Besylate 5 MG No 1{table t} QD amLODIPine Besylate 5 MG Vitamin B12 Vitamin B12 No Vi tamin B12 Neurontin 100 MG Neurontin 100 MG No 1{capsu le} QD Neurontin 100 MG Proventil HFA 108 (90 Base) MCG/ACT Proventil HFA 108 (90 Base) MCG/ACT No Proventil HFA 108 (90 Base) MCG/ACT Gabapentin 100 MG Gabapentin 100 MG No Gabapentin 100 MG CoQ10 CoQ10 No CoQ10 Spironolact one 25 MG Spironolact one 25 MG No 1{table t} Spironolac tone 25 MG Benzonatate 200 MG Benzonatate 200 MG No Benzonatat e 200 MG Tumersaid Tumersaid No Tumersaid amLODIPine Besylate 5 MG amLODIPine Besylate 5 MG No amLODIPine Besylate 5 MG Neurontin 100 MG Neurontin 100 MG No Neurontin 100 MG Albuterol Sulfate HFA 108 (90 Base) MCG/ACT Albuterol Sulfate HFA 108 (90 Base) MCG/ACT No Albuterol Sulfate HFA 108 (90 Base) MCG/ACT Pataday 0.2 % Pataday 0.2 % No QD Pataday 0.2 % Tamsulosin HCl 0.4 MG Tamsulosin HCl 0.4 MG No 1{capsu le} QD Tamsulosin HCl 0.4 MG Bevespi Aerosphere 9-4.8 MCG/ACT Bevespi Aerosphere 9-4.8 MCG/ACT No 2{puffs } BID Bevespi Aerosphere 9-4.8 MCG/ACT Singulair 10 MG Singulair 10 MG No 1{table t_in_th e_eveni ng} QD Singulair 10 MG ALPRAZolam 1 MG ALPRAZolam 1 MG No 1{table t} ALPRAZolam 1 MG Vitamin D3 Vitamin D3 No Vitamin D3 Escitalopra m Oxalate 5 MG Escitalopra m Oxalate 5 MG No 1{table t} QD Escitalopr am Oxalate 5 MG Pravastatin Sodium 20 MG Pravastatin Sodium 20 MG No 1{table t} QD Pravastati n Sodium 20 MG Fluticasone Propionate 50 MCG/ACT Fluticasone Propionate 50 MCG/ACT No 1{spray _in_eac h_nostr il} QD Fluticason e Propionate 50 MCG/ACT Ventolin HFA 108 (90 Base) MCG/ACT Ventolin HFA 108 (90 Base) MCG/ACT No Ventolin HFA 108 (90 Base) MCG/ACT Escitalopra m Oxalate 5 MG Escitalopra m Oxalate 5 MG No Escitalopr am Oxalate 5 MG Pravastatin Sodium 20 MG Pravastatin Sodium 20 MG No Pravastati n Sodium 20 MG HYDROcodone -Acetaminop hen 7.5-325 MG HYDROcodone -Acetaminop hen 7.5-325 MG No 1{table t_as_ne eded} BID HYDROcodon e-Acetamin ophen 7.5-325 MG Vitamin B-1 100 MG Vitamin B-1 100 MG No 1{table t} QD Vitamin B-1 100 MG Brovana 15 MCG/2ML Brovana 15 MCG/2ML No 2{ml} BID Brovana 15 MCG/2ML amLODIPine Besylate 5 MG amLODIPine Besylate 5 MG No 1{table t} QD amLODIPine Besylate 5 MG Vitamin B12 Vitamin B12 No Vi tamin B12 Neurontin 100 MG Neurontin 100 MG No 1{capsu le} QD Neurontin 100 MG Proventil HFA 108 (90 Base) MCG/ACT Proventil HFA 108 (90 Base) MCG/ACT No Proventil HFA 108 (90 Base) MCG/ACT Gabapentin 100 MG Gabapentin 100 MG No Gabapentin 100 MG CoQ10 CoQ10 No CoQ10 Spironolact one 25 MG Spironolact one 25 MG No 1{table t} Spironolac tone 25 MG Benzonatate 200 MG Benzonatate 200 MG No Benzonatat e 200 MG Tumersaid Tumersaid No Tumersaid amLODIPine Besylate 5 MG amLODIPine Besylate 5 MG No amLODIPine Besylate 5 MG Neurontin 100 MG Neurontin 100 MG No Neurontin 100 MG Albuterol Sulfate HFA 108 (90 Base) MCG/ACT Albuterol Sulfate HFA 108 (90 Base) MCG/ACT No Albuterol Sulfate HFA 108 (90 Base) MCG/ACT Pataday 0.2 % Pataday 0.2 % No QD Pataday 0.2 % Tamsulosin HCl 0.4 MG Tamsulosin HCl 0.4 MG No 1{capsu le} QD Tamsulosin HCl 0.4 MG Bevespi Aerosphere 9-4.8 MCG/ACT Bevespi Aerosphere 9-4.8 MCG/ACT No 2{puffs } BID Bevespi Aerosphere 9-4.8 MCG/ACT Singulair 10 MG Singulair 10 MG No 1{table t_in_th e_eveni ng} QD Singulair 10 MG ALPRAZolam 1 MG ALPRAZolam 1 MG No 1{table t} ALPRAZolam 1 MG Vitamin D3 Vitamin D3 No Vitamin D3 Escitalopra m Oxalate 5 MG Escitalopra m Oxalate 5 MG No 1{table t} QD Escitalopr am Oxalate 5 MG Pravastatin Sodium 20 MG Pravastatin Sodium 20 MG No 1{table t} QD Pravastati n Sodium 20 MG Fluticasone Propionate 50 MCG/ACT Fluticasone Propionate 50 MCG/ACT No 1{spray _in_eac h_nostr il} QD Fluticason e Propionate 50 MCG/ACT Ventolin HFA 108 (90 Base) MCG/ACT Ventolin HFA 108 (90 Base) MCG/ACT No Ventolin HFA 108 (90 Base) MCG/ACT Escitalopra m Oxalate 5 MG Escitalopra m Oxalate 5 MG No Escitalopr am Oxalate 5 MG Pravastatin Sodium 20 MG Pravastatin Sodium 20 MG No Pravastati n Sodium 20 MG HYDROcodone -Acetaminop hen 7.5-325 MG HYDROcodone -Acetaminop hen 7.5-325 MG No 1{table t_as_ne eded} BID HYDROcodon e-Acetamin ophen 7.5-325 MG Vitamin B-1 100 MG Vitamin B-1 100 MG No 1{table t} QD Vitamin B-1 100 MG Brovana 15 MCG/2ML Brovana 15 MCG/2ML No 2{ml} BID Brovana 15 MCG/2ML amLODIPine Besylate 5 MG amLODIPine Besylate 5 MG No 1{table t} QD amLODIPine Besylate 5 MG Vitamin B12 Vitamin B12 No Vi tamin B12 Neurontin 100 MG Neurontin 100 MG No 1{capsu le} QD Neurontin 100 MG Proventil HFA 108 (90 Base) MCG/ACT Proventil HFA 108 (90 Base) MCG/ACT No Proventil HFA 108 (90 Base) MCG/ACT Gabapentin 100 MG Gabapentin 100 MG No Gabapentin 100 MG CoQ10 CoQ10 No CoQ10 Spironolact one 25 MG Spironolact one 25 MG No 1{table t} Spironolac tone 25 MG Benzonatate 200 MG Benzonatate 200 MG No Benzonatat e 200 MG Tumersaid Tumersaid No Tumersaid amLODIPine Besylate 5 MG amLODIPine Besylate 5 MG No amLODIPine Besylate 5 MG Neurontin 100 MG Neurontin 100 MG No Neurontin 100 MG Albuterol Sulfate HFA 108 (90 Base) MCG/ACT Albuterol Sulfate HFA 108 (90 Base) MCG/ACT No Albuterol Sulfate HFA 108 (90 Base) MCG/ACT Pataday 0.2 % Pataday 0.2 % No QD Pataday 0.2 % Tamsulosin HCl 0.4 MG Tamsulosin HCl 0.4 MG No 1{capsu le} QD Tamsulosin HCl 0.4 MG Bevespi Aerosphere 9-4.8 MCG/ACT Bevespi Aerosphere 9-4.8 MCG/ACT No 2{puffs } BID Bevespi Aerosphere 9-4.8 MCG/ACT Singulair 10 MG Singulair 10 MG No 1{table t_in_th e_eveni ng} QD Singulair 10 MG ALPRAZolam 1 MG ALPRAZolam 1 MG No 1{table t} ALPRAZolam 1 MG Vitamin D3 Vitamin D3 No Vitamin D3 Escitalopra m Oxalate 5 MG Escitalopra m Oxalate 5 MG No 1{table t} QD Escitalopr am Oxalate 5 MG Pravastatin Sodium 20 MG Pravastatin Sodium 20 MG No 1{table t} QD Pravastati n Sodium 20 MG Fluticasone Propionate 50 MCG/ACT Fluticasone Propionate 50 MCG/ACT No 1{spray _in_eac h_nostr il} QD Fluticason e Propionate 50 MCG/ACT Ventolin HFA 108 (90 Base) MCG/ACT Ventolin HFA 108 (90 Base) MCG/ACT No Ventolin HFA 108 (90 Base) MCG/ACT Escitalopra m Oxalate 5 MG Escitalopra m Oxalate 5 MG No Escitalopr am Oxalate 5 MG Pravastatin Sodium 20 MG Pravastatin Sodium 20 MG No Pravastati n Sodium 20 MG HYDROcodone -Acetaminop hen 7.5-325 MG HYDROcodone -Acetaminop hen 7.5-325 MG No 1{table t_as_ne eded} BID HYDROcodon e-Acetamin ophen 7.5-325 MG Vitamin B-1 100 MG Vitamin B-1 100 MG No 1{table t} QD Vitamin B-1 100 MG Brovana 15 MCG/2ML Brovana 15 MCG/2ML No 2{ml} BID Brovana 15 MCG/2ML amLODIPine Besylate 5 MG amLODIPine Besylate 5 MG No 1{table t} QD amLODIPine Besylate 5 MG Vitamin B12 Vitamin B12 No Vi tamin B12 Neurontin 100 MG Neurontin 100 MG No 1{capsu le} QD Neurontin 100 MG Proventil HFA 108 (90 Base) MCG/ACT Proventil HFA 108 (90 Base) MCG/ACT No Proventil HFA 108 (90 Base) MCG/ACT Gabapentin 100 MG Gabapentin 100 MG No Gabapentin 100 MG CoQ10 CoQ10 No CoQ10 Spironolact one 25 MG Spironolact one 25 MG No 1{table t} Spironolac tone 25 MG Benzonatate 200 MG Benzonatate 200 MG No Benzonatat e 200 MG Tumersaid Tumersaid No Tumersaid amLODIPine Besylate 5 MG amLODIPine Besylate 5 MG No amLODIPine Besylate 5 MG Neurontin 100 MG Neurontin 100 MG No Neurontin 100 MG Albuterol Sulfate HFA 108 (90 Base) MCG/ACT Albuterol Sulfate HFA 108 (90 Base) MCG/ACT No Albuterol Sulfate HFA 108 (90 Base) MCG/ACT Pataday 0.2 % Pataday 0.2 % No QD Pataday 0.2 % Tamsulosin HCl 0.4 MG Tamsulosin HCl 0.4 MG No 1{capsu le} QD Tamsulosin HCl 0.4 MG Bevespi Aerosphere 9-4.8 MCG/ACT Bevespi Aerosphere 9-4.8 MCG/ACT No 2{puffs } BID Bevespi Aerosphere 9-4.8 MCG/ACT Singulair 10 MG Singulair 10 MG No 1{table t_in_th e_eveni ng} QD Singulair 10 MG ALPRAZolam 1 MG ALPRAZolam 1 MG No 1{table t} ALPRAZolam 1 MG Vitamin D3 Vitamin D3 No Vitamin D3 Escitalopra m Oxalate 5 MG Escitalopra m Oxalate 5 MG No 1{table t} QD Escitalopr am Oxalate 5 MG Pravastatin Sodium 20 MG Pravastatin Sodium 20 MG No 1{table t} QD Pravastati n Sodium 20 MG Fluticasone Propionate 50 MCG/ACT Fluticasone Propionate 50 MCG/ACT No 1{spray _in_eac h_nostr il} QD Fluticason e Propionate 50 MCG/ACT Ventolin HFA 108 (90 Base) MCG/ACT Ventolin HFA 108 (90 Base) MCG/ACT No Ventolin HFA 108 (90 Base) MCG/ACT Escitalopra m Oxalate 5 MG Escitalopra m Oxalate 5 MG No Escitalopr am Oxalate 5 MG Pravastatin Sodium 20 MG Pravastatin Sodium 20 MG No Pravastati n Sodium 20 MG HYDROcodone -Acetaminop hen 7.5-325 MG HYDROcodone -Acetaminop hen 7.5-325 MG No 1{table t_as_ne eded} BID HYDROcodon e-Acetamin ophen 7.5-325 MG Vitamin B-1 100 MG Vitamin B-1 100 MG No 1{table t} QD Vitamin B-1 100 MG Brovana 15 MCG/2ML Brovana 15 MCG/2ML No 2{ml} BID Brovana 15 MCG/2ML amLODIPine Besylate 5 MG amLODIPine Besylate 5 MG No 1{table t} QD amLODIPine Besylate 5 MG Vitamin B12 Vitamin B12 No Vi tamin B12 Neurontin 100 MG Neurontin 100 MG No 1{capsu le} QD Neurontin 100 MG Proventil HFA 108 (90 Base) MCG/ACT Proventil HFA 108 (90 Base) MCG/ACT No Proventil HFA 108 (90 Base) MCG/ACT Gabapentin 100 MG Gabapentin 100 MG No Gabapentin 100 MG CoQ10 CoQ10 No CoQ10 Spironolact one 25 MG Spironolact one 25 MG No 1{table t} Spironolac tone 25 MG Benzonatate 200 MG Benzonatate 200 MG No Benzonatat e 200 MG Tumersaid Tumersaid No Tumersaid amLODIPine Besylate 5 MG amLODIPine Besylate 5 MG No amLODIPine Besylate 5 MG Neurontin 100 MG Neurontin 100 MG No Neurontin 100 MG Albuterol Sulfate HFA 108 (90 Base) MCG/ACT Albuterol Sulfate HFA 108 (90 Base) MCG/ACT No Albuterol Sulfate HFA 108 (90 Base) MCG/ACT Pataday 0.2 % Pataday 0.2 % No QD Pataday 0.2 % Tamsulosin HCl 0.4 MG Tamsulosin HCl 0.4 MG No 1{capsu le} QD Tamsulosin HCl 0.4 MG Bevespi Aerosphere 9-4.8 MCG/ACT Bevespi Aerosphere 9-4.8 MCG/ACT No 2{puffs } BID Bevespi Aerosphere 9-4.8 MCG/ACT Singulair 10 MG Singulair 10 MG No 1{table t_in_th e_eveni ng} QD Singulair 10 MG ALPRAZolam 1 MG ALPRAZolam 1 MG No 1{table t} ALPRAZolam 1 MG Vitamin D3 Vitamin D3 No Vitamin D3 Escitalopra m Oxalate 5 MG Escitalopra m Oxalate 5 MG No 1{table t} QD Escitalopr am Oxalate 5 MG Pravastatin Sodium 20 MG Pravastatin Sodium 20 MG No 1{table t} QD Pravastati n Sodium 20 MG Vitamin B-1 100 MG Vitamin B-1 100 MG No 1{table t} QD Vitamin B-1 100 MG Neurontin 100 MG Neurontin 100 MG No 1{capsu le} QD Neurontin 100 MG HYDROcodone -Acetaminop hen 7.5-325 MG HYDROcodone -Acetaminop hen 7.5-325 MG No 1{table t_as_ne eded} BID HYDROcodon e-Acetamin ophen 7.5-325 MG Vitamin B12 Vitamin B12 No Vi tamin B12 Escitalopra m Oxalate 5 MG Escitalopra m Oxalate 5 MG No Escitalopr am Oxalate 5 MG Pravastatin Sodium 20 MG Pravastatin Sodium 20 MG No Pravastati n Sodium 20 MG amLODIPine Besylate 5 MG amLODIPine Besylate 5 MG No 1{table t} QD amLODIPine Besylate 5 MG Neurontin 100 MG Neurontin 100 MG No Neurontin 100 MG Albuterol Sulfate HFA 108 (90 Base) MCG/ACT Albuterol Sulfate HFA 108 (90 Base) MCG/ACT No Albuterol Sulfate HFA 108 (90 Base) MCG/ACT amLODIPine Besylate 5 MG amLODIPine Besylate 5 MG No amLODIPine Besylate 5 MG Proventil HFA 108 (90 Base) MCG/ACT Proventil HFA 108 (90 Base) MCG/ACT No Proventil HFA 108 (90 Base) MCG/ACT Pataday 0.2 % Pataday 0.2 % No QD Pataday 0.2 % Tamsulosin HCl 0.4 MG Tamsulosin HCl 0.4 MG No 1{capsu le} QD Tamsulosin HCl 0.4 MG Fluticasone Propionate 50 MCG/ACT Fluticasone Propionate 50 MCG/ACT No 1{spray _in_eac h_nostr il} QD Fluticason e Propionate 50 MCG/ACT Bevespi Aerosphere 9-4.8 MCG/ACT Bevespi Aerosphere 9-4.8 MCG/ACT No 2{puffs } BID Bevespi Aerosphere 9-4.8 MCG/ACT Spironolact one 25 MG Spironolact one 25 MG No 1{table t} Spironolac tone 25 MG Benzonatate 200 MG Benzonatate 200 MG No Benzonatat e 200 MG Brovana 15 MCG/2ML Brovana 15 MCG/2ML No 2{ml} BID Brovana 15 MCG/2ML Singulair Singulair Yes Wes Perrin 1 tablet in the evening [facility] Pataday Pataday Yes Wes Perrin Instill 1 drop in each eye every day [facility] Bevespi Aerosphere Bevespi Aerosphere Yes Wes Perrin 2 puffs [facility] Tamsulosin HCl Tamsulosin HCl Yes Wes Perrin 1 capsule [facility] Alprazolam Alprazolam Yes Wes Perrin 1 tablet [facility] Proventil HFA Proventil HFA Yes Wes Perrin as directed [facility] Hydrocodone -Acetaminop hen Hydrocodone -Acetaminop hen Yes Wes Perrin 1 tablet as needed [facility] Amlodipine Besylate Amlodipine Besylate Yes Wes Perrin 1 tablet [facility] Neurontin Neurontin Yes Wes Perrin 1 capsule [facility] Pravastatin Sodium Pravastatin Sodium Yes Wes Perrin 1 tablet [facility] Escitalopra m Oxalate Escitalopra m Oxalate Yes Wes Perrin TAKE 1 TABLET BY MOUTH EVERY DAY [facility] Escitalopra m Oxalate Escitalopra m Oxalate Yes Wes Perrin 1 tablet [facility] Tumersaid Tumersaid No Tumersaid Ventolin HFA 108 (90 Base) MCG/ACT Ventolin HFA 108 (90 Base) MCG/ACT No Ventolin HFA 108 (90 Base) MCG/ACT Gabapentin 100 MG Gabapentin 100 MG No Gabapentin 100 MG CoQ10 CoQ10 No CoQ10 Vitamin D3 Vitamin D3 No Vitamin D3 Singulair 10 MG Singulair 10 MG No 1{table t_in_th e_eveni ng} QD Singulair 10 MG ALPRAZolam 1 MG ALPRAZolam 1 MG No 1{table t} ALPRAZolam 1 MG Pravastatin Sodium 20 MG Pravastatin Sodium 20 MG No 1{table t} QD Pravastati n Sodium 20 MG Vitamin B-1 100 MG Vitamin B-1 100 MG No 1{table t} QD Vitamin B-1 100 MG HYDROcodone -Acetaminop hen 7.5-325 MG HYDROcodone -Acetaminop hen 7.5-325 MG No 1{table t_as_ne eded} BID HYDROcodon e-Acetamin ophen 7.5-325 MG Brovana 15 MCG/2ML Brovana 15 MCG/2ML No 2{ml} BID Brovana 15 MCG/2ML Vitamin B12 Vitamin B12 No Vi tamin B12 amLODIPine Besylate 5 MG amLODIPine Besylate 5 MG No 1{table t} QD amLODIPine Besylate 5 MG Pravastatin Sodium 20 MG Pravastatin Sodium 20 MG No Pravastati n Sodium 20 MG Neurontin 100 MG Neurontin 100 MG No 1{capsu le} QD Neurontin 100 MG Neurontin 100 MG Neurontin 100 MG No Neurontin 100 MG Albuterol Sulfate HFA 108 (90 Base) MCG/ACT Albuterol Sulfate HFA 108 (90 Base) MCG/ACT No Albuterol Sulfate HFA 108 (90 Base) MCG/ACT Spironolact one 25 MG Spironolact one 25 MG No 1{table t} Spironolac tone 25 MG amLODIPine Besylate 5 MG amLODIPine Besylate 5 MG No amLODIPine Besylate 5 MG Tumersaid Tumersaid No Tumersaid Tamsulosin HCl 0.4 MG Tamsulosin HCl 0.4 MG No 1{capsu le} QD Tamsulosin HCl 0.4 MG Benzonatate 200 MG Benzonatate 200 MG No Benzonatat e 200 MG Gabapentin 100 MG Gabapentin 100 MG No Gabapentin 100 MG Escitalopra m Oxalate 5 MG Escitalopra m Oxalate 5 MG No Escitalopr am Oxalate 5 MG Fluticasone Propionate 50 MCG/ACT Fluticasone Propionate 50 MCG/ACT No 1{spray _in_eac h_nostr il} QD Fluticason e Propionate 50 MCG/ACT Bevespi Aerosphere 9-4.8 MCG/ACT Bevespi Aerosphere 9-4.8 MCG/ACT No 2{puffs } BID Bevespi Aerosphere 9-4.8 MCG/ACT Ventolin HFA 108 (90 Base) MCG/ACT Ventolin HFA 108 (90 Base) MCG/ACT No Ventolin HFA 108 (90 Base) MCG/ACT Proventil HFA 108 (90 Base) MCG/ACT Proventil HFA 108 (90 Base) MCG/ACT No Proventil HFA 108 (90 Base) MCG/ACT Pataday 0.2 % Pataday 0.2 % No QD Pataday 0.2 % Singulair 10 MG Singulair 10 MG No 1{table t_in_th e_eveni ng} QD Singulair 10 MG CoQ10 CoQ10 No CoQ10 Vitamin D3 Vitamin D3 No Vitamin D3 Pravastatin Sodium 20 MG Pravastatin Sodium 20 MG No 1{table t} QD Pravastati n Sodium 20 MG Vitamin B-1 100 MG Vitamin B-1 100 MG No 1{table t} QD Vitamin B-1 100 MG HYDROcodone -Acetaminop hen 7.5-325 MG HYDROcodone -Acetaminop hen 7.5-325 MG No 1{table t_as_ne eded} BID HYDROcodon e-Acetamin ophen 7.5-325 MG Brovana 15 MCG/2ML Brovana 15 MCG/2ML No 2{ml} BID Brovana 15 MCG/2ML Vitamin B12 Vitamin B12 No Vi tamin B12 amLODIPine Besylate 5 MG amLODIPine Besylate 5 MG No 1{table t} QD amLODIPine Besylate 5 MG Pravastatin Sodium 20 MG Pravastatin Sodium 20 MG No Pravastati n Sodium 20 MG Neurontin 100 MG Neurontin 100 MG No 1{capsu le} QD Neurontin 100 MG Neurontin 100 MG Neurontin 100 MG No Neurontin 100 MG Albuterol Sulfate HFA 108 (90 Base) MCG/ACT Albuterol Sulfate HFA 108 (90 Base) MCG/ACT No Albuterol Sulfate HFA 108 (90 Base) MCG/ACT Spironolact one 25 MG Spironolact one 25 MG No 1{table t} Spironolac tone 25 MG amLODIPine Besylate 5 MG amLODIPine Besylate 5 MG No amLODIPine Besylate 5 MG Tumersaid Tumersaid No Tumersaid Tamsulosin HCl 0.4 MG Tamsulosin HCl 0.4 MG No 1{capsu le} QD Tamsulosin HCl 0.4 MG Benzonatate 200 MG Benzonatate 200 MG No Benzonatat e 200 MG Gabapentin 100 MG Gabapentin 100 MG No Gabapentin 100 MG Escitalopra m Oxalate 5 MG Escitalopra m Oxalate 5 MG No Escitalopr am Oxalate 5 MG Fluticasone Propionate 50 MCG/ACT Fluticasone Propionate 50 MCG/ACT No 1{spray _in_eac h_nostr il} QD Fluticason e Propionate 50 MCG/ACT Bevespi Aerosphere 9-4.8 MCG/ACT Bevespi Aerosphere 9-4.8 MCG/ACT No 2{puffs } BID Bevespi Aerosphere 9-4.8 MCG/ACT Ventolin HFA 108 (90 Base) MCG/ACT Ventolin HFA 108 (90 Base) MCG/ACT No Ventolin HFA 108 (90 Base) MCG/ACT Proventil HFA 108 (90 Base) MCG/ACT Proventil HFA 108 (90 Base) MCG/ACT No Proventil HFA 108 (90 Base) MCG/ACT Pataday 0.2 % Pataday 0.2 % No QD Pataday 0.2 % Singulair 10 MG Singulair 10 MG No 1{table t_in_th e_eveni ng} QD Singulair 10 MG CoQ10 CoQ10 No CoQ10 Vitamin D3 Vitamin D3 No Vitamin D3 Pravastatin Sodium 20 MG Pravastatin Sodium 20 MG No 1{table t} QD Pravastati n Sodium 20 MG Vitamin B-1 100 MG Vitamin B-1 100 MG No 1{table t} QD Vitamin B-1 100 MG HYDROcodone -Acetaminop hen 7.5-325 MG HYDROcodone -Acetaminop hen 7.5-325 MG No 1{table t_as_ne eded} BID HYDROcodon e-Acetamin ophen 7.5-325 MG Brovana 15 MCG/2ML Brovana 15 MCG/2ML No 2{ml} BID Brovana 15 MCG/2ML Vitamin B12 Vitamin B12 No Vi tamin B12 amLODIPine Besylate 5 MG amLODIPine Besylate 5 MG No 1{table t} QD amLODIPine Besylate 5 MG Pravastatin Sodium 20 MG Pravastatin Sodium 20 MG No Pravastati n Sodium 20 MG Neurontin 100 MG Neurontin 100 MG No 1{capsu le} QD Neurontin 100 MG Neurontin 100 MG Neurontin 100 MG No Neurontin 100 MG Albuterol Sulfate HFA 108 (90 Base) MCG/ACT Albuterol Sulfate HFA 108 (90 Base) MCG/ACT No Albuterol Sulfate HFA 108 (90 Base) MCG/ACT Spironolact one 25 MG Spironolact one 25 MG No 1{table t} Spironolac tone 25 MG amLODIPine Besylate 5 MG amLODIPine Besylate 5 MG No amLODIPine Besylate 5 MG Tumersaid Tumersaid No Tumersaid Tamsulosin HCl 0.4 MG Tamsulosin HCl 0.4 MG No 1{capsu le} QD Tamsulosin HCl 0.4 MG Benzonatate 200 MG Benzonatate 200 MG No Benzonatat e 200 MG Gabapentin 100 MG Gabapentin 100 MG No Gabapentin 100 MG Escitalopra m Oxalate 5 MG Escitalopra m Oxalate 5 MG No Escitalopr am Oxalate 5 MG Fluticasone Propionate 50 MCG/ACT Fluticasone Propionate 50 MCG/ACT No 1{spray _in_eac h_nostr il} QD Fluticason e Propionate 50 MCG/ACT Bevespi Aerosphere 9-4.8 MCG/ACT Bevespi Aerosphere 9-4.8 MCG/ACT No 2{puffs } BID Bevespi Aerosphere 9-4.8 MCG/ACT Ventolin HFA 108 (90 Base) MCG/ACT Ventolin HFA 108 (90 Base) MCG/ACT No Ventolin HFA 108 (90 Base) MCG/ACT Proventil HFA 108 (90 Base) MCG/ACT Proventil HFA 108 (90 Base) MCG/ACT No Proventil HFA 108 (90 Base) MCG/ACT Pataday 0.2 % Pataday 0.2 % No QD Pataday 0.2 % Singulair 10 MG Singulair 10 MG No 1{table t_in_th e_eveni ng} QD Singulair 10 MG CoQ10 CoQ10 No CoQ10 Vitamin D3 Vitamin D3 No Vitamin D3 Pravastatin Sodium 20 MG Pravastatin Sodium 20 MG No 1{table t} QD Pravastati n Sodium 20 MG Vitamin B-1 100 MG Vitamin B-1 100 MG No 1{table t} QD Vitamin B-1 100 MG HYDROcodone -Acetaminop hen 7.5-325 MG HYDROcodone -Acetaminop hen 7.5-325 MG No 1{table t_as_ne eded} BID HYDROcodon e-Acetamin ophen 7.5-325 MG Brovana 15 MCG/2ML Brovana 15 MCG/2ML No 2{ml} BID Brovana 15 MCG/2ML Vitamin B12 Vitamin B12 No Vi tamin B12 amLODIPine Besylate 5 MG amLODIPine Besylate 5 MG No 1{table t} QD amLODIPine Besylate 5 MG Pravastatin Sodium 20 MG Pravastatin Sodium 20 MG No Pravastati n Sodium 20 MG Neurontin 100 MG Neurontin 100 MG No 1{capsu le} QD Neurontin 100 MG Neurontin 100 MG Neurontin 100 MG No Neurontin 100 MG Albuterol Sulfate HFA 108 (90 Base) MCG/ACT Albuterol Sulfate HFA 108 (90 Base) MCG/ACT No Albuterol Sulfate HFA 108 (90 Base) MCG/ACT Spironolact one 25 MG Spironolact one 25 MG No 1{table t} Spironolac tone 25 MG amLODIPine Besylate 5 MG amLODIPine Besylate 5 MG No amLODIPine Besylate 5 MG Tumersaid Tumersaid No Tumersaid Tamsulosin HCl 0.4 MG Tamsulosin HCl 0.4 MG No 1{capsu le} QD Tamsulosin HCl 0.4 MG Benzonatate 200 MG Benzonatate 200 MG No Benzonatat e 200 MG Gabapentin 100 MG Gabapentin 100 MG No Gabapentin 100 MG Escitalopra m Oxalate 5 MG Escitalopra m Oxalate 5 MG No Escitalopr am Oxalate 5 MG Fluticasone Propionate 50 MCG/ACT Fluticasone Propionate 50 MCG/ACT No 1{spray _in_eac h_nostr il} QD Fluticason e Propionate 50 MCG/ACT Bevespi Aerosphere 9-4.8 MCG/ACT Bevespi Aerosphere 9-4.8 MCG/ACT No 2{puffs } BID Bevespi Aerosphere 9-4.8 MCG/ACT Ventolin HFA 108 (90 Base) MCG/ACT Ventolin HFA 108 (90 Base) MCG/ACT No Ventolin HFA 108 (90 Base) MCG/ACT Proventil HFA 108 (90 Base) MCG/ACT Proventil HFA 108 (90 Base) MCG/ACT No Proventil HFA 108 (90 Base) MCG/ACT Pataday 0.2 % Pataday 0.2 % No QD Pataday 0.2 % Singulair 10 MG Singulair 10 MG No 1{table t_in_th e_eveni ng} QD Singulair 10 MG CoQ10 CoQ10 No CoQ10 Vitamin D3 Vitamin D3 No Vitamin D3 Pravastatin Sodium 20 MG Pravastatin Sodium 20 MG No 1{table t} QD Pravastati n Sodium 20 MG HYDROcodone -Acetaminop hen 7.5-325 MG HYDROcodone -Acetaminop hen 7.5-325 MG No 1{table t_as_ne eded} BID HYDROcodon e-Acetamin ophen 7.5-325 MG Ventolin HFA 108 (90 Base) MCG/ACT Ventolin HFA 108 (90 Base) MCG/ACT No Ventolin HFA 108 (90 Base) MCG/ACT Brovana 15 MCG/2ML Brovana 15 MCG/2ML No 2{ml} BID Brovana 15 MCG/2ML Pravastatin Sodium 20 MG Pravastatin Sodium 20 MG No Pravastati n Sodium 20 MG amLODIPine Besylate 5 MG amLODIPine Besylate 5 MG No 1{table t} QD amLODIPine Besylate 5 MG Vitamin B-1 100 MG Vitamin B-1 100 MG No 1{table t} QD Vitamin B-1 100 MG Neurontin 100 MG Neurontin 100 MG No 1{capsu le} QD Neurontin 100 MG Vitamin B12 Vitamin B12 No Vi tamin B12 Albuterol Sulfate HFA 108 (90 Base) MCG/ACT Albuterol Sulfate HFA 108 (90 Base) MCG/ACT No Albuterol Sulfate HFA 108 (90 Base) MCG/ACT amLODIPine Besylate 5 MG amLODIPine Besylate 5 MG No amLODIPine Besylate 5 MG Proventil HFA 108 (90 Base) MCG/ACT Proventil HFA 108 (90 Base) MCG/ACT No Proventil HFA 108 (90 Base) MCG/ACT Pataday 0.2 % Pataday 0.2 % No QD Pataday 0.2 % Tamsulosin HCl 0.4 MG Tamsulosin HCl 0.4 MG No 1{capsu le} QD Tamsulosin HCl 0.4 MG Benzonatate 200 MG Benzonatate 200 MG No Benzonatat e 200 MG Bevespi Aerosphere 9-4.8 MCG/ACT Bevespi Aerosphere 9-4.8 MCG/ACT No 2{puffs } BID Bevespi Aerosphere 9-4.8 MCG/ACT Spironolact one 25 MG Spironolact one 25 MG No 1{table t} Spironolac tone 25 MG Neurontin 100 MG Neurontin 100 MG No Neurontin 100 MG Fluticasone Propionate 50 MCG/ACT Fluticasone Propionate 50 MCG/ACT No 1{spray _in_eac h_nostr il} QD Fluticason e Propionate 50 MCG/ACT Tumersaid Tumersaid No Tumersaid Gabapentin 100 MG Gabapentin 100 MG No Gabapentin 100 MG CoQ10 CoQ10 No CoQ10 Vitamin D3 Vitamin D3 No Vitamin D3 Singulair 10 MG Singulair 10 MG No 1{table t_in_ e_eveni ng} QD Singulair 10 MG Escitalopra m Oxalate 5 MG Escitalopra m Oxalate 5 MG No Escitalopr am Oxalate 5 MG Pravastatin Sodium 20 MG Pravastatin Sodium 20 MG No 1{table t} QD Pravastati n Sodium 20 MG Ventolin HFA 108 (90 Base) MCG/ACT Ventolin HFA 108 (90 Base) MCG/ACT No Ventolin HFA 108 (90 Base) MCG/ACT Brovana 15 MCG/2ML Brovana 15 MCG/2ML No 2{ml} BID Brovana 15 MCG/2ML Fluticasone Propionate 50 MCG/ACT Fluticasone Propionate 50 MCG/ACT No 1{spray _in_eac h_nostr il} QD Fluticason e Propionate 50 MCG/ACT Vitamin B-1 100 MG Vitamin B-1 100 MG No 1{table t} QD Vitamin B-1 100 MG Neurontin 100 MG Neurontin 100 MG No 1{capsu le} QD Neurontin 100 MG HYDROcodone -Acetaminop hen 7.5-325 MG HYDROcodone -Acetaminop hen 7.5-325 MG No 1{table t_as_ne eded} BID HYDROcodon e-Acetamin ophen 7.5-325 MG Pravastatin Sodium 20 MG Pravastatin Sodium 20 MG No Pravastati n Sodium 20 MG amLODIPine Besylate 5 MG amLODIPine Besylate 5 MG No 1{table t} QD amLODIPine Besylate 5 MG amLODIPine Besylate 5 MG amLODIPine Besylate 5 MG No amLODIPine Besylate 5 MG Proventil HFA 108 (90 Base) MCG/ACT Proventil HFA 108 (90 Base) MCG/ACT No Proventil HFA 108 (90 Base) MCG/ACT Pataday 0.2 % Pataday 0.2 % No QD Pataday 0.2 % Albuterol Sulfate HFA 108 (90 Base) MCG/ACT Albuterol Sulfate HFA 108 (90 Base) MCG/ACT No Albuterol Sulfate HFA 108 (90 Base) MCG/ACT Neurontin 100 MG Neurontin 100 MG No Neurontin 100 MG Bevespi Aerosphere 9-4.8 MCG/ACT Bevespi Aerosphere 9-4.8 MCG/ACT No 2{puffs } BID Bevespi Aerosphere 9-4.8 MCG/ACT Spironolact one 25 MG Spironolact one 25 MG No 1{table t} Spironolac tone 25 MG Vitamin B12 Vitamin B12 No Vi tamin B12 Benzonatate 200 MG Benzonatate 200 MG No Benzonatat e 200 MG Tumersaid Tumersaid No Tumersaid Tamsulosin HCl 0.4 MG Tamsulosin HCl 0.4 MG No 1{capsu le} QD Tamsulosin HCl 0.4 MG Gabapentin 100 MG Gabapentin 100 MG No Gabapentin 100 MG CoQ10 CoQ10 No CoQ10 Vitamin D3 Vitamin D3 No Vitamin D3 Singulair 10 MG Singulair 10 MG No 1{table t_in_th e_eveni ng} QD Singulair 10 MG Escitalopra m Oxalate 5 MG Escitalopra m Oxalate 5 MG No Escitalopr am Oxalate 5 MG Pravastatin Sodium 20 MG Pravastatin Sodium 20 MG No 1{table t} QD Pravastati n Sodium 20 MG HYDROcodone -Acetaminop hen 7.5-325 MG HYDROcodone -Acetaminop hen 7.5-325 MG No 1{table t_as_ne eded} BID HYDROcodon e-Acetamin ophen 7.5-325 MG Proventil HFA 108 (90 Base) MCG/ACT Proventil HFA 108 (90 Base) MCG/ACT No Proventil HFA 108 (90 Base) MCG/ACT Vitamin D3 Vitamin D3 No Vitamin D3 Tumersaid Tumersaid No Tumersaid CoQ10 CoQ10 No CoQ10 amLODIPine Besylate 5 MG amLODIPine Besylate 5 MG No 1{table t} QD amLODIPine Besylate 5 MG Albuterol Sulfate HFA 108 (90 Base) MCG/ACT Albuterol Sulfate HFA 108 (90 Base) MCG/ACT No Albuterol Sulfate HFA 108 (90 Base) MCG/ACT Singulair 10 MG Singulair 10 MG No 1{table t_in_ e_eveni ng} QD Singulair 10 MG Escitalopra m Oxalate 5 MG Escitalopra m Oxalate 5 MG No 1{table t} QD Escitalopr am Oxalate 5 MG Vitamin B12 Vitamin B12 No Vi tamin B12 Bevespi Aerosphere 9-4.8 MCG/ACT Bevespi Aerosphere 9-4.8 MCG/ACT No 2{puffs } BID Bevespi Aerosphere 9-4.8 MCG/ACT Pataday 0.2 % Pataday 0.2 % No QD Pataday 0.2 % Escitalopra m Oxalate 5 MG Escitalopra m Oxalate 5 MG No Escitalopr am Oxalate 5 MG Vitamin B-1 100 MG Vitamin B-1 100 MG No 1{table t} QD Vitamin B-1 100 MG HYDROcodone -Acetaminop hen 7.5-325 MG HYDROcodone -Acetaminop hen 7.5-325 MG No 1{table t_as_ne eded} BID HYDROcodon e-Acetamin ophen 7.5-325 MG Proventil HFA 108 (90 Base) MCG/ACT Proventil HFA 108 (90 Base) MCG/ACT No Proventil HFA 108 (90 Base) MCG/ACT Vitamin D3 Vitamin D3 No Vitamin D3 Tumersaid Tumersaid No Tumersaid CoQ10 CoQ10 No CoQ10 amLODIPine Besylate 5 MG amLODIPine Besylate 5 MG No 1{table t} QD amLODIPine Besylate 5 MG Albuterol Sulfate HFA 108 (90 Base) MCG/ACT Albuterol Sulfate HFA 108 (90 Base) MCG/ACT No Albuterol Sulfate HFA 108 (90 Base) MCG/ACT Singulair 10 MG Singulair 10 MG No 1{table t_in e_eveni ng} QD Singulair 10 MG Escitalopra m Oxalate 5 MG Escitalopra m Oxalate 5 MG No 1{table t} QD Escitalopr am Oxalate 5 MG Vitamin B12 Vitamin B12 No Vi tamin B12 Bevespi Aerosphere 9-4.8 MCG/ACT Bevespi Aerosphere 9-4.8 MCG/ACT No 2{puffs } BID Bevespi Aerosphere 9-4.8 MCG/ACT Pataday 0.2 % Pataday 0.2 % No QD Pataday 0.2 % Escitalopra m Oxalate 5 MG Escitalopra m Oxalate 5 MG No Escitalopr am Oxalate 5 MG Vitamin B-1 100 MG Vitamin B-1 100 MG No 1{table t} QD Vitamin B-1 100 MG HYDROcodone -Acetaminop hen 7.5-325 MG HYDROcodone -Acetaminop hen 7.5-325 MG No 1{table t_as_ne eded} BID HYDROcodon e-Acetamin ophen 7.5-325 MG Proventil HFA 108 (90 Base) MCG/ACT Proventil HFA 108 (90 Base) MCG/ACT No Proventil HFA 108 (90 Base) MCG/ACT Vitamin D3 Vitamin D3 No Vitamin D3 Tumersaid Tumersaid No Tumersaid CoQ10 CoQ10 No CoQ10 amLODIPine Besylate 5 MG amLODIPine Besylate 5 MG No 1{table t} QD amLODIPine Besylate 5 MG Albuterol Sulfate HFA 108 (90 Base) MCG/ACT Albuterol Sulfate HFA 108 (90 Base) MCG/ACT No Albuterol Sulfate HFA 108 (90 Base) MCG/ACT Singulair 10 MG Singulair 10 MG No 1{table t_in_ e_eveni ng} QD Singulair 10 MG Escitalopra m Oxalate 5 MG Escitalopra m Oxalate 5 MG No 1{table t} QD Escitalopr am Oxalate 5 MG Vitamin B12 Vitamin B12 No Vi tamin B12 Bevespi Aerosphere 9-4.8 MCG/ACT Bevespi Aerosphere 9-4.8 MCG/ACT No 2{puffs } BID Bevespi Aerosphere 9-4.8 MCG/ACT Pataday 0.2 % Pataday 0.2 % No QD Pataday 0.2 % Escitalopra m Oxalate 5 MG Escitalopra m Oxalate 5 MG No Escitalopr am Oxalate 5 MG Vitamin B-1 100 MG Vitamin B-1 100 MG No 1{table t} QD Vitamin B-1 100 MG Albuterol Sulfate HFA 108 (90 Base) MCG/ACT Albuterol Sulfate HFA 108 (90 Base) MCG/ACT No Albuterol Sulfate HFA 108 (90 Base) MCG/ACT amLODIPine Besylate 5 MG amLODIPine Besylate 5 MG No amLODIPine Besylate 5 MG Vitamin D3 Vitamin D3 No Vitamin D3 CoQ10 CoQ10 No CoQ10 Vitamin B12 Vitamin B12 No Vi tamin B12 Pataday 0.2 % Pataday 0.2 % No QD Pataday 0.2 % Bevespi Aerosphere 9-4.8 MCG/ACT Bevespi Aerosphere 9-4.8 MCG/ACT No 2{puffs } BID Bevespi Aerosphere 9-4.8 MCG/ACT HYDROcodone -Acetaminop hen 7.5-325 MG HYDROcodone -Acetaminop hen 7.5-325 MG No 1{table t_as_ne eded} BID HYDROcodon e-Acetamin ophen 7.5-325 MG Singulair 10 MG Singulair 10 MG No 1{table t_in_th e_eveni ng} QD Singulair 10 MG Vitamin B-1 100 MG Vitamin B-1 100 MG No 1{table t} QD Vitamin B-1 100 MG Tumersaid Tumersaid No Tumersaid Proventil HFA 108 (90 Base) MCG/ACT Proventil HFA 108 (90 Base) MCG/ACT No Proventil HFA 108 (90 Base) MCG/ACT Escitalopra m Oxalate 5 MG Escitalopra m Oxalate 5 MG No Escitalopr am Oxalate 5 MG Albuterol Sulfate HFA 108 (90 Base) MCG/ACT Albuterol Sulfate HFA 108 (90 Base) MCG/ACT No Albuterol Sulfate HFA 108 (90 Base) MCG/ACT amLODIPine Besylate 5 MG amLODIPine Besylate 5 MG No amLODIPine Besylate 5 MG Vitamin D3 Vitamin D3 No Vitamin D3 CoQ10 CoQ10 No CoQ10 Vitamin B12 Vitamin B12 No Vi tamin B12 Pataday 0.2 % Pataday 0.2 % No QD Pataday 0.2 % Bevespi Aerosphere 9-4.8 MCG/ACT Bevespi Aerosphere 9-4.8 MCG/ACT No 2{puffs } BID Bevespi Aerosphere 9-4.8 MCG/ACT HYDROcodone -Acetaminop hen 7.5-325 MG HYDROcodone -Acetaminop hen 7.5-325 MG No 1{table t_as_ne eded} BID HYDROcodon e-Acetamin ophen 7.5-325 MG Singulair 10 MG Singulair 10 MG No 1{table t_in_th e_eveni ng} QD Singulair 10 MG Vitamin B-1 100 MG Vitamin B-1 100 MG No 1{table t} QD Vitamin B-1 100 MG Tumersaid Tumersaid No Tumersaid Proventil HFA 108 (90 Base) MCG/ACT Proventil HFA 108 (90 Base) MCG/ACT No Proventil HFA 108 (90 Base) MCG/ACT Escitalopra m Oxalate 5 MG Escitalopra m Oxalate 5 MG No Escitalopr am Oxalate 5 MG amLODIPine Besylate 5 MG amLODIPine Besylate 5 MG No amLODIPine Besylate 5 MG Vitamin B12 Vitamin B12 No Vi tamin B12 Pataday 0.2 % Pataday 0.2 % No QD Pataday 0.2 % Escitalopra m Oxalate 5 MG Escitalopra m Oxalate 5 MG No Escitalopr am Oxalate 5 MG Proventil HFA 108 (90 Base) MCG/ACT Proventil HFA 108 (90 Base) MCG/ACT No Proventil HFA 108 (90 Base) MCG/ACT amLODIPine Besylate 5 MG amLODIPine Besylate 5 MG No 1{table t} QD amLODIPine Besylate 5 MG Bevespi Aerosphere 9-4.8 MCG/ACT Bevespi Aerosphere 9-4.8 MCG/ACT No 2{puffs } BID Bevespi Aerosphere 9-4.8 MCG/ACT HYDROcodone -Acetaminop hen 7.5-325 MG HYDROcodone -Acetaminop hen 7.5-325 MG No 1{table t_as_ne eded} BID HYDROcodon e-Acetamin ophen 7.5-325 MG Albuterol Sulfate HFA 108 (90 Base) MCG/ACT Albuterol Sulfate HFA 108 (90 Base) MCG/ACT No Albuterol Sulfate HFA 108 (90 Base) MCG/ACT Vitamin B-1 100 MG Vitamin B-1 100 MG No 1{table t} QD Vitamin B-1 100 MG Tumersaid Tumersaid No Tumersaid Vitamin D3 Vitamin D3 No Vitamin D3 CoQ10 CoQ10 No CoQ10 Escitalopra m Oxalate 5 MG Escitalopra m Oxalate 5 MG No 1{table t} QD Escitalopr am Oxalate 5 MG Pregabalin 25 MG Pregabalin 25 MG No 1{capsu le} QD Pregabalin 25 MG Singulair 10 MG Singulair 10 MG No 1{table t_in e_eveni ng} QD Singulair 10 MG Escitalopra m Oxalate 5 MG Escitalopra m Oxalate 5 MG No Escitalopr am Oxalate 5 MG amLODIPine Besylate 5 MG amLODIPine Besylate 5 MG No amLODIPine Besylate 5 MG Vitamin B-1 100 MG Vitamin B-1 100 MG No 1{table t} QD Vitamin B-1 100 MG Tumersaid Tumersaid No Tumersaid Bevespi Aerosphere 9-4.8 MCG/ACT Bevespi Aerosphere 9-4.8 MCG/ACT No 2{puffs } BID Bevespi Aerosphere 9-4.8 MCG/ACT Proventil HFA 108 (90 Base) MCG/ACT Proventil HFA 108 (90 Base) MCG/ACT No Proventil HFA 108 (90 Base) MCG/ACT amLODIPine Besylate 5 MG amLODIPine Besylate 5 MG No 1{table t} QD amLODIPine Besylate 5 MG Albuterol Sulfate HFA 108 (90 Base) MCG/ACT Albuterol Sulfate HFA 108 (90 Base) MCG/ACT No Albuterol Sulfate HFA 108 (90 Base) MCG/ACT Pregabalin 25 MG Pregabalin 25 MG No 1{capsu le} QD Pregabalin 25 MG Singulair 10 MG Singulair 10 MG No 1{table t_in e_eveni ng} QD Singulair 10 MG Pataday 0.2 % Pataday 0.2 % No QD Pataday 0.2 % Vitamin D3 Vitamin D3 No Vitamin D3 HYDROcodone -Acetaminop hen 7.5-325 MG HYDROcodone -Acetaminop hen 7.5-325 MG No 1{table t_as_ne eded} BID HYDROcodon e-Acetamin ophen 7.5-325 MG CoQ10 CoQ10 No CoQ10 Vitamin B12 Vitamin B12 No Vi tamin B12 Vitamin D3 Vitamin D3 No Vitamin D3 Proventil HFA 108 (90 Base) MCG/ACT Proventil HFA 108 (90 Base) MCG/ACT No Proventil HFA 108 (90 Base) MCG/ACT amLODIPine Besylate 5 MG amLODIPine Besylate 5 MG No 1{table t} QD amLODIPine Besylate 5 MG HYDROcodone -Acetaminop hen 7.5-325 MG HYDROcodone -Acetaminop hen 7.5-325 MG No 1{table t_as_ne eded} BID HYDROcodon e-Acetamin ophen 7.5-325 MG Escitalopra m Oxalate 5 MG Escitalopra m Oxalate 5 MG No Escitalopr am Oxalate 5 MG Escitalopra m Oxalate 5 MG Escitalopra m Oxalate 5 MG No 1{table t} QD Escitalopr am Oxalate 5 MG Pregabalin 25 MG Pregabalin 25 MG No 1{capsu le} QD Pregabalin 25 MG Lyrica Lyrica No Lyrica Vitamin B-1 100 MG Vitamin B-1 100 MG No 1{table t} QD Vitamin B-1 100 MG CoQ10 CoQ10 No CoQ10 Singulair 10 MG Singulair 10 MG No 1{table t_in_ e_eveni ng} QD Singulair 10 MG amLODIPine Besylate 5 MG amLODIPine Besylate 5 MG No amLODIPine Besylate 5 MG Bevespi Aerosphere 9-4.8 MCG/ACT Bevespi Aerosphere 9-4.8 MCG/ACT No 2{puffs } BID Bevespi Aerosphere 9-4.8 MCG/ACT Albuterol Sulfate HFA 108 (90 Base) MCG/ACT Albuterol Sulfate HFA 108 (90 Base) MCG/ACT No Albuterol Sulfate HFA 108 (90 Base) MCG/ACT Pataday 0.2 % Pataday 0.2 % No QD Pataday 0.2 % Ciprofloxac in Ciprofloxac in No Ciprofloxa kaylee Tumersaid Tumersaid No Tumersaid Vitamin B12 Vitamin B12 No Vi tamin B12 Albuterol Sulfate HFA 108 (90 Base) MCG/ACT Albuterol Sulfate HFA 108 (90 Base) MCG/ACT No Albuterol Sulfate HFA 108 (90 Base) MCG/ACT Escitalopra m Oxalate 5 MG Escitalopra m Oxalate 5 MG No 1{table t} QD Escitalopr am Oxalate 5 MG amLODIPine Besylate 5 MG amLODIPine Besylate 5 MG No 1{table t} QD amLODIPine Besylate 5 MG Proventil HFA 108 (90 Base) MCG/ACT Proventil HFA 108 (90 Base) MCG/ACT No Proventil HFA 108 (90 Base) MCG/ACT Vitamin B-1 100 MG Vitamin B-1 100 MG No 1{table t} QD Vitamin B-1 100 MG Lyrica 25 MG Lyrica 25 MG No 1{capsu le} BID Lyrica 25 MG Pataday 0.2 % Pataday 0.2 % No QD Pataday 0.2 % Vitamin B12 Vitamin B12 No Vi tamin B12 Escitalopra m Oxalate 5 MG Escitalopra m Oxalate 5 MG No 1{table t} QD Escitalopr am Oxalate 5 MG Crestor 5 MG Crestor 5 MG No 1{table t} QD Crestor 5 MG HYDROcodone -Acetaminop hen 7.5-325 MG HYDROcodone -Acetaminop hen 7.5-325 MG No 1{table t_as_ne eded} BID HYDROcodon e-Acetamin ophen 7.5-325 MG Singulair 10 MG Singulair 10 MG No 1{table t_in_th e_eveni ng} QD Singulair 10 MG Bevespi Aerosphere 9-4.8 MCG/ACT Bevespi Aerosphere 9-4.8 MCG/ACT No 2{puffs } BID Bevespi Aerosphere 9-4.8 MCG/ACT Albuterol Sulfate HFA 108 (90 Base) MCG/ACT Albuterol Sulfate HFA 108 (90 Base) MCG/ACT No Albuterol Sulfate HFA 108 (90 Base) MCG/ACT Escitalopra m Oxalate 5 MG Escitalopra m Oxalate 5 MG No 1{table t} QD Escitalopr am Oxalate 5 MG amLODIPine Besylate 5 MG amLODIPine Besylate 5 MG No 1{table t} QD amLODIPine Besylate 5 MG Proventil HFA 108 (90 Base) MCG/ACT Proventil HFA 108 (90 Base) MCG/ACT No Proventil HFA 108 (90 Base) MCG/ACT Vitamin B-1 100 MG Vitamin B-1 100 MG No 1{table t} QD Vitamin B-1 100 MG Lyrica 25 MG Lyrica 25 MG No 1{capsu le} BID Lyrica 25 MG Pataday 0.2 % Pataday 0.2 % No QD Pataday 0.2 % Vitamin B12 Vitamin B12 No Vi tamin B12 Escitalopra m Oxalate 5 MG Escitalopra m Oxalate 5 MG No 1{table t} QD Escitalopr am Oxalate 5 MG Crestor 5 MG Crestor 5 MG No 1{table t} QD Crestor 5 MG HYDROcodone -Acetaminop hen 7.5-325 MG HYDROcodone -Acetaminop hen 7.5-325 MG No 1{table t_as_ne eded} BID HYDROcodon e-Acetamin ophen 7.5-325 MG Singulair 10 MG Singulair 10 MG No 1{table t_in_th e_eveni ng} QD Singulair 10 MG Bevespi Aerosphere 9-4.8 MCG/ACT Bevespi Aerosphere 9-4.8 MCG/ACT No 2{puffs } BID Bevespi Aerosphere 9-4.8 MCG/ACT Albuterol Sulfate HFA 108 (90 Base) MCG/ACT Albuterol Sulfate HFA 108 (90 Base) MCG/ACT No Albuterol Sulfate HFA 108 (90 Base) MCG/ACT Escitalopra m Oxalate 5 MG Escitalopra m Oxalate 5 MG No 1{table t} QD Escitalopr am Oxalate 5 MG amLODIPine Besylate 5 MG amLODIPine Besylate 5 MG No 1{table t} QD amLODIPine Besylate 5 MG Proventil HFA 108 (90 Base) MCG/ACT Proventil HFA 108 (90 Base) MCG/ACT No Proventil HFA 108 (90 Base) MCG/ACT Vitamin B-1 100 MG Vitamin B-1 100 MG No 1{table t} QD Vitamin B-1 100 MG Lyrica 25 MG Lyrica 25 MG No 1{capsu le} BID Lyrica 25 MG Pataday 0.2 % Pataday 0.2 % No QD Pataday 0.2 % Vitamin B12 Vitamin B12 No Vi tamin B12 Escitalopra m Oxalate 5 MG Escitalopra m Oxalate 5 MG No 1{table t} QD Escitalopr am Oxalate 5 MG Crestor 5 MG Crestor 5 MG No 1{table t} QD Crestor 5 MG HYDROcodone -Acetaminop hen 7.5-325 MG HYDROcodone -Acetaminop hen 7.5-325 MG No 1{table t_as_ne eded} BID HYDROcodon e-Acetamin ophen 7.5-325 MG Singulair 10 MG Singulair 10 MG No 1{table t_in_th e_eveni ng} QD Singulair 10 MG Bevespi Aerosphere 9-4.8 MCG/ACT Bevespi Aerosphere 9-4.8 MCG/ACT No 2{puffs } BID Bevespi Aerosphere 9-4.8 MCG/ACT Albuterol Sulfate HFA 108 (90 Base) MCG/ACT Albuterol Sulfate HFA 108 (90 Base) MCG/ACT No Albuterol Sulfate HFA 108 (90 Base) MCG/ACT Escitalopra m Oxalate 5 MG Escitalopra m Oxalate 5 MG No 1{table t} QD Escitalopr am Oxalate 5 MG amLODIPine Besylate 5 MG amLODIPine Besylate 5 MG No 1{table t} QD amLODIPine Besylate 5 MG Proventil HFA 108 (90 Base) MCG/ACT Proventil HFA 108 (90 Base) MCG/ACT No Proventil HFA 108 (90 Base) MCG/ACT Vitamin B-1 100 MG Vitamin B-1 100 MG No 1{table t} QD Vitamin B-1 100 MG Lyrica 25 MG Lyrica 25 MG No 1{capsu le} BID Lyrica 25 MG Pataday 0.2 % Pataday 0.2 % No QD Pataday 0.2 % Vitamin B12 Vitamin B12 No Vi tamin B12 Escitalopra m Oxalate 5 MG Escitalopra m Oxalate 5 MG No 1{table t} QD Escitalopr am Oxalate 5 MG Crestor 5 MG Crestor 5 MG No 1{table t} QD Crestor 5 MG HYDROcodone -Acetaminop hen 7.5-325 MG HYDROcodone -Acetaminop hen 7.5-325 MG No 1{table t_as_ne eded} BID HYDROcodon e-Acetamin ophen 7.5-325 MG Singulair 10 MG Singulair 10 MG No 1{table t_in_ e_eveni ng} QD Singulair 10 MG Bevespi Aerosphere 9-4.8 MCG/ACT Bevespi Aerosphere 9-4.8 MCG/ACT No 2{puffs } BID Bevespi Aerosphere 9-4.8 MCG/ACT Escitalopra m Oxalate 5 MG Escitalopra m Oxalate 5 MG No Escitalopr am Oxalate 5 MG Pataday 0.2 % Pataday 0.2 % No QD Pataday 0.2 % amLODIPine Besylate 5 MG amLODIPine Besylate 5 MG No 1{table t} QD amLODIPine Besylate 5 MG Proventil HFA 108 (90 Base) MCG/ACT Proventil HFA 108 (90 Base) MCG/ACT No Proventil HFA 108 (90 Base) MCG/ACT Crestor 5 MG Crestor 5 MG No 1{table t} QD Crestor 5 MG Vitamin B-1 100 MG Vitamin B-1 100 MG No 1{table t} QD Vitamin B-1 100 MG Singulair 10 MG Singulair 10 MG No 1{table t_in_th e_eveni ng} QD Singulair 10 MG Bevespi Aerosphere 9-4.8 MCG/ACT Bevespi Aerosphere 9-4.8 MCG/ACT No 2{puffs } BID Bevespi Aerosphere 9-4.8 MCG/ACT Lyrica 25 MG Lyrica 25 MG No 1{capsu le} BID Lyrica 25 MG Vitamin B12 Vitamin B12 No Vi tamin B12 HYDROcodone -Acetaminop hen 7.5-325 MG HYDROcodone -Acetaminop hen 7.5-325 MG No 1{table t_as_ne eded} BID HYDROcodon e-Acetamin ophen 7.5-325 MG Albuterol Sulfate HFA 108 (90 Base) MCG/ACT Albuterol Sulfate HFA 108 (90 Base) MCG/ACT No Albuterol Sulfate HFA 108 (90 Base) MCG/ACT Escitalopra m Oxalate 5 MG Escitalopra m Oxalate 5 MG No Escitalopr am Oxalate 5 MG Pataday 0.2 % Pataday 0.2 % No QD Pataday 0.2 % amLODIPine Besylate 5 MG amLODIPine Besylate 5 MG No 1{table t} QD amLODIPine Besylate 5 MG Proventil HFA 108 (90 Base) MCG/ACT Proventil HFA 108 (90 Base) MCG/ACT No Proventil HFA 108 (90 Base) MCG/ACT Crestor 5 MG Crestor 5 MG No 1{table t} QD Crestor 5 MG Vitamin B-1 100 MG Vitamin B-1 100 MG No 1{table t} QD Vitamin B-1 100 MG Singulair 10 MG Singulair 10 MG No 1{table t_in_ e_eveni ng} QD Singulair 10 MG Bevespi Aerosphere 9-4.8 MCG/ACT Bevespi Aerosphere 9-4.8 MCG/ACT No 2{puffs } BID Bevespi Aerosphere 9-4.8 MCG/ACT Lyrica 25 MG Lyrica 25 MG No 1{capsu le} BID Lyrica 25 MG Vitamin B12 Vitamin B12 No Vi tamin B12 HYDROcodone -Acetaminop hen 7.5-325 MG HYDROcodone -Acetaminop hen 7.5-325 MG No 1{table t_as_ne eded} BID HYDROcodon e-Acetamin ophen 7.5-325 MG Albuterol Sulfate HFA 108 (90 Base) MCG/ACT Albuterol Sulfate HFA 108 (90 Base) MCG/ACT No Albuterol Sulfate HFA 108 (90 Base) MCG/ACT Escitalopra m Oxalate 5 MG Escitalopra m Oxalate 5 MG No Escitalopr am Oxalate 5 MG Pataday 0.2 % Pataday 0.2 % No QD Pataday 0.2 % amLODIPine Besylate 5 MG amLODIPine Besylate 5 MG No 1{table t} QD amLODIPine Besylate 5 MG Proventil HFA 108 (90 Base) MCG/ACT Proventil HFA 108 (90 Base) MCG/ACT No Proventil HFA 108 (90 Base) MCG/ACT Crestor 5 MG Crestor 5 MG No 1{table t} QD Crestor 5 MG Vitamin B-1 100 MG Vitamin B-1 100 MG No 1{table t} QD Vitamin B-1 100 MG Singulair 10 MG Singulair 10 MG No 1{table t_in e_eveni ng} QD Singulair 10 MG Bevespi Aerosphere 9-4.8 MCG/ACT Bevespi Aerosphere 9-4.8 MCG/ACT No 2{puffs } BID Bevespi Aerosphere 9-4.8 MCG/ACT Lyrica 25 MG Lyrica 25 MG No 1{capsu le} BID Lyrica 25 MG Vitamin B12 Vitamin B12 No Vi tamin B12 HYDROcodone -Acetaminop hen 7.5-325 MG HYDROcodone -Acetaminop hen 7.5-325 MG No 1{table t_as_ne eded} BID HYDROcodon e-Acetamin ophen 7.5-325 MG Albuterol Sulfate HFA 108 (90 Base) MCG/ACT Albuterol Sulfate HFA 108 (90 Base) MCG/ACT No Albuterol Sulfate HFA 108 (90 Base) MCG/ACT Vitamin D3 Vitamin D3 No Vitamin D3 Vitamin B-1 100 MG Vitamin B-1 100 MG No 1{table t} QD Vitamin B-1 100 MG HYDROcodone -Acetaminop hen 7.5-325 MG HYDROcodone -Acetaminop hen 7.5-325 MG No 1{table t_as_ne eded} BID HYDROcodon e-Acetamin ophen 7.5-325 MG Vitamin B12 Vitamin B12 No Vi tamin B12 Bevespi Aerosphere 9-4.8 MCG/ACT Bevespi Aerosphere 9-4.8 MCG/ACT No 2{puffs } BID Bevespi Aerosphere 9-4.8 MCG/ACT Lyrica 25 MG Lyrica 25 MG No 1{capsu le} BID Lyrica 25 MG Crestor 5 MG Crestor 5 MG No 1{table t} QD Crestor 5 MG Proventil HFA 108 (90 Base) MCG/ACT Proventil HFA 108 (90 Base) MCG/ACT No Proventil HFA 108 (90 Base) MCG/ACT amLODIPine Besylate 5 MG amLODIPine Besylate 5 MG No 1{table t} QD amLODIPine Besylate 5 MG Singulair 10 MG Singulair 10 MG No 1{table t_in_ e_eveni ng} QD Singulair 10 MG Albuterol Sulfate HFA 108 (90 Base) MCG/ACT Albuterol Sulfate HFA 108 (90 Base) MCG/ACT No Albuterol Sulfate HFA 108 (90 Base) MCG/ACT Escitalopra m Oxalate 5 MG Escitalopra m Oxalate 5 MG No Escitalopr am Oxalate 5 MG Nebivolol HCl 5 MG Nebivolol HCl 5 MG No 1{table t} QD Nebivolol HCl 5 MG Pataday 0.2 % Pataday 0.2 % No QD Pataday 0.2 % Escitalopra m Oxalate 5 MG Escitalopra m Oxalate 5 MG No 1{table t} QD Escitalopr am Oxalate 5 MG Benadryl Benadryl No Benadryl Vitamin D3 Vitamin D3 No Vitamin D3 Vitamin B-1 100 MG Vitamin B-1 100 MG No 1{table t} QD Vitamin B-1 100 MG HYDROcodone -Acetaminop hen 7.5-325 MG HYDROcodone -Acetaminop hen 7.5-325 MG No 1{table t_as_ne eded} BID HYDROcodon e-Acetamin ophen 7.5-325 MG Vitamin B12 Vitamin B12 No Vi tamin B12 Bevespi Aerosphere 9-4.8 MCG/ACT Bevespi Aerosphere 9-4.8 MCG/ACT No 2{puffs } BID Bevespi Aerosphere 9-4.8 MCG/ACT Lyrica 25 MG Lyrica 25 MG No 1{capsu le} BID Lyrica 25 MG Crestor 5 MG Crestor 5 MG No 1{table t} QD Crestor 5 MG Albuterol Sulfate HFA 108 (90 Base) MCG/ACT Albuterol Sulfate HFA 108 (90 Base) MCG/ACT No Albuterol Sulfate HFA 108 (90 Base) MCG/ACT amLODIPine Besylate 5 MG amLODIPine Besylate 5 MG No 1{table t} QD amLODIPine Besylate 5 MG Singulair 10 MG Singulair 10 MG No 1{table t_in_th e_eveni ng} QD Singulair 10 MG Nebivolol HCl 5 MG Nebivolol HCl 5 MG No 1{table t} QD Nebivolol HCl 5 MG Escitalopra m Oxalate 5 MG Escitalopra m Oxalate 5 MG No Escitalopr am Oxalate 5 MG Proventil HFA 108 (90 Base) MCG/ACT Proventil HFA 108 (90 Base) MCG/ACT No Proventil HFA 108 (90 Base) MCG/ACT Pataday 0.2 % Pataday 0.2 % No QD Pataday 0.2 % Escitalopra m Oxalate 5 MG Escitalopra m Oxalate 5 MG No 1{table t} QD Escitalopr am Oxalate 5 MG Benadryl Benadryl No Benadryl Vitamin D3 Vitamin D3 No Vitamin D3 Vitamin B-1 100 MG Vitamin B-1 100 MG No 1{table t} QD Vitamin B-1 100 MG HYDROcodone -Acetaminop hen 7.5-325 MG HYDROcodone -Acetaminop hen 7.5-325 MG No 1{table t_as_ne eded} BID HYDROcodon e-Acetamin ophen 7.5-325 MG Vitamin B12 Vitamin B12 No Vi tamin B12 Bevespi Aerosphere 9-4.8 MCG/ACT Bevespi Aerosphere 9-4.8 MCG/ACT No 2{puffs } BID Bevespi Aerosphere 9-4.8 MCG/ACT Lyrica 25 MG Lyrica 25 MG No 1{capsu le} BID Lyrica 25 MG Crestor 5 MG Crestor 5 MG No 1{table t} QD Crestor 5 MG Albuterol Sulfate HFA 108 (90 Base) MCG/ACT Albuterol Sulfate HFA 108 (90 Base) MCG/ACT No Albuterol Sulfate HFA 108 (90 Base) MCG/ACT amLODIPine Besylate 5 MG amLODIPine Besylate 5 MG No 1{table t} QD amLODIPine Besylate 5 MG Singulair 10 MG Singulair 10 MG No 1{table t_in_th e_eveni ng} QD Singulair 10 MG Nebivolol HCl 5 MG Nebivolol HCl 5 MG No 1{table t} QD Nebivolol HCl 5 MG Escitalopra m Oxalate 5 MG Escitalopra m Oxalate 5 MG No Escitalopr am Oxalate 5 MG Proventil HFA 108 (90 Base) MCG/ACT Proventil HFA 108 (90 Base) MCG/ACT No Proventil HFA 108 (90 Base) MCG/ACT Pataday 0.2 % Pataday 0.2 % No QD Pataday 0.2 % Escitalopra m Oxalate 5 MG Escitalopra m Oxalate 5 MG No 1{table t} QD Escitalopr am Oxalate 5 MG Benadryl Benadryl No Benadryl HYDROcodone -Acetaminop hen 7.5-325 MG HYDROcodone -Acetaminop hen 7.5-325 MG No 1{table t_as_ne eded} BID HYDROcodon e-Acetamin ophen 7.5-325 MG Proventil HFA 108 (90 Base) MCG/ACT Proventil HFA 108 (90 Base) MCG/ACT No Proventil HFA 108 (90 Base) MCG/ACT Vitamin D3 Vitamin D3 No Vitamin D3 Tumersaid Tumersaid No Tumersaid CoQ10 CoQ10 No CoQ10 amLODIPine Besylate 5 MG amLODIPine Besylate 5 MG No 1{table t} QD amLODIPine Besylate 5 MG Albuterol Sulfate HFA 108 (90 Base) MCG/ACT Albuterol Sulfate HFA 108 (90 Base) MCG/ACT No Albuterol Sulfate HFA 108 (90 Base) MCG/ACT Singulair 10 MG Singulair 10 MG No 1{table t_in_th e_eveni ng} QD Singulair 10 MG Escitalopra m Oxalate 5 MG Escitalopra m Oxalate 5 MG No 1{table t} QD Escitalopr am Oxalate 5 MG Vitamin B12 Vitamin B12 No Vi tamin B12 Bevespi Aerosphere 9-4.8 MCG/ACT Bevespi Aerosphere 9-4.8 MCG/ACT No 2{puffs } BID Bevespi Aerosphere 9-4.8 MCG/ACT Pataday 0.2 % Pataday 0.2 % No QD Pataday 0.2 % Escitalopra m Oxalate 5 MG Escitalopra m Oxalate 5 MG No Escitalopr am Oxalate 5 MG Vitamin B-1 100 MG Vitamin B-1 100 MG No 1{table t} QD Vitamin B-1 100 MG HYDROcodone -Acetaminop hen 7.5-325 MG HYDROcodone -Acetaminop hen 7.5-325 MG No 1{table t_as_ne eded} BID HYDROcodon e-Acetamin ophen 7.5-325 MG Proventil HFA 108 (90 Base) MCG/ACT Proventil HFA 108 (90 Base) MCG/ACT No Proventil HFA 108 (90 Base) MCG/ACT Vitamin D3 Vitamin D3 No Vitamin D3 Tumersaid Tumersaid No Tumersaid CoQ10 CoQ10 No CoQ10 amLODIPine Besylate 5 MG amLODIPine Besylate 5 MG No 1{table t} QD amLODIPine Besylate 5 MG Albuterol Sulfate HFA 108 (90 Base) MCG/ACT Albuterol Sulfate HFA 108 (90 Base) MCG/ACT No Albuterol Sulfate HFA 108 (90 Base) MCG/ACT Singulair 10 MG Singulair 10 MG No 1{table t_in e_eveni ng} QD Singulair 10 MG Escitalopra m Oxalate 5 MG Escitalopra m Oxalate 5 MG No 1{table t} QD Escitalopr am Oxalate 5 MG Vitamin B12 Vitamin B12 No Vi tamin B12 Bevespi Aerosphere 9-4.8 MCG/ACT Bevespi Aerosphere 9-4.8 MCG/ACT No 2{puffs } BID Bevespi Aerosphere 9-4.8 MCG/ACT Pataday 0.2 % Pataday 0.2 % No QD Pataday 0.2 % Escitalopra m Oxalate 5 MG Escitalopra m Oxalate 5 MG No Escitalopr am Oxalate 5 MG Vitamin B-1 100 MG Vitamin B-1 100 MG No 1{table t} QD Vitamin B-1 100 MG HYDROcodone -Acetaminop hen 7.5-325 MG HYDROcodone -Acetaminop hen 7.5-325 MG No 1{table t_as_ne eded} BID HYDROcodon e-Acetamin ophen 7.5-325 MG Proventil HFA 108 (90 Base) MCG/ACT Proventil HFA 108 (90 Base) MCG/ACT No Proventil HFA 108 (90 Base) MCG/ACT Vitamin D3 Vitamin D3 No Vitamin D3 Tumersaid Tumersaid No Tumersaid CoQ10 CoQ10 No CoQ10 amLODIPine Besylate 5 MG amLODIPine Besylate 5 MG No 1{table t} QD amLODIPine Besylate 5 MG Albuterol Sulfate HFA 108 (90 Base) MCG/ACT Albuterol Sulfate HFA 108 (90 Base) MCG/ACT No Albuterol Sulfate HFA 108 (90 Base) MCG/ACT Singulair 10 MG Singulair 10 MG No 1{table t_in e_eveni ng} QD Singulair 10 MG Escitalopra m Oxalate 5 MG Escitalopra m Oxalate 5 MG No 1{table t} QD Escitalopr am Oxalate 5 MG Vitamin B12 Vitamin B12 No Vi tamin B12 Bevespi Aerosphere 9-4.8 MCG/ACT Bevespi Aerosphere 9-4.8 MCG/ACT No 2{puffs } BID Bevespi Aerosphere 9-4.8 MCG/ACT Pataday 0.2 % Pataday 0.2 % No QD Pataday 0.2 % Escitalopra m Oxalate 5 MG Escitalopra m Oxalate 5 MG No Escitalopr am Oxalate 5 MG Vitamin B-1 100 MG Vitamin B-1 100 MG No 1{table t} QD Vitamin B-1 100 MG Ventolin HFA 108 (90 Base) MCG/ACT Ventolin HFA 108 (90 Base) MCG/ACT No Ventolin HFA 108 (90 Base) MCG/ACT Bevespi Aerosphere 9-4.8 MCG/ACT Bevespi Aerosphere 9-4.8 MCG/ACT No 2{puffs } BID Bevespi Aerosphere 9-4.8 MCG/ACT HYDROcodone -Acetaminop hen 7.5-325 MG HYDROcodone -Acetaminop hen 7.5-325 MG No 1{table t_as_ne eded} BID HYDROcodon e-Acetamin ophen 7.5-325 MG Vitamin D3 Vitamin D3 No Vitamin D3 Pataday 0.2 % Pataday 0.2 % No QD Pataday 0.2 % Neurontin 100 MG Neurontin 100 MG No Neurontin 100 MG Albuterol Sulfate HFA 108 (90 Base) MCG/ACT Albuterol Sulfate HFA 108 (90 Base) MCG/ACT No 2{puffs _as_nee ded} QID Albuterol Sulfate HFA 108 (90 Base) MCG/ACT Pravastatin Sodium 20 MG Pravastatin Sodium 20 MG No Pravastati n Sodium 20 MG Neurontin 100 MG Neurontin 100 MG No 1{capsu le} QD Neurontin 100 MG amLODIPine Besylate 5 MG amLODIPine Besylate 5 MG No 1{table t} QD amLODIPine Besylate 5 MG Vitamin B12 Vitamin B12 No Vi tamin B12 Pravastatin Sodium 20 MG Pravastatin Sodium 20 MG No 1{table t} QD Pravastati n Sodium 20 MG Gabapentin 100 MG Gabapentin 100 MG No Gabapentin 100 MG Proventil HFA 108 (90 Base) MCG/ACT Proventil HFA 108 (90 Base) MCG/ACT No Proventil HFA 108 (90 Base) MCG/ACT Tumersaid Tumersaid No Tumersaid Singulair 10 MG Singulair 10 MG No 1{table t_in_th e_eveni ng} QD Singulair 10 MG amLODIPine Besylate 5 MG amLODIPine Besylate 5 MG No amLODIPine Besylate 5 MG Tamsulosin HCl 0.4 MG Tamsulosin HCl 0.4 MG No 1{capsu le} QD Tamsulosin HCl 0.4 MG Escitalopra m Oxalate 5 MG Escitalopra m Oxalate 5 MG No Escitalopr am Oxalate 5 MG CoQ10 CoQ10 No CoQ10 Pravastatin Sodium 20 MG Pravastatin Sodium 20 MG No Pravastati n Sodium 20 MG Tumersaid Tumersaid No Tumersaid Ventolin HFA 108 (90 Base) MCG/ACT Ventolin HFA 108 (90 Base) MCG/ACT No Ventolin HFA 108 (90 Base) MCG/ACT Neurontin 100 MG Neurontin 100 MG No Neurontin 100 MG Pravastatin Sodium 20 MG Pravastatin Sodium 20 MG No 1{table t} QD Pravastati n Sodium 20 MG amLODIPine Besylate 5 MG amLODIPine Besylate 5 MG No amLODIPine Besylate 5 MG Escitalopra m Oxalate 5 MG Escitalopra m Oxalate 5 MG No 1{table t} QD Escitalopr am Oxalate 5 MG Escitalopra m Oxalate 5 MG Escitalopra m Oxalate 5 MG No 1{table t} QD Escitalopr am Oxalate 5 MG Vitamin B-1 100 MG Vitamin B-1 100 MG No 1{table t} QD Vitamin B-1 100 MG Proventil HFA 108 (90 Base) MCG/ACT Proventil HFA 108 (90 Base) MCG/ACT No Proventil HFA 108 (90 Base) MCG/ACT HYDROcodone -Acetaminop hen 7.5-325 MG HYDROcodone -Acetaminop hen 7.5-325 MG No 1{table t_as_ne eded} BID HYDROcodon e-Acetamin ophen 7.5-325 MG Tamsulosin HCl 0.4 MG Tamsulosin HCl 0.4 MG No 1{capsu le} QD Tamsulosin HCl 0.4 MG Gabapentin 100 MG Gabapentin 100 MG No 1{capsu le_at_b edtime} QD Gabapentin 100 MG Vitamin B12 Vitamin B12 No Vi tamin B12 Bevespi Aerosphere 9-4.8 MCG/ACT Bevespi Aerosphere 9-4.8 MCG/ACT No 2{puffs } BID Bevespi Aerosphere 9-4.8 MCG/ACT Fluticasone Propionate 50 MCG/ACT Fluticasone Propionate 50 MCG/ACT No 1{spray _in_eac h_nostr il} QD Fluticason e Propionate 50 MCG/ACT Immunizations Ordered Immunization Name Filled Immunization Name Date Status Comments Source Pneumovax (PPSV23) Pneumovax (PPSV23) 2021-01-28 13:12:00 Completed [facility] Pneumovax (PPSV23) Pneumovax (PPSV23) 2021-01-28 13:12:00 Completed [facility] Pneumovax (PPSV23) Pneumovax (PPSV23) 2021-01-28 13:12:00 Completed [facility] Pneumovax (PPSV23) Pneumovax (PPSV23) 2021-01-28 13:12:00 Completed [facility] Pneumovax (PPSV23) Pneumovax (PPSV23) 2021-01-28 13:12:00 Completed [facility] Pneumovax (PPSV23) Pneumovax (PPSV23) 2021-01-28 13:12:00 Completed [facility] Pneumovax (PPSV23) Pneumovax (PPSV23) 2021-01-28 13:12:00 Completed [facility] Pneumovax (PPSV23) Pneumovax (PPSV23) 2021-01-28 13:12:00 Completed [facility] Pneumovax (PPSV23) Pneumovax (PPSV23) 2021-01-28 13:12:00 Completed [facility] Pneumovax (PPSV23) Pneumovax (PPSV23) 2021-01-28 13:12:00 Completed [facility] Pneumovax (PPSV23) Pneumovax (PPSV23) 2021-01-28 13:12:00 Completed [facility] Pneumovax (PPSV23) Pneumovax (PPSV23) 2021-01-28 13:12:00 Completed [facility] Pneumovax (PPSV23) Pneumovax (PPSV23) 2021-01-28 13:12:00 Completed [facility] Pneumovax (PPSV23) Pneumovax (PPSV23) 2021-01-28 13:12:00 Completed [facility] Pneumovax (PPSV23) Pneumovax (PPSV23) 2021-01-28 13:12:00 Completed [facility] Pneumovax (PPSV23) Pneumovax (PPSV23) 2021-01-28 13:12:00 Completed [facility] Pneumovax (PPSV23) Pneumovax (PPSV23) 2021-01-28 13:12:00 Completed [facility] Pneumovax (PPSV23) Pneumovax (PPSV23) 2021-01-28 13:12:00 Completed [facility] Pneumovax (PPSV23) Pneumovax (PPSV23) 2021-01-28 13:12:00 Completed [facility] Pneumovax (PPSV23) Pneumovax (PPSV23) 2021-01-28 13:12:00 Completed [facility] Pneumovax (PPSV23) Pneumovax (PPSV23) 2021-01-28 13:12:00 Completed [facility] Pneumovax (PPSV23) Pneumovax (PPSV23) 2021-01-28 13:12:00 Completed [facility] Pneumovax (PPSV23) Pneumovax (PPSV23) 2021-01-28 13:12:00 Completed [facility] Pneumovax (PPSV23) Pneumovax (PPSV23) 2021-01-28 13:12:00 Completed [facility] Pneumovax (PPSV23) Pneumovax (PPSV23) 2021-01-28 13:12:00 Completed [facility] Pneumovax (PPSV23) Pneumovax (PPSV23) 2021-01-28 13:12:00 Completed [facility] Pneumovax (PPSV23) Pneumovax (PPSV23) 2021-01-28 13:12:00 Completed [facility] Pneumovax (PPSV23) Pneumovax (PPSV23) 2021-01-28 13:12:00 Completed [facility] Pneumovax (PPSV23) Pneumovax (PPSV23) 2021-01-28 13:12:00 Completed [facility] Pneumovax (PPSV23) Pneumovax (PPSV23) 2021-01-28 13:12:00 Completed [facility] Pneumovax (PPSV23) Pneumovax (PPSV23) 2021-01-28 13:12:00 Completed [facility] Pneumovax (PPSV23) Pneumovax (PPSV23) 2021-01-28 13:12:00 Completed [facility] Pneumovax (PPSV23) Pneumovax (PPSV23) 2021-01-28 13:12:00 Completed [facility] Pneumovax (PPSV23) Pneumovax (PPSV23) 2021-01-28 13:12:00 Completed [facility] Pneumovax (PPSV23) Pneumovax (PPSV23) 2021-01-28 13:12:00 Completed [facility] Pneumovax (PPSV23) Pneumovax (PPSV23) 2021-01-28 13:12:00 Completed [facility] Pneumovax (PPSV23) Pneumovax (PPSV23) 2021-01-28 13:12:00 Completed [facility] Pneumovax (PPSV23) Pneumovax (PPSV23) 2021-01-28 13:12:00 Completed [facility] Pneumovax (PPSV23) Pneumovax (PPSV23) 2021-01-28 13:12:00 Completed [facility] Pneumovax (PPSV23) Pneumovax (PPSV23) 2021-01-28 13:12:00 Completed [facility] Pneumovax (PPSV23) Pneumovax (PPSV23) 2021-01-28 13:12:00 Completed [facility] Pneumovax (PPSV23) Pneumovax (PPSV23) Unknown Completed [facility] Pneumovax (PPSV23) Pneumovax (PPSV23) Unknown Completed [facility] Pneumovax (PPSV23) Pneumovax (PPSV23) Unknown Completed [facility] Pneumovax (PPSV23) Pneumovax (PPSV23) Unknown Completed [facility] Pneumovax (PPSV23) Pneumovax (PPSV23) Unknown Completed [facility] Pneumovax (PPSV23) Pneumovax (PPSV23) Unknown Completed [facility] Pneumovax (PPSV23) Pneumovax (PPSV23) Unknown Completed [facility] Pneumovax (PPSV23) Pneumovax (PPSV23) Unknown Completed [facility] Pneumovax (PPSV23) Pneumovax (PPSV23) Unknown Completed [facility] Pneumovax (PPSV23) Pneumovax (PPSV23) Unknown Completed [facility] Vital Signs Vital Name Observation Time Observation Value Comments S ource height 2022-11-19 14:30:00 62 [in_i] Commo n [facility] weight 2022-11-19 14:30:00 156.4 [lb_av] Co mmon [facility] temperature 2022-11-19 14:30:00 97.9 [degF] Com mon [facility] bmi 2022-11-19 14:30:00 28.6 kg/m2 Commo n [facility] oximetry 2022-11-19 14:30:00 95 % Commo n [facility] respiratory rate 2022-11-19 14:30:00 17 /min Common [facility] blood pressure systolic 2022-11-19 14:30:00 136 mm[Hg] Common [facility] blood pressure diastolic 2022-11-19 14:30:00 68 mm[Hg] Common [facility] height 2022-08-20 13:50:00 62 [in_i] Commo n [facility] weight 2022-08-20 13:50:00 156.6 [lb_av] Co on [facility] temperature 2022-08-20 13:50:00 97.7 [degF] Com [facility] bmi 2022-08-20 13:50:00 28.64 kg/m2 Comm on [facility] oximetry 2022-08-20 13:50:00 99 % Commo n [facility] respiratory rate 2022-08-20 13:50:00 18 /min [facility] blood pressure systolic 2022-08-20 13:50:00 144 mm[Hg] Common [facility] blood pressure diastolic 2022-08-20 13:50:00 63 mm[Hg] Common [facility] height 2022-08-20 13:40:00 62 [in_i] Commo n [facility] weight 2022-08-20 13:40:00 156.6 [lb_av] Co mmon [facility] temperature 2022-08-20 13:40:00 97.7 [degF] Com [facility] bmi 2022-08-20 13:40:00 28.64 kg/m2 Comm on [facility] oximetry 2022-08-20 13:40:00 99 % Commo n [facility] respiratory rate 2022-08-20 13:40:00 18 /min [facility] blood pressure systolic 2022-08-20 13:40:00 144 mm[Hg] Common [facility] blood pressure diastolic 2022-08-20 13:40:00 63 mm[Hg] Common [facility] height 2022-05-26 13:20:00 62 [in_i] Commo n [facility] weight 2022-05-26 13:20:00 150.4 [lb_av] Co mmon [facility] temperature 2022-05-26 13:20:00 98.1 [degF] Com mon [facility] bmi 2022-05-26 13:20:00 27.51 kg/m2 Comm on [facility] oximetry 2022-05-26 13:20:00 95 % Commo n [facility] respiratory rate 2022-05-26 13:20:00 16 /min [facility] blood pressure systolic 2022-05-26 13:20:00 138 mm[Hg] Common [facility] blood pressure diastolic 2022-05-26 13:20:00 70 mm[Hg] Common [facility] height 2022-02-18 14:00:00 62 [in_i] Commo n [facility] weight 2022-02-18 14:00:00 149.5 [lb_av] Co mmon [facility] temperature 2022-02-18 14:00:00 96.0 [degF] Com mon [facility] bmi 2022-02-18 14:00:00 27.34 kg/m2 Comm on [facility] oximetry 2022-02-18 14:00:00 94 % Commo n [facility] respiratory rate 2022-02-18 14:00:00 16 /min Common [facility] blood pressure systolic 2022-02-18 14:00:00 125 mm[Hg] Common [facility] blood pressure diastolic 2022-02-18 14:00:00 62 mm[Hg] Common [facility] height 2021-11-19 13:30:00 62 [in_i] Commo n [facility] weight 2021-11-19 13:30:00 152 [lb_av] Comm on [facility] temperature 2021-11-19 13:30:00 98.1 [degF] Com [facility] bmi 2021-11-19 13:30:00 27.8 kg/m2 Commo n [facility] oximetry 2021-11-19 13:30:00 95 % Commo n [facility] respiratory rate 2021-11-19 13:30:00 16 /min Common [facility] blood pressure systolic 2021-11-19 13:30:00 135 mm[Hg] Common [facility] blood pressure diastolic 2021-11-19 13:30:00 72 mm[Hg] Common [facility] height 2021-08-05 13:00:00 64 [in_i] Commo n [facility] weight 2021-08-05 13:00:00 148.0 [lb_av] Co mmon [facility] temperature 2021-08-05 13:00:00 97.6 [degF] Com [facility] bmi 2021-08-05 13:00:00 25.4 kg/m2 Commo n [facility] oximetry 2021-08-05 13:00:00 96 % Commo n [facility] respiratory rate 2021-08-05 13:00:00 17 /min Common [facility] blood pressure systolic 2021-08-05 13:00:00 134 mm[Hg] [facility] blood pressure diastolic 2021-08-05 13:00:00 76 mm[Hg] Common [facility] height 2021-08-05 13:00:00 64 [in_i] Commo n [facility] weight 2021-08-05 13:00:00 148.0 [lb_av] Co mmon [facility] temperature 2021-08-05 13:00:00 97.6 [degF] Com mon [facility] bmi 2021-08-05 13:00:00 25.4 kg/m2 Commo n [facility] oximetry 2021-08-05 13:00:00 96 % Commo n [facility] respiratory rate 2021-08-05 13:00:00 17 /min Common [facility] blood pressure systolic 2021-08-05 13:00:00 134 mm[Hg] Common [facility] blood pressure diastolic 2021-08-05 13:00:00 76 mm[Hg] Common [facility] height 2021-05-05 13:00:00 64 [in_i] Commo n [facility] weight 2021-05-05 13:00:00 150 [lb_av] Comm on [facility] bmi 2021-05-05 13:00:00 25.74 kg/m2 Comm on [facility] blood pressure systolic 2021-05-05 13:00:00 130 mm[Hg] Common [facility] blood pressure diastolic 2021-05-05 13:00:00 62 mm[Hg] Common [facility] height 2021-04-28 13:20:00 64 [in_i] Commo n [facility] weight 2021-04-28 13:20:00 150.7 [lb_av] Co mmon [facility] temperature 2021-04-28 13:20:00 98.2 [degF] Com mon [facility] bmi 2021-04-28 13:20:00 25.86 kg/m2 Comm on [facility] oximetry 2021-04-28 13:20:00 96 % Commo n [facility] respiratory rate 2021-04-28 13:20:00 16 /min Common [facility] blood pressure systolic 2021-04-28 13:20:00 138 mm[Hg] Common [facility] blood pressure diastolic 2021-04-28 13:20:00 76 mm[Hg] Common [facility] height 2021-01-28 13:00:00 64 [in_i] Commo n [facility] weight 2021-01-28 13:00:00 152.3 [lb_av] Co mmon [facility] temperature 2021-01-28 13:00:00 98.4 [degF] Com mon [facility] bmi 2021-01-28 13:00:00 26.14 kg/m2 Comm on [facility] oximetry 2021-01-28 13:00:00 90 % Commo n [facility] respiratory rate 2021-01-28 13:00:00 17 /min [facility] blood pressure systolic 2021-01-28 13:00:00 132 mm[Hg] Common [facility] blood pressure diastolic 2021-01-28 13:00:00 65 mm[Hg] Common [facility] height 2021-01-14 15:20:00 64 [in_i] Commo n [facility] weight 2021-01-14 15:20:00 153.2 [lb_av] Co mmon [facility] temperature 2021-01-14 15:20:00 98.1 [degF] Com mon [facility] bmi 2021-01-14 15:20:00 26.29 kg/m2 Comm on [facility] oximetry 2021-01-14 15:20:00 95 % Commo n [facility] respiratory rate 2021-01-14 15:20:00 16 /min Common [facility] blood pressure systolic 2021-01-14 15:20:00 135 mm[Hg] Common [facility] blood pressure diastolic 2021-01-14 15:20:00 67 mm[Hg] Common [facility] Encounters Start Date/Time End Date/Time Encounter Type Admission Type Attending Clinicians Care Facility Care Department Encounter ID Source 2022-02-17 13:41:00 Outpatient Perrin, Wes STLMLC [facility] [id number] [facility] 2022-02-16 09:38:00 Outpatient Perrin, Wes STLC [facility] [id number] [facility] 2021-11-19 13:35:01 Outpatient Perrin, Wes [facility]LMLC [facility] [id number] [facility] 2021-07-29 15:19:00 Outpatient Perrin, Wes [facility]LMLC [facility] [id number] [facility] 2021-06-27 08:07:00 Outpatient Perrin, Wes STLC ST[facility] [id number] [facility] 2021-05-05 16:43:00 Outpatient Perrin, Wes [facility]LMLC [facility] [id number] [facility] 2021-03-26 14:30:09 Outpatient Perrin, Wes STLC [facility] [id number] [facility] 2021-03-26 14:29:28 Outpatient Perrin, Wes STLMLC ST[facility] [id number] [facility] 2021-03-26 14:18:35 Outpatient Perrin, Ews STLMLC ST[facility] [id number] [facility] 2021-03-26 14:11:04 Outpatient Perrin, Wes STLMLC ST[facility] [id number] [facility] 2021-03-26 13:57:06 Outpatient Perrin, Wes STLMLC ST[facility] [id number] [facility] 2021-03-26 13:46:30 Outpatient Perrin, Wes STLMLC ST[facility] [id number] [facility] 2021-03-26 12:59:11 Outpatient Perrin, Wes [facility]LMLC [facility] [id number] [facility] 2021-03-26 12:58:35 Outpatient Perrin, Wes STLMLC ST[facility] [id number] [facility] 2021-03-26 12:53:31 Outpatient Perrin, Wes STLMLC ST[facility] [id number] [facility] 2021-03-26 12:52:16 Outpatient Perrin, Wes STLMLC ST[facility] [id number] [facility] 2021-03-26 12:30:06 Outpatient Perrin, Wes STLMLC ST[facility] [id number] [facility] 2021-03-26 12:27:36 Outpatient Perrin, Wes STLMLC ST[facility] [id number] [facility] 2021-03-26 12:21:49 Outpatient Perrin, Wes [facility]LMLC ST[facility] [id number] [facility] 2021-03-26 12:19:50 Outpatient Perrin, Wes [facility]LMLC ST[facility] [id number] [facility] 2021-03-26 12:16:54 Outpatient Perrin, Wes [facility]LMLC ST[facility] [id number] [facility] 2021-03-26 11:19:59 Outpatient Perrin, Wes STLMLC ST[facility] [id number] [facility] 2021-03-26 11:19:46 Outpatient Perrin, Wes STLMLC ST[facility] [id number] [facility] 2021-03-26 11:04:39 Outpatient Perrin, Wes STLMLC ST[facility] [id number] [facility] 2021-03-26 11:04:18 Outpatient Perrin, Wes STLMLC ST[facility] [id number] [facility] 2021-03-26 10:58:12 Outpatient Perrin, Wes STLMLC ST[facility] [id number] [facility] 2022-12-28 00:00:00 2022-12-28 00:00:00 (TEL) STLMLC STL[facility]C [id number] [facility] 2022-12-28 00:00:00 2022-12-28 00:00:00 (TEL) STLMLC STL[facility]C [id number] [facility] 2022-11-19 00:00:00 2022-11-19 00:00:00 OFFICE VISIT ESTAB PT LEVEL 4 STLMLC ST[facility]C [id number] [facility] 2022-09-25 00:00:00 2022-09-25 00:00:00 (TEL) STLMLC STL[facility]C [id number] [facility] 2022-09-14 00:00:00 2022-09-14 00:00:00 (TEL) STLMLC STLMLC [id number] [facility] 2022-09-07 00:00:00 2022-09-07 00:00:00 (TEL) STLMLC STL[facility]C [id number] [facility] 2022-08-20 00:00:00 2022-08-20 00:00:00 OFFICE VISIT ESTAB PT LEVEL 4 STLMLC STL[facility]C [id number] [facility] 2022-08-20 00:00:00 2022-08-20 00:00:00 SUB ANNUAL [facility] WELLNESS VISIT STLMLC STLMLC [id number] [facility] 2022-08-10 00:00:00 2022-08-10 00:00:00 (TEL) STLMLC STLMLC [id number] [facility] 2022-06-09 15:15:48 2022-06-09 23:59:00 Outpatient MOODY M[facility] [id number] [facility] 2022-06-09 15:15:48 2022-06-09 23:59:00 Hospital Encounter Moody Guerrero [facility] [id number] [facility] 2022-05-26 00:00:00 2022-05-26 00:00:00 OFFICE VISIT ESTAB PT LEVEL 4 STLMLC STL[facility]C [id number] [facility] 2022-03-23 00:00:00 2022-03-23 00:00:00 (TEL) STLMLC STLMLC [id number] [facility] 2022-02-18 00:00:00 2022-02-18 00:00:00 OFFICE VISIT ESTAB PT LEVEL 4 STLMLC STL[facility]C [id number] [facility] 2022-01-14 00:00:00 2022-01-14 00:00:00 (TEL) STLMLC STLMLC [id number] [facility] 2022-01-05 00:00:00 2022-01-05 00:00:00 (TEL) STLMLC STLMLC [id number] [facility] 2021-11-27 00:00:00 2021-11-27 00:00:00 (TEL) STLMLC STLMLC [id number] [facility] 2021-11-19 00:00:00 2021-11-19 00:00:00 OFFICE VISIT ESTAB PT LEVEL 4 STLMLC STLMLC [id number] [facility] 2021-11-19 00:00:00 2021-11-19 00:00:00 (TEL) STLMLC STLMLC [id number] [facility] 2021-11-04 00:00:00 2021-11-04 00:00:00 (TEL) STLMLC STLMLC [id number] [facility] 2021-10-23 00:00:00 2021-10-23 00:00:00 (TEL) STLMLC STLMLC [id number] [facility] 2021-10-06 00:00:00 2021-10-06 00:00:00 (TEL) STLMLC STLMLC [id number] [facility] 2021-10-03 00:00:00 2021-10-03 00:00:00 (TEL) STLMLC STLMLC [id number] [facility] 2021-09-25 00:00:00 2021-09-25 00:00:00 (TEL) STLMLC STLMLC [id number] [facility] 2021-09-17 00:00:00 2021-09-17 00:00:00 (TEL) STLMLC STLMLC [id number] [facility] 2021-08-26 00:00:00 2021-08-26 00:00:00 (TEL) STLMLC STLMLC [id number] [facility] 2021-08-19 00:00:00 2021-08-19 00:00:00 (TEL) STLMLC STLMLC [id number] [facility] 2021-08-07 00:00:00 2021-08-07 00:00:00 (TEL) STLMLC STLMLC [id number] [facility] 2021-08-05 00:00:00 2021-08-05 00:00:00 OFFICE VISIT ESTAB PT LEVEL 4 STLMLC STLMLC [id number] [facility] 2021-08-05 00:00:00 2021-08-05 00:00:00 (TEL) STLMLC STLMLC [id number] [facility] 2021-08-05 00:00:00 2021-08-05 00:00:00 SUB ANNUAL [facility] WELLNESS VISIT STLMLC STLMLC [id number] [facility] 2021-08-01 00:00:00 2021-08-01 00:00:00 (TEL) STLMLC STLMLC [id number] [facility] 2021-07-29 00:00:00 2021-07-29 00:00:00 (TEL) STLMLC STLMLC [id number] [facility] 2021-07-09 00:00:00 2021-07-09 00:00:00 (TEL) STLMLC STLMLC [id number] [facility] 2021-06-19 00:00:00 2021-06-19 00:00:00 (TEL) STLMLC STLMLC [id number] [facility] 2021-05-13 00:00:00 2021-05-13 00:00:00 (TEL) STLMLC STLMLC [id number] [facility] 2021-05-12 00:00:00 2021-05-12 00:00:00 (TEL) STLMLC STLMLC [id number] [facility] 2021-05-07 00:00:00 2021-05-07 00:00:00 (TEL) STLMLC STLMLC [id number] [facility] 2021-05-06 00:00:00 2021-05-06 00:00:00 (TEL) STLMLC STLMLC [id number] [facility] 2021-05-05 00:00:00 2021-05-05 00:00:00 OFFICE VISIT NEW PT LEVEL 3 STLMLC STLMLC [id number] [facility] 2021-04-28 00:00:00 2021-04-28 00:00:00 OFFICE VISIT ESTAB PT LEVEL 4 STLMLC STLMLC [id number] [facility] 2021-04-09 00:00:00 2021-04-09 00:00:00 (TEL) STLMLC STLMLC [id number] [facility] 2021-04-08 00:00:00 2021-04-08 00:00:00 (TEL) STLMLC STLMLC [id number] [facility] 2021-03-19 00:00:00 2021-03-19 00:00:00 (TEL) STLMLC STLMLC [id number] [facility] 2021-03-19 00:00:00 2021-03-19 00:00:00 (TEL) STLMLC STLMLC [id number] [facility] 2021-03-03 00:00:00 2021-03-03 00:00:00 (TEL) STLMLC STLMLC [id number] [facility] 2021-03-03 00:00:00 2021-03-03 00:00:00 (TEL) STLMLC STLMLC [id number] [facility] 2021-02-17 00:00:00 2021-02-17 00:00:00 (TEL) STLMLC STLMLC [id number] [facility] 2021-01-28 00:00:00 2021-01-28 00:00:00 OFFICE VISIT ESTAB PT LEVEL 4 STLMLC STLMLC [id number] [facility] 2021-01-14 00:00:00 2021-01-14 00:00:00 OFFICE VISIT ESTAB PT LEVEL 4 STLMLC STLMLC [id number] [facility] 2021-01-07 00:00:00 2021-01-07 00:00:00 (TEL) STLMLC STLMLC [id number] [facility] 2020-10-30 00:00:00 2020-10-30 00:00:00 Outpatient [facility]LMLC STL[facility]C [id number] [facility] 2020-10-29 00:00:00 2020-10-29 00:00:00 Outpatient [facility]LMLC STL[facility]C [id number] [facility] 2020-09-24 00:00:00 2020-09-24 00:00:00 Outpatient STLMLC STL[facility]C [id number] [facility] 2020-09-16 00:00:00 2020-09-16 00:00:00 Outpatient STLMLC STL[facility]C [id number] [facility] 2020-09-12 00:00:00 2020-09-12 00:00:00 Outpatient [facility]C STL[facility]C [id number] [facility] 2020-07-02 00:00:00 2020-07-02 00:00:00 Outpatient STLMLC STL[facility]C [id number] [facility] 2020-07-02 00:00:00 2020-07-02 00:00:00 Outpatient [facility]LMLC STLMLC [id number] [facility] 2020-06-12 00:00:00 2020-06-12 00:00:00 Outpatient [facility]MLC STL[facility]C [id number] [facility] 2020-04-25 00:00:00 2020-04-25 00:00:00 Outpatient [facility]LMLC STLMLC [id number] [facility] 2020-04-10 00:00:00 2020-04-10 00:00:00 Outpatient [facility]LMLC STL[facility]C [id number] [facility] 2020-04-09 00:00:00 2020-04-09 00:00:00 Outpatient [facility]C STL[facility]C [id number] [facility] 2020-04-02 00:00:00 2020-04-02 00:00:00 Outpatient [facility]LMLC STL[facility]C [id number] [facility] 2020-03-19 00:00:00 2020-03-19 00:00:00 Outpatient [facility]LMLC STLMLC [id number] [facility] 2020-03-19 00:00:00 2020-03-19 00:00:00 Outpatient [facility]LMLC STLMLC [id number] [facility] 2020-01-18 00:00:00 2020-01-18 00:00:00 Outpatient [facility]MLC STL[facility]C [id number] [facility] 2020-01-17 00:00:00 2020-01-17 00:00:00 Outpatient [facility]LMLC STL[facility]C [id number] [facility] 2020-01-11 00:00:00 2020-01-11 00:00:00 Outpatient [facility]LMLC STL[facility]C [id number] [facility] 2020-01-02 00:00:00 2020-01-02 00:00:00 Outpatient [facility] [id number] [facility] 2019-11-30 00:00:00 2019-11-30 00:00:00 Outpatient [facility]C ST[facility]C [id number] [facility] 2019-11-02 13:30:00 2019-11-02 13:30:[address] [facility] [id number] [facility] 2019-10-02 13:00:00 2019-10-02 13:00:[address] [facility] [id number] [facility] 2019-08-30 11:00:00 2019-08-30 11:00:[address] [facility] [id number] [facility] 2019-08-03 13:15:00 2019-08-03 13:15:[address] [facility] [id number] [facility] 2019-06-30 11:30:00 2019-06-30 11:30:[address] [facility] [id number] [facility] 2019-06-16 14:06:00 2019-06-16 14:06:00 [facility] [id number] [facility] 2019-06-16 13:49:00 2019-06-16 13:49:[address] [facility] [id number] [facility] [facility] 2019-06-01 08:45:00 2019-06-01 08:45:[address] [facility] [id number] [facility] 2019-05-05 10:00:00 2019-05-05 10:00:[address] [facility] [id number] [facility] 2019-04-04 11:15:00 2019-04-04 11:15:[address] [facility] [id number] [facility] 2019-03-06 10:30:00 2019-03-06 10:30:[address] [facility] [id number] [facility] 2019-02-27 13:00:00 2019-02-27 13:00:00 [facility] [id number] [facility] 2019-02-01 11:00:00 2019-02-01 11:00:[address] [facility] [id number] [facility] 2019-01-02 13:00:00 2019-01-02 13:00:[address] [facility] [id number] [facility] 2018-12-01 14:15:00 2018-12-01 14:15:[address] [facility] [id number] [facility] 2018-11-17 13:15:00 2018-11-17 13:15:00 [facility] [id number] [facility] 2018-11-08 09:01:00 2018-11-08 09:01:[address] [facility] [id number] [facility] 2018-11-07 11:53:00 2018-11-07 11:53:00 [facility] [id number] [facility] 2018-11-03 14:30:00 2018-11-03 14:30:[address] [facility] [id number] [facility] 2018-11-01 11:36:00 2018-11-01 11:36:[address] [facility] [id number] [facility] 2018-10-24 13:30:00 2018-10-24 13:30:00 [facility] [id number] [facility] 2018-10-10 14:36:00 2018-10-10 14:36:[address] [facility] [id number] [facility] 2018-10-04 13:15:00 2018-10-04 13:15:[address] [facility] [id number] [facility] 2018-08-30 11:45:00 2018-08-30 11:45:[address] [facility] [id number] [facility] 2018-07-07 13:00:00 2018-07-07 13:00:00 [facility] [id number] [facility] 2018-06-29 14:00:00 2018-06-29 14:00:[address] [facility] [id number] [facility] 2018-05-31 13:30:00 2018-05-31 13:30:[address] [facility] [id number] [facility] 2018-05-02 13:15:00 2018-05-02 13:15:[address] [facility] [id number] [facility] 2018-04-25 14:00:00 2018-04-25 14:00:[address] [facility] [id number] [facility] 2018-04-04 11:15:00 2018-04-04 11:15:[address] [facility] [id number] [facility] 2018-03-07 11:15:00 2018-03-07 11:15:[address] [facility] [id number] [facility] 2017-12-02 11:15:00 2017-12-02 11:15:[address] [facility] [id number] [facility] 2017-11-08 10:48:00 2017-11-08 10:48:[address] [facility] [id number] [facility] 2017-11-08 10:48:00 2017-11-08 10:48:[address] [facility] [id number] [facility] 2017-10-08 08:00:00 2017-10-08 08:00:[address] [facility] [id number] [facility] 2017-09-09 10:15:00 2017-09-09 10:15:[address] [facility] [id number] [facility] 2017-08-16 11:50:00 2017-08-16 11:50:[address] [facility] [id number] [facility] 2017-08-13 11:53:00 2017-08-13 11:53:[address] [facility] [id number] [facility] 2017-08-13 11:00:00 2017-08-13 11:00:[address] [facility] [id number] [facility] 2017-07-16 11:15:00 2017-07-16 11:15:[address] [facility] [id number] [facility] 2017-07-12 11:39:00 2017-07-12 11:39:[address] [facility] [id number] [facility] 2017-06-29 09:55:00 2017-06-29 09:55:00 [facility] [id number] [facility] 2017-06-23 16:26:00 2017-06-23 16:26:00 [facility] [id number] [facility] 2017-06-23 14:30:00 2017-06-23 14:30:00 [facility] [id number] [facility] 2017-06-18 16:03:00 2017-06-18 16:03:00 [facility] [id number] [facility] 2017-06-16 10:45:00 2017-06-16 10:45:00 [facility] [id number] [facility] Results Test Description Test Time Test Comments Results Result Co mments Source DEXA, BONE DENSITY AXIAL SKELE DEXA, BONE DENSITY AXIAL SKELE
--- NOTE | 2023-03-19 14:11 | RAD REPORT ---
EXAM DESCRIPTION: Jhoant Single View03/19/2023 1:42 pm CLINICAL HISTORY: SWELLING COMPARISON: Chest Single View dated 01/05/2022; Chest Single View dated 12/25/2020; Chest Single View dated 09/12/2020; Chest Pa And Lat (2 Views) dated 04/10/2019 TECHNIQUE: Portable AP view of the chest. FINDINGS: The lungs are clear apart from left perihilar streaky opacities, may relate to postoperati ve changes. No pneumothorax or effusion. The cardiomediastinal contours are unremarkable. IMPRESSION: No acute cardiopulmonary process.
[2023-03-19 15:51] LABS: Hematocrit 41.8 % (36.0-45.0); Lymphocytes % 29.7 % (15.3-44.8); MCV 90.5 fL (80-100); MPV 8.5 fL (7.6-11.3); Platelets 255 thou/uL (152-406); RBC Red Blood Cell Count 4.62 M/uL (3.86-4.86)
[2023-03-19 15:56] LABS: Protime INR 1.04
[2023-03-19 16:07] LABS: Albumin 3.4 g/dL (3.4-5.0); Bilirubin Total 0.2 mg/dL (0.2-1.0); Potassium 4.4 mEq/L (3.5-5.1); Protein, Total 7.1 g/dL (6.4-8.2)
--- NOTE | 2023-03-19 16:11 | EDPHYS ---
Physician Documentation [facility] Name: Cecile Conley Age: 82 yrs Sex: Female : 1940 Arrival Date: 03/19/2023 Time: 12:12 Bed 7 Private MD: ED Physician Leander Cochran HPI: 03/19 14:32 This 82 yrs old Female presents to ER via Wheelchair with complaints of Sent by rn . 14:32 The patient presents with cellulitis of the left leg. Description: erythematous, rn swollen, warm. Onset: The symptoms/episode began/occurred 1 week(s) ago. Possible cause(s): unknown. Associated signs and symptoms: Pertinent positives: erythema, swelling, Pertinent negatives: fever. Modifying factors: the symptoms are alleviated by nothing, the symptoms are aggravated by movement, squeezing the lesion and expressing the contents, touching. Severity of symptoms: At their worst the symptoms were moderate, in the emergency department the symptoms are unchanged. The patient has not experienced similar symptoms in the past. The patient has been recently seen by a physician:. Patient sent over by Dr. Sandy for admission for IV antibiotics. Dr. Sandy reports evaluated patient for left lower extremity swelling and warmth, outpatient ultrasound was negative for DVT, would like patient admitted for IV antibiotics. Patient reports started after pedicure and has progressed with worsening swelling and redness and pain to left lower extremity. No fever or chills.. Historical: - Allergies: 13:02 Sulfa (Sulfonamide Antibiotics); ap3 13:02 Aspirin; ap3 - PMHx: 13:02 Anxiety; breast cancer; Cancer; COPD; Hypertension; TB; ap3 - PSHx: 13:02 1/2 of Left kidney removed; Lobe of Lung removed (unsure which lung); Right Kidney ap3 Removed; - Immunization history:: Client reports having NOT received the Covid vaccine. Flu vaccine is not up to date. - Social history:: Smoking status: Patient reports the use of cigarette tobacco products, denies chronic smoking, but will smoke occasionally. - Family history:: not pertinent. - Hospitalizations: : No recent hospitalization is reported. ROS: 14:32 Constitutional: Negative for fever, chills, and weight loss, Cardiovascular: Negative rn for chest pain, palpitations Respiratory: Negative for shortness of breath, cough, wheezing, and pleuritic chest pain, Abdomen/GI: Negative for abdominal pain, nausea, vomiting, diarrhea, and constipation, MS/Extremity: Positive for swelling to left lower extremity Skin: Positive for redness and warmth to left lower extremity Neuro: Negative for headache, weakness, numbness, tingling, and seizure, Exam: 14:32 Constitutional: This is a well developed, well nourished patient who is awake, alert, rn and in no acute distress. Head/Face: Normocephalic, atraumatic. Cardiovascular: Bradycardic, regular. No pulse deficits. Respiratory: No increased work of breathing, no retractions or nasal flaring. MS/ Extremity: Pulses equal, no cyanosis. 1+ pitting edema left lower extremity to the knee with warmth and erythema. Positive for left inguinal lymphadenopathy. Neuro: Awake and alert, GCS 15 Vital Signs: 13:00 BP 144 / 87; Pulse 57; Resp 18; Temp 97.2; Pulse Ox 96% ; Weight 75.3 kg; Height 5 ft. ap3 5 in. ; Pain 10/10; 15:36 BP 142 / 57; Pulse 43; Resp 16; Pulse Ox 98% on R/A; tl4 16:00 BP 132 / 71; Pulse 47; Resp 13; Pulse Ox 98% on R/A; tl4 17:00 BP 108 / 40; Pulse 46; Resp 16; Pulse Ox 99% on R/A; tl4 18:00 BP 131 / 83; Pulse 51; Resp 16; Pulse Ox 99% on R/A; tl4 19:00 BP 135 / 53; Pulse 50; Resp 16; Pulse Ox 98% on R/A; tl4 13:00 Body Mass Index 27.62 (75.30 kg, 165.1 cm) ap3 13:00 Pain Scale: Adult ap3 MDM: 12:29 Patient medically screened. rn 14:32 Differential diagnosis: cellulitis, Cellulitis/lymphangitis. rn 16:08 Data reviewed: vital signs, nurses notes, lab test result(s). rn 16:08 Consideration of Admission/Observation Patient was admitted/placed on observation. rn Escalation of care including admission/observation considered. Counseling: I had a detailed discussion with the patient and/or guardian regarding the historical points, exam findings, and any diagnostic results supporting the discharge/admit diagnosis, lab results, radiology results, the need for further work-up and treatment in the hospital. Response to treatment: the patient's symptoms have mildly improved after treatment, and as a result, I will admit patient. 03/19 12:31 Order name: Blood Culture Adult (2) rn 03/19 12:31 Order name: CBC with Diff; Complete Time: 16:08 rn 03/19 12:31 Order name: CMP; Complete Time: 16:08 rn 03/19 12:31 Order name: Lactate w/ 2H reflex if indic.; Complete Time: 16:08 rn 03/19 12:31 Order name: Protime (+inr); Complete Time: 16:08 rn 03/19 12:31 Order name: Ptt, Activated; Complete Time: 16:08 rn 03/19 12:31 Order name: BNP; Complete Time: 16:08 rn 03/19 15:26 Order name: Glucose, Ancillary Testing; Complete Time: 15:32 EDMS 03/19 17:08 Order name: Urinalysis w/ reflexes EDMS 03/19 17:08 Order name: Basic Metabolic Panel EDMS 03/19 17:08 Order name: Basic Metabolic Panel EDMS 03/19 17:08 Order name: Basic Metabolic Panel EDMS 03/19 17:08 Order name: Basic Metabolic Panel EDMS 03/19 17:08 Order name: CBC with Automated Diff EDMS 03/19 17:08 Order name: CBC with Automated Diff EDMS 03/19 17:08 Order name: CBC with Automated Diff EDMS 03/19 17:08 Order name: CBC with Automated Diff EDMS 03/19 17:08 Order name: Lipid Profile EDMS 03/19 17:08 Order name: Lipid Profile EDMS 03/19 17:08 Order name: Magnesium EDMS 03/19 17:08 Order name: Magnesium EDMS 03/19 17:08 Order name: Magnesium EDMS 03/19 17:08 Order name: Magnesium EDMS 03/19 17:08 Order name: Phosphorus EDMS 03/19 17:08 Order name: Phosphorus EDMS 03/19 17:08 Order name: Phosphorus EDMS 03/19 17:08 Order name: Phosphorus EDMS 03/19 12:31 Order name: Chest Single View XRAY; Complete Time: 14:12 rn 03/19 17:13 Order name: Extremity Venous Uni Ltd EDMS 03/19 17:13 Order name: Lower Extremity Arterial Bilat [facility] 03/19 12:31 Order name: EKG; Complete Time: 12:32 rn 03/19 17:08 Order name: CONS Physician Consult [facility] 03/19 12:31 Order name: Accucheck; Complete Time: 15:14 rn 03/19 12:31 Order name: Cardiac monitoring; Complete Time: 14:53 rn 03/19 12:31 Order name: EKG - Nurse/Tech; Complete Time: 15:56 rn 03/19 12:31 Order name: IV Saline Lock - Large Bore; Complete Time: 15:40 rn 03/19 12:31 Order name: Labs collected and sent; Complete Time: 15:36 rn 03/19 12:31 Order name: O2 Per Protocol; Complete Time: 14:53 rn 03/19 12:31 Order name: O2 Sat Monitoring; Complete Time: 14:53 rn 03/19 12:31 Order name: Vital Signs; Complete Time: 14:53 rn Administered Medications: 18:47 Drug: vancoMYCIN IVPB 1 grams IVPB once over 2 hrs Route: IVPB; Rate: 125 ml/hr; tl4 Infused Over: 2 hrs; Site: right hand; Delivery: Primary tubing; Point of Care Testing: Blood Glucose: 15:16 Blood Glucose: 84 mg/dL; nj1 Ranges: Critical Glucose Levels:Adult <50 mg/dl or >400 mg/dl <40 mg/dl or >180 mg/dl Disposition Summary: 03/19/23 16:10 Hospitalization Ordered Notes: Hospitalization Status: Inpatient Admission rn Provider: Cheri Jaeger rn Condition: Stable rn Problem: an ongoing problem rn Symptoms: have worsened rn Bed/Room Type: Standard rn Location: Telemetry/MedSurg (Inpatient)(03/19/23 18:43) eb Room Assignment: 231(03/19/23 18:43) eb Diagnosis - Cellulitis of left lower limb rn - Acute lymphangitis, unspecified rn Forms: - Medication Reconciliation Form rn - SBAR form rn - Leadership Thank You Letter rn Signatures: Dispatcher [facility] Leander Cochran MD MD rn Prokisch, Amanda, RN RN Jesi Ventura eb [place] tl4 Corrections: (The following items were deleted from the chart) 18 16:10 Telemetry/MedSurg (Inpatient) rn ap3 18: 16:10 rn ap3 18:43 18:29 [facility] ER HOLD ap3 eb 18:43 18:29 ERHOLD- ap3 eb
--- NOTE | 2023-03-19 16:11 | ER ---
Nurse's Notes [facility] Name: Cecile Conley Age: 82 yrs Sex: Female : 1940 Arrival Date: 03/19/2023 Time: 12:12 Bed 7 Private MD: Diagnosis: Cellulitis of left lower limb;Acute lymphangitis, unspecified Presentation: 03/19 13:00 Chief complaint: Patient states: Dr. Sandy sent her over for possible cellulitis of ap3 her left lower leg. Coronavirus screen: At this time, the client does not indicate any symptoms associated with coronavirus-19. Ebola Screen: No symptoms or risks identified at this time. Initial Sepsis Screen: Does the patient meet any 2 criteria? No. Patient's initial sepsis screen is negative. Does the patient have a suspected source of infection? No. Patient's initial sepsis screen is negative. Risk Assessment: Do you want to hurt yourself or someone else? Patient reports no desire to harm self or others. Onset of symptoms is unknown. 13:00 Method Of Arrival: Wheelchair ap3 13:00 Acuity: DAVID 3 ap3 Triage Assessment: 13:03 General: Appears in no apparent distress. Behavior is calm, cooperative, appropriate ap3 for age. Pain: Complains of pain in left leg. Neuro: Level of Consciousness is awake, alert, obeys commands, Oriented to person, place, time, situation, Appropriate for age. Cardiovascular: Patient's skin is warm and dry. Respiratory: Airway is patent Respiratory effort is even, unlabored, Respiratory pattern is regular, symmetrical. Musculoskeletal: Swelling present in left leg. Historical: - Allergies: 13:02 Sulfa (Sulfonamide Antibiotics); ap3 13:02 Aspirin; ap3 - PMHx: 13:02 Anxiety; breast cancer; Cancer; COPD; Hypertension; TB; ap3 - PSHx: 13:02 1/2 of Left kidney removed; Lobe of Lung removed (unsure which lung); Right Kidney ap3 Removed; - Immunization history:: Client reports having NOT received the Covid vaccine. Flu vaccine is not up to date. - Social history:: Smoking status: Patient reports the use of cigarette tobacco products, denies chronic smoking, but will smoke occasionally. - Family history:: not pertinent. - Hospitalizations: : No recent hospitalization is reported. Screenin:03 Abuse screen: Denies threats or abuse. Nutritional screening: No deficits noted. ap3 Tuberculosis screening: No symptoms or risk factors identified. 18:50 [facility] ED Fall Risk Assessment (Adult) History of falling in the last 3 months, tl4 including since admission No falls in past 3 months (0 pts) Confusion or Disorientation No (0 pts) Intoxicated or Sedated No (0 pts) Impaired Gait No (0 pts) Mobility Assist Device Used No (0 pt) Altered Elimination No (0 pt) Score/Fall Risk Level 0 - 2 = Low Risk Oriented to surroundings, Maintained a safe environment, Educated pt \T\ family on fall prevention, incl call for assistance when getting out of bed, Provided non-skid footwear, Hourly rounding (assess needs \T\ fall precautionary measures) done, Used ambulatory aids as needed (educated on \T\ assisted with). Assessment: 16:33 Reassessment: No changes from previously documented assessment. Patient and/or family tl4 updated on plan of care and expected duration. Pain level reassessed. Patient is alert, oriented x 3, equal unlabored respirations, skin warm/dry/pink. Derm: redness noted to left lower leg and foot. 19:20 Reassessment: No changes from previously documented assessment. Patient and/or family tl4 updated on plan of care and expected duration. Pain level reassessed. Patient is alert, oriented x 3, equal unlabored respirations, skin warm/dry/pink. 19:55 Reassessment: REPORT ATTEMPTED. tm6 Vital Signs: 13:00 BP 144 / 87; Pulse 57; Resp 18; Temp 97.2; Pulse Ox 96% ; Weight 75.3 kg; Height 5 ft. ap3 5 in. ; Pain 10/10; 15:36 BP 142 / 57; Pulse 43; Resp 16; Pulse Ox 98% on R/A; tl4 16:00 BP 132 / 71; Pulse 47; Resp 13; Pulse Ox 98% on R/A; tl4 17:00 BP 108 / 40; Pulse 46; Resp 16; Pulse Ox 99% on R/A; tl4 18:00 BP 131 / 83; Pulse 51; Resp 16; Pulse Ox 99% on R/A; tl4 19:00 BP 135 / 53; Pulse 50; Resp 16; Pulse Ox 98% on R/A; tl4 13:00 Body Mass Index 27.62 (75.30 kg, 165.1 cm) ap3 13:00 Pain Scale: Adult ap3 ED Course: 12:17 Patient arrived in ED. im 12:29 Leander Cochran MD is Attending Physician. rn 13:02 Triage completed. ap3 13:03 Patient has correct armband on for positive identification. ap3 13:03 Arm band placed on left wrist. ap3 13:44 Chest Single View XRAY In Process Unspecified. EDMS 15:36 BNP Sent. em1 15:36 CBC with Diff Sent. em1 15:36 CMP Sent. em1 15:36 Lactate w/ 2H reflex if indic. Sent. em1 15:36 Protime (+inr) Sent. em1 15:36 Ptt, Activated Sent. em1 15:36 Initial lab(s) drawn, by me, sent to lab. Inserted saline lock: 22 gauge in right em1 wrist, using aseptic technique. Blood collected. 16:10 Cheri Jaeger MD is Hospitalizing Provider. rn 17:40 Inserted saline lock: 20 gauge in right antecubital area, using aseptic technique. nj1 ,using aseptic technique. Ultrasound guided. Catheter tip well visualized within vasculature during placement. 18:49 No provider procedures requiring assistance completed. tl4 19:00 Provided Education on: ED process. tl4 19:20 Patient admitted, IV remains in place. tl4 Administered Medications: 18:47 Drug: vancoMYCIN IVPB 1 grams IVPB once over 2 hrs Route: IVPB; Rate: 125 ml/hr; tl4 Infused Over: 2 hrs; Site: right hand; Delivery: Primary tubing; Medication: 18:49 VIS not applicable for this client. tl4 Point of Care Testing: Blood Glucose: 15:16 Blood Glucose: 84 mg/dL; nj1 Ranges: Outcome: 16:10 Decision to Hospitalize by Provider. rn 20:21 Admitted to Med/surg accompanied by nurse, family with patient, via wheelchair, room tm6 231, with chart, Report called to Kimberlee DODGE 20:21 Condition: stable 20:21 Instructed on the need for admit, 20:39 Patient left the ED. tm6 Signatures: Dispatcher [employer] EDMS Leander Cochran MD MD rn Martinez, Eric em1 Kaylan Machuca RN RN ap3 Gabriela Cuello RN RN nj1 Darleen Banks Tawney, RN RN tm6 [place] tl4 Corrections: (The following items were deleted from the chart) 18:47 18:36 vancoMYCIN IVPB 1 grams IVPB at 125 ml/hr in right forearm over 2 hrs via Primary tl4 tubing tl4
[2023-03-19] MEDS ORDERED: NA CHLORIDE 0.9% 250 ML ONE (16:55)
[2023-03-19] MEDS ORDERED: VANCOMYCIN 1 GM/VIAL ONE (16:55)
[2023-03-19] MEDS ORDERED: ALBUTEROL 2.5 MG/3 ML NEB SOL NEB PRN (17:01)
[2023-03-19] MEDS ORDERED: ACETAMINOPHEN 500 MG TAB PO PRN (17:01)
[2023-03-19] MEDS ORDERED: MORPHINE 2 MG/ML SYR IV PRN (17:01)
[2023-03-19] MEDS ORDERED: ALPRAZOLAM 1 MG TABLET PO PRN (17:12)
--- NOTE | 2023-03-19 17:20 | P.HP ---
Certification for Inpatient With expected LOS: <2 Midnights Patient will require the following post-hospital care: None Practitioner: I am a practitioner with admitting privileges, knowledge of patient current condition, hospital course, and medical plan of care. Services: Services provided to patient in accordance with Admission requirements found in Title 42 Section 412.3 of the Code of Federal Regulations <Lakisha Pulido - Last Filed: 03/19/23 18:23> Patient History Date of Service: 03/19/23 Reason for admission: Cellulitis of LLE History of Present Illness: This is a 82-year-old female patient with a past medical history of anxiety, hypertension, COPD presented to ER via wheelchair with complaints of left lower extremity pain and redness. Patient was sent to the hospital by the photograph enlarger Dr. Carranza. Patient's symptoms present 1 week ago, patient has redness of left lower extremity below knee, edema and warmth. Patient's symptoms are alleviated by nothing, aggravated by movement. Patient has never experienced similar symptoms in the past. Patient denies chest pain, shortness of breath. Patient denies fever, chills, abdominal pain, nausea or vomiting. Vital signs blood pressure 144/87, pulse 57 respiration 18, temperature 97.2, pulse ox 96%, weight 75.3 kg height 0.5, pain 10 out of 10. Laboratory evaluationCBC is normal, basic metabolic panel shows elevated renal profile BUN 33, creatinine 1.47, GFR 35. BNP 402, normal lactic acid 1.4, chest x-ray is normal. Admitting the patient with a diagnosis of left lower extremity cellulitis, acute lymphangitis. 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 She is a . - Family History Mother -: Heart disease Father -: Heart disease - Social History Smoking Status: Light Tobacco smoker (1-9 cigarettes/day) Alcohol use: No CD- Drugs: No Caffeine use: Yes Place of Residence: Home <Lakisha Pulido - Last Filed: 03/19/23 18:23> Date of Service: 03/20/23 <Kiara Jaegeru C - Last Filed: 03/20/23 10:21> Allergies Sulfa (Sulfonamide Antibiotics) Adverse Reaction (Verified 05/20/17 07:27) Anaphylaxis tramadol Adverse Reaction (Verified 05/20/17 07:27) Nausea/Vomiting Aspirin Allergy (Uncoded 05/20/17 07:27) Unknown PENICILLINS Allergy (Uncoded 05/20/17 07:27) Unknown Home Medications: Albuterol Sulfate [Proventil Hfa] 2 puff IH Q6HP PRN 02/19/15 Escitalopram Oxalate [Lexapro] 5 mg PO BEDTIME 09/13/20 ALPRAZolam [Xanax*] 1 mg PO BID PRN 12/25/20 Arformoterol Tartrate [Brovana] 15 mcg NEB BIDRESP #60 vial.neb 01/01/21 Hydrocodone 7.5/APAP 325 [[place] 7.5/325 mg*] 1 tab PO TID PRN #30 tab 01/01/21 Thiamine HCl [Vitamin B-1*] 100 mg PO DAILY #30 tablet 01/01/21 Nebivolol HCl [Bystolic] 5 mg PO DAILY 03/20/23 Pregabalin [Lyrica] 25 mg PO BID 03/20/23 Rosuvastatin [Crestor] 5 mg PO BEDTIME 03/20/23 Review of Systems 10-point ROS is otherwise unremarkable <Lakisha Pulido - Last Filed: 03/19/23 18:23> Physical Examination - Physical Exam General: Alert, In no apparent distress HEENT: Atraumatic, Normocephalic Neck: Supple, 2+ carotid pulse no bruit Respiratory: Clear to auscultation bilaterally, Normal air movement Cardiovascular: No edema, Normal pulses Capillary refill: <2 Seconds Gastrointestinal: Normal bowel sounds, Soft and benign Musculoskeletal: No clubbing, No contractures Integumentary: Erythema, Warmth, Other (Erythema, warmth and edematous left lower extremity) Neurological: Normal speech, Normal tone, Normal affect - Studies Laboratory Data (last 24 hrs) 03/19/23 03/19/23 03/19/23 15:35 15:35 15:35 WBC 6.80 Hgb 14.0 Hct 41.8 Plt Count 255 PT 11.4 INR 1.04 APTT 32.8 Sodium 140 Potassium 4.4 BUN 33 H Creatinine 1.47 H Glucose 87 Total Bilirubin 0.2 AST 13 L ALT 16 Alkaline Phosphatase 82 <Lakisha Pulido - Last Filed: 03/19/23 18:23> - Studies Laboratory Data (last 24 hrs) 03/19/23 03/19/23 03/19/23 15:35 15:35 15:35 WBC 6.80 Hgb 14.0 Hct 41.8 Plt Count 255 PT 11.4 INR 1.04 APTT 32.8 Sodium 140 Potassium 4.4 BUN 33 H Creatinine 1.47 H Glucose 87 Total Bilirubin 0.2 AST 13 L ALT 16 Alkaline Phosphatase 82 Microbiology Data (last 24 hrs): 03/19/23 16:36 Blood - Blood Anaerobic Blood Culture - Final <Cheri Jaeger - Last Filed: 03/20/23 10:21> Assessment and Plan - Problems (Diagnosis) (1) Cellulitis of left lower extremity Current Visit: Yes Status: Acute (2) Edema of left lower extremity Current Visit: Yes Status: Acute (3) Hypertension Current Visit: Yes Status: Acute Qualifiers: Hypertension type: other secondary hypertension Qualified Code(s): I15.8 - Other secondary hypertension (4) COPD (chronic obstructive pulmonary disease) Current Visit: Yes Status: Chronic Qualifiers: Emphysema type: unspecified (5) Cigarette nicotine dependence Current Visit: Yes Status: Chronic Qualifiers: Substance use status: uncomplicated Qualified Code(s): F17.210 - Nicotine dependence, cigarettes, uncomplicated (6) CKD (chronic kidney disease) stage 3, GFR 30-59 ml/min Current Visit: Yes Status: Chronic Qualifiers: Chronic kidney disease stage 3 subtype: stage 3b (GFR 30-44) Qualified Code(s): N18.32 - Chronic kidney disease, stage 3b (7) HTN (hypertension) Onset Date: 02/19/15 Current Visit: No Status: Chronic Qualifiers: Hypertension type: secondary to other renal disorders Qualified Code(s): I15.1 - Hypertension secondary to other renal disorders - Plan Cellulitis of left lower extremity Edema of left lower extremity CKD stage III COPD, -: Cigarette nicotine dependence Hypertension Chronic renal disease stage III 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 Carranza for the treatment of left lower extremity * Patient's left leg below knee is erythematous edematous and tender to touch * Patient reports she had a venous Doppler ultrasound done which was negative, no reports available,, venous ultrasound and arterial ultrasound ordered * Admitted the patient to the hospital IV antibiotics, analgesics ordered * Reconcile the home medications and start as appropriate * Monitor electrolytes and replete * Vital signs blood pressure 144/87, pulse 57 respiration 18, temperature 97.2, pulse ox 96% * Laboratory evaluationCBC is normal, * CKD 3- basic metabolic panel shows elevated renal profile BUN 33, creatinine 1.47, GFR 35. Patient reports that she has only 1 kidney but her kidney function was preserved discussed management IV hydration started, referred to library acquisitions technician. * Renal dose of medications avoid NSAIDs and nephrotoxins * With a history of COPD controlled on home respiratory medications, every day cigarette smoker for many years, discussed smoking cessation, patient voiced understanding * Anxiety reconcile the home medication and resume as appropriate CODE STATUS full code Diet low-salt DVT prophylaxis heparin Discharge Plan: Home Plan to discharge in: 48 Hours - Advance Directives Does patient have a Living Will: Yes Does patient have a Durable POA for Healthcare: Yes - Code Status/Comfort Care Code Status Assessed: Yes (Full code) Code Status: Full Code Physician Review: Patient Assessed, Agree with Above Assessment and Plan Critical Care: No Time Spent Managing Pts Care (In Minutes): 55 (Minutes) <Lakisha Pulido - Last Filed: 03/19/23 18:23> - Plan Pt seen and examined. I agree with the note by the ENGINEER SYSTEM ADMINISTRATOR. Pt is an 82-yo female with past medical history of anxiety, hypertension, and COPD who presents with left lower extremity pain and redness. She was sent by Dr. Sandy to the ER for further evaluation of the left leg swelling and erythema. On admission, lab studies show BUN 33, creatinine 1.47, GFR 35. BNP 402, normal lactic acid 1.4, chest x-ray is normal. ROS is significant for LLE pain. A/P: LLE cellulitis: Will continue iv vanc and follow up blood cx. Doppler ultrasound is negative for DVT. LLE edema: Will r/o lymphangitis. CKD Stage 3B: Will avoid nephrotoxins and monitor renal function. Hx of COPD: Will continue prn duoneb and oxygen. 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 DVT ppx: heparin Code: full <Cheri Jaeger - Last Filed: 03/20/23 10:21>
[2023-03-19] MEDS ORDERED: VANCOMYCIN 1 GM in NA CHLORIDE 0.9% 250 ML IVPB ONE (18:00)
[2023-03-19] MEDS ORDERED: NA CHLORIDE 0.9% 1,000 ML IV SCH (18:00)
--- NOTE | 2023-03-19 18:59 | RAD REPORT ---
EXAM DESCRIPTION: US - Extremity Venous Uni Ltd - 03/19/2023 6:33 pm CLINICAL HISTORY: Pain, swelling of the left lower extremity COMPARISON: None. TECHNIQUE: Real-time sonographic evaluation of the left lower extremity deep venous system was perfo rmed. FINDINGS: Normal compressibility, flow augmentation, phasic flow and spontaneous flow is identified in the left lower extremity deep venous system. No intraluminal filling defects seen. IMPRESSION: No DVT in the left lower extremity.
--- NOTE | 2023-03-19 18:59 | RAD REPORT ---
EXAM DESCRIPTION: US - Lower Extremity Arterial Bilat - 03/19/2023 6:33 pm CLINICAL HISTORY: Pain, swelling on the LLE COMPARISON: No comparisons TECHNIQUE: Bilateral lower extremity arterial Doppler examination was performed with mariano henry FINDINGS: Triphasic waveforms are seen along the right common femoral and superficial femoral arteri es. Biphasic waveforms seen along the right popliteal through dorsalis pedis arteries. Monophasic waveforms seen throughout the left lower extremity to the level of the dorsalis pedis baldomero ry. IMPRESSION: At least moderate left lower extremity peripheral vascular disease, and mild peripheral vascular disease along the distal right lower extremity.
[2023-03-19] MEDS: ESCITALOPRAM OXALATE 5 MG PO SCH (21:00)
[2023-03-19] MEDS: ENOXAPARIN 30 MG/0.3 ML SQ SCH (21:04)
[2023-03-19 21:31] VITALS: BMI 28.5
[2023-03-19] MEDS: ARFORMOTEROL TARTRATE 15 MCG/2 ML VIAL.NEB NEB SCH (22:44)
[2023-03-20] MEDS: HYDROCODONE/APAP 7.5/325 MG TAB PO PRN ×2 (03:06→21:00)
[2023-03-20 04:02] LABS: Absolute Lymphocytes (CBC) 1.8 K/uL (0.7-4.9); Hematocrit 38.3 % (36.0-45.0); Lymphocytes % 33.3 % (15.3-44.8); MCV 89.9 fL (80-100); MPV 8.8 fL (7.6-11.3); Platelets 222 thou/uL (152-406); RBC Red Blood Cell Count 4.26 M/uL (3.86-4.86)
[2023-03-20 04:12] LABS: Magnesium 2.1 mg/dL (1.6-2.4); Phosphorus 2.7 mg/dL (2.5-4.9); Potassium 4.1 mEq/L (3.5-5.1)
[2023-03-20] MEDS: ARFORMOTEROL TARTRATE 15 MCG/2 ML VIAL.NEB NEB SCH ×2 (08:25→20:33)
[2023-03-20] MEDS ORDERED: ENOXAPARIN 40 MG/0.4 ML SQ SCH (09:00)
[2023-03-20] MEDS ORDERED: AMLODIPINE 5 MG TAB PO SCH (09:00)
[2023-03-20] MEDS: ENOXAPARIN 30 MG/0.3 ML SQ SCH (09:00)
[2023-03-20] MEDS: NACHLORIDE 0.45% 1,000 ML IV SCH (10:17)
--- NOTE | 2023-03-20 12:22 | P.PN ---
Subjective Date of Service: 03/20/23 Chief Complaint: Cellulitis of LLE Pt is resting comfortably in bed. She was getting breathing treatment when I saw her. Pt complains of left leg swelling and tenderness. The erythema is much better. Will continue vancomycin for cellulitis. No other complaints. Review of Systems Unremarkable General: Unremarkable Eyes: Unremarkable ENT: Unremarkable Respiratory: Unremarkable Cardiovascular: Unremarkable Gastrointestinal: Unremarkable Genitourinary: Unremarkable Musculoskeletal: Unremarkable Integumentary: Unremarkable Neurological: Unremarkable Lymphatics: Unremarkable Physical Examination - Vital Signs Temperature: 97.5 F Blood Pressure: 141/62 Pulse: 78 Respirations: 15 Pulse Ox (%): 94 - Physical Exam General: Alert, In no apparent distress, Oriented x3 HEENT: Atraumatic, Normocephalic, PERRLA Neck: Supple, 2+ carotid pulse no bruit Respiratory: Clear to auscultation bilaterally, Normal air movement, Diminished Cardiovascular: No edema, Normal pulses Capillary refill: <2 Seconds Gastrointestinal: Normal bowel sounds, Soft and benign, Non-distended Musculoskeletal: No clubbing, No swelling Integumentary: No rashes, No breakdown, Tenderness/swelling, Erythema, Warmth Neurological: Normal speech, Normal strength at 5/5 x4 extr, Normal tone, Sensation intact - Studies Laboratory Data (last 24 hrs) 03/19/23 03/19/23 03/19/23 15:35 15:35 15:35 WBC 6.80 Hgb 14.0 Hct 41.8 Plt Count 255 PT 11.4 INR 1.04 APTT 32.8 Sodium 140 Potassium 4.4 BUN 33 H Creatinine 1.47 H Glucose 87 Total Bilirubin 0.2 AST 13 L ALT 16 Alkaline Phosphatase 82 Microbiology Data (last 24 hrs): 03/19/23 16:36 Blood - Blood Anaerobic Blood Culture - Final Assessment And Plan - Plan LLE cellulitis: Will continue iv vanc and follow up blood cx. Doppler ultrasound is negative for DVT. Lactate is 1.4. LLE edema ( L > R): Will r/o lymphangitis. Asymptomatic Bradycardia: HR is 52. Pt denies any dizziness. Will monitor. CKD Stage 3B: Will avoid nephrotoxins and monitor renal function. Hx of COPD: Will continue prn duoneb and oxygen. 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 DVT ppx: heparin Code: full Physician Review: Patient Assessed, Agree with Above Assessment and Plan
--- NOTE | 2023-03-20 14:48 | CON ---
History Of Present Illness: The patient is seen in room 231 at [facility]. The patient is alert, awake, able to give me answers. The patient states that she was seen by Dr. Shaina emmanuel, was sent to the hospital with the redness of the lower extremity with the left lower extremity c ellulitis and acute lymphitis. We were consulted because her creatinine was in the 1.4 range. The p atient follows with Dr. Leroy. The patient is alert, awake, and comfortable. Currently, denies an y headache, nausea, vomiting. She seems to be better. Redness and pain in the leg have improved. Past Medical History: Significant for COPD, hypertension. The patient has history of chronic kidney disease, stage 3. She has history of right lobectomy secondary to tuberculosis; history of partial left nephrectomy; history of chronic kidney disease, stage 3, likely A. Primary log deck tender is Dr. Leroy. Family History: Noncontributory. Labs and medications reviewed. Current medications include antibiotics. The patient has tolerated t hem well. Redness in the lower extremities, improving. Physical Examination: General: The patient is stable. Vital Signs: Show blood pressure 141/62, pulse is about 70 to 80 and regular, respirations around 14 and comfortable, O2 sats are about 95% on room air. Lungs: Clear to auscultation. Abdomen: Soft. Extremities: Reveal no edema. Left lower extremity shows some slight redness compared to right, but seems to have significantly improved from the reports I am seeing. Cardiac: Heart sounds are regular. Laboratory Data: Reviewed. Labs show WBC count of 5.5, hemoglobin 12.7, hematocrit is 38.3. Sodium 142, potassium 4.1, chloride is 113, bicarb is 27. BUN and creatinine have improved compared to yes terday when it was 33 and 1.47, currently 26 and 1.21. Cholesterol look okay with HDL of 52, LDL of 51. Platelet counts were 222. Assessment/plan: The patient with chronic kidney disease, stage 3A, currently stable. Acute kidney injury is stabilizing. The patient is seeming to be close to euvolemic status. Denies any headache, nausea, vomiting. Continue with antibiotic treatment for the cellulitis. Once discharged from hosp ital on acute issues resolve, will need followup with Dr. Aglieco for evaluation and treatment of her chronic kidney disease and any residual increase in kidney problems. Does not seem to have any meta bolic acidosis. Electrolytes seem okay. Potassium is reasonable. Bicarb is reasonable. /AYAAN Voice ID: [id number] Report ID: [id number]
[2023-03-20 16:51] LABS: Specific Gravity 1.013 (1.005-1.030); Urine Bilirubin NEGATIVE (Negative); Urine Blood Negative (Negative); Urine Clarity Clear (Clear); Urine Color Light-Yellow (Yellow); Urine Glucose NEGATIVE (Negative); Urine Protein NEGATIVE (Negative); Urine Urobilinogen Normal (Normal); Urine pH 6.5 (5.0-7.0)
[2023-03-20] MEDS: ESCITALOPRAM OXALATE 5 MG PO SCH (20:59)
[2023-03-20] MEDS ORDERED: PREGABALIN 25 MG CAP PO SCH (21:00)
[2023-03-20] MEDS ORDERED: PREGABALIN 50 MG CAP PO SCH (22:04)
[2023-03-21 04:32] LABS: Absolute Lymphocytes (CBC) 1.8 K/uL (0.7-4.9); Hematocrit 39.3 % (36.0-45.0); MCV 90.6 fL (80-100); Platelets 234 thou/uL (152-406); RBC Red Blood Cell Count 4.34 M/uL (3.86-4.86)
[2023-03-21 04:38] LABS: Magnesium 2.2 mg/dL (1.6-2.4); Phosphorus 2.6 mg/dL (2.5-4.9); Potassium 4.2 mEq/L (3.5-5.1)
[2023-03-21] MEDS ORDERED: VANCOMYCIN 1.25 GM in NA CHLORIDE 0.9% 250 ML IVPB SCH (05:00)
[2023-03-21] MEDS: NACHLORIDE 0.45% 1,000 ML IV SCH (05:15)
[2023-03-21] MEDS: HYDROCODONE/APAP 7.5/325 MG TAB PO PRN (05:32)
[2023-03-21] MEDS: ARFORMOTEROL TARTRATE 15 MCG/2 ML VIAL.NEB NEB SCH (09:04)
--- NOTE | 2023-03-21 09:05 | P.DS ---
Admission Date: 03/19/23 Discharge Date: 03/21/23 Disposition: ROUTINE DISCHARGE Discharge Condition: GOOD Reason for Admission: Cellulitis of LLE Brief History of Present Illness: This is a 82-year-old female patient with a past medical history of anxiety, hypertension, COPD presented to ER via wheelchair with complaints of left lower extremity pain and redness. Patient was sent to the hospital by the customer experience manager Dr. Carranza. Patient's symptoms present 1 week ago, patient has redness of left lower extremity below knee, edema and warmth. Patient's symptoms are alleviated by nothing, aggravated by movement. Patient has never experienced similar symptoms in the past. Patient denies chest pain, shortness of breath. Patient denies fever, chills, abdominal pain, nausea or vomiting. Vital signs blood pressure 144/87, pulse 57 respiration 18, temperature 97.2, pulse ox 96%, weight 75.3 kg height 0.5, pain 10 out of 10. Laboratory evaluationCBC is normal, basic metabolic panel shows elevated renal profile BUN 33, creatinine 1.47, GFR 35. BNP 402, normal lactic acid 1.4, chest x-ray is normal. Admitting the patient with a diagnosis of left lower extremity cellulitis, acute lymphangitis. Hospital Course: Pt was sent to the ER from Dr. Sandy's office for further evaluation of left leg erythema and swelling. On admission, doppler ultrasound showed no evidence of DVT. We admitted pt and treated him for LLE cellulitis. We gave iv vanc and the swelling and erythema resolved. Pt was later discharged with iv Keflex 500mg po QID for 1 week. Pt had asymptomatic bradycardia. We continued home med for other chronic medical problems. Pt was in NAD prior to discharge. Vital Signs/Physical Exam: Temp Pulse Resp BP Pulse Ox 97.5 F 56 16 144/68 H 94 03/21/23 08:00 03/21/23 08:00 03/21/23 08:00 03/21/23 08:00 03/21/23 08:00 Laboratory Data at Discharge: WBC 5.60 thou/uL (4.3-10.9) 03/21/23 04:07 Hgb 13.1 g/dL (12.0-15.0) 03/21/23 04:07 Hct 39.3 % (36.0-45.0) 03/21/23 04:07 Plt Count 234 thou/uL (152-406) 03/21/23 04:07 PT 11.4 SECONDS (9.5-12.5) 03/19/23 15:35 INR 1.04 03/19/23 15:35 APTT 32.8 SECONDS (24.3-36.9) 03/19/23 15:35 Sodium 143 mEq/L (136-145) 03/21/23 04:07 Potassium 4.2 mEq/L (3.5-5.1) 03/21/23 04:07 BUN 24 mg/dL (7-18) H 03/21/23 04:07 Creatinine 1.18 mg/dL (0.55-1.02) H 03/21/23 04:07 Glucose 92 mg/dL (74-106) 03/21/23 04:07 Phosphorus 2.6 mg/dL (2.5-4.9) 03/21/23 04:07 Magnesium 2.2 mg/dL (1.6-2.4) 03/21/23 04:07 Total Bilirubin 0.2 mg/dL (0.2-1.0) 03/19/23 15:35 AST 13 U/L (15-37) L 03/19/23 15:35 ALT 16 U/L (13-56) 03/19/23 15:35 Alkaline Phosphatase 82 U/L (45-117) 03/19/23 15:35 Triglycerides 68 mg/dL (<150) 03/20/23 03:01 Cholesterol 117 mg/dL (<200) 03/20/23 03:01 HDL Cholesterol 52 mg/dL (40-60) 03/20/23 03:01 Cholesterol/HDL Ratio 2.25 03/20/23 03:01 Home Medications: Albuterol Sulfate [Proventil Hfa] 2 puff IH Q6HP PRN 02/19/15 Escitalopram Oxalate [Lexapro] 5 mg PO BEDTIME 09/13/20 ALPRAZolam [Xanax*] 1 mg PO BID PRN 12/25/20 Arformoterol Tartrate [Brovana] 15 mcg NEB BIDRESP #60 vial.neb 01/01/21 Hydrocodone 7.5/APAP 325 [[place] 7.5/325 mg*] 1 tab PO TID PRN #30 tab 01/01/21 Thiamine HCl [Vitamin B-1*] 100 mg PO DAILY #30 tablet 01/01/21 Pregabalin [Lyrica] 25 mg PO BID 03/20/23 Rosuvastatin [Crestor*] 5 mg PO BEDTIME 03/20/23 Amlodipine [Norvasc*] 10 mg PO DAILY 60 Days #60 tab 03/21/23 New Medications: Amlodipine [Norvasc*] 10 mg PO DAILY 60 Days #60 tab Physician Discharge Instructions: Continue ad laith activity. Take Keflex 500mg po QID for 1 week. Continue other home meds. Follow up with PCP in 1 week. Diet: AHA Activity: Ad laith Followup: Wes Perrin DO [Primary Care Provider] -
[2023-03-21 09:09] VITALS: BP 144/68; TEMP 97.5
[2023-03-21 09:47] VITALS: O2SAT 93
--- NOTE | 2023-03-22 17:00 | EKG ---
Test Date: 2023-03-19 Test Time: 15:35:01 Computer Systems Auditor: PANKAJ MEASUREMENT RESULTS: Intervals: Rate: 46 MT: 194 QRSD: 82 QT: 492 QTc: 430 [place]: P: 94 MT: 194 QRS: 92 T: 87 INTERPRETIVE STATEMENTS: Suspect arm lead reversal, interpretation assumes no reversal Sinus bradycardia Rightward axis Cannot rule out Anterior infarct, age undetermined Abnormal ECG Compared to ECG 12/25/2020 13:13:33 Right-axis deviation now present Myocardial infarct finding now present Sinus rhythm no longer present Atrial premature complex(es) no longer present Aberrant conduction of supraventricular beat(s) no longer present Electronically Signed On 03-22-23 16:53:46 RUBBER STAMP ASSEMBLER by Frank Sandy
== END 2023-03-21 10:15 | disposition home or self-care (01) | DRG 603 ==
LOC: ER 12:12 → ERHOLD 17:24 → 2ND 19:18
PROVIDERS: ADMIT Hospitalist; ATTEND Hospitalist
DX: L03.116 Cellulitis of left lower limb (principal); I12.9 Hypertensive chronic kidney disease with stage 1 through stage 4 chronic kidney disease, or unspecified chronic kidney disease; N18.32 Chronic kidney disease, stage 3b; F41.9 Anxiety disorder, unspecified; J44.9 Chronic obstructive pulmonary disease, unspecified; F17.210 Nicotine dependence, cigarettes, uncomplicated; Z60.2 Problems related to living alone; Z85.3 Personal history of malignant neoplasm of breast; Z88.2 Allergy status to sulfonamides; Z88.6 Allergy status to analgesic agent; Z90.5 Acquired absence of kidney; Z90.2 Acquired absence of lung [part of]; Z88.0 Allergy status to penicillin; Z88.5 Allergy status to narcotic agent; Z79.02 Long term (current) use of antithrombotics/antiplatelets; Z79.899 Other long term (current) drug therapy; Z28.310 Unvaccinated for COVID-19
CPT/HCPCS: 36415; 71045; 80048; 80053; 80061; 80202; 81003; 82947; 83605; 83735; 83880; 84100; 85025; 85610; 85730; 87040; 93005; 93925; 93971; 94640; 96374; 99285; J1650; J2270; J7030; J7050; J7605

== ENCOUNTER 2023-06-21 07:00 | Day surgery (SDC) | payer OTHER ==
[2023-06-15 11:42] LABS: PT Prothrombin Time 11.2 SECONDS (9.5-12.5); PTT, Activated Partial Thromb 33.8 SECONDS (24.3-36.9); Protime INR 1.02
[2023-06-15 11:51] LABS: Anion Gap 7.1 mEq/L (5.0-15.0); Potassium 4.1 mEq/L (3.5-5.1)
[2023-06-21] MEDS ORDERED: NA CHLORIDE 0.9% 500 ML ONE (07:13)
[2023-06-21] MEDS ORDERED: HEPA 1000U/500MLS 2,000 UNIT/1,000 ML BAG IV ONE (08:00)
[2023-06-21] MEDS ORDERED: VERAPAMIL HCL 10 MG/4 ML VIAL IV ONE (08:00)
[2023-06-21] MEDS ORDERED: LIDOCAINE 1% 20 ML MDV ONE (08:00)
[2023-06-21] MEDS ORDERED: MIDAZOLAM HCL 2 MG/2 ML INJ ONE (08:00)
[2023-06-21] MEDS ORDERED: FENTANYL CITR 100 MCG/2 ML ONE (08:01)
[2023-06-21] MEDS ORDERED: HEPARIN 5000 UNIT/ML 1 ML VIAL ONE (08:01)
[2023-06-21] MEDS ORDERED: ATROPINE SULF 1 MG/10 ML SYR IV ONE (08:01)
[2023-06-21 08:03] VITALS: TEMP 97.8
[2023-06-21] MEDS ORDERED: METHYLPREDNISOLONE 125 MG INJ ONE (08:27)
[2023-06-21] MEDS ORDERED: DIPHENHYDRAMINE 50 MG/ML VIAL ONE (08:27)
[2023-06-21 11:57] VITALS: BP 124/47; O2SAT 96
--- NOTE | 2023-06-21 23:49 | OP ---
Date of Procedure: 06/21/2023 Surgeon: TESSY FLORES Procedure Performed: Peripheral angiogram. Indication: Peripheral vascular disease. Access: Right radial artery 6-Thai, closed with TR band. Complications: None. Bleeding: Less than 50 mL. Anesthesia: Total sedation time was 35 minutes. Description Of Procedure: After risks, benefits, and alternatives were explained, the patient agreed to procedure and signed informed consent. The patient was brought into cardiac catheterization labo [facility], prepped and draped in usual sterile fashion. Then, I accessed right radial artery using pedi atric micropuncture kit, placed a 6-Thai slender sheath, and took a long 4-Thai pigtail catheter, placed in distal aorta, performed distal aortogram and runoff and then removed the catheter and the sheath, placed TR band with good hemostasis. Findings: 1.Distal aorta widely patent. 2.Right lower extremity: The right common iliac, external iliac, and common femoral mild 20% to 30% diffuse disease and internal iliac is patent and right profunda is patent. Then, the right SFA has multiple lesions ranging between 40% and 50% and distally there is focal 60% stenosis and popliteal a rtery is patent below the knee. Anterior tibial is patent, peroneal is patent, and posterior tibial is occluded and reconstitutes in the mid leg. 3.Left lower extremity: Left common iliac, external iliac, common femoral, internal iliac, and prof unda are patent. Proximal left SFA is patent. Mid to distal SFA is diffuse 80% and then the poplite al artery 90% stenosis, anterior tibial has diffuse 50% stenosis and then the peroneal is patent. Po sterior tibial is 100% occluded and reconstitutes in the mid leg as well. Conclusion: Severe peripheral vascular disease as above. Recommendation: We can plan for intervention on the left SFA and left popliteal artery to be done in and to have the patient follow up with me in the office in the next week or 2 and we will arrange for it. /AYAAN Voice ID: [id number] Report ID: [id number]
--- NOTE | 2023-06-24 17:28 | EKG ---
Test Date: 2023-06-15 Test Time: 11:07:54 Gridcap Machine Operator: TORREY MEASUREMENT RESULTS: Intervals: Rate: 51 AR: 190 QRSD: 72 QT: 456 QTc: 420 [place]: P: 72 AR: 190 QRS: 82 T: 76 INTERPRETIVE STATEMENTS: Sinus bradycardia Septal infarct, age undetermined Abnormal ECG Compared to ECG 06/15/2023 11:06:37 Myocardial infarct finding now present Junctional rhythm no longer present Electronically Signed On 06-24-23 16:54:58 CDT by Frank Sandy
--- NOTE | 2023-06-24 17:29 | EKG ---
Test Date: 2023-06-15 Test Time: 11:06:37 English Composition Instructor: TORREY MEASUREMENT RESULTS: Intervals: Rate: 53 [place]: QRSD: 70 QT: 452 QTc: 424 [place]: P: [place]: QRS: 75 T: 73 INTERPRETIVE STATEMENTS: Sinus bradycardia Abnormal ECG Compared to ECG 03/19/2023 15:35:01 Right-axis deviation no longer present Myocardial infarct finding no longer present Electronically Signed On 06-24-23 16:55:21 CDT by Frank Sandy
== END 2023-06-21 10:30 | disposition home or self-care (01) ==
LOC: CCL 07:00
PROVIDERS: ATTEND Internal Medicine
DX: I70.203 Unspecified atherosclerosis of native arteries of extremities, bilateral legs (principal); I70.92 Chronic total occlusion of artery of the extremities; I65.21 Occlusion and stenosis of right carotid artery; I10 Essential (primary) hypertension; E78.2 Mixed hyperlipidemia; J44.9 Chronic obstructive pulmonary disease, unspecified; F41.9 Anxiety disorder, unspecified; F17.210 Nicotine dependence, cigarettes, uncomplicated; Z79.899 Other long term (current) drug therapy; Z88.2 Allergy status to sulfonamides; Z88.8 Allergy status to other drugs, medicaments and biological substances; Z91.041 Radiographic dye allergy status; Z90.5 Acquired absence of kidney; Z82.49 Family history of ischemic heart disease and other diseases of the circulatory system
CPT/HCPCS: 36200; 36415; 75630; 76937; 80048; 85610; 85730; 93005; 99152; 99153; C1893; J0461; J1200; J1644; J2001; J2250; J2919; J3010; J7040

== ENCOUNTER 2023-10-27 18:54 | Emergency (ER) | payer OTHER ==
--- OUTSIDE RECORDS SUMMARY | 2023-10-27 18:58 | XMS REPORT | Continuity of Care Document ---
Author Name Unknown Address [address] [facility] [address] [place] [address] [facility] thconnect Address [address] [facility] [place] [address] Care Team Providers Care Typesetter Apprentice Name Role Phone Wes Perrin Primary Care Physician [phone] Monisha Lara Attending Clinician Unavail able Frank Sandy Attending Clinician Unavailable Wes Perrin Attending Clinician Unavailable MAYA ROJAS Attending Clinician Unavailab Maya Potter DO Attending Clinician [phone] MOODY GUERRERO Attending Clinician Unavailable Moody Guerrero PA-C Attending Clinician [phone] Physician, No Primary or Family Admitting Clinic priti Unavailable MOODY GUERRERO Admitting Clinician Unavailable Payers Payer Name Policy Type Policy Number Effective Date Expirati on Date Source [employer] 53 [id number] 2023 00:00:00 [facility] ANTIONE CUI PLS [place] [id number] 2021 00:00:00 [facility] 53 [id number] 2020 00:00:00 [facility] Problems Condition Name Condition Details Condition Category Status Onset Date Resolution Date Last Treatment Date Treating Clinician Comments Source Peripheral vascular disease PAD (periphera l artery disease) Problem [facility] Tobacco user Cigarette nicotine dependence without complicati on Problem [facility] [id number] Overactive bladder Problem [facility] [id number] Severe anxiety with panic Problem [facility] [id number] Major depression , recurrent, chronic Problem [facility] Blood chemistry abnormal Creatinine elevation Problem [facility] Migraine Migraine Problem [facility] Basophilia Basophilia Problem [facility] Chronic obstructiv e pulmonary disease Chronic obstructiv e pulmonary disease, unspecifie d COPD type Problem [facility] 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 Problem [facility] Chronic kidney disease stage 3A (disorder) Stage 3a chronic kidney disease Problem [facility] Counseling about tobacco use Tobacco abuse counseling Problem [facility] Memory problem Memory problem Problem [facility] Rib pain Rib pain Problem [facility] Pure hyperchole sterolemia Hyperchole steremia Problem [facility] Mixed anxiety and depressive disorder Depression with anxiety Problem [facility] Chronic pain syndrome Chronic pain syndrome Problem [facility] [id number] Bilateral carotid artery disease, unspecifie d type Problem [facility] [id number] History of breast cancer Problem [facility] [id number] History of lung cancer Problem [facility] [id number] +5th digit eff 11/30/19*CK D (chronic kidney disease) stage 3, GFR 30-59 ml/min Problem [facility] [id number] Malignant neoplasm of left kidney Problem [facility] [id number] Mixed stress and urge urinary incontinen ce Problem [facility] [id number] Opioid dependence in controlled environmen t Problem [facility] Pain in left foot Left foot pain Problem [facility] Essential hypertensi on Benign essential HTN Problem [facility] Allergic rhinitis Allergic rhinitis Problem [facility] [id number] Benzodiaze pine dependence Problem [facility] Acute exacerbati on of chronic obstructiv e airways disease COPD with exacerbati on Problem [facility] [id number] Mixed hyperlipid emia Problem [facility] [id number] Polyneurop athy Problem [facility] [id number] Osteoarthr itis of both sacroiliac joints Problem [facility] [id number] Moderate episode of recurrent major depressive disorder Problem [facility] [id number] GABE (generaliz ed anxiety disorder) Problem [facility] 66258795 Severe benzodiaze pine use disorder Problem [facility] 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 Hypertensi ve chronic kidney disease Problem [facility] Anxiety disorder Anxiety disorder Problem [facility] Acute coronary artery occlusion not resulting in myocardial infarction Blockage of coronary artery of heart Problem [facility] [id number] Lower thoracic back pain Problem [facility] [id number] Pain in pelvis Problem [facility] Panic disorder Panic disorder [episodic paroxysmal anxiety] Problem [facility] Allergies, Adverse Reactions, Alerts Allergy Name Allergy Type Status Severity Reaction(s) Onset Date Inactive Date Treating Clinician Comments Source Sulfamet hoxazole -Trimeth oprim Propensi ty to adverse reaction s Active Unknown - See comments 04-01 00:00: 00 [facility] Nsaids (Non-Geraldo roidal Anti-Inf lammator y Drug) Propensi ty to adverse reaction s Active Unknown - See comments 04-01 00:00: 00 [facility] Penicill in Propensi ty to adverse reaction s Active Unknown - See comments 2- 00:00: 00 [facility] PENICILL IN DRUG INGREDI Active Unknown-Cmnt 2- 00:00: 00 [facility] SULFAMET HOXAZOLE -TRIMETH OPRIM DRUG Active Unknown-Cmnt 2- 00:00: 00 [facility] NSAIDS (NON-GERALDO ROIDAL ANTI-INF LAMMATOR Y DRUG) Drug Class Active Unknown-[facility] 2- 00:00: 00 [facility] NO KNOWN ALLERGIE S Drug Class Active [facility] [id number] Drug allergy Active anaphylaxis [facility] tramadol tramadol Active Migraine Comm on [facility] [id number] 82 Drug allergy Active Unknown [facility] Social History Social Habit Start Date Stop Date Quantity Comments Source Sexual orientation [facility] History of Tobacco Use Current Smoker [facility] Sex Assigned At 1940 00:00:00 1940 00:00:00 [facility] Smoking Status Start Date Stop Date Source Tobacco smoking consumption unknown [facility] Current Smoker 2023-10-19 00:00:00 [facility] Medications Ordered Medication Name Filled Medication Name Start Date Stop Date Current Medication? Ordering Clinician Indication Dosage Frequency Signature (SIG) Comments Components Source ALPRAZolam 1 MG ALPRAZolam 1 MG 6-11 00:00: 00 No 1{table t} BID ALPRAZolam 1 MG HYDROcodone -Acetaminop hen 7.5-325 MG HYDROcodone -Acetaminop hen 7.5-325 MG 4-19 00:00: 00 No 1{table t_as_ne eded} QID HYDROcodon e-Acetamin ophen 7.5-325 MG clindamycin (CLEOCIN) 300 mg in NaCl 0.9% (NS) IV piggyback 2- 17:00: 00 04-01 17:50 :00 No 300mg 300 mg, IV Piggyback, ONCE, 1 dose, On Wed04/01/23 at 1100, Administer over 30 Minutes, 50 mL
Reas on for Anti-Infec tive: Documented Infection< br>Documen richard Infection Site: Skin / Soft Tissue
Duration of Therapy: 7 days
Re stricted use approved by: After Hours (for ADC, CLC, LCC ONLY) [facility] clindamycin 300 mg capsule 04-01 00:00: 00 04-09 05:59 :00 No [id number] 300mg Take 1 capsule by mouth 4 (four) times daily for 7 days. [facility] Proventil HFA 108 (90 Base) MCG/ACT Proventil HFA 108 (90 Base) MCG/ACT No 1{puff_ as_need ed} 6xD Proventil HFA 108 (90 Base) MCG/ACT Pregabalin 25 MG Pregabalin 25 MG No 1{capsu le} QD Pregabalin 25 MG Albuterol Sulfate HFA 108 (90 Base) MCG/ACT Albuterol Sulfate HFA 108 (90 Base) MCG/ACT No Albuterol Sulfate HFA 108 (90 Base) MCG/ACT Nebivolol HCl 5 MG Nebivolol HCl 5 MG No 1{table t} QD Nebivolol HCl 5 MG Escitalopra m Oxalate 5 MG Escitalopra m Oxalate 5 MG No 1{table t} QD Escitalopr am Oxalate 5 MG Docusate Sodium 100 MG Docusate Sodium 100 MG No 1{capsu le_as_n eeded} QD Docusate Sodium 100 MG Atorvastati n Calcium 10 MG Atorvastati n Calcium 10 MG No 1{table t} QD Atorvastat in Calcium 10 MG Immunizations Ordered Immunization Name Filled Immunization Name Date Status Comments Source Pneumovax (PPSV23) Pneumovax (PPSV23) 2021-01-28 13:12:00 Completed [facility] Pneumovax (PPSV23) Pneumovax (PPSV23) 2021-01-28 13:12:00 Completed [facility] Pneumovax (PPSV23) Pneumovax (PPSV23) 2021-01-28 13:12:00 [facility] Pneumovax (PPSV23) Pneumovax (PPSV23) 2021-01-28 13:12:00 Completed [facility] Pneumovax (PPSV23) Pneumovax (PPSV23) 2021-01-28 13:12:00 Completed [facility] Pneumovax (PPSV23) Pneumovax (PPSV23) 2021-01-28 13:12:00 Completed [facility] Pneumovax (PPSV23) Pneumovax (PPSV23) 2021-01-28 13:12:00 Completed [facility] Pneumovax (PPSV23) Pneumovax (PPSV23) 2021-01-28 13:12:00 Completed [facility] Pneumovax (PPSV23) Pneumovax (PPSV23) 2021-01-28 13:12:00 Completed [facility] Pneumovax (PPSV23) Pneumovax (PPSV23) 2021-01-28 13:12:00 Completed [facility] Pneumovax (PPSV23) Pneumovax (PPSV23) 2021-01-28 13:12:00 Completed [facility] Pneumovax (PPSV23) Pneumovax (PPSV23) 2021-01-28 13:12:00 Completed [facility] Pneumovax (PPSV23) Pneumovax (PPSV23) 2021-01-28 13:12:00 Completed [facility] Pneumovax (PPSV23) Pneumovax (PPSV23) 2021-01-28 13:12:00 Completed [facility] Pneumovax (PPSV23) Pneumovax (PPSV23) 2021-01-28 13:12:00 Completed [facility] Pneumovax (PPSV23) Pneumovax (PPSV23) 2021-01-28 13:12:00 Completed [facility] Pneumovax (PPSV23) Pneumovax (PPSV23) 2021-01-28 13:12:00 Completed [facility] Pneumovax (PPSV23) Pneumovax (PPSV23) 2021-01-28 13:12:00 Completed [facility] Pneumovax (PPSV23) Pneumovax (PPSV23) 2021-01-28 13:12:00 Completed [facility] Pneumovax (PPSV23) Pneumovax (PPSV23) 2021-01-28 13:12:00 Completed [facility] Pneumovax (PPSV23) Pneumovax (PPSV23) 2021-01-28 13:12:00 Completed [facility] Pneumovax (PPSV23) Pneumovax (PPSV23) 2021-01-28 13:12:00 Completed [facility] Pneumovax (PPSV23) Pneumovax (PPSV23) 2021-01-28 13:12:00 Completed [facility] Pneumovax (PPSV23) Pneumovax (PPSV23) 2021-01-28 13:12:00 Completed [facility] Pneumovax (PPSV23) Pneumovax (PPSV23) 2021-01-28 13:12:00 Completed [facility] Pneumovax (PPSV23) Pneumovax (PPSV23) 2021-01-28 13:12:00 Completed [facility] Pneumovax (PPSV23) Pneumovax (PPSV23) 2021-01-28 13:12:00 Completed [facility] Pneumovax (PPSV23) Pneumovax (PPSV23) 2021-01-28 13:12:00 Completed [facility] Pneumovax (PPSV23) Pneumovax (PPSV23) 2021-01-28 13:12:00 Completed [facility] Pneumovax (PPSV23) Pneumovax (PPSV23) 2021-01-28 13:12:00 Completed [facility] Pneumovax (PPSV23) Pneumovax (PPSV23) 2021-01-28 13:12:00 Completed [facility] Pneumovax (PPSV23) Pneumovax (PPSV23) 2021-01-28 13:12:00 Completed [facility] Pneumovax (PPSV23) Pneumovax (PPSV23) 2021-01-28 13:12:00 Completed [facility] Pneumovax (PPSV23) Pneumovax (PPSV23) 2021-01-28 13:12:00 Completed [facility] Pneumovax (PPSV23) Pneumovax (PPSV23) 2021-01-28 13:12:00 Completed [facility] Pneumovax (PPSV23) Pneumovax (PPSV23) 2021-01-28 13:12:00 Completed [facility] Pneumovax (PPSV23) Pneumovax (PPSV23) 2021-01-28 13:12:00 Completed [facility] Pneumovax (PPSV23) Pneumovax (PPSV23) 2021-01-28 13:12:00 Completed [facility] Pneumovax (PPSV23) Pneumovax (PPSV23) 2021-01-28 13:12:00 Completed [facility] Pneumovax (PPSV23) Pneumovax (PPSV23) 2021-01-28 13:12:00 Completed [facility] Pneumovax (PPSV23) Pneumovax (PPSV23) 2021-01-28 13:12:00 Completed [facility] Pneumovax (PPSV23) Pneumovax (PPSV23) Unknown Completed [facility] Pneumovax (PPSV23) Pneumovax (PPSV23) Unknown Completed [facility] Pneumovax (PPSV23) Pneumovax (PPSV23) Unknown Completed [facility] Pneumovax (PPSV23) Pneumovax (PPSV23) Unknown Completed [facility] Pneumovax (PPSV23) Pneumovax (PPSV23) Unknown Completed [facility] Pneumovax (PPSV23) Pneumovax (PPSV23) Unknown Completed [facility] Pneumovax (PPSV23) Pneumovax (PPSV23) Unknown Completed [facility] Pneumovax (PPSV23) Pneumovax (PPSV23) Unknown Completed [facility] Pneumovax (PPSV23) Pneumovax (PPSV23) Unknown Completed [facility] Pneumovax (PPSV23) Pneumovax (PPSV23) Unknown Completed [facility] Pneumovax (PPSV23) Pneumovax (PPSV23) Unknown Completed [facility] Pneumovax (PPSV23) Pneumovax (PPSV23) Unknown Completed [facility] Pneumovax (PPSV23) Pneumovax (PPSV23) Unknown Completed [facility] Pneumovax (PPSV23) Pneumovax (PPSV23) Unknown Completed [facility] Pneumovax (PPSV23) Pneumovax (PPSV23) Unknown Completed [facility] Pneumovax (PPSV23) Pneumovax (PPSV23) Unknown Completed [facility] Pneumovax (PPSV23) Pneumovax (PPSV23) Unknown Completed [facility] Pneumovax (PPSV23) Pneumovax (PPSV23) Unknown Completed [facility] Pneumovax (PPSV23) Pneumovax (PPSV23) Unknown Completed [facility] Pneumovax (PPSV23) Pneumovax (PPSV23) Unknown Completed [facility] Pneumovax (PPSV23) Pneumovax (PPSV23) Unknown Completed [facility] Pneumovax (PPSV23) Pneumovax (PPSV23) Unknown Completed [facility] Pneumovax (PPSV23) Pneumovax (PPSV23) Unknown Completed [facility] Pneumovax (PPSV23) Pneumovax (PPSV23) Unknown Completed [facility] Pneumovax (PPSV23) Pneumovax (PPSV23) Unknown Completed [facility] Pneumovax (PPSV23) Pneumovax (PPSV23) Unknown Completed [facility] Pneumovax (PPSV23) Pneumovax (PPSV23) Unknown Completed [facility] Pneumovax (PPSV23) Pneumovax (PPSV23) Unknown Completed [facility] Pneumovax (PPSV23) Pneumovax (PPSV23) Unknown Completed [facility] Pneumovax (PPSV23) Pneumovax (PPSV23) Unknown Completed [facility] Pneumovax (PPSV23) Pneumovax (PPSV23) Unknown Completed [facility] Pneumovax (PPSV23) Pneumovax (PPSV23) Unknown Completed [facility] Pneumovax (PPSV23) Pneumovax (PPSV23) Unknown Completed [facility] Vital Signs Vital Name Observation Time Observation Value Comments S taniace height 2023-10-18 13:30:00 62 [in_i] Commo n [facility] weight 2023-10-18 13:30:00 158 [lb_av] Comm on [facility] temperature 2023-10-18 13:30:00 98.0 [degF] Com mon [facility] bmi 2023-10-18 13:30:00 28.9 kg/m2 Commo n [facility] blood pressure systolic 2023-10-18 13:30:00 136 mm[Hg] [facility] blood pressure diastolic 2023-10-18 13:30:00 84 mm[Hg] [facility] height 2023-09-27 15:30:00 62 [in_i] Commo n [facility] weight 2023-09-27 15:30:00 158 [lb_av] Comm on [facility] temperature 2023-09-27 15:30:00 97.8 [degF] Com mon [facility] bmi 2023-09-27 15:30:00 28.9 kg/m2 Commo n [facility] blood pressure systolic 2023-09-27 15:30:00 136 mm[Hg] [facility] blood pressure diastolic 2023-09-27 15:30:00 84 mm[Hg] [facility] height 2023-08-10 13:20:00 62 [in_i] Commo n [facility] weight 2023-08-10 13:20:00 158 [lb_av] Comm on [facility] temperature 2023-08-10 13:20:00 98 [degF] Comm on [facility] bmi 2023-08-10 13:20:00 28.9 kg/m2 Commo n [facility] oximetry 2023-08-10 13:20:00 94 % Commo n [facility] respiratory rate 2023-08-10 13:20:00 17 /min [facility] blood pressure systolic 2023-08-10 13:20:00 130 mm[Hg] [facility] blood pressure diastolic 2023-08-10 13:20:00 59 mm[Hg] [facility] height 2023-06-18 16:00:00 62 [in_i] Commo n [facility] weight 2023-06-18 16:00:00 158 [lb_av] Comm on [facility] temperature 2023-06-18 16:00:00 97.2 [degF] Com [facility] bmi 2023-06-18 16:00:00 28.9 kg/m2 Commo n [facility] oximetry 2023-06-18 16:00:00 94 % Commo n [facility] respiratory rate 2023-06-18 16:00:00 17 /min Common [facility] blood pressure systolic 2023-06-18 16:00:00 146 mm[Hg] [facility] blood pressure diastolic 2023-06-18 16:00:00 67 mm[Hg] [facility] height 2023-05-18 10:40:00 62 [in_i] Commo n [facility] weight 2023-05-18 10:40:00 158 [lb_av] Comm on [facility] temperature 2023-05-18 10:40:00 98.3 [degF] Com mon [facility] bmi 2023-05-18 10:40:00 28.9 kg/m2 Commo n [facility] oximetry 2023-05-18 10:40:00 92 % Commo n [facility] respiratory rate 2023-05-18 10:40:00 16 /min Common [facility] blood pressure systolic 2023-05-18 10:40:00 138 mm[Hg] [facility] blood pressure diastolic 2023-05-18 10:40:00 82 mm[Hg] Common [facility] height 2023-04-13 08:00:00 62 [in_i] Commo n [facility] weight 2023-04-13 08:00:00 161.0 [lb_av] Co mmon [facility] temperature 2023-04-13 08:00:00 98.0 [degF] Com mon [facility] bmi 2023-04-13 08:00:00 29.44 kg/m2 Comm on [facility] oximetry 2023-04-13 08:00:00 94 % Commo n [facility] respiratory rate 2023-04-13 08:00:00 18 /min Common [facility] blood pressure systolic 2023-04-13 08:00:00 135 mm[Hg] [facility] blood pressure diastolic 2023-04-13 08:00:00 66 mm[Hg] [facility] Systolic blood pressure 2023-04-01 18:02:00 109 mm[Hg] [facility] Diastolic blood pressure 2023-04-01 18:02:00 54 mm[Hg] [facility] Heart rate 2023-04-01 18:02:00 55 /min [facility] Respiratory rate 2023-04-01 18:02:00 14 /min [facility] Oxygen saturation in Arterial blood by Pulse oximetry 2023-04-01 18:02:00 94 /min [facility] Body temperature 2023-04-01 15:52:00 36.5 Erum [facility] Body height 2023-04-01 15:52:[address] [facility] Body weight 2023-04-01 15:52:[address] [facility] BMI 2023-04-01 15:52:00 27.81 kg/m2 [facility] height 2023-03-31 15:40:00 62 [in_i] Commo n [facility] weight 2023-03-31 15:40:00 164.2 [lb_av] Co mmon [facility] temperature 2023-03-31 15:40:00 97.8 [degF] Com mon [facility] bmi 2023-03-31 15:40:00 30.03 kg/m2 Comm on [facility] oximetry 2023-03-31 15:40:00 95 % Commo n [facility] respiratory rate 2023-03-31 15:40:00 18 /min Common [facility] blood pressure systolic 2023-03-31 15:40:00 134 mm[Hg] [facility] blood pressure diastolic 2023-03-31 15:40:00 68 mm[Hg] [facility] height 2023-02-17 14:30:00 62 [in_i] Commo n [facility] weight 2023-02-17 14:30:00 160.0 [lb_av] Co [facility] temperature 2023-02-17 14:30:00 97.7 [degF] Com [facility] bmi 2023-02-17 14:30:00 29.26 kg/m2 Comm on [facility] oximetry 2023-02-17 14:30:00 96 % Commo n [facility] respiratory rate 2023-02-17 14:30:00 17 /min Common [facility] blood pressure systolic 2023-02-17 14:30:00 130 mm[Hg] [facility] blood pressure diastolic 2023-02-17 14:30:00 64 mm[Hg] [facility] height 2022-11-19 14:30:00 62 [in_i] Commo n [facility] weight 2022-11-19 14:30:00 156.4 [lb_av] Co [facility] temperature 2022-11-19 14:30:00 97.9 [degF] Com [facility] bmi 2022-11-19 14:30:00 28.6 kg/m2 Commo n [facility] oximetry 2022-11-19 14:30:00 95 % Commo n [facility] respiratory rate 2022-11-19 14:30:00 17 /min Common [facility] blood pressure systolic 2022-11-19 14:30:00 136 mm[Hg] [facility] blood pressure diastolic 2022-11-19 14:30:00 68 mm[Hg] [facility] height 2022-08-20 13:50:00 62 [in_i] Commo n [facility] weight 2022-08-20 13:50:00 156.6 [lb_av] Co mmon [facility] temperature 2022-08-20 13:50:00 97.7 [degF] Com mon [facility] bmi 2022-08-20 13:50:00 28.64 kg/m2 Comm on [facility] oximetry 2022-08-20 13:50:00 99 % Commo n [facility] respiratory rate 2022-08-20 13:50:00 18 /min Common [facility] blood pressure systolic 2022-08-20 13:50:00 144 mm[Hg] [facility] blood pressure diastolic 2022-08-20 13:50:00 63 mm[Hg] [facility] height 2022-08-20 13:40:00 62 [in_i] Commo n [facility] weight 2022-08-20 13:40:00 156.6 [lb_av] Co mmon [facility] temperature 2022-08-20 13:40:00 97.7 [degF] Com mon [facility] bmi 2022-08-20 13:40:00 28.64 kg/m2 Comm on [facility] oximetry 2022-08-20 13:40:00 99 % Commo n [facility] respiratory rate 2022-08-20 13:40:00 18 /min Common [facility] blood pressure systolic 2022-08-20 13:40:00 144 mm[Hg] [facility] blood pressure diastolic 2022-08-20 13:40:00 63 mm[Hg] [facility] height 2022-05-26 13:20:00 62 [in_i] Commo n [facility] weight 2022-05-26 13:20:00 150.4 [lb_av] Co mmon [facility] temperature 2022-05-26 13:20:00 98.1 [degF] Com mon [facility] bmi 2022-05-26 13:20:00 27.51 kg/m2 Comm on [facility] oximetry 2022-05-26 13:20:00 95 % Commo n [facility] respiratory rate 2022-05-26 13:20:00 16 /min [facility] blood pressure systolic 2022-05-26 13:20:00 138 mm[Hg] [facility] blood pressure diastolic 2022-05-26 13:20:00 70 mm[Hg] [facility] height 2022-02-18 14:00:00 62 [in_i] Commo n [facility] weight 2022-02-18 14:00:00 149.5 [lb_av] Co mmon [facility] temperature 2022-02-18 14:00:00 96.0 [degF] Com [facility] bmi 2022-02-18 14:00:00 27.34 kg/m2 Comm on [facility] oximetry 2022-02-18 14:00:00 94 % Commo n [facility] respiratory rate 2022-02-18 14:00:00 16 /min [facility] blood pressure systolic 2022-02-18 14:00:00 125 mm[Hg] [facility] blood pressure diastolic 2022-02-18 14:00:00 62 mm[Hg] [facility] height 2021-11-19 13:30:00 62 [in_i] [facility] n [facility] weight 2021-11-19 13:30:00 152 [lb_av] Comm on [facility] temperature 2021-11-19 13:30:00 98.1 [degF] Com [facility] bmi 2021-11-19 13:30:00 27.8 kg/m2 [facility] oximetry 2021-11-19 13:30:00 95 % [facility] respiratory rate 2021-11-19 13:30:00 16 /min Common [facility] blood pressure systolic 2021-11-19 13:30:00 135 mm[Hg] Common [facility] blood pressure diastolic 2021-11-19 13:30:00 72 mm[Hg] [facility] height 2021-08-05 13:00:00 64 [in_i] Commo n [facility] weight 2021-08-05 13:00:00 148.0 [lb_av] Co on [facility] temperature 2021-08-05 13:00:00 97.6 [degF] Com [facility] bmi 2021-08-05 13:00:00 25.4 kg/m2 [facility] oximetry 2021-08-05 13:00:00 96 % [facility]mo [facility] respiratory rate 2021-08-05 13:00:00 17 /min Common [facility] blood pressure systolic 2021-08-05 13:00:00 134 mm[Hg] Common [facility] blood pressure diastolic 2021-08-05 13:00:00 76 mm[Hg] [facility] height 2021-08-05 13:00:00 64 [in_i] [facility]mo n [facility] weight 2021-08-05 13:00:00 148.0 [lb_av] Co mmon [facility] temperature 2021-08-05 13:00:00 97.6 [degF] Com [facility] bmi 2021-08-05 13:00:00 25.4 kg/m2 Com[facility] n [facility] oximetry 2021-08-05 13:00:00 96 % [facility] respiratory rate 2021-08-05 13:00:00 17 /min Common [facility] blood pressure systolic 2021-08-05 13:00:00 134 mm[Hg] [facility] blood pressure diastolic 2021-08-05 13:00:00 76 mm[Hg] Common [facility] height 2021-05-05 13:00:00 64 [in_i] Commo n [facility] weight 2021-05-05 13:00:00 150 [lb_av] Comm on [facility] bmi 2021-05-05 13:00:00 25.74 kg/m2 Comm on [facility] blood pressure systolic 2021-05-05 13:00:00 130 mm[Hg] Common [facility] blood pressure diastolic 2021-05-05 13:00:00 62 mm[Hg] Common [facility] height 2021-04-28 13:20:00 64 [in_i] [facility]mo n [facility] weight 2021-04-28 13:20:00 150.7 [lb_av] Co mmon [facility] temperature 2021-04-28 13:20:00 98.2 [degF] Com mon [facility] bmi 2021-04-28 13:20:00 25.86 kg/m2 Comm on [facility] oximetry 2021-04-28 13:20:00 96 % Commo n [facility] respiratory rate 2021-04-28 13:20:00 16 /min [facility] blood pressure systolic 2021-04-28 13:20:00 138 mm[Hg] Common [facility] blood pressure diastolic 2021-04-28 13:20:00 76 mm[Hg] [facility] height 2021-01-28 13:00:00 64 [in_i] [facility]mo n [facility] weight 2021-01-28 13:00:00 152.3 [lb_av] Co mmon [facility] temperature 2021-01-28 13:00:00 98.4 [degF] Com mon [facility] bmi 2021-01-28 13:00:00 26.14 kg/m2 Comm on [facility] oximetry 2021-01-28 13:00:00 90 % Commo n [facility] respiratory rate 2021-01-28 13:00:00 17 /min [facility] blood pressure systolic 2021-01-28 13:00:00 132 mm[Hg] Common [facility] blood pressure diastolic 2021-01-28 13:00:00 65 mm[Hg] [facility] height 2021-01-14 15:20:00 64 [in_i] Commo n [facility] weight 2021-01-14 15:20:00 153.2 [lb_av] Co mmon [facility] temperature 2021-01-14 15:20:00 98.1 [degF] Com mon [facility] bmi 2021-01-14 15:20:00 26.29 kg/m2 Comm on [facility] oximetry 2021-01-14 15:20:00 95 % Commo n [facility] respiratory rate 2021-01-14 15:20:00 16 /min [facility] blood pressure systolic 2021-01-14 15:20:00 135 mm[Hg] [facility] blood pressure diastolic 2021-01-14 15:20:00 67 mm[Hg] [facility] Procedures Procedure Date / Time Performed Performing Clinicia n Source COMP. METABOLIC PANEL (57346) 2023-04-01 17:09:00 Maya Rojas [facility] CBC WITH DIFF 2023-04-01 17:09:00 Maya Rojas [facility] N-TERMINAL PRO-BNP 2023-04-01 17:09:00 Xochitl Rojas [facility] CONSENT/REFUSAL FOR DIAGNOSIS AND TREATMENT 2023-04-01 15:45:16 Doctor Unassigned, [place] [facility] Encounters Start Date/Time End Date/Time Encounter Type Admission Type Attending [facility] Care Department Encounter ID Source 2023-09-21 14:45:00 Outpatient Monisha Lara [facility] [id number] [facility] 2023-09-20 16:30:00 Inpatient Frank [id number] [facility]23-[facility]13 14:56:00 [facility] [id number] [facility] 2023-05-18 10:58:00 [facility] [id number] [facility] 2023-05-12 10:48:00 [facility] [id number] [facility] 2023-05-07 13:34:00 [facility] [id number] [facility] 2023-05-06 14:53:00 Outpatient PerrinRitesh manriquezh [facility] [id number] [facility] 2023-03-30 10:03:00 Outpatient PerrinRitesh manriquezh [facility] [id number] [facility] 2022-02-17 13:41:00 Outpatient Perrin, Wes [facility] [id number] [facility] 2022-02-16 09:38:00 Outpatient Perrin, Wes [facility] [id number] [facility] 2021-11-19 13:35:01 Outpatient Perrin, Wes [facility] [id number] [facility] 2021-07-29 15:19:00 Outpatient Perrin, Wes [facility] [id number] [facility] 2021-06-27 08:07:00 Outpatient Perrin, Wes [facility] [id number] [facility] 2021-05-05 16:43:00 Outpatient Perrin, Wes [facility] [id number] [facility] 2021-03-26 14:30:09 Outpatient Perrin, Wes [facility] [id number] [facility] 2021-03-26 14:29:28 Outpatient Perrin, Wes [facility] [id number] [facility] 2021-03-26 14:18:35 Outpatient Perrin, Wes [facility] [id number] [facility] 2021-03-26 14:11:04 Outpatient Perrin, Wes [facility] [id number] [facility] 2021-03-26 13:57:06 Outpatient Perrin, Wes [facility] [id number] [facility] 2021-03-26 13:46:30 Outpatient Perrin, Wes [facility] [id number] [facility] 2021-03-26 12:59:11 Outpatient Perrin, Wes [facility] [id number] [facility] 2021-03-26 12:58:35 Outpatient Perrin, Wes [facility] [id number] [facility] 2021-03-26 12:53:31 Outpatient Perrin, Wes [facility] [id number] [facility] 2021-03-26 12:52:16 Outpatient Perrin, Wes [facility] [id number] [facility] 2021-03-26 12:30:06 Outpatient Perrin, Wes [facility] [id number] [facility] 2021-03-26 12:27:36 Outpatient Perrin, Wes [facility] [id number] [facility] 2021-03-26 12:21:49 Outpatient Perrin, Wes [facility] [id number] [facility] 2021-03-26 12:19:50 Outpatient Perrin, Wes [facility] [id number] [facility] 2021-03-26 12:16:54 Outpatient Perrin, Wes [facility] [id number] [facility] 2021-03-26 11:19:59 Outpatient Perrin, Wes [facility] [id number] [facility] 2021-03-26 11:19:46 Outpatient Perrin, Wes [facility] [id number] [facility] 2021-03-26 11:04:39 Outpatient Perrin, Wes [facility] [id number] [facility] 2021-03-26 11:04:18 Outpatient Perrin, Wes [facility] [id number] [facility] 2021-03-26 10:58:12 Outpatient Perrin, Wes [facility] [id number] [facility] 2023-10-19 00:00:00 2023-10-19 00:00:00 (TEL) [facility] [id number] [facility] 2023-10-18 00:00:00 2023-10-18 00:00:00 NON-BILLAB LE VISIT [facility]C STL[facility]C [id number] [facility] 2023-10-13 00:00:00 2023-10-13 00:00:00 (TEL) [facility]C [facility] [id number] [facility] 2023-10-10 00:00:00 2023-10-10 00:00:00 (TEL) [facility] [id number] [facility] 2023-10-08 00:00:00 2023-10-08 00:00:00 (TEL) [facility] [id number] [facility] 2023-09-28 00:00:00 2023-09-28 00:00:00 (TEL) [facility] [id number] [facility] 2023-09-27 00:00:00 2023-09-27 00:00:00 NON-BILLAB LE VISIT [facility]C ST[facility]C [id number] [facility] 2023-09-21 00:00:00 2023-09-21 00:00:00 (TEL) [facility]C [facility] [id number] [facility] 2023-08-11 00:00:00 2023-08-11 00:00:00 (TEL) [facility]C [facility] [id number] [facility] 2023-08-10 00:00:00 2023-08-10 00:00:00 OFFICE VISIT ESTAB PT LEVEL 4 [facility] [id number] [facility] 2023-08-10 00:00:00 2023-08-10 00:00:00 (TEL) [facility]C [facility] [id number] [facility] 2023-07-27 00:00:00 2023-07-27 00:00:00 (TEL) [facility]C [facility] [id number] [facility] 2023-06-18 00:00:00 2023-06-18 00:00:00 OFFICE VISIT ESTAB PT LEVEL 4 [facility] [id number] [facility] 2023-06-16 00:00:00 2023-06-16 00:00:00 (TEL) [facility]C [facility]C [id number] [facility] 2023-06-16 00:00:00 2023-06-16 00:00:00 (TEL) [facility]C [facility] [id number] [facility] 2023-05-26 00:00:00 2023-05-26 00:00:00 (TEL) [facility]C [facility] [id number] [facility] 2023-05-18 00:00:00 2023-05-18 00:00:00 OFFICE VISIT NEW PT LEVEL 4 [facility] [id number] [facility] 2023-05-18 00:00:00 2023-05-18 00:00:00 (TEL) [facility]C [facility] [id number] [facility] 2023-05-12 00:00:00 2023-05-12 00:00:00 (TEL) [facility]C [facility]C [id number] [facility] 2023-05-03 00:00:00 2023-05-03 00:00:00 (TEL) STLMLC [facility]C [id number] [facility] 2023-04-30 00:00:00 2023-04-30 00:00:00 (TEL) STLMLC ST[facility]C [id number] [facility] 2023-04-19 00:00:00 2023-04-19 00:00:00 (TEL) STL[facility]C [facility]C [id number] [facility] 2023-04-15 00:00:00 2023-04-15 00:00:00 (TEL) STLMLC ST[facility]C [id number] [facility] 2023-04-13 00:00:00 2023-04-13 00:00:00 OFFICE VISIT ESTAB PT LEVEL 4 [facility] [id number] [facility] 2023-04-12 00:00:00 2023-04-12 00:00:00 (TEL) STLMLC STL[facility]C [id number] [facility] 2023-04-08 00:00:00 2023-04-08 00:00:00 (TEL) STLMLC ST[facility]C [id number] [facility] 2023-04-07 00:00:00 2023-04-07 00:00:00 (TEL) STL[facility]C ST[facility]C [id number] [facility] 2023-04-06 00:00:00 2023-04-06 00:00:00 (TEL) STLMLC STL[facility]C [id number] [facility] 2023-04-01 09:54:00 2023-04-01 12:38:00 Emergency X MAYA ROJAS [facility] ERT [id number] [facility] 2023-04-01 09:54:00 2023-04-01 12:38:00 Emergency Maya Rojas [facility] [id number] [facility] 2023-03-31 00:00:00 2023-03-31 00:00:00 OFFICE VISIT ESTAB PT LEVEL 4 [facility] [id number] [facility] 2023-03-29 00:00:00 2023-03-29 00:00:00 (TEL) STLMLC STL[facility]C [id number] [facility] 2023-03-23 00:00:00 2023-03-23 00:00:00 (TEL) STLMLC STL[facility]C [id number] [facility] 2023-03-04 00:00:00 2023-03-04 00:00:00 (TEL) STLMLC STL[facility]C [id number] [facility] 2023-03-03 00:00:00 2023-03-03 00:00:00 (TEL) STLMLC STL[facility]C [id number] [facility] 2023-02-17 00:00:00 2023-02-17 00:00:00 OFFICE VISIT ESTAB PT LEVEL 4 [facility] [id number] [facility] 2022-12-28 00:00:00 2022-12-28 00:00:00 (TEL) STLMLC STL[facility]C [id number] [facility] 2022-12-28 00:00:00 2022-12-28 00:00:00 (TEL) STLMLC STL[facility]C [id number] [facility] 2022-11-19 00:00:00 2022-11-19 00:00:00 OFFICE VISIT ESTAB PT LEVEL 4 [facility] [id number] [facility] 2022-09-25 00:00:00 2022-09-25 00:00:00 (TEL) STLMLC STLMLC [id number] [facility] 2022-09-14 00:00:00 2022-09-14 00:00:00 (TEL) STLMLC STL[facility]C [id number] [facility] 2022-09-07 00:00:00 2022-09-07 00:00:00 (TEL) STLMLC STL[facility]C [id number] [facility] 2022-08-20 00:00:00 2022-08-20 00:00:00 OFFICE VISIT ESTAB PT LEVEL 4 [facility] ST[facility]C [id number] [facility] 2022-08-20 00:00:00 2022-08-20 00:00:00 SUB [facility]AL [facility] [id number] [facility] 2022-08-10 00:00:00 2022-08-10 00:00:00 (TEL) STLMLC STLMLC [id number] [facility] 2022-06-09 15:15:48 2022-06-09 23:59:00 Outpatient Black MOODY GUERRERO [facility] [id number] [facility] 2022-06-09 15:15:48 2022-06-09 23:59:00 Hospital Encounter Moody Guerrero [facility] [id number] [facility] 2022-05-26 00:00:00 2022-05-26 00:00:00 OFFICE VISIT ESTAB PT LEVEL 4 STLMLC STL[facility]C [id number] [facility] 2022-03-23 00:00:00 2022-03-23 00:00:00 (TEL) STLMLC STLMLC [id number] [facility] 2022-02-18 00:00:00 2022-02-18 00:00:00 OFFICE VISIT ESTAB PT LEVEL 4 [facility]C STL[facility]C [id number] [facility] 2022-01-14 00:00:00 2022-01-14 00:00:00 (TEL) STLMLC STLMLC [id number] [facility] 2022-01-05 00:00:00 2022-01-05 00:00:00 (TEL) STLMLC STLMLC [id number] [facility] 2021-11-27 00:00:00 2021-11-27 00:00:00 (TEL) STLMLC STLMLC [id number] [facility] 2021-11-19 00:00:00 2021-11-19 00:00:00 OFFICE VISIT ESTAB PT LEVEL 4 [facility] [id number] [facility] 2021-11-19 00:00:00 2021-11-19 00:00:00 (TEL) STLMLC STL[facility]C [id number] [facility] 2021-11-04 00:00:00 2021-11-04 00:00:00 (TEL) STLMLC STLMLC [id number] [facility] 2021-10-23 00:00:00 2021-10-23 00:00:00 (TEL) STLMLC STLMLC [id number] [facility] 2021-10-06 00:00:00 2021-10-06 00:00:00 (TEL) STLMLC STLMLC [id number] [facility] 2021-10-03 00:00:00 2021-10-03 00:00:00 (TEL) STLMLC STLMLC [id number] [facility] 2021-09-25 00:00:00 2021-09-25 00:00:00 (TEL) STLMLC STLMLC [id number] [facility] 2021-09-17 00:00:00 2021-09-17 00:00:00 (TEL) STLMLC STLMLC [id number] [facility] 2021-08-26 00:00:00 2021-08-26 00:00:00 (TEL) STLMLC STLMLC [id number] [facility] 2021-08-19 00:00:00 2021-08-19 00:00:00 (TEL) STLMLC STLMLC [id number] [facility] 2021-08-07 00:00:00 2021-08-07 00:00:00 (TEL) STLMLC STLMLC [id number] [facility] 2021-08-05 00:00:00 2021-08-05 00:00:00 OFFICE VISIT ESTAB PT LEVEL 4 [facility]C [facility] [id number] [facility] 2021-08-05 00:00:00 2021-08-05 00:00:00 (TEL) STLMLC STL[facility]C [id number] [facility] 2021-08-05 00:00:00 2021-08-05 00:00:00 SUB ANNUAL [facility] [id number] [facility] 2021-08-01 00:00:00 2021-08-01 00:00:00 (TEL) STLMLC STLMLC [id number] [facility] 2021-07-29 00:00:00 2021-07-29 00:00:00 (TEL) STLMLC STLMLC [id number] [facility] 2021-07-09 00:00:00 2021-07-09 00:00:00 (TEL) STLMLC STLMLC [id number] [facility] 2021-06-19 00:00:00 2021-06-19 00:00:00 (TEL) STLMLC STLMLC [id number] [facility] 2021-05-13 00:00:00 2021-05-13 00:00:00 (TEL) STLMLC STLMLC [id number] [facility] 2021-05-12 00:00:00 2021-05-12 00:00:00 (TEL) STLMLC STLMLC [id number] [facility] 2021-05-07 00:00:00 2021-05-07 00:00:00 (TEL) STLMLC STLMLC [id number] [facility] 2021-05-06 00:00:00 2021-05-06 00:00:00 (TEL) STLMLC STLMLC [id number] [facility] 2021-05-05 00:00:00 2021-05-05 00:00:00 OFFICE VISIT NEW PT LEVEL 3 [facility]C ST[facility]C [id number] [facility] 2021-04-28 00:00:00 2021-04-28 00:00:00 OFFICE VISIT ESTAB PT LEVEL 4 [facility]C ST[facility]C [id number] [facility] 2021-04-09 00:00:00 2021-04-09 00:00:00 (TEL) STLMLC STLMLC [id number] [facility] 2021-04-08 00:00:00 2021-04-08 00:00:00 (TEL) STLMLC STLMLC [id number] [facility] 2021-03-19 00:00:00 2021-03-19 00:00:00 (TEL) STLMLC STLMLC [id number] [facility] 2021-03-19 00:00:00 2021-03-19 00:00:00 (TEL) STLMLC STLMLC [id number] [facility] 2021-03-03 00:00:00 2021-03-03 00:00:00 (TEL) STLMLC STLMLC [id number] [facility] 2021-03-03 00:00:00 2021-03-03 00:00:00 (TEL) STLMLC STLMLC [id number] [facility] 2021-02-17 00:00:00 2021-02-17 00:00:00 (TEL) STLMLC STLMLC [id number] [facility] 2021-01-28 00:00:00 2021-01-28 00:00:00 OFFICE VISIT ESTAB PT LEVEL 4 [facility]C ST[facility]C [id number] [facility] 2021-01-14 00:00:00 2021-01-14 00:00:00 OFFICE VISIT ESTAB PT LEVEL 4 [facility]C ST[facility]C [id number] [facility] 2021-01-07 00:00:00 2021-01-07 00:00:00 (TEL) STLMLC STLMLC [id number] [facility] 2020-10-30 00:00:00 2020-10-30 00:00:00 Outpatient [facility]C [facility] [id number] [facility] 2020-10-29 00:00:00 2020-10-29 00:00:00 Outpatient [facility]C [facility] [id number] [facility] 2020-09-24 00:00:00 2020-09-24 00:00:00 Outpatient [facility]C ST[facility] [id number] [facility] 2020-09-16 00:00:00 2020-09-16 00:00:00 Outpatient [facility]C ST[facility] [id number] [facility] 2020-09-12 00:00:00 2020-09-12 00:00:00 Outpatient [facility]C [facility] [id number] [facility] 2020-07-02 00:00:00 2020-07-02 00:00:00 Outpatient [facility]C [facility] [id number] [facility] 2020-07-02 00:00:00 2020-07-02 00:00:00 Outpatient [facility]C [facility] [id number] [facility] 2020-06-12 00:00:00 2020-06-12 00:00:00 Outpatient [facility]C [facility] [id number] [facility] 2020-04-25 00:00:00 2020-04-25 00:00:00 Outpatient [facility] [id number] [facility] 2020-04-10 00:00:00 2020-04-10 00:00:00 Outpatient [facility]C [facility] [id number] [facility] 2020-04-09 00:00:00 2020-04-09 00:00:00 Outpatient [facility]C [facility] [id number] [facility] 2020-04-02 00:00:00 2020-04-02 00:00:00 Outpatient [facility]C ST[facility] [id number] [facility] 2020-03-19 00:00:00 2020-03-19 00:00:00 Outpatient [facility]C ST[facility]C [id number] [facility] 2020-03-19 00:00:00 2020-03-19 00:00:00 Outpatient [facility]C [facility] [id number] [facility] 2020-01-18 00:00:00 2020-01-18 00:00:00 Outpatient [facility]C ST[facility] [id number] [facility] 2020-01-17 00:00:00 2020-01-17 00:00:00 Outpatient [facility]C ST[facility]C [id number] [facility] 2020-01-11 00:00:00 2020-01-11 00:00:00 Outpatient [facility]C ST[facility] [id number] [facility] 2020-01-02 00:00:00 2020-01-02 00:00:00 Outpatient [facility]C ST[facility] [id number] [facility] 2019-11-30 00:00:00 2019-11-30 00:00:00 Outpatient [facility]C [facility] [id number] [facility] 2019-11-02 13:30:00 2019-11-02 13:30:00 [facility] [id number] [facility] 2019-10-02 13:00:00 2019-10-02 13:00:00 [facility] [id number] [facility] 2019-08-30 11:00:00 2019-08-30 11:00:00 [facility] [id number] [facility] 2019-08-03 13:15:00 2019-08-03 13:15:00 [facility] [id number] [facility] 2019-06-30 11:30:00 2019-06-30 11:30:00 [facility] [id number] [facility] 2019-06-16 14:06:00 2019-06-16 14:06:00 [facility] [id number] [facility] 2019-06-16 13:49:00 2019-06-16 13:49:00 [facility] [id number] [facility] 2019-06-01 08:45:00 2019-06-01 08:45:00 [facility] [id number] [facility] 2019-05-05 10:00:00 2019-05-05 10:00:00 [facility] [id number] [facility] 2019-04-04 11:15:00 2019-04-04 11:15:00 [facility] [id number] [facility] 2019-03-06 10:30:00 2019-03-06 10:30:00 [facility] [id number] [facility] 2019-02-27 13:00:00 2019-02-27 13:00:00 [facility] [id number] [facility] 2019-02-01 11:00:00 2019-02-01 11:00:00 [facility] [id number] [facility] 2019-01-02 13:00:00 2019-01-02 13:00:00 [facility] [id number] [facility] 2018-12-01 14:15:00 2018-12-01 14:15:00 [facility] [id number] [facility] 2018-11-17 13:15:00 2018-11-17 13:15:00 [facility] [id number] [facility] 2018-11-08 09:01:00 2018-11-08 09:01:00 [facility] [id number] [facility] 2018-11-07 11:53:00 2018-11-07 11:53:00 [facility] [id number] [facility] 2018-11-03 14:30:00 2018-11-03 14:30:00 [facility] [id number] [facility] 2018-11-01 11:36:00 2018-11-01 11:36:00 [facility] [id number] [facility] 2018-10-24 13:30:00 2018-10-24 13:30:00 [facility] [id number] [facility] 2018-10-10 14:36:00 2018-10-10 14:36:00 [facility] [id number] [facility] 2018-10-04 13:15:00 2018-10-04 13:15:00 [facility] [id number] [facility] 2018-08-30 11:45:00 2018-08-30 11:45:00 [facility] [id number] [facility] 2018-07-07 13:00:00 2018-07-07 13:00:00 [facility] [id number] [facility] 2018-06-29 14:00:00 2018-06-29 14:00:00 [facility] [id number] [facility] 2018-05-31 13:30:00 2018-05-31 13:30:00 [facility] [id number] [facility] 2018-05-02 13:15:00 2018-05-02 13:15:00 [facility] [id number] [facility] 2018-04-25 14:00:00 2018-04-25 14:00:00 [facility] [id number] [facility] 2018-04-04 11:15:00 2018-04-04 11:15:00 [facility] [id number] [facility] 2018-03-07 11:15:00 2018-03-07 11:15:00 [facility] [id number] [facility] 2017-12-02 11:15:00 2017-12-02 11:15:00 [facility] [id number] [facility] 2017-11-08 10:48:00 2017-11-08 10:48:00 [facility] [id number] [facility] 2017-11-08 10:48:00 2017-11-08 10:48:00 [facility] [id number] [facility] 2017-10-08 08:00:00 2017-10-08 08:00:00 [facility] [id number] [facility] 2017-09-09 10:15:00 2017-09-09 10:15:00 [facility] [id number] [facility] 2017-08-16 11:50:00 2017-08-16 11:50:00 [facility] [id number] [facility] 2017-08-13 11:53:00 2017-08-13 11:53:00 [facility] [id number] [facility] 2017-08-13 11:00:00 2017-08-13 11:00:00 [facility] [id number] [facility] 2017-07-16 11:15:00 2017-07-16 11:15:00 [facility] [id number] [facility] 2017-07-12 11:39:00 2017-07-12 11:39:00 [facility] [id number] [facility] 2017-06-29 09:55:00 2017-06-29 09:55:00 [facility] [id number] [facility] 2017-06-23 16:26:00 2017-06-23 16:26:00 Outpatient [facility] [id number] [facility] 2017-06-23 14:30:00 2017-06-23 14:30:00 Outpatient [facility] [id number] [facility] 2017-06-18 16:03:00 2017-06-18 16:03:00 Outpatient [facility] [id number] [facility] 2017-06-16 10:45:00 2017-06-16 10:45:00 Outpatient [facility] [id number] [facility] Results Test Description Test Time Test Comments Results Result Co mments Source [facility] (97779)2023-04-01 17:50:01* Test Item Value Reference Range Interpretation Comme nts NA (test code = 0917532719) 137 mmol/L 135-145 K (test code = 9739568751) 4.4 mmol/L 3.5-5.0 CL (test code = 6167566434) 106 mmol/L 98-108 CO2 TOTAL (test code = 6726708024) 27 mmol/L 23-31 AGAP (test code = 4382268710) 4 2-16 BUN (test code = 7557844083) 28 mg/dL 7-23 H GLUCOSE (test code = 9482547635) 83 mg/dL 70-110 CREATININE (test code = 8754124889) 1.32 mg/dL 0.50-1.04 H TOTAL BILI (test code = 7851274614) 0.5 mg/dL 0.1-1.1 CALCIUM (test code = 0615319923) 9.1 mg/dL 8.6-10.6 T PROTEIN (test code = 2937350801) 7.2 g/dL 6.3-8.2 ALBUMIN (test code = 2027116872) 4.0 g/dL 3.5-5.0 ALK PHOS (test code = 1254767377) 74 U/L 34-122 ALTv (test code = 1742-6) 15 U/L 5-35 AST(SGOT) (test code = 5477254102) 41 U/L 13-40 H eGFR (test code = 57161-9) 40.4 mL/min/1.73m2 CKD-EPI eGFR (2020). Assuming creatinine has been stable day-to-day for at least three months, the eGFR indicates Category G3b (30 - 44 mL/min/1.73 m2) Lab Interpretation (test code = 64847-2) Abnormal [facility] WITH [id number] 17:29:01* Test Item Value Reference Range Interpretation Comme nts WBC (test code = 6690-2) 6.79 4.30-11.10 RBC (test code = 789-8) 4.50 3.93-5.25 HGB (test code = 718-7) 13.7 g/dL 11.6-15.0 HCT (test code = 4544-3) 41.4 % 35.7-45.2 MCV (test code = 787-2) 92.0 fL 80.6-95.5 MCH (test code = 785-6) 30.4 pg 25.9-32.8 MCHC (test code = 786-4) 33.1 g/dL 31.6-35.1 RDW-SD (test code = 23525-5) 44.1 fL 39.0-49.9 RDW-CV (test code = 788-0) 13.1 % 12.0-15.5 PLT (test code = 777-3) 259 166-358 MPV (test code = 34434-0) 10.4 fL 9.5-12.9 NRBC/100 WBC (test code = 6086026509) 0.0 0.0-10.0 NRBC x10^3 (test code = 3391261848) See_Comment [Automated [employer] ge] The system which generated this result transmitted reference range: 10*3/?L. The reference range was not used to interpret this result as normal/abnormal. GRAN MAT (NEUT) % (test code = 770-8) 58.6 % IMM GRAN % (test code = 0294480629) 0.30 % LYMPH % (test code = 736-9) 22.7 % MONO % (test code = 5905-5) 13.8 % EOS % (test code = 713-8) 3.7 % BASO % (test code = 706-2) 0.9 % GRAN MAT x10^3(ANC) (test code = 4414889889) 3.98 10*3/uL 1.88-7.09 IMM GRAN x10^3 (test code = 5503108331) 0.00-0.06 LYMPH x10^3 (test code = 731-0) 1.54 10*3/uL 1.32-3.29 MONO x10^3 (test code = 742-7) 0.94 10*3/uL 0.33-0.92 H EOS x10^3 (test code = 711-2) 0.25 10*3/uL 0.03-0.39 BASO x10^3 (test code = 704-7) 0.06 10*3/uL 0.01-0.07 Lab Interpretation (test code = 08970-1) Abnormal [facility], BONE DENSITY AXIAL SKELEDEXA, BONE DENSITY AXIAL SKELE Notes Date/Time Note Provider Source 2023-04-01 12:34:00 Pt given printed and verbal discharge instructions regarding leg swelling, cellulitis of left lower extremity, encouraged hydration. Prescriptions provided. Discussed antibiotic therapy and to take until all completed unless adverse reaction occurs - if occurs, discontinue medication and follow up with pcp/seek medical attention. Pt verbalized understanding of instructions, pt awake alert oriented, resp reg unlabored, skin w/d, color appropriate for race, moves all ext well,pt encouraged to follow up with pcp. Advised to seek medical attention for new/prolonged/worsening of symptoms. No adverse reaction to meds given in ER noted upon discharge. PIV d'cd, dressing to site, catheter in tact. Awake, alert oriented, resp reg unlabored, skin w/d, pt leaving assisted by wheelchair, in no apparent distress, accompanied by significant other. ACE Lee RN [facility] 2023-04-01 09:50:46 Left leg swelling for weeks. Went to other ER last week for it-sent home with keflex. Here today because leg is still reddened. ACE Yates RN [facility] 2023-04-01 09:44:00 [facility] Emergency Department Note Patient Name: Linda Hackett Date of : 1940 82 year old female Treatment Room: MI1/MI1 Primary Care Physician: Wes Perrin Patient Escorted by: Friend [6] Mode of Arrival: Personal means [1] EMS Treatment Prior to ED Arrival: Travel and Exposure Screening: Symptoms Does patient have any of these symptoms?: (not recorded) Exposure Screening Has patient had contact with someone with a communicable disease in the last month?: (not recorded) Diseases exposed to:: (not recorded) Is Patient ?: (not recorded) Exposure Date: (not recorded) Chief Complaint: Chief Complaint Patient presents with LEG SWELLING History of Present Illness: The patient presents from home for evaluation for redness and swelling of her left leg that is slowly getting worse. She reports symptoms have been ongoing for over a week. She was recently admitted to [facility] and treated with IV antibiotics for cellulitis. As her symptoms were improving she was discharged home on oral Keflex. She reports since taking the Keflex she feels her swelling and redness has been getting worse. She last took a dose of her antibiotic yesterday. No history of diabetes. No fevers. Here for evaluation. Past Medical History/Immunizations: History reviewed. No pertinent past medical history. Tetanus received in last 5 years: Unknown Allergies: Allergies Allergen Reactions Bactrim [Sulfamethoxazole-Trimethopri m] Unknown - See comments Nsaids (Non-Steroidal Anti-Inflammatory Drug) Unknown - See comments Penicillin Unknown - See comments Past Social History: Substance & Sexual Activity No substance use or sexual activity history on file. Past Surgical History: History reviewed. No pertinent surgical history. Review of Systems: Review of Systems Constitutional: Negative for chills and fever. Respiratory: Negative for cough and shortness of breath. Cardiovascular: Negative for chest pain. Gastrointestinal: Negative for abdominal pain and vomiting. Genitourinary: Negative for dysuria. Musculoskeletal: Negative for arthralgias, neck pain and neck stiffness. Skin: Positive for wound. Neurological: Negative for dizziness. Psychiatric/Behavioral: Negative for agitation. Endocrine: Negative for goiter. Physical Exam: ED Triage Vitals [04/01/23 0952] Weight 73.5 kg (162 lb) Actual or estimated Estimated by patient/family report Height 1.626 m (5' 4") BP 126/61 Pulse 60 Resp 16 Temp 36.5 ?C (97.7 ?F) Temp source Oral SpO2 97 % Measured on Room air Physical Exam Vitals and nursing note reviewed. Constitutional: Appearance: Normal appearance. HENT: Head: Normocephalic and atraumatic. Cardiovascular: Rate and Rhythm: Normal rate. Pulses: Normal pulses. Pulmonary: Effort: Pulmonary effort is normal. Abdominal: General: There is no distension. Palpations: There is no mass. Musculoskeletal: General: Normal range of motion. Cervical back: Normal range of motion and neck supple. Skin: General: Skin is warm and dry. Findings: Erythema present. Comments: Mild swelling and erythema to her left leg between the knee and ankle. +2 dorsalis pedis left side. Neurological: General: No focal deficit present. Mental Status: She is alert and oriented to person, place, and time. Radiology: No orders to display Lab Results: Lab Results CBC WITH DIFF - Abnormal Result Value Ref Range WBC 6.79 4.30 - 11.10 10*3/?L RBC 4.50 3.93 - 5.25 10*6/?L HGB 13.7 11.6 - 15.0 g/dL HCT 41.4 35.7 - 45.2 % MCV 92.0 80.6 - 95.5 fL MCH 30.4 25.9 - 32.8 pg MCHC 33.1 31.6 - 35.1 g/dL RDW-SD 44.1 39.0 - 49.9 fL RDW-CV 13.1 12.0 - 15.5 % PLT 259 166 - 358 10*3/?L MPV 10.4 9.5 - 12.9 fL NRBC/100 WBC 0.0 0.0 - 10.0 /100 WBCs NRBC x10 3 <0.01 10*3/?L GRAN MAT (NEUT) % 58.6 % IMM GRAN % 0.30 % LYMPH % 22.7 % MONO % 13.8 % EOS % 3.7 % BASO % 0.9 % GRAN MAT x10 3 (ANC) 3.98 1.88 - 7.09 10*3/uL IMM GRAN x10 3 <0.03 0.00 - 0.06 10*3/uL LYMPH x10 3 1.54 1.32 - 3.29 10*3/uL MONO x10 3 0.94 (*) 0.33 - 0.92 10*3/uL EOS x10 3 0.25 0.03 - 0.39 10*3/uL BASO x10 3 0.06 0.01 - 0.07 10*3/uL COMP. METABOLIC PANEL (52477) - Abnormal NA 137 135 - 145 mmol/L K 4.4 3.5 - 5.0 mmol/L CL 106 98 - 108 mmol/L CO2 TOTAL 27 23 - 31 mmol/L AGAP 4 2 - 16 BUN 28 (*) 7 - 23 mg/dL GLUCOSE 83 70 - 110 mg/dL CREATININE 1.32 (*) 0.50 - 1.04 mg/dL TOTAL BILI 0.5 0.1 - 1.1 mg/dL CALCIUM 9.1 8.6 - 10.6 mg/dL T PROTEIN 7.2 6.3 - 8.2 g/dL ALBUMIN 4.0 3.5 - 5.0 g/dL ALK PHOS 74 34 - 122 U/L ALTv 15 5 - 35 U/L AST(SGOT) 41 (*) 13 - 40 U/L eGFR 40.4 mL/min/1.73m2 N-TERMINAL PRO-BNP - Abnormal NT-proBNP 198 <=125 pg/mL EKG: If EKG completed, see Procedure Note. Orders and Treatments: Orders Placed This Encounter Procedures CBC WITH DIFF COMP. METABOLIC PANEL (09276) N-TERMINAL PRO-BNP Orders Placed This Encounter Medications clindamycin (CLEOCIN) 300 mg in NaCl 0.9% (NS) IV piggyback clindamycin 300 mg capsule First Provider Eval: ED Events Date/Time Event User Comments 04/01/23946 Medical Screening Begins MAYA ROJAS DO -- 04/01/23 09 First Provider Evaluation MAYA ROJAS DO -- ED COURSE Diagnosis/Impression as of 02/01/24 1224 Leg swelling Cellulitis of left lower extremity Procedures: Procedures MDM: Medical Decision Making The patient presents from home for evaluation for left leg swelling and redness for over 1 week. She reports she was recently admitted to the hospital in [place] for left leg cellulitis. She was given IV antibiotics and then discharged home on oral Keflex. She has been using it as prescribed but feels like her swelling and redness is getting worse again. She last took a dose of her antibiotic yesterday. No fevers or chills. No history of diabetes. No injury or trauma. Vital signs are stable in ER. She has mild swelling with erythema to her left leg with compared to the right. +2 dorsalis pedis bilaterally. Full range of motion of her left ankle and knee. Suspect worsening of her cellulitis. Will give the patient a dose of IV clindamycin here in the ER. Will check laboratory studies. Will continue to monitor the patient here in the ER. Final disposition pending. 1215 -the patient is doing well here in the ER. Her laboratory studies are unremarkable. Will discharge the patient home in stable condition with oral clindamycin. Recommend PCP follow-up within 1 week to assess improvement. She remained stable here in the ER and is okay for discharge home with PCP follow-up. Problems Addressed: Cellulitis of left lower extremity: acute illness or injury Leg swelling: acute illness or injury Amount and/or Complexity of Data Reviewed Labs: ordered. Decision-making details documented in ED Course. Risk OTC drugs. Prescription drug management. Flowsheet Documentation: Scoring Tools: No data recorded Disposition/Condition: ED Disposition ED Disposition Disch - Home Condition Stable Comment -- Discharge Medications: Patient's Medications START taking these medications CLINDAMYCIN 300 MG CAPSULE Take 1 capsule by mouth 4 (four) times daily for 7 days. CONTINUE taking these medications which have NOT CHANGED No medications on file START taking Modified Medications as Prescribed No medications on file STOP taking these medications No medications on file Follow-up: Electronically signed by: Maya Rojas DO 04/01/23 1224 [facility]
--- NOTE | 2023-10-27 20:05 | ER ---
Nurse's Notes [facility] Name: Cecile Conley Age: 83 yrs Sex: Female : 1940 Arrival Date: 10/27/2023 Time: 18:54 Bed 3 Private MD: Diagnosis: Acute embolism and thrombosis of other specified deep vein of left lower extremity;Acute embolism and thrombosis of other specified deep vein of right lower extremity Presentation: 10/26 19:19 Chief complaint: EMS states: patient brought in from [facility] for al5 confirmed bilateral DVT in patient lower extremities via ultrasound at the center. Coronavirus screen: At this time, the client does not indicate any symptoms associated with coronavirus-19. Ebola Screen: No symptoms or risks identified at this time. Initial Sepsis Screen: Does the patient meet any 2 criteria? No. Patient's initial sepsis screen is negative. Does the patient have a suspected source of infection? No. Patient's initial sepsis screen is negative. Risk Assessment: Do you want to hurt yourself or someone else? Patient reports no desire to harm self or others. Onset of symptoms was October 27, 2023. 19:19 Method Of Arrival: EMS: [facility] al5 19:19 Acuity: DAVID 3 al5 Triage Assessment: 19:28 General: Appears in no apparent distress. Behavior is calm, cooperative. Pain: Denies al5 pain. EENT: No signs and/or symptoms were reported regarding the EENT system. Neuro: Level of Consciousness is awake, alert, obeys commands, Oriented to person, place, time, situation. Cardiovascular: Patient's skin is warm and dry. Pulses are 1+ in right dorsalis pedis artery and left dorsalis pedis artery Parent/caregiver reports patient has had dvt in bilateral lower extremities. Respiratory: Airway is patent Respiratory effort is even, unlabored, Respiratory pattern is regular, symmetrical. GI: No signs and/or symptoms were reported involving the gastrointestinal system. : No signs and/or symptoms were reported regarding the genitourinary system. Derm: Skin is intact, Skin is pink, warm \T\ dry. normal. Musculoskeletal: No signs and/or symptoms reported regarding the musculoskeletal system. 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 - Infectious Disease History:: Denies. - Social history:: Smoking status: Patient denies any tobacco usage or history of. Screenin:41 [facility] ED Fall Risk Assessment (Adult) History of falling in the last 3 months, al5 including since admission No falls in past 3 months (0 pts) Confusion or Disorientation No (0 pts) Intoxicated or Sedated No (0 pts) Impaired Gait Yes (1 pt) Mobility Assist Device Used Yes (1 pt) Altered Elimination Yes (1 pt) Score/Fall Risk Level 3 or more points = High Risk Oriented to surroundings, Maintained a safe environment, Hourly rounding (assess needs \T\ fall precautionary measures) done. 20:42 Abuse screen: Denies threats or abuse. Denies injuries from another. Nutritional al5 screening: No deficits noted. Tuberculosis screening: No symptoms or risk factors identified. Assessment: 19:20 Reassessment: Patient appears in no apparent distress at this time. No changes from al5 previously documented assessment. Patient and/or family updated on plan of care and expected duration. Pain level reassessed. Patient is alert, oriented x 3, equal unlabored respirations, skin warm/dry/pink. 20:40 Reassessment: patient being discharged back to [facility]. report called al5 to christopher. pt pending discharge upon ems transfer back to home. Vital Signs: 19:15 BP 117 / 55; Pulse 51; Resp 16; Pulse Ox 99% on R/A; al5 19:19 BP 125 / 70; Pulse 52; Resp 16; Temp 98.1; Pulse Ox 98% ; Height 5 ft. 5 in. ; Pain al5 0/10; 19:30 BP 100 / 48; Pulse 51; Resp 16; Pulse Ox 99% on R/A; al5 19:46 BP 133 / 57; Pulse 53; Resp 16; Pulse Ox 98% on R/A; al5 20:00 BP 132 / 40; Pulse 50; Resp 16; Pulse Ox 96% on R/A; al5 20:11 Weight 76.66 kg; al5 20:15 BP 125 / 92; Pulse 49; Resp 16; Pulse Ox 98% on R/A; al5 20:30 BP 106 / 44; Pulse 48; Resp 16; Pulse Ox 98% on R/A; al5 19:19 Pain Scale: Adult al5 ED Course: 19:15 Patient arrived in ED. iw 19:17 [facility] sb[facility] 19:17 Leander Cochran MD is Attending Physician. sb4 19:18 Kaylan Wolf RN is Primary Nurse. al5 19:22 Triage completed. al5 19:28 Arm band placed on right wrist. Patient placed in the treatment room, on a stretcher. al5 20:41 No provider procedures requiring assistance completed. Patient did not have IV access al5 during this emergency room visit. 20:42 Patient has correct armband on for positive identification. Bed in low position. Call al5 light in reach. Side rails up X2. Provided Education on: medication administration, discharge follow up. Administered Medications: 20:06 CANCELLED (Physician Discretion): enoxaparin1 mg/kg Sub-Q once sb4 20:21 Drug: Hydrocodone-Acetaminophen PO (7.5 mg-325 mg) 1 tabs PO once Route: PO; al5 21:04 Follow up: Response: No adverse reaction; Pain is decreased al5 20:21 Drug: Enoxaparin Sub-Q 1 mg/kg Sub-Q once Route: Sub-Q; Site: abdomen; al5 21:04 Follow up: Response: No adverse reaction al5 Medication: 20:42 VIS not applicable for this client. al5 Outcome: 20:05 Discharge ordered by . sb4 21:35 Discharged to home via ambulance, al5 21:35 Condition: good 21:35 Discharge instructions given to patient, EMS, Instructed on discharge instructions, follow up and referral plans. medication usage, Demonstrated understanding of instructions, follow-up care, medications, Prescriptions given X 1, 21:35 Patient left the ED. al5 Signatures: Taryn Hood RN RN iw Nila Christianson PA-C PA-C sb4 Kaylan Wolf, RN RN al5 Corrections: (The following items were deleted from the chart) 19:22 PMHx: TB; al5 al5
--- NOTE | 2023-10-27 20:05 | EDPHYS ---
Physician Documentation [facility] Name: Cecile Conley Age: 83 yrs Sex: Female : 1940 Arrival Date: 10/27/2023 Time: 18:54 Bed 3 Private MD: ED Physician Leander Cochran HPI: 10/26 20:30 This 83 yrs old Female presents to ER via EMS with complaints of bilat DVTs per sb4 ultrasound. 20:30 Patient reports bilateral leg pain x 2 weeks. She had a hip fracture and replacement sb4 done about 1 month ago, has been staying at [facility] for rehab since. She states that they have not been working with her very much. An ultrasound was obtained of both of her legs today and revealed bilateral DVTs so she was sent here for further management. She denies any chest pain or shortness of breath. She is not currently on any blood thinners. She states that aspirin and NSAIDs cause rectal bleeding. 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 - Infectious Disease History:: Denies. - Social history:: Smoking status: Patient denies any tobacco usage or history of. ROS: 20:30 Constitutional: Negative for fever, chills, and weight loss, sb4 20:30 MS/extremity: Positive for pain, of the right leg and left leg, 20:30 All other systems are negative, Exam: 20:30 Constitutional: This is a well developed, well nourished patient who is awake, alert, sb4 and in no acute distress. Head/Face: Normocephalic, atraumatic. Eyes: Extra-ocular motions intact. Periorbital areas with no swelling, redness, or edema. ENT: Mucous membranes moist. 20:30 Musculoskeletal/extremity: Circulation is intact in all extremities. Pulses: are normal with no appreciated deficits, Perfusion: the extremity is normally perfused throughout, Calf tenderness, Sensation intact. DVT Exam: pain, swelling, tenderness, increased warmth, that is moderate, of the right leg, of the left leg, Vital Signs: 19:15 BP 117 / 55; Pulse 51; Resp 16; Pulse Ox 99% on R/A; al5 19:19 BP 125 / 70; Pulse 52; Resp 16; Temp 98.1; Pulse Ox 98% ; Height 5 ft. 5 in. ; Pain al5 0/10; 19:30 BP 100 / 48; Pulse 51; Resp 16; Pulse Ox 99% on R/A; al5 19:46 BP 133 / 57; Pulse 53; Resp 16; Pulse Ox 98% on R/A; al5 20:00 BP 132 / 40; Pulse 50; Resp 16; Pulse Ox 96% on R/A; al5 20:11 Weight 76.66 kg; al5 20:15 BP 125 / 92; Pulse 49; Resp 16; Pulse Ox 98% on R/A; al5 20:30 BP 106 / 44; Pulse 48; Resp 16; Pulse Ox 98% on R/A; al5 19:19 Pain Scale: Adult al5 MDM: 19:18 Patient medically screened. sb4 20:34 Data reviewed: vital signs, nurses notes, EMS record, correction records, and as a sb4 result, I will discharge patient. External Records Reviewed: Outpatient radiology: Venous duplex scan of bilateral lower extremities shows "there is thrombus noted in the right popliteal vein and on the left in the common femoral, femoral and popliteal veins. The remaining deep venous system shows appropriate compression and color flow without further intraluminal thrombus." . Counseling: I had a detailed discussion with the patient and/or guardian regarding the historical points, exam findings, and any diagnostic results supporting the discharge/admit diagnosis, lab results, radiology results, to return to the emergency department if symptoms worsen or persist or if there are any questions or concerns that arise at home. ED course: Patient denies any current rectal bleeding, hematemesis, chest pain, or shortness of breath. I will start patient on Xarelto outpatient. I instructed her to alert correction staff or to call 911 if she starts to experience any rectal bleeding, hematemesis, or dark stool. Administered Medications: 20:06 CANCELLED (Physician Discretion): enoxaparin1 mg/kg Sub-Q once sb4 20:21 Drug: Hydrocodone-Acetaminophen PO (7.5 mg-325 mg) 1 tabs PO once Route: PO; al5 21:04 Follow up: Response: No adverse reaction; Pain is decreased al5 20:21 Drug: Enoxaparin Sub-Q 1 mg/kg Sub-Q once Route: Sub-Q; Site: abdomen; al5 21:04 Follow up: Response: No adverse reaction al5 Disposition: 10/27 16:22 Co-signature as Attending Physician, Leander Cochran MD I reviewed the patient's care rn provided by the Advanced Practice Provider and agree with the diagnosis and treatment plan. Disposition Summary: 10/27/23 20:05 Discharge Ordered Notes: Location: Home sb4 Problem: new sb4 Symptoms: have improved sb4 Condition: Stable sb4 Diagnosis - Acute embolism and thrombosis of other specified deep vein of left lower extremity sb4 - Acute embolism and thrombosis of other specified deep vein of right lower extremity sb4 Followup: sb4 - With: Private Physician - When: As needed - Reason: Recheck today's complaints, Re-evaluation by your physician Discharge Instructions: - Discharge Summary Sheet sb4 - Deep Vein Thrombosis sb4 Forms: - Patient Portal Instructions sb4 - Leadership Thank You Letter sb4 Prescriptions: - Xarelto 15 mg Oral tablet - take 1 tablet ORAL route 2 times per day; 42 tablet; Refills: 0, Product sb4 Selection Permitted Signatures: Leander Cochran MD MD rn Brown, Sophia, PA-C PA-C sb4 Kaylan Wolf RN RN al5 Corrections: (The following items were deleted from the chart) 10/26 19:28 19:22 PMHx: TB; al5 al5 20:06 20:03 Enoxaparin Sub-Q 1 mg/kg Sub-Q once ordered. sb4 sb4
[2023-10-27] MEDS ORDERED: HYDROCODONE/APAP 7.5/325 MG TAB ONE (20:14)
[2023-10-27] MEDS ORDERED: ENOXAPARIN 80 MG/0.8 ML SQ ONE (20:14)
[2023-10-27 21:41] VITALS: TEMP 98.1
[2023-10-27 21:46] VITALS: O2SAT 98
[2023-10-27 21:47] VITALS: BP 106/44
== END 2023-10-27 21:35 | disposition home or self-care (01) ==
LOC: ER 18:54
DX: I82.493 Acute embolism and thrombosis of other specified deep vein of lower extremity, bilateral (principal)